=== PATIENT | female | born 1965 | race Caucasian/White ===

== ENCOUNTER 2018-03-26 10:18 | Outpatient (RCR) | payer OTHER, SELFPAY ==
[2018-03-19 10:34] LABS: International Normalized Ratio 3.1; Prothrombin Time (Protime)PT. 31.8 SECONDS (11.7-14.9)
[2018-03-26 11:00] LABS: Prothrombin Time (Protime)PT. 41.2 SECONDS (11.7-14.9)
[2018-03-26 11:46] LABS: International Normalized Ratio 4.2
== END 2018-03-27 23:59 ==
LOC: LAB.FUTURE 10:18
PROVIDERS: Family Provider Family Medicine; PCP Family Medicine; Referring Provider Internal Medicine Cardiovascular Disease; Visit Provider Internal Medicine Cardiovascular Disease
DX: Z95.2 Presence of prosthetic heart valve (principal)
CPT/HCPCS: 36415; 85610

== ENCOUNTER 2018-04-23 10:21 | Outpatient (RCR) | payer OTHER, SELFPAY ==
[2018-04-09 12:09] LABS: International Normalized Ratio 4.3; Prothrombin Time (Protime)PT. 41.3 SECONDS (11.7-14.9)
[2018-04-16 12:57] LABS: International Normalized Ratio 1.8; Prothrombin Time (Protime)PT. 21.2 SECONDS (11.7-14.9)
[2018-04-23 12:25] LABS: International Normalized Ratio 3.1; Prothrombin Time (Protime)PT. 32.2 SECONDS (11.7-14.9)
== END 2018-04-26 23:59 ==
LOC: LAB.FUTURE 10:21
PROVIDERS: Family Provider Family Medicine; PCP Family Medicine; Referring Provider Internal Medicine Cardiovascular Disease; Visit Provider Internal Medicine Cardiovascular Disease
DX: Z95.2 Presence of prosthetic heart valve (principal)
CPT/HCPCS: 36415; 85610

== ENCOUNTER 2018-04-30 10:14 | Outpatient (RCR) | payer OTHER, SELFPAY ==
[2018-04-30 12:35] LABS: International Normalized Ratio 3.3; Prothrombin Time (Protime)PT. 33.5 SECONDS (11.7-14.9)
== END 2018-04-30 11:00 | disposition home or self-care (01) ==
LOC: MTLAB 10:14
PROVIDERS: Family Provider Family Medicine; PCP Family Medicine; Referring Provider Internal Medicine Cardiovascular Disease; Visit Provider Internal Medicine Cardiovascular Disease
DX: Z95.2 Presence of prosthetic heart valve (principal)
CPT/HCPCS: 36415; 85610

== ENCOUNTER → 2018-08-30 12:31 | Outpatient (CLI) | payer OTHER, SELFPAY ==
[2018-08-13 10:53] VITALS: BMI 22.1
--- NOTE | 2018-08-30 12:34 | STE_ITS ---
Reason For Study: CAD Stress Results Protocol: Dobutamine Stress Echo Maximum Predicted HR: 166 bpm Target HR: 141 bpm % Maximum Predicted HR: 86 % DurationHeart Rate Stage (mm:ss) (bpm) BP Comment Baseline 75 114/70No Chest Pain DSE 10 MCG 3:00 76 107/73No Chest Pain DSE 20 MCG 3:00 94 113/76No Chest Pain DSE 30 MCG 3:00 120 164/51No Chest Pain DSE 40 MCG 3:52 142 143/89Atropine 0.5 MG IVP; No Chest Pain Recovery 95 123/77No Chest Pain Stress Duration: 12:52 mm:ss Maximum Stress HR: 142 bpm METS: 1 Baseline Echocardiogram Findings The estimated ejection fraction is 55 %. Stress Echo Wall motion Data Resting WM Intermediate WM Stress WM Resting Wall Motion Wall Motion Stress No regional wall motion No regional wall motion abnormalities noted. abnormalities noted. EKG Data The baseline ECG displays normal sinus rhythm. The patient was titrated from 10 mcg to a maximum of 40 mcg of dobutamine during the stress. The maximum heart rate attained was 144 beats per minute. This was 86% of maximum predicted heart rate. At peak infusion, upsloping ST changes only were noted, which did not meet the criteria for ischemia. No clinical angina was noted. No arrhythmias noted. Doppler Measurements & Calculations Ao V2 max: 309.2 cm/sec Ao max P.2 mmHg Ao V2 mean: 221.9 cm/sec Ao mean P.4 mmHg Ao V2 VTI: 60.7 cm Interpretation Summary The estimated ejection fraction is 55 %. Normal, adequate, dobutamine echocardiogram. Negative for ischemia by EKG and echocardiographic criteria. No anginal symptoms noted. No arrhythmias noted. Appropriate blood pressure response to dobutamine. Final LVEF is 75%. Test terminated due to attainment of target heart rate. No complications. Ordering Physician: Justino Redd Referring Physician: Zion Herrmann Performed By: Evangelina Tan, HOLLY, RVT
== END ==
PROVIDERS: Family Provider Family Medicine; PCP Family Medicine; Referring Provider Internal Medicine Cardiovascular Disease; Visit Provider Internal Medicine Cardiovascular Disease
DX: I25.10 Atherosclerotic heart disease of native coronary artery without angina pectoris (principal); Z95.1 Presence of aortocoronary bypass graft; Z86.79 Personal history of other diseases of the circulatory system
CPT/HCPCS: 93017; 93350; J7040; A4216

== ENCOUNTER → 2019-04-21 09:46 | Outpatient (CLI) | payer OTHER, SELFPAY ==
[2019-04-18 16:55] VITALS: BMI 21.9
[2019-04-21 12:01] LABS: Absolute Lymphocyte Count 1.54 X10^3/uL (0.83-4.51); Absolute Neutrophil Count 1.8 X10^3/uL (2.0-7.7); Basophil# 0.03 X10^3/uL; Basophil% 0.8 % (0-1); Eosinophil# 0.16 X10^3/uL; Eosinophils% 4.2 % (0-5); Hematocrit 45.6 % (37-47); Lymphocyte # 1.54 X10^3/ul (4.0); Lymphocyte % 40.1 % (19-41); Mean Corp Hgb Conc 30.7 g/dL (32-36); Mean Corpuscular Hgb 26.6 pg (27.0-32.0); Mean Corpuscular Volume 86.7 fL (81-99); Monocyte# 0.27 X10^3/uL; NRBC Flagged by Analyzer 0 % (0-5); Neutrophil # 1.83 X10^3/uL (2.7-7.7); Neutrophil % 47.6 % (47-70); Platelet Count 275 K/mm3 (150-450); RBC Distribution Width CV 14.4 % (11.6-14.6); RBC Distribution Width SD 45.1 fl (35.1-43.9); Red Blood Count 5.26 M/mm3 (4.2-5.4); White Blood Count 3.8 K/mm3 (4.4-11.0)
[2019-04-21 12:29] LABS: ALB/GLOB Ratio 1.1 RATIO (0.9-2.4); AST(SGOT) 19 U/L (15-37); Alanine Aminotransfer ALT/SGPT 37 U/L (13-56); Albumin, Serum 3.6 g/dL (3.2-5.0); Alkaline Phosphatase 51 U/L (45-117); Anion Gap 7 (5-15); BUN 28 mg/dL (7-18); BUN/Creat Ratio 28.9 RATIO (10-20); Calcium,Total 8.9 mg/dL (8.5-10.1); Chloride 108 mmol/L (98-107); Creatinine, Serum 0.97 mg/dL (0.55-1.02); EST Glomerular Filtration Rate 63 mL/min (>60); Est Glom Filt Rate - Afr Amer 77 mL/min (>60); Globulin 3.2 g/dL (2.2-4.2); Glucose 90 mg/dL (74-106); Potassium 4.7 mmol/L (3.5-5.1); Protein, Total 6.8 g/dL (6.4-8.2); Sodium Level 139 mmol/L (136-145); T4 Free Direct 0.88 ng/dL (0.76-1.46); Thyroid Stim Hormone (TSH) 2.71 uIU/mL (0.358-3.74)
== END ==
PROVIDERS: Family Provider Family Medicine; PCP Internal Medicine; Visit Provider Internal Medicine
DX: F32.9 Major depressive disorder, single episode, unspecified (principal); F41.9 Anxiety disorder, unspecified
CPT/HCPCS: 36415; 80053; 84439; 84443; 85025

== ENCOUNTER → 2019-05-07 08:44 | Outpatient (CLI) | payer OTHER, SELFPAY ==
[2019-03-27 10:21] VITALS: BMI 21.9
[2019-04-18 16:55] VITALS: BMI 21.9
--- NOTE | 2019-05-07 08:48 | ECHOD_ITS ---
Reason For Study: VALVE REPLACEMENT EVAL Procedure This was a 2D Doppler, Color Flow transthoracic echocardiogram. Exam performed in department. Left Ventricle Normal size and thickness. The estimated ejection fraction is 65 %. Stage 1 diastolic dysfunction. No regional wall motion abnormalities noted. Right Ventricle Mildly dilated right ventricle. Normal systolic function. Atria Normal left atrium. Normal right atrium. Normal atrial septum. Mitral Valve Mild diffuse mitral valve thickening. Mild mitral annular calcification extending into the posterior leaflet. Tricuspid Valve Normal tricuspid valve. Trivial tricuspid valve insufficiency. Right ventricular systolic pressure estimated to be 25 mmHg. Aortic Valve Peak aortic valve gradient 51 mmHg. Mean aortic valve gradient 26 mmHg. Calculated aortic valve area (continuity equation) is 1.3 cm2. Stable appearing bioprosthetic aortic valve apparatus. Pulmonic Valve Normal pulmonic valve. Great Vessels Normal aortic root. Mild atherosclerosis of the aortic arch. Normal inferior vena cava. Inferior vena cava collapse with sniff. Pericardium/Pleural No pericardial effusion. MMode/2D Measurements & Calculations LVIDd: 3.3 cm IVSd: 1.1 cm LVOT diam: 2.0 cm LVIDs: 2.2 cm LVPWd: 1.1 cm LVOT area: 3.3 cm2 RVDd: 3.8 cm FS: 32.6 % Ao root diam: 2.5 cm LAV(MOD-bp): 39.9 ml LVAd ap4: 28.8 cm2 LAV(MOD-bp) Indexed: 24.9 ml/m2 EDV(MOD-sp4): 94.8 ml LAV(MOD-sp2): 37.2 ml EDV(sp4-el): 97.9 ml LAV(MOD-sp4): 40.1 ml LVAs ap4: 15.9 cm2 ESV(MOD-sp4): 35.4 ml ESV(sp4-el): 36.5 ml EF(MOD-sp4): 62.7 % EF(sp4-el): 62.7 % SV(MOD-sp4): 59.4 ml SV(sp4-el): 61.3 ml LA A4 area: 15.7 cm2 LA dimension(2D): 3.9 cm RA A4 area: 15.9 cm2 Time Measurements MV dec time: 0.26 sec Doppler Measurements & Calculations MV E max danilo: 86.9 cm/sec Lat Peak E' Danilo: 10.2 cm/sec Med Peak E' Danilo: 6.6 cm/sec MV A max danilo: 98.8 cm/sec E/E' lat: 8.5 E/E' med: 13.2 MV E/A: 0.88 Ao V2 max: 326.7 cm/sec LV V1 max: 116.4 cm/sec SV(LVOT): 80.0 ml Ao max P.1 mmHg LV V1 max P.4 mmHg Ao V2 mean: 228.2 cm/sec LV V1 mean P.1 mmHg Ao mean P.9 mmHg LV V1 mean: 83.8 cm/sec Ao V2 VTI: 60.6 cm LV V1 VTI: 24.4 cm MATHEW(I,D): 1.3 cm2 MATHEW(V,D): 1.2 cm2 PA V2 max: 87.7 cm/sec TR max danilo: 221.5 cm/sec TR max P.6 mmHg Interpretation Summary The estimated ejection fraction is 65 %. Stage 1 diastolic dysfunction. Mildly dilated right ventricle. Trivial tricuspid valve insufficiency. Right ventricular systolic pressure estimated to be 25 mmHg. Stable appearing bioprosthetic aortic valve apparatus with moderate residual aortic stenosis, most likely due to small LVOT. No evidence of intrinsic valvular stenosis. Peak aortic valve gradient 51 mmHg. Mean aortic valve gradient 26 mmHg. Calculated aortic valve area (continuity equation) is 1.3 cm2. There is no comparison study available. Ordering Physician: Justino Redd Referring Physician: KELLY COSBY Performed By: Cindy De La Cruz RDCS
== END ==
PROVIDERS: Family Provider Internal Medicine; PCP Internal Medicine; Referring Provider Internal Medicine Cardiovascular Disease; Visit Provider Internal Medicine Cardiovascular Disease
DX: Z86.79 Personal history of other diseases of the circulatory system (principal); Z95.1 Presence of aortocoronary bypass graft; Z95.2 Presence of prosthetic heart valve
CPT/HCPCS: 93306

== ENCOUNTER 2019-05-26 06:59 | Day surgery (SDC) | payer OTHER, SELFPAY ==
[2019-05-15 09:11] VITALS: BMI 21.9
[2019-05-26] VITALS (7 sets, daily range): BP systolic 94–139; BP diastolic 73–91; PULSE 78–88; RESP 16; TEMP 36.4–37; O2SAT 97–100; BMI 21.7
--- NOTE | 2019-05-26 07:04 | HP.PCM_ITS ---
History and Physical Date of Admission: 05/26/19 Date of Service: 05/15/19 MR#: [id number] Acct: [id number] Name: AUBREY COCHRAN Rep #: [id number] : 1965 Provider: Olivia barragan MD Age/Sex: 53/F Location: [facility] Status: Signed Intake Vital Signs 05/15/19 BMI 21.9 05/15/19 Height 5 ft 4 in 05/15/19 Weight: 129 lb 05/15/19 BMI 22.1 05/15/19 BP 119/75 05/15/19 Blood Pressure Location Rt brachial 05/15/19 Position Sitting 05/15/19 Respiration 18 05/15/19 Pulse 92 05/15/19 Pulse Source Monitor 05/15/19 Temp 98.2 F 05/15/19 Temp Source Oral 05/15/19 Pulse Oximetry (%) 100 05/15/19 Oxygen Delivery Method room air Intake Visit Reasons: cscope, coumadin, mechanical heart valve Chief Complaint: c-scope Copy Center Associate Required: No Is patient in pain?: No Allergies lisinopril Allergy (Severe, Verified 05/22/19 12:06) Angioedema Quinolones Allergy (Severe, Verified 05/22/19 12:06) Tequin:Severe rash all over cat dander Allergy (Intermediate, Verified 05/22/19 12:06) Congestion/respiratory gatifloxacin Allergy (Intermediate, Verified 05/22/19 12:06) rash lamotrigine Allergy (Intermediate, Verified 05/22/19 12:06) Facial rash ketorolac [From Toradol] Adverse Reaction (Severe, Verified 05/22/19 12:06) Shortness of breath methadone Adverse Reaction (Severe, Verified 05/22/19 12:06) Syncope/dizziness ranitidine [From Zantac] Adverse Reaction (Severe, Verified 05/22/19 12:06) Drug Induced Hepatitis regadenoson [From Lexiscan] Adverse Reaction (Severe, Verified 05/22/19 12:06) Shortness of breath celecoxib [From Celebrex] Adverse Reaction (Intermediate, Verified 05/22/19 12:06) tachycardia pregabalin [From Lyrica] Adverse Reaction (Intermediate, Verified 05/22/19 12:06) Ataxia,dizziness sumatriptan [From Imitrex] Adverse Reaction (Intermediate, Verified 05/22/19 12:06) Palpitations: injectable form epinephrine Adverse Reaction (Unknown, Verified 05/22/19 12:06) Unknown fexofenadine Adverse Reaction (Unknown, Verified 05/22/19 12:06) unknown seasonal allergies Allergy (Intermediate, Uncoded 05/22/19 12:06) Congestion/respiratory Medications amiloride 5 mg tablet 5 mg PO DAILY 08/09/18 [History Confirmed 05/22/19] baclofen 10 mg tablet 10 mg PO TID 08/09/18 [History Confirmed 05/22/19] bupropion HCl 200 mg tablet,12 hr sustained-release 200 mg PO BID 08/09/18 [History Confirmed 05/22/19] promethazine 25 mg tablet 25 mg PO Q6H PRN 08/09/18 [History Confirmed 05/22/19] topiramate 100 mg tablet 100 mg PO BID 08/09/18 [History Confirmed 05/22/19] trazodone 100 mg tablet 100 mg PO QHS 08/09/18 [History Confirmed 05/22/19] valacyclovir 1 gram tablet 2,000 mg PO Q12H PRN tab 08/09/18 [History Confirmed 05/22/19] aspirin 81 mg tablet,delayed release 81 mg PO DAILY 08/13/18 [History Confirmed 05/22/19] biotin 500 mcg capsule 0.5 mg PO DAILY cap 08/13/18 [History Confirmed 05/22/19] multivitamin 1 tab PO DAILY 08/13/18 [History Confirmed 05/22/19] nitroglycerin 0.4 mg sublingual tablet 0.4 mg SUBLINGUAL Q5-15M PRN 08/13/18 [History Confirmed 05/22/19] omega-3 fatty acids 1,000 mg capsule 1,000 mg PO TID cap 08/13/18 [History Confirmed 05/22/19] pravastatin 80 mg tablet 80 mg PO QHS #90 tab 01/06/19 [Rx Confirmed 05/22/19] furosemide 20 mg tablet 20 mg PO BID #180 tab 02/07/19 [Rx Confirmed 05/22/19] potassium chloride 20 mEq tablet,extended release 40 meq PO TID #540 tab 02/28/19 [Rx Confirmed 05/22/19] omeprazole magnesium 20 mg tablet,delayed release 20 mg PO DAILY PRN 03/27/19 [History Confirmed 05/22/19] sucralfate 1 gram tablet 1 g PO BID tab 03/27/19 [History Confirmed 05/22/19] warfarin 5 mg tablet 5 mg PO .COMPLEX #270 tab 04/01/19 [Rx Confirmed 05/22/19] ondansetron HCl 8 mg tablet 8 mg PO BID 04/04/19 [History Confirmed 05/22/19] chlorzoxazone 500 mg tablet 500 mg PO DAILY PRN tab 04/18/19 [History Confirmed 05/22/19] lactulose 20 gram/30 mL oral solution 20 g PO DAILY PRN ml 04/18/19 [History Confirmed 05/22/19] warfarin 2 mg tablet 2 mg PO .COMPLEX #180 tab 04/21/19 [Rx Confirmed 05/22/19] duloxetine 60 mg capsule,delayed release 60 mg PO DAILY #90 cap 05/14/19 [Rx Confirmed 05/22/19] gabapentin 800 mg tablet 1,200 mg PO DAILY tab 05/14/19 [History Confirmed 05/22/19] magnesium oxide 400 mg (241.3 mg magnesium) tablet 500 mg PO TID tab 05/14/19 [History Confirmed 05/22/19] heparin (porcine) 10,000 unit/mL injection solution 6,500 unit SC .COMPLEX #65 ml 05/16/19 [Rx Confirmed 05/22/19] Zolpidem Tartrate 5 mg PO QHS 05/22/19 [History Confirmed 05/22/19] ON LICENSE OF [facility] Medical History Anxiety and depression (Chronic) Pneumonia (Resolved) Neuropathy (Chronic) IBS (irritable bowel syndrome) (Chronic) Bleeding disorder (Chronic) Bone fracture (Resolved) Back problem (Chronic) Atrial fibrillation (Chronic) Seasonal allergies (Chronic) Iron deficiency anemia (Chronic) Complex regional pain syndrome type 2 of lower extremity (Chronic) Major depression (Chronic) Anxiety (Chronic) Osteoarthritis (Chronic) Reflux esophagitis (Chronic) Migraine (Chronic) Insomnia (Chronic) Chronic pain (Chronic) Constipation (Chronic) Shingles (Chronic) RSD (reflex sympathetic dystrophy) (Chronic) nursing home current use of anticoagulant (Chronic) Obstructive sleep apnea (Chronic) Hyperlipidemia (Chronic) Hypertension (Chronic) Hepatitis (Acute) Hypokalemia (Chronic) Surgical History History of aortic dissection (Chronic 1989) History of coronary artery bypass graft x 2 (Chronic 1990) Status post mechanical aortic valve replacement (Chronic 1989) Family History Father , Age 64 CAD (coronary artery disease) Lung cancer Cancer of larynx Mother CAD (coronary artery disease) Diabetes Social History (Updated 05/23/19 @ 14:10 by Olivia Bailey MD) Smoking Status: Never smoker alcohol intake: never substance use type: does not use what type of physical activity do you participate in: none HPI HPI HPI: AUBREY COCHRAN, is a 53 F who presents to the office today for HPI HPI Surgical H&P: Yes HPI: AUBREY COCHRAN, is a 53 F who presents to the office today for screening colonoscopy. Patient is on large doses of Coumadin 16 and 20 mg daily for her mechanical valve. Patient has never had a colonoscopy denies any family history of colon cancer. Patient states she has bowel movements daily denies any blood. Patient typically is bridged to heparin from the Coumadin for any procedures. Patient does state that if she does have symptoms of heartburn she will take the Prilosec [id number] for the 2-week dose and this may happen maybe once a month. Patient states she in the past she has had an EGD by Dr. Marion. Patient is also on 20 mg of Lasix twice daily as well as potassium 80 mEq daily. ROS General General: Yes fatigue; no weight change, appetite, colon cancer, breast cancer or weakness HEENT HEENT: Yes difficulty swallowing; no eye injury, eye surgery, swollen glands or hoarseness Endo Endocrine: No thyroid disease, diabetes mellitus, thyroid cancer, Hair loss, heat intolerance or cold intolerance Skin Skin: No rash or changing moles Breast Breast: No left breast lump, right breast lump, nipple discharge, breast pain, abnormal mammogram, abnormal US or breast enlargement Musc Musculoskeletal: Yes back problems and arthritis; no rheumatoid arthritis, gout or joint pain Cardio Cardiovascular: Yes murmur and heart disease; no pacemaker, atrial fibrillation, high blood pressure, heart attack, heart stent, palpitations, shortness of breat with exertion or chest pain Psych Psychiatric: Yes depression and anxiety; no hearing voices Resp Respiratory: Yes shortness of breath, Yes sleep apnea, No cough, No COPD, No asthma, No emphysema, No wheezing Gastro Gastrointestinal: No abdominal pain, Yes nausea or vomiting, Yes diarrhea, No constipation, No blood in stool, Yes acid reflux, Yes hemorrhoids, No ulcers, Yes gallbladder problem, No black,tarry stools Additional Details: Pancreatitis Drug induced hepatitis Toan Hematologic: Yes blood thinners, No blood disorders, No bleeding, No anemia, No blood clots Neuro Neurologic: No system reviewed and no additional complaints, except as docu, No as per HPI, No abnormal walking, No abnormal hearing, No abnormal movements, No abnormal speech, No behavioral changes, No burning sensations, No confusion, No seizure-like activity, No unsteadiness, No dizziness, No localized weakness, No frequent falls, No headache(s), No lack of coordination, No loss of vision, No memory loss, Yes numbness, No other visual disturbances, No radiating pain, No restless legs, No sensory deficit, No fainting, Yes tingling, No tremor(s), No weakness, No other Exam Const General: cooperative, comfortable, no acute distress Chest Breast Palpation: No nipple discharge Resp Effort & Inspection: normal respiratory effort Cardio Rate: regular rate Heart Sounds: murmur GI Inspection: non-distended Palpation: soft, no guarding, nontender Assessment & Plan Problems 1. Screening for colon cancer Z12.11 2. Mechanical heart valve present Z95.2 Plan Did offer the patient an EGD at the same time due to patient's reflux however states she only takes the Prilosec [id number] for 2 weeks when she notices her heartburn which only happens about once a month so patient would like to defer currently. We will coordinate with cardiology to bridge patient to heparin and will likely hold patient's Lasix during the prep but continue some of the potassium. Due to patient's mechanical valve will also give her ampicillin 2 g IV x1 within 30 minutes of the procedure. I have discussed the above with the patient. I have offered the patient colonoscopy for evaluation. I have explained the risks/benefits of the procedure and described the procedure. I have discussed the risks with the patient, including but not limited to: infection, bleeding, perforation of the GI tract requiring emergency surgery, inability to complete the procedure, injury to any internal organs, complications of anesthesia, etc. - the patient understands and agrees to proceed. I have answered all the patient's questions to the patient's satisfaction and the patient has no further questions. The patient has been given instructions for the colon cleansing preparation. One day of clears, MiraLAX Dulcolax split prep. Olivia Bailey M.D. Pager: [phone] [facility] [address] [place] [address], [address] [place] [address] Office: [phone] Plan Detail Follow Up We will schedule colonoscopy Coding Level of Care Code Off vis,new,level 3 Diagnoses Screening for colon cancer Z12.11 Mechanical heart valve present Z95.2 05/23/19 1410 <Electronically signed by Olivia Akbar am, MD> Date _ Olivia Bailey MD
[2019-05-26 07:23] LABS: Potassium 3.6 mmol/L (3.5-5.1)
[2019-05-26] MEDS: Lactated Ringers 1,000 ML 100 ML IV (07:36)
--- NOTE | 2019-05-26 08:46 | OP.COLON_ITS ---
Patient Name: Natalie Harper Procedure Date: 05/26/2019 7:53 AM Date of : 1965 Age: 53 Procedure: Colonoscopy Indications: Screening for colorectal malignant neoplasm Providers: Olivia Bailey MD Referring MD: Castro Quintana MD Medicines: Monitored Anesthesia Care Patient Profile: This is a 53 year old female. Last Colonoscopy: none. The patient's first colonoscopy is today. Complications: No immediate complications. Procedure: Pre-Anesthesia Assessment: - Prior to the procedure, a History and Physical was performed, and patient medications and allergies were reviewed. The patient's tolerance of previous anesthesia was also reviewed. The risks and benefits of the procedure and the sedation options and risks were discussed with the patient. All questions were answered, and informed consent was obtained. Prior Anticoagulants: The patient has taken Coumadin (warfarin), last dose was 5 days prior to procedure. ASA Grade Assessment: III - A patient with severe systemic disease. After reviewing the risks and benefits, the patient was deemed in satisfactory condition to undergo the procedure. After I obtained informed consent, the scope was passed under direct vision. Throughout the procedure, the patient's blood pressure, pulse, and oxygen saturations were monitored continuously. The pediatric colonoscope was introduced through the anus and advanced to the ascending colon. The colonoscopy was performed without difficulty. The patient tolerated the procedure well. The quality of the bowel preparation was inadequate. Scope In: 8:02:02 AM Scope Withdrawal Time 0 hours 20 minutes 23 seconds Scope Out: 8:36:45 AM Total Procedure Duration Time 0 hours 34 minutes 43 seconds Findings: Hemorrhoids were found on perianal exam. Semi-liquid stool was found in the cecum, precluding visualization. Lavage of the area was performed using copious amounts of normal saline, resulting in incomplete clearance with continued poor visualization. Pt had fibrous debris throughout the colon that would clog the scope and thick/fibrous debris in the cecum unable to clear, suctioned 3 L of fluid from colon including about 1 L of irrigation. Impression: - Preparation of the colon was inadequate. - Hemorrhoids found on perianal exam. - Stool in the cecum. - No specimens collected. Recommendation: - Discharge patient to home. - Resume previous diet. - Repeat colonoscopy at appointment to be scheduled because the bowel preparation was poor. - Continue present medications. Procedure Code(s): --- Professional --- G0121, 52,PT, Colorectal cancer screening; colonoscopy on individual not meeting criteria for high risk CPT copyright 2017 [employer]. All rights reserved. The codes documented in this report are preliminary and upon musical instrument maker review may be revised to meet current compliance requirements. MD Olivia Brito MD 05/26/2019 8:46:00 AM This report has been signed electronically. Number of Addenda: 0 Note Initiated On: 05/26/2019 7:53 AM
== END 2019-05-26 09:30 | disposition home or self-care (01) ==
LOC: EN 06:59 → AC 07:00
PROVIDERS: Family Provider Internal Medicine; PCP Internal Medicine; Referring Provider Internal Medicine; Visit Provider Surgery
PROC: 0DJD8ZZ Inspection of Lower Intestinal Tract, Via Natural or Artificial Opening Endoscopic (ICD-10-PCS; CPT 45378; principal; 2019-05-26 07:55)
DX: Z12.11 Encounter for screening for malignant neoplasm of colon (principal); K64.9 Unspecified hemorrhoids; K21.9 Gastro-esophageal reflux disease without esophagitis; K58.9 Irritable bowel syndrome, unspecified; I48.20 Chronic atrial fibrillation, unspecified; I10 Essential (primary) hypertension; E78.5 Hyperlipidemia, unspecified; D50.9 Iron deficiency anemia, unspecified; M19.90 Unspecified osteoarthritis, unspecified site; G89.29 Other chronic pain; G47.33 Obstructive sleep apnea (adult) (pediatric); F32.9 Major depressive disorder, single episode, unspecified; F41.9 Anxiety disorder, unspecified; Z78.0 Asymptomatic menopausal state; Z88.8 Allergy status to other drugs, medicaments and biological substances; Z88.6 Allergy status to analgesic agent; Z79.82 Long term (current) use of aspirin; Z79.01 Long term (current) use of anticoagulants; Z79.899 Other long term (current) drug therapy; Z95.1 Presence of aortocoronary bypass graft; Z95.2 Presence of prosthetic heart valve
CPT/HCPCS: 45378; 36415; 84132; J7120

== ENCOUNTER → 2019-06-03 08:04 | Outpatient (CLI) | payer OTHER, SELFPAY ==
[2019-05-26 07:22] VITALS: BMI 21.7
--- NOTE | 2019-06-03 08:24 | BI_ITS ---
MAMMOGRAPHY - BILATERAL SCREENING REASON FOR EXAM: Female, 53 years old. Routine annual screening examination. PERTINENT HISTORY: Non-contributory. TECHNIQUE: Digital bilateral breast ilene (3D mammographic acquisition) in the CC and MLO projections. 2-D mediolateral oblique (MLO) and craniocaudad (CC) views of both breasts were obtained. CAD: Full Field Digital Mammography with Computer Added Detection was performed. COMPARISON: Comparison is made with prior outside examination dated January 21, 2016. FINDINGS: Breast Composition: There are scattered areas of fibroglandular density. There are no dominant masses or suspicious calcifications. No other significant abnormalities are identified. There has been no significant change since the prior study. BI/SCREEN MAMM (CAD) W/ILENE BILAT IMPRESSION: Stable bilateral screening mammogram. Yearly follow-up mammogram recommended. (A) ASSESSMENT CATEGORY: BIRADS Category 1: Negative. A letter regarding these results will be sent to the patient by the facility within 30 days. Approximately 10% of breast cancers are not detected by mammography. A normal mammogram should not delay biopsy of a clinically suspicious abnormality. [id number] Electronically Signed: Mesfin Fairbanks, at 14:01 EST , Service support ,
== END ==
PROVIDERS: Family Provider Internal Medicine; PCP Internal Medicine; Referring Provider Internal Medicine; Visit Provider Internal Medicine
DX: Z12.31 Encounter for screening mammogram for malignant neoplasm of breast (principal)
CPT/HCPCS: 77063; 77067

== ENCOUNTER → 2019-11-04 08:43 | Outpatient (CLI) | payer OTHER, SELFPAY ==
[2019-09-17 10:33] VITALS: BMI 21.7
[2019-10-09 09:42] VITALS: BMI 21.4
--- NOTE | 2019-11-04 08:55 | BD_ITS ---
STUDY: DUAL ENERGY X-RAY ABSORPTIOMETRY / DXA REASON FOR EXAM: Female, 54 years old. 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 COMPARISON: None. FINDINGS: Lumbar Spine (L1-L4): g/cm2 (1.275) / T-score (0.9) / Z-score (1.7) Findings are suggestive of normal bone density with a low fracture risk. Left Femur Total: g/cm2 (0.794) / T-score (-1.7) / Z-score (-1.0) Left Femoral Neck: g/cm2 (0.715) / T-score (-2.3) / Z-score (-1.3) Right Femur Total: g/cm2 (0.766) / T-score (-1.9) / Z-score (-1.3) Right Femoral Neck: g/cm2 (0.752) / T-score (-2.1) / Z-score (is 1.0) BD/Dexa Bone Density Study IMPRESSION: The patient is considered osteopenic as outlined below according to World Lul Organization (WHO) criteria with a high fracture risk. Reference Information: The T-score is the number of standard deviations above or below the standard which is normal for young adults at their peak bone mineral density. The World Health Organization (WHO) interprets the T-scores as follows: Above -1 Normal bone density Between -1 and -2.5 Osteopenia Equal to / or below -2.5 Osteoporosis As a practical clinical guideline, osteopenia may be graded as follows: Mild -1 through -1.5 Moderate -1.6 through -2.0 Severe -2.1 through -2.4 The Z-score is the number of standard deviations above or below age-matched controls. A Z-score of less than -1.5 would be considered abnormal. References: 1. NIH Osteoporosis and Related Bone Diseases http://www.osteo.org 2. International Society for Clinical Densitometry http://www.iscd.org 3. National Osteoporosis Foundation http://www.nof.org Electronically Signed: Mesfin Fairbanks, at 11:19 EDT , Service support ,
== END ==
PROVIDERS: PCP Internal Medicine; Referring Provider Internal Medicine; Visit Provider Internal Medicine
DX: Z00.00 Encounter for general adult medical examination without abnormal findings (principal)
CPT/HCPCS: 77080

== ENCOUNTER → 2019-11-06 09:34 | Outpatient (CLI) | payer OTHER, SELFPAY ==
[2019-10-09 09:42] VITALS: BMI 21.4
--- NOTE | 2019-11-06 09:41 | STE_ITS ---
Reason For Study: S/P CABG Stress Results Protocol: Dobutamine Stress Echo With Definity Maximum Predicted HR: 165 bpm Target HR: 140 bpm % Maximum Predicted HR: 84 % DurationHeart Rate Stage (mm:ss) (bpm) BP Dose BASELINE 89 119/91 STAGE 1 3:00 93 125/7810.00 STAGE 2 3:00 111 155/8120.00 STAGE 3 3:00 125 / 30.00 STAGE 4 3:00 139 148/8240.00 RECOVERY 100 132/92 Stress Duration: 12:00 mm:ss Maximum Stress HR: 139 bpm Baseline Echocardiogram Findings The estimated ejection fraction is 65 %. Stress Echo Wall motion Data Resting WM Intermediate WM Stress WM Resting Wall Motion Wall Motion Stress No regional wall motion No regional wall motion abnormalities noted. abnormalities noted. EKG Data The baseline ECG displays normal sinus rhythm. The patient was titrated from 10 mcg to a maximum of 40 mcg of dobutamine during the stress. The maximum heart rate attained was 139 beats per minute. This was 84% of maximum predicted heart rate. During dobutamine infusion, there were no ST or T wave changes noted to suggest ischemia. No clinical angina was noted. No arrhythmias noted. Interpretation Summary The estimated ejection fraction is 65 %. Normal, adequate, dobutamine echocardiogram. Negative for ischemia by EKG and echocardiographic criteria. No anginal symptoms noted. No arrhythmias noted. Appropriate blood pressure response to dobutamine. Test terminated due to attainment of target heart rate. Final LVEF of 75%. No complications. Ordering Physician: Mahsa Redd Referring Physician: MAHSA REDD Performed By: Lisa Erwin, RICHCS, RVT
[2019-11-06 10:13] LABS: AST(SGOT) 24 U/L (15-37); Alanine Aminotransfer ALT/SGPT 49 U/L (13-56); Albumin, Serum 3.7 g/dL (3.2-5.0); Alkaline Phosphatase 68 U/L (45-117); Bilirubin, Direct 0.09 mg/dL (0.00-0.30); Cholesterol 247 mg/dL (200); Globulin 3.6 g/dL (2.2-4.2); High Density Lipoprotein 81 mg/dL; Protein, Total 7.3 g/dL (6.4-8.2); Triglycerides 96 mg/dL; Very Low Density Lipoprotein 19 mg/dL (5-40)
== END ==
PROVIDERS: PCP Internal Medicine; Referring Provider Internal Medicine; Visit Provider Internal Medicine Cardiovascular Disease
DX: E78.5 Hyperlipidemia, unspecified (principal); G47.33 Obstructive sleep apnea (adult) (pediatric); I10 Essential (primary) hypertension; I48.91 Unspecified atrial fibrillation; Z95.1 Presence of aortocoronary bypass graft; Z95.2 Presence of prosthetic heart valve
CPT/HCPCS: 36415; 80061; 80076; 93017; 93350; J7040; A4216

== ENCOUNTER → 2019-11-11 10:53 | Outpatient (CLI) | payer OTHER, SELFPAY ==
[2019-10-09 09:42] VITALS: BMI 21.4
--- NOTE | 2019-11-11 11:27 | RAD_ITS ---
STUDY: X-RAY - RIGHT FOOT CLINICAL: Female, 54 years old. Right foot pain mostly the 1st and 2nd toes and mt, dorsal and plantar -- several falls since July TECHNIQUE: 3 view(s) of the foot. COMPARISON: None. FINDINGS: Normal talus, calcaneus, and tarsal bones. Normal visualized subtalar, talonavicular, calcaneocuboid, tarsal and tarsometatarsal articulations. Normal metatarsi. There is degenerative arthrosis of the metatarsophalangeal joint of the hallux . Normal tibial and fibular sesamoid bones. Normal interphalangeal joint of the great toe. Normal phalanges of the great toe. Normal second through fifth metatarsophalangeal joints. Normal interphalangeal joints and phalanges of the lesser toes. The soft tissue structures are unremarkable. 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 Electronically Signed: Mesfin Fairbanks, at 15:39 EDT , Service support ,
== END ==
PROVIDERS: PCP Internal Medicine; Referring Provider Internal Medicine; Visit Provider Internal Medicine
DX: M79.671 Pain in right foot (principal); M79.674 Pain in right toe(s)
CPT/HCPCS: 73630

== ENCOUNTER → 2020-01-09 12:42 | Outpatient (CLI) | payer OTHER, SELFPAY ==
[2019-12-17 12:39] VITALS: BMI 21.4
[2020-01-09 15:33] LABS: AST(SGOT) 24 U/L (15-37); Alanine Aminotransfer ALT/SGPT 50 U/L (13-56); Albumin, Serum 3.7 g/dL (3.2-5.0); Alkaline Phosphatase 57 U/L (45-117); Bilirubin, Direct 0.11 mg/dL (0.00-0.30); Cholesterol 174 mg/dL (200); Globulin 3.2 g/dL (2.2-4.2); High Density Lipoprotein 76 mg/dL; Protein, Total 6.9 g/dL (6.4-8.2); Triglycerides 89 mg/dL; Very Low Density Lipoprotein 18 mg/dL (5-40)
== END ==
PROVIDERS: PCP Internal Medicine; Referring Provider Internal Medicine Cardiovascular Disease; Visit Provider Internal Medicine Cardiovascular Disease
DX: E78.5 Hyperlipidemia, unspecified (principal)
CPT/HCPCS: 36415; 80061; 80076

== ENCOUNTER → 2020-04-01 15:21 | Outpatient (CLI) | payer OTHER, SELFPAY ==
[2020-04-01 14:28] VITALS: BMI 21.4
[2020-04-01 17:21] LABS: Absolute Lymphocyte Count 1.58 X10^3/uL (0.83-4.51); Absolute Neutrophil Count 2.1 X10^3/uL (2.0-7.7); Basophil# 0.03 X10^3/uL; Basophil% 0.7 % (0-1); Eosinophils% 4.8 % (0-5); Hematocrit 40.5 % (37-47); Hemoglobin 12.8 g/dL (12.0-15.0); Lymphocyte # 1.58 X10^3/ul (4.0); Lymphocyte % 37.6 % (19-41); Mean Corp Hgb Conc 31.6 g/dL (32-36); Mean Corpuscular Hgb 29.1 pg (27.0-32.0); Mean Platelet Vol. 10.2 fl (6.2-12.0); Monocyte# 0.33 X10^3/uL; Monocyte% 7.9 % (0-10); NRBC Flagged by Analyzer 0 % (0-5); Neutrophil # 2.05 X10^3/uL (2.7-7.7); Neutrophil % 48.8 % (47-70); Platelet Count 218 K/mm3 (150-450); RBC Distribution Width CV 13.2 % (11.6-14.6); RBC Distribution Width SD 44.6 fl (35.1-43.9); White Blood Count 4.2 K/mm3 (4.4-11.0)
[2020-04-01 17:34] LABS: Anion Gap 4 (5-15); BUN 24 mg/dL (7-18); BUN/Creat Ratio 22.6 RATIO (10-20); Chloride 112 mmol/L (98-107); Creatinine, Serum 1.06 mg/dL (0.55-1.02); EST Glomerular Filtration Rate 57 mL/min (>60); Est Glom Filt Rate - Afr Amer 69 mL/min (>60); Glucose 76 mg/dL (74-106); Magnesium 2.5 mg/dL (1.6-2.6); Potassium 4.4 mmol/L (3.5-5.1); Sodium Level 142 mmol/L (136-145)
== END ==
PROVIDERS: PCP Internal Medicine; Referring Provider Internal Medicine; Visit Provider Internal Medicine
DX: I48.91 Unspecified atrial fibrillation (principal); E83.42 Hypomagnesemia; I10 Essential (primary) hypertension
CPT/HCPCS: 36415; 80048; 83735; 85025

== ENCOUNTER → 2020-06-14 08:09 | Outpatient (CLI) | payer OTHER, SELFPAY ==
[2020-04-01 14:28] VITALS: BMI 21.4
[2020-05-26 12:00] VITALS: BMI 21.8
--- NOTE | 2020-06-14 08:11 | BI_ITS ---
MAMMOGRAPHY - BILATERAL SCREENING REASON FOR EXAM: Female, 54 years old. Routine annual screening examination. PERTINENT HISTORY: Non-contributory. TECHNIQUE: Digital bilateral breast ilene (3D mammographic acquisition) in the CC and MLO projections. 2-D mediolateral oblique (MLO) and craniocaudad (CC) views of both breasts were obtained. CAD: Full Field Digital Mammography with Computer Added Detection was performed. COMPARISON: Comparison is made with prior study dated 06/03/2019. FINDINGS: Breast Composition: There are scattered areas of fibroglandular density. There are no dominant masses or suspicious calcifications. No other significant abnormalities are identified. There has been no significant change since the prior study. BI/SCRN MAMM (CAD)W/ILENE BILAT IMPRESSION: Stable bilateral screening mammogram. Yearly follow-up mammogram recommended. (A) ASSESSMENT CATEGORY: BIRADS Category 1: Negative. A letter regarding these results will be sent to the patient by the facility within 30 days. Approximately 10% of breast cancers are not detected by mammography. A normal mammogram should not delay biopsy of a clinically suspicious abnormality. [id number] Electronically Signed: Mesfin Fairbanks MD at 9:00 EST , Service support ,
== END ==
PROVIDERS: PCP Internal Medicine; Referring Provider Internal Medicine; Visit Provider Nurse Practitioner Family
DX: Z12.31 Encounter for screening mammogram for malignant neoplasm of breast (principal)
CPT/HCPCS: 77063; 77067

== ENCOUNTER → 2020-06-21 13:55 | Outpatient (CLI) | payer OTHER, SELFPAY ==
[2020-06-21 15:14] LABS: Absolute Lymphocyte Count 1.61 X10^3/uL (0.83-4.51); Absolute Neutrophil Count 3.4 X10^3/uL (2.0-7.7); Basophil# 0.03 X10^3/uL; Basophil% 0.5 % (0-1); Eosinophil# 0.18 X10^3/uL; Eosinophils% 3.2 % (0-5); Hemoglobin 15.7 g/dL (12.0-15.0); Lymphocyte # 1.61 X10^3/ul (4.0); Lymphocyte % 28.6 % (19-41); Mean Corp Hgb Conc 32.7 g/dL (32-36); Mean Corpuscular Hgb 28.4 pg (27.0-32.0); Mean Platelet Vol. 10.1 fl (6.2-12.0); Monocyte# 0.38 X10^3/uL; Monocyte% 6.8 % (0-10); NRBC Flagged by Analyzer 0 % (0-5); Neutrophil % 60.5 % (47-70); Platelet Count 297 K/mm3 (150-450); RBC Distribution Width SD 41.2 fl (35.1-43.9); Red Blood Count 5.52 M/mm3 (4.2-5.4); White Blood Count 5.6 K/mm3 (4.4-11.0)
[2020-06-21 16:10] LABS: ALB/GLOB Ratio 1.3 RATIO (0.9-2.4); AST(SGOT) 19 U/L (15-37); Alanine Aminotransfer ALT/SGPT 37 U/L (13-56); Albumin, Serum 4.3 g/dL (3.2-5.0); Alkaline Phosphatase 66 U/L (45-117); Anion Gap 8 (5-15); BUN 38 mg/dL (7-18); BUN/Creat Ratio 30.9 RATIO (10-20); Calcium,Total 9.3 mg/dL (8.5-10.1); Chloride 105 mmol/L (98-107); Creatinine, Serum 1.23 mg/dL (0.55-1.02); EST Glomerular Filtration Rate 48 mL/min (>60); Est Glom Filt Rate - Afr Amer 58 mL/min (>60); Globulin 3.4 g/dL (2.2-4.2); Glucose 100 mg/dL (74-106); Magnesium 2.2 mg/dL (1.6-2.6); Protein, Total 7.7 g/dL (6.4-8.2); Sodium Level 136 mmol/L (136-145)
== END ==
PROVIDERS: PCP Internal Medicine; Referring Provider Internal Medicine; Visit Provider Internal Medicine
DX: E78.5 Hyperlipidemia, unspecified (principal); I10 Essential (primary) hypertension; R50.9 Fever, unspecified
CPT/HCPCS: 36415; 80053; 83735; 85025; 87635; U0003

== ENCOUNTER → 2020-10-11 | Outpatient (CLI) | payer OTHER, SELFPAY ==
[2020-10-11 09:07] VITALS: BMI 20.7
[2020-10-11 11:08] LABS: Mucous, Urine 0 SEEN /hpf (<or=2+); Squamous Epithelial Cells - UA 0 SEEN /hpf (5-10)
[2020-10-11 12:18] LABS: Color, Urine Yellow (Yellow); Glucose, Dipstick Normal (Normal); Ketone-Dipstick Negative (Negative); Leukocyte Esterase-Dipstick 500 /ul (Negative); Nitrite-Dipstick Positive (Negative); Occult Blood-Urine 250 /ul (Negative); Protein-Dipstick 100 mg/dl (Negative); Urine Bilirubin Dipstick Negative (Negative); Urine Clarity Cloudy (Clear); Urine Urobilinogen Normal (Normal)
[2020-10-11 12:36] LABS: Bacteria 3+ /hpf (None Seen); Red Blood Cells-Urine 25-50 SEEN /hpf (0-5); White Blood Cells >100 SEEN /hpf (0-5)
== END | disposition home or self-care (01) ==
LOC: LABSPEC 11:06
PROVIDERS: PCP Internal Medicine; Referring Provider Physician Assistant; Visit Provider Physician Assistant
DX: R30.0 Dysuria (principal)
CPT/HCPCS: 81001; 87077; 87086; 87088; 87186

== ENCOUNTER → 2020-10-19 | Outpatient (CLI) | payer OTHER, SELFPAY ==
[2020-10-11 09:07] VITALS: BMI 20.7
[2020-10-19 10:36] LABS: Mucous, Urine 0 SEEN /hpf (<or=2+); Red Blood Cells-Urine 0 SEEN /hpf (0-5); Squamous Epithelial Cells - UA 0 SEEN /hpf (5-10)
[2020-10-19 12:09] LABS: Color, Urine Yellow (Yellow); Glucose, Dipstick Normal (Normal); Ketone-Dipstick Negative (Negative); Leukocyte Esterase-Dipstick 25 /ul (Negative); Nitrite-Dipstick Negative (Negative); Occult Blood-Urine Negative /ul (Negative); Protein-Dipstick Negative (Negative); Specific Gravity, Urine 1.015 (1.002-1.030); Urine Bilirubin Dipstick Negative (Negative); Urine Clarity Clear (Clear); Urine Urobilinogen Normal (Normal)
[2020-10-19 12:13] LABS: Bacteria RARE /hpf (None Seen); White Blood Cells 0-5 SEEN /hpf (0-5)
== END | disposition home or self-care (01) ==
LOC: LABSPEC 10:35
PROVIDERS: PCP Internal Medicine; Referring Provider Physician Assistant; Visit Provider Physician Assistant
DX: R31.9 Hematuria, unspecified (principal)
CPT/HCPCS: 81001

== ENCOUNTER 2020-11-21 18:55 | Emergency (ER) | payer OTHER, SELFPAY ==
[2020-10-11 09:07] VITALS: BMI 20.7
[2020-11-21 18:56] VITALS: BP 141/100; PULSE 103; RESP 16; TEMP 37.4; O2SAT 100; BMI 19.7
--- NOTE | 2020-11-21 19:09 | EDS_ITS ---
HPI History of Present Illness Chief Complaint: Wound Informant: patient Narrative Narrative: 6 days ago the patient received an abrasion to the webspace of her right hand in between the thumb and index finger by dog leash. She states that things looked well and she was doing local wound care. On Sunday she noticed some redness and some mild swelling. This progressed more today. She denies any drainage. She has had MRSA infections in the past. She also has an artificial valve and is on Coumadin. 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 Major depression Migraine Neuropathy Obstructive sleep apnea Osteoarthritis Pneumonia Reflux esophagitis RSD (reflex sympathetic dystrophy) Seasonal allergies Shingles Home Medications aspirin 81 mg tablet,delayed release 81 mg PO DAILY 08/13/18 [History Last Taken 05/21/19] biotin 500 mcg capsule 0.5 mg PO DAILY cap 08/13/18 [History Last Taken Unknown] multivitamin 1 tab PO DAILY 08/13/18 [History Last Taken Unknown] nitroglycerin 0.4 mg sublingual tablet 0.4 mg SUBLINGUAL Q5-15M PRN 08/13/18 [History Last Taken Unknown] omeprazole magnesium 20 mg tablet,delayed release 20 mg PO DAILY PRN 03/27/19 [History Last Taken Unknown] chlorzoxazone 500 mg tablet 500 mg PO DAILY PRN tab 04/18/19 [History Last Taken Unknown] lactulose 20 gram/30 mL oral solution 20 g PO DAILY PRN ml 04/18/19 [History Last Taken Unknown] magnesium oxide 400 mg (241.3 mg magnesium) tablet 500 mg PO TID tab 05/14/19 [History Last Taken Unknown] heparin (porcine) 10,000 unit/mL injection solution 6,500 unit SC .COMPLEX #65 ml 05/16/19 [Rx Last Taken Unknown] calcium carb 300 mg-D3 800 unit-mag ox 25 mg-copper plater 0.5 mg-nelson-Zn tablet 1 tab PO DAILY 12/17/19 [History Last Taken Unknown] diphenhydramine HCl 50 mg/mL injection syringe 25 mg IM QHS PRN #10 ml 12/17/19 [Rx Last Taken Unknown] valacyclovir 1 gram tablet 1,000 mg PO Q8H #21 tab 01/09/20 [Rx Last Taken Unknown] rosuvastatin 10 mg tablet 10 mg PO DAILY #90 tab 01/13/20 [Rx Last Taken Unknown] furosemide 20 mg tablet 20 mg PO BID #180 tab 01/23/20 [Rx Last Taken Unknown] potassium chloride 20 mEq tablet,extended release 40 meq PO TID #540 tab 03/19 [Rx Last Taken Unknown] warfarin 2 mg tablet 2 mg PO .COMPLEX #180 tab 04/28/20 [Rx Last Taken Unknown] warfarin 5 mg tablet 5 mg PO .COMPLEX #270 tab 04/28/20 [Rx Last Taken Unknown] bupropion HCl 200 mg tablet,12 hr sustained-release See Rx Instructions .ROUTE .COMPLEX #180 tablet 05/26/20 [Rx Last Taken Unknown] topiramate 100 mg tablet See Rx Instructions .ROUTE .COMPLEX #180 tab 05/26/20 [Rx Last Taken Unknown] trazodone 100 mg tablet See Rx Instructions .ROUTE .COMPLEX #90 tab 05/26/20 [Rx Last Taken Unknown] duloxetine 60 mg capsule,delayed release 60 mg PO DAILY #90 cap 06/10/20 [Rx Last Taken Unknown] melatonin 10 mg capsule 10 mg PO HS PRN 07/02/20 [History Last Taken Unknown] omega-3 fatty acids 1,000 mg capsule 1,000 mg PO DAILY cap 07/02/20 [History Last Taken Unknown] alendronate 70 mg tablet 70 mg PO QWEEK #20 tab 08/05/20 [Rx Last Taken Unknown] gabapentin 800 mg tablet 400 mg PO TID 90 Days #135 tablet 08/10/20 [Rx Last Taken Unknown] amiloride 5 mg tablet 5 mg PO DAILY #90 tab 08/17/20 [Rx Last Taken Unknown] cannabis PO 10/01/20 [History Last Taken Unknown] zolpidem 5 mg tablet 5 mg PO QHS PRN #10 tab 10/01/20 [Rx Last Taken Unknown] phenazopyridine 100 mg tablet 100 mg PO TID PRN #6 tab 10/11/20 [Rx Last Taken Unknown] promethazine 25 mg tablet 25 mg PO BID PRN tablet 10/11/20 [History Last Taken Unknown] cephalexin 500 mg capsule 500 mg PO Q12H #8 cap 10/14/20 [Rx Last Taken Unknown] sucralfate 1 gram tablet 1 g PO BID #180 tab 10/28/20 [Rx Last Taken Unknown] cephalexin 500 mg PO Q6 #40 capsule 11/21/20 [Rx Last Taken Unknown] sulfamethoxazole-trimethoprim 1 tab PO BID #20 tablet 11/21/20 [Rx Last Taken Unknown] Allergy/AdvReac Type Severity Reaction Status Date / Time lisinopril Allergy Severe Angioedema Verified 11/21/20 18:58 Quinolones Allergy Severe Verified 11/21/20 18:58 Tequin:Severe rash all over cat dander Allergy Intermediate Congestion/ Verified 11/21/20 18:58 respiratory gatifloxacin Allergy Intermediate rash Verified 11/21/20 18:58 lamotrigine Allergy Intermediate Facial Verified 11/21/20 18:58 rash ketorolac [From Toradol] AdvReac Severe Shortness Verified 11/21/20 18:58 of breath methadone AdvReac Severe Syncope/diz Verified 11/21/20 18:58 ziness ranitidine [From Zantac] AdvReac Severe Drug Verified 11/21/20 18:58 Induced Hepatitis regadenoson [From Lexiscan] AdvReac Severe Shortness Verified 11/21/20 18:58 of breath celecoxib [From Celebrex] AdvReac Intermediate tachycardia Verified 11/21/20 18:58 pregabalin [From Lyrica] AdvReac Intermediate Ataxia,dizz Verified 11/21/20 18:58 iness sumatriptan [From Imitrex] AdvReac Intermediate Palpitations: Verified 11/21/20 18:58 injectable form epinephrine AdvReac Unknown Unknown Verified 11/21/20 18:58 fexofenadine AdvReac Unknown unknown Verified 11/21/20 18:58 seasonal allergies Allergy Intermediate Congestion/ Uncoded 11/21/20 18:58 respiratory Family History Father , Age 64 CAD (coronary artery disease) Lung cancer Cancer of larynx Mother CAD (coronary artery disease) Diabetes Surgical History History of aortic dissection (1989) History of coronary artery bypass graft x 2 (1989) Status post mechanical aortic valve replacement (1989) Social History Smoking Status: Never smoker alcohol intake: never substance use type: does not use what type of physical activity do you participate in: none ROS ROS ED Constitutional Constitutional ED: Denies chills or weight loss Eyes Eyes: Denies change in vision or diplopia ENT ENT ED: Denies ear pain, rhinorrhea or sore throat Cardiovascular Cardiovascular: Denies chest pain, orthopnea, palpitations or racing heartbeat Respiratory/Chest Respiratory/Chest: Denies cough, dyspnea or orthopnea Gastrointestinal Gastrointestinal: Denies abdominal pain, diarrhea, nausea or vomiting Genitourinary Genitourinary ED: Denies dysuria, hematuria or urinary frequency Musculoskeletal Musculoskeletal: Denies arthralgias or myalgias Integumentary Reports rash; Denies abscess Neurologic Neurologic: Denies headache(s) or weakness Psychiatric Psychiatric: Denies anxiety, depression, suicidal ideation or suicidal thoughts Endocrine Endocrinology: Denies polydipsia, polyphagia or polyuria Allergic/Immunologic Allergic/Immunologic ED: Denies mouth swelling, tongue swelling or urticaria EXAM Physical Exam Const Vital Signs: 11/21/20 18:56 Temperature 99.3 F H Temperature Source Temporal Pulse Rate 103 H Respiratory Rate 16 Blood Pressure 141/100 H Blood Pressure Mean 113 Pulse Ox 100 Oxygen Delivery Method Room Air Positive well nourished and well developed General Appearance ED: well developed HEENT Reports normocephalic, head/scalp atraumatic and moist mucous membranes Eyes PERRL and EOMs intact bilaterally Neck no lymphadenopathy, supple and no JVD Resp normal respiratory effort and clear to auscultation bilaterally Cardio regular rate, regular rhythm and no murmurs GI normal to inspection, nondistended, normoactive bowel sounds and non-tender Palpation: soft Back/Spine no CVA tenderness and normal ROM Extremity General Extremety ED: Negative for edema General Extremity: Negative for edema Neuro oriented x3 and CN's II-XII intact bilaterally Sensorium / Orientation: alert Motor Exam: strength 5/5 throughout Psych mental status grossly normal Mood & Affect: Negative for depressed or tearful Skin no rashes or lesions noted and no wounds Skin Narrative: There is a superficial abrasion with granulation tissue present in between the webspace of the thumb and index finger of the right hand. There is some surrounding erythema that does not leave the webspace. MDM MDM MDM Narrative Medical decision making narrative: Patient will be placed on Keflex and Bactrim. Return if worsening or concerns. 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 Discharge Plan Triage Chief Complaint: Wound ED Provider: Justino Marion Dx/Rx/DC Orders Clinical Impression: Cellulitis of dorsum of hand Instructions: ED Cellulitis Prescriptions: New sulfamethoxazole-trimethoprim [sulfamethoxazole-trimethoprim] 1 TABLET tablet 1 tab PO BID Qty: 20 RF: 0 cephalexin [cephalexin] 500 MG capsule 500 mg PO Q6 Qty: 40 RF: 0 No Action multivitamin tablet 1 tab PO DAILY RF: 0 biotin 500 mcg capsule 500 mcg capsule 0.5 mg PO DAILY RF: 0 aspirin [Adult Aspirin Regimen] 81 mg tablet,delayed release (DR/EC) 81 mg PO DAILY RF: 0 nitroglycerin 0.4 mg tablet, sublingual 0.4 mg SUBLINGUAL Q5-15M PRN (Reason: cp) RF: 0 Prilosec OTC 20 mg tablet,delayed release (DR/EC) 20 mg PO DAILY PRN (Reason: Indigestion) RF: 0 chlorzoxazone 500 mg tablet 500 mg PO DAILY PRN (Reason: migraines) RF: 0 lactulose 20 gram/30 mL solution 20 g PO DAILY PRN (Reason: Constipation) RF: 0 magnesium oxide 400 mg (241.3 mg magnesium) tablet 500 mg PO TID RF: 0 omega-3 fatty acids [Fish Oil Concentrate] 1,000 mg capsule 1,000 mg PO DAILY RF: 0 Caltrate + D3 Plus Minerals 300 mg-800 unit -25 mg-0.5 mg tablet 1 tab PO DAILY RF: 0 diphenhydramine HCl 50 mg/mL syringe 25 mg IM QHS PRN (Reason: allergic reaction) Qty: 10 RF: 3 melatonin 10 mg capsule 10 mg PO HS PRNRF: 0 cannabis PO RF: 0 zolpidem 5 mg tablet 5 mg PO QHS PRN (Reason: insomnia) Qty: 10 RF: 0 promethazine 25 mg tablet 25 mg PO BID PRN (Reason: Nausea) RF: 0 phenazopyridine [Pyridium] 100 mg tablet 100 mg PO TID PRN (Reason: pain) Qty: 6 RF: 0 heparin (porcine) 10,000 unit/mL solution 6,500 unit SC .COMPLEX Qty: 65 RF: 2 valacyclovir 1 gram tablet 1,000 mg PO Q8H Qty: 21 RF: 0 rosuvastatin 10 mg tablet 10 mg PO DAILY Qty: 90 RF: 4 furosemide 20 mg tablet 20 mg PO BID Qty: 180 RF: 3 potassium chloride 20 mEq tablet extended release 40 meq PO TID Qty: 540 RF: 4 warfarin 5 mg tablet 5 mg PO .COMPLEX Qty: 270 RF: 3 warfarin 2 mg tablet 2 mg PO .COMPLEX Qty: 180 RF: 3 trazodone 100 mg tablet See Rx Instructions .ROUTE .COMPLEX Qty: 90 RF: 3 bupropion HCl 200 mg tablet sustained-release 12 hr See Rx Instructions .ROUTE .COMPLEX Qty: 180 RF: 3 topiramate 100 mg tablet See Rx Instructions .ROUTE .COMPLEX Qty: 180 RF: 3 duloxetine 60 mg capsule,delayed release(DR/EC) 60 mg PO DAILY Qty: 90 RF: 3 alendronate 70 mg tablet 70 mg PO QWEEK Qty: 20 RF: 2 gabapentin 800 mg tablet 400 mg PO TID 90 Days Qty: 135 RF: 1 amiloride 5 mg tablet 5 mg PO DAILY Qty: 90 RF: 4 cephalexin 500 mg capsule 500 mg PO Q12H Qty: 8 RF: 0 sucralfate 1 gram tablet 1 g PO BID Qty: 180 RF: 3 Primary Care Provider: Castro Quintana Referrals: Castro Quintana MD [Primary Care Provider] -
[2020-11-21] MEDS: Cephalexin 250 MG Capsule 500 MG PO (19:22)
[2020-11-21] MEDS: Smz/Tmp Ds Tablet 1 TABLET PO (19:22)
== END 2020-11-21 19:28 | disposition home or self-care (01) ==
LOC: ED 19:25
PROVIDERS: Emergency Provider Emergency Medicine; PCP Internal Medicine
DX: S60.511A Abrasion of right hand, initial encounter (principal); L03.113 Cellulitis of right upper limb; X58.XXXA Exposure to other specified factors, initial encounter; Y93.9 Activity, unspecified; Y92.9 Unspecified place or not applicable; I10 Essential (primary) hypertension; F41.9 Anxiety disorder, unspecified; F32.9 Major depressive disorder, single episode, unspecified; I48.91 Unspecified atrial fibrillation; E78.5 Hyperlipidemia, unspecified; K58.9 Irritable bowel syndrome, unspecified; G62.9 Polyneuropathy, unspecified; G47.33 Obstructive sleep apnea (adult) (pediatric); G89.29 Other chronic pain; E87.6 Hypokalemia; M19.90 Unspecified osteoarthritis, unspecified site; G43.909 Migraine, unspecified, not intractable, without status migrainosus; Z86.2 Personal history of diseases of the blood and blood-forming organs and certain disorders involving the immune mechanism; Z87.01 Personal history of pneumonia (recurrent); Z87.19 Personal history of other diseases of the digestive system; Z79.82 Long term (current) use of aspirin; Z79.01 Long term (current) use of anticoagulants; Z79.899 Other long term (current) drug therapy
CPT/HCPCS: 99282

== ENCOUNTER → 2020-12-31 10:24 | Outpatient (CLI) | payer OTHER, SELFPAY ==
[2020-12-31 09:55] VITALS: BMI 19.5
[2020-12-31 11:57] LABS: Absolute Lymphocyte Count 1.15 X10^3/uL (0.83-4.51); Basophil# 0.03 X10^3/uL; Basophil% 0.6 % (0-1); Eosinophil# 0.16 X10^3/uL; Eosinophils% 3.4 % (0-5); Hematocrit 44.9 % (37-47); Lymphocyte # 1.15 X10^3/ul (0.83-4.51); Lymphocyte % 24.7 % (19-41); Mean Corp Hgb Conc 31.2 g/dL (32-36); Mean Corpuscular Hgb 28.1 pg (27.0-32.0); Mean Corpuscular Volume 90.2 fL (81-99); Mean Platelet Vol. 10.3 fl (6.2-12.0); Monocyte# 0.29 X10^3/uL; Monocyte% 6.2 % (0-10); NRBC Flagged by Analyzer 0 % (0-5); Neutrophil # 3.02 X10^3/uL (2.7-7.7); Neutrophil % 64.9 % (47-70); Platelet Count 281 K/mm3 (150-450); RBC Distribution Width CV 14.4 % (11.6-14.6); RBC Distribution Width SD 47.7 fl (35.1-43.9); Red Blood Count 4.98 M/mm3 (4.2-5.4); White Blood Count 4.7 K/mm3 (4.4-11.0)
[2020-12-31 12:28] LABS: ALB/GLOB Ratio 1.1 RATIO (0.9-2.4); AST(SGOT) 23 U/L (15-37); Alanine Aminotransfer ALT/SGPT 40 U/L (13-56); Alkaline Phosphatase 62 U/L (45-117); Anion Gap 7 (5-15); BUN 23 mg/dL (7-18); BUN/Creat Ratio 22.8 RATIO (10-20); Calcium,Total 9.5 mg/dL (8.5-10.1); Chloride 108 mmol/L (98-107); Creatinine, Serum 1.01 mg/dL (0.55-1.02); EST Glomerular Filtration Rate 60 mL/min (>60); Est Glom Filt Rate - Afr Amer 73 mL/min (>60); Globulin 3.5 g/dL (2.2-4.2); Glucose 85 mg/dL (74-106); Potassium 4.2 mmol/L (3.5-5.1); Prealbumin 38.9 mg/dL (20.0-40.0); Protein, Total 7.5 g/dL (6.4-8.2); Sodium Level 141 mmol/L (136-145); T4 Free Direct 0.73 ng/dL (0.76-1.46); Thyroid Stim Hormone (TSH) 0.89 uIU/mL (0.358-3.74)
== END ==
PROVIDERS: PCP Internal Medicine; Referring Provider Internal Medicine; Visit Provider Internal Medicine
DX: R63.4 Abnormal weight loss (principal)
CPT/HCPCS: 36415; 80053; 84134; 84439; 84443; 85025

== ENCOUNTER → 2021-01-18 08:57 | Outpatient (CLI) | payer OTHER, SELFPAY ==
--- NOTE | 2021-01-18 08:58 | RAD_ITS ---
STUDY: X-RAY - RIGHT HAND, ATTENTION INDEX FINGER REASON FOR EXAM: Female, 55 years old. Right first digit injury TECHNIQUE: 3 view(s) of the finger were obtained. COMPARISON: None. FINDINGS: Normal metacarpal head. Normal metacarpophalangeal joint. Normal proximal phalanx. Normal middle phalanx. Normal distal phalanx. Normal proximal interphalangeal joint. Normal distal interphalangeal joint. RAD/Finger(s) Min 2 Views IMPRESSION: Normal x-ray examination of the finger. Electronically Signed: Mesfin Fairbanks MD at 9:59 EDT , Service support ,
== END ==
PROVIDERS: PCP Internal Medicine; Referring Provider Nurse Practitioner Family; Visit Provider Nurse Practitioner Family
DX: S69.91XA Unspecified injury of right wrist, hand and finger(s), initial encounter (principal)
CPT/HCPCS: 73140

== ENCOUNTER → 2021-03-31 10:01 | Outpatient (CLI) | payer OTHER, SELFPAY ==
--- NOTE | 2021-03-31 10:06 | ECHOD_ITS ---
Reason For Study: S/P AVR Procedure This was a 2D Doppler, Color Flow transthoracic echocardiogram. Exam performed in department. Left Ventricle Normal LV size. The estimated ejection fraction is 55 %. Unable to assess diastolic dysfunction. No regional wall motion abnormalities noted. Right Ventricle Normal RV size. Normal systolic function. Atria Normal left atrium. Normal right atrium. No doppler evidence for ASD. Mitral Valve There is no mitral valve stenosis. Trivial mitral valve insufficiency. Tricuspid Valve There is no tricuspid stenosis. Trivial tricuspid valve insufficiency. Pulmonary artery systolic pressure is 30 mmHg. Aortic Valve No aortic valve insufficiency. Prosthetic valve not very well visualied but appears to be seated well with no severe stenosis. Pulmonic Valve There is no pulmonic valvular stenosis. No pulmonic valve insufficiency. Great Vessels Normal aortic root. Pericardium/Pleural No pericardial effusion. MMode/2D Measurements & Calculations LVIDd: 4.0 cm IVSd: 0.88 cm LVOT diam: 1.6 cm LVIDs: 2.6 cm LVPWd: 0.91 cm LVOT area: 1.9 cm2 RVDd: 3.4 cm FS: 34.6 % Ao root diam: 2.3 cm LAV(MOD-bp): 36.7 ml LVAd ap4: 27.6 cm2 LAV(MOD-bp) Indexed: 25.0 ml/m2 LVLd ap4: 7.4 cm LAV(MOD-sp2): 34.0 ml EDV(MOD-sp4): 85.4 ml LAV(MOD-sp4): 34.7 ml EDV(sp4-el): 87.8 ml LVAs ap4: 15.6 cm2 LVLs ap4: 6.5 cm ESV(MOD-sp4): 32.6 ml ESV(sp4-el): 32.0 ml EF(MOD-sp4): 61.8 % EF(sp4-el): 63.5 % SV(MOD-sp4): 52.7 ml SV(sp4-el): 55.7 ml LA A4 area: 13.8 cm2 LA dimension(2D): 3.2 cm RA A4 area: 12.0 cm2 Time Measurements MV dec time: 0.28 sec Doppler Measurements & Calculations MV E max danilo: 93.3 cm/sec Lat Peak E' Danilo: 8.9 cm/sec Med Peak E' Danilo: 6.2 cm/sec MV A max danilo: 87.6 cm/sec E/E' lat: 10.5 E/E' med: 15.0 MV E/A: 1.1 Ao V2 max: 304.3 cm/sec LV V1 max: 102.4 cm/sec SV(LVOT): 44.6 ml Ao max P.0 mmHg LV V1 max P.2 mmHg Ao V2 mean: 219.3 cm/sec LV V1 mean P.2 mmHg Ao mean P.1 mmHg LV V1 mean: 69.8 cm/sec Ao V2 VTI: 65.4 cm LV V1 VTI: 23.5 cm MATHEW(I,D): 0.68 cm2 MATHEW(V,D): 0.64 cm2 PA V2 max: 66.9 cm/sec TR max danilo: 242.2 cm/sec TR max P.5 mmHg ECHO/Echo Complete Interpretation Summary The estimated ejection fraction is 55 %. Unable to assess diastolic dysfunction. Trivial mitral valve insufficiency. Ordering Physician: Daya Hampton Referring Physician: KELLY COSBY Performed By: Cindy De La Cruz RDCS
== END ==
PROVIDERS: PCP Internal Medicine; Referring Provider Specialist; Visit Provider Specialist
DX: Z95.2 Presence of prosthetic heart valve (principal); Z95.1 Presence of aortocoronary bypass graft
CPT/HCPCS: 93306

== ENCOUNTER 2021-06-23 12:16 | Outpatient (CLI) | payer OTHER, MEDICARE, SELFPAY ==
--- NOTE | 2021-06-23 12:19 | BI_ITS ---
MAMMOGRAPHY - BILATERAL SCREENING REASON FOR EXAM: Female, 55 years old. Routine annual screening examination. PERTINENT HISTORY: Non-contributory. TECHNIQUE: Digital bilateral breast ilene (3D mammographic acquisition) in the CC and MLO projections. 2-D mediolateral oblique (MLO) and craniocaudad (CC) views of both breasts were obtained. CAD: Full Field Digital Mammography with Computer Added Detection was performed. COMPARISON: Comparison is made with prior study dated 06/14/2020 and 06/03/2019. FINDINGS: Breast Composition: The breasts are heterogeneously dense, which may obscure small masses. There are no dominant masses or suspicious calcifications. No other significant abnormalities are identified. There has been no significant change since the prior study. BI/SCRN MAMM (CAD)W/ILENE BILAT IMPRESSION: Stable bilateral screening mammogram. Yearly follow-up mammogram recommended. (A) ASSESSMENT CATEGORY: BIRADS Category 1: Negative. A letter regarding these results will be sent to the patient by the facility within 30 days. Approximately 10% of breast cancers are not detected by mammography. A normal mammogram should not delay biopsy of a clinically suspicious abnormality. [id number] Electronically Signed: Mesfin Fairbanks MD at 13:14 EST ,
== END 2021-06-23 23:59 | disposition short-term general hospital (02) ==
LOC: OPBI 12:17
PROVIDERS: PCP Internal Medicine; Referring Provider Internal Medicine; Visit Provider Internal Medicine
DX: Z12.31 Encounter for screening mammogram for malignant neoplasm of breast (principal)
CPT/HCPCS: 77063; 77067

== ENCOUNTER 2021-07-05 10:41 | Outpatient (CLI) | payer OTHER, MEDICARE, SELFPAY ==
[2021-07-05 12:13] LABS: Absolute Lymphocyte Count 0.94 X10^3/uL (0.83-4.51); Absolute Neutrophil Count 2.9 X10^3/uL (2.0-7.7); Basophil# 0.03 X10^3/uL; Basophil% 0.7 % (0-1); Eosinophil# 0.04 X10^3/uL; Eosinophils% 0.9 % (0-5); Hematocrit 38.3 % (37-47); Hemoglobin 12.1 g/dL (12.0-15.0); Lymphocyte # 0.94 X10^3/ul (0.83-4.51); Mean Corp Hgb Conc 31.6 g/dL (32-36); Mean Corpuscular Hgb 27.9 pg (27.0-32.0); Mean Corpuscular Volume 88.5 fL (81-99); Mean Platelet Vol. 10.1 fl (6.2-12.0); Monocyte# 0.32 X10^3/uL; Monocyte% 7.5 % (0-10); NRBC Flagged by Analyzer 0 % (0-5); Neutrophil # 2.93 X10^3/uL (2.7-7.7); Neutrophil % 68.7 % (47-70); Platelet Count 259 K/mm3 (150-450); RBC Distribution Width CV 14.9 % (11.6-14.6); RBC Distribution Width SD 48.1 fl (35.1-43.9); Red Blood Count 4.33 M/mm3 (4.2-5.4); White Blood Count 4.3 K/mm3 (4.4-11.0)
[2021-07-05 13:35] LABS: ALB/GLOB Ratio 1.1 RATIO (0.9-2.4); AST(SGOT) 28 U/L (15-37); Alanine Aminotransfer ALT/SGPT 44 U/L (13-56); Albumin, Serum 3.7 g/dL (3.2-5.0); Alkaline Phosphatase 61 U/L (45-117); Anion Gap 8 (5-15); BUN 26 mg/dL (7-18); BUN/Creat Ratio 29.5 RATIO (10-20); Bilirubin, Direct 0.11 mg/dL (0.00-0.30); Calcium,Total 9.3 mg/dL (8.5-10.1); Chloride 108 mmol/L (98-107); Cholesterol 170 mg/dL (200); Creatinine, Serum 0.88 mg/dL (0.55-1.02); EST Glomerular Filtration Rate 70 mL/min (>60); Est Glom Filt Rate - Afr Amer 85 mL/min (>60); Globulin 3.3 g/dL (2.2-4.2); Glucose 104 mg/dL (74-106); High Density Lipoprotein 78 mg/dL; Potassium 4.5 mmol/L (3.5-5.1); Sodium Level 138 mmol/L (136-145); Triglycerides 61 mg/dL; Very Low Density Lipoprotein 12 mg/dL (5-40)
== END 2021-07-05 23:59 | disposition home or self-care (01) ==
LOC: BIMLAB 10:44
PROVIDERS: PCP Internal Medicine; Referring Provider Internal Medicine; Visit Provider Internal Medicine
DX: I10 Essential (primary) hypertension (principal); E78.5 Hyperlipidemia, unspecified
CPT/HCPCS: 80053; 80061; 82248; 85025

== ENCOUNTER → 2022-01-05 | Outpatient (CLI) | payer MEDICARE, SELFPAY ==
[2022-01-05 15:02] LABS: Absolute Lymphocyte Count 1.13 X10^3/uL (0.83-4.51); Basophil# 0.02 X10^3/uL; Basophil% 0.4 % (0-1); Eosinophil# 0.08 X10^3/uL; Eosinophils% 1.7 % (0-5); Hematocrit 44.4 % (37-47); Hemoglobin 13.8 g/dL (12.0-15.0); Lymphocyte # 1.13 X10^3/ul (0.83-4.51); Lymphocyte % 24.7 % (19-41); Mean Corp Hgb Conc 31.1 g/dL (32-36); Mean Corpuscular Hgb 27.2 pg (27.0-32.0); Mean Corpuscular Volume 87.6 fL (81-99); Mean Platelet Vol. 10.3 fl (6.2-12.0); Monocyte% 6.6 % (0-10); NRBC Flagged by Analyzer 0 % (0-5); Neutrophil # 3.04 X10^3/uL (2.7-7.7); Neutrophil % 66.4 % (47-70); Platelet Count 257 K/mm3 (150-450); RBC Distribution Width CV 14.4 % (11.6-14.6); RBC Distribution Width SD 46.1 fl (35.1-43.9); Red Blood Count 5.07 M/mm3 (4.2-5.4); White Blood Count 4.6 K/mm3 (4.4-11.0)
[2022-01-05 15:12] LABS: Anion Gap 5 (5-15); BUN 37 mg/dL (7-18); BUN/Creat Ratio 37.8 RATIO (10-20); Calcium,Total 9.6 mg/dL (8.5-10.1); Chloride 103 mmol/L (98-107); Creatinine, Serum 0.98 mg/dL (0.55-1.02); EST Glomerular Filtration Rate 62 mL/min (>60); Est Glom Filt Rate - Afr Amer 75 mL/min (>60); Glucose 92 mg/dL (74-106); Potassium 4.1 mmol/L (3.5-5.1); Sodium Level 139 mmol/L (136-145)
[2022-01-05 15:18] LABS: Vitamin D,25 Hydroxy 56.6 ng/mL
== END | disposition home or self-care (01) ==
LOC: BIMLAB 13:38
PROVIDERS: PCP Internal Medicine; Referring Provider Internal Medicine; Visit Provider Internal Medicine
DX: I10 Essential (primary) hypertension (principal); E78.5 Hyperlipidemia, unspecified; M85.80 Other specified disorders of bone density and structure, unspecified site
CPT/HCPCS: 36415; 80048; 82306; 85025

== ENCOUNTER → 2022-01-12 | Outpatient (CLI) | payer MEDICARE, SELFPAY ==
--- NOTE | 2022-01-12 10:58 | BD_ITS ---
STUDY: DUAL ENERGY X-RAY ABSORPTIOMETRY / DXA REASON FOR EXAM: Female, 56 years old. Osteopenia with high fracture risk TECHNIQUE: Bone Mineral Density (BMD) measurements of lumbar spine and right hip were obtained. COMPARISON: Comparison is made with prior study dated 11/04/2019. FINDINGS: Lumbar Spine (L1-L4): g/cm2 (1.133) / T-score (0.9) / Z-score (2.1) Findings are suggestive of normal bone density with a low fracture risk. Right Femur Total: g/cm2 (0.682) / T-score (-2.1) / Z-score (-1.3) Right Femoral Neck: g/cm2 (0.594) / T-score (-2.3) / Z-score (-1.1) The T-Scores on the most recent prior examination were: Lumbar Spine (L1-L4): There has been improvement of bone density since the previous examination. Right Femur Total: which represents a worsening of 3.5%. BD/Dexa Bone Density Study IMPRESSION: The patient is considered osteopenic as outlined below according to World Lul Organization (WHO) criteria with a high fracture risk. There has been worsening of bone density since the previous examination. Reference Information: The T-score is the number of standard deviations above or below the standard which is normal for young adults at their peak bone mineral density. The World Health Organization (WHO) interprets the T-scores as follows: Above -1 Normal bone density Between -1 and -2.5 Osteopenia Equal to / or below -2.5 Osteoporosis As a practical clinical guideline, osteopenia may be graded as follows: Mild -1 through -1.5 Moderate -1.6 through -2.0 Severe -2.1 through -2.4 The Z-score is the number of standard deviations above or below age-matched controls. A Z-score of less than -1.5 would be considered abnormal. References: 1. NIH Osteoporosis and Related Bone Diseases www osteo.org 2. International Society for Clinical Densitometry www iscd.org 3. National Osteoporosis Foundation www nof.org Electronically Signed: Mesfin Fairbanks MD at 12:51 EDT ,
== END | disposition home or self-care (01) ==
PROVIDERS: PCP Internal Medicine; Visit Provider Internal Medicine
DX: M85.89 Other specified disorders of bone density and structure, multiple sites (principal)
CPT/HCPCS: 77080

== ENCOUNTER 2022-01-23 09:00 | Outpatient (RCR) | payer MEDICARE, MEDICAID, SELFPAY ==
[2022-01-16 08:57] VITALS: BP 149/96; PULSE 98; TEMP 36.2; BMI 18.1
--- NOTE | 2022-01-16 11:52 | PCM.WC.HP ---
History of Present Illness Date of Service: 01/16/22 Chief Complaint: Non healing ulcers on right anterior leg, right medial knee and right ventral arm History of Wound: Patient is a 56 year old female who fell off her deck in early November and bumped her right anterior leg. Then a week later her dog scratched her right medial knee. Three weeks ago her dog's tooth bumped her right ventral arm and broke skin. She was treated with Augmentin for her right arm wound and it helped improve all her wounds. She has been placing Aquaphore on these areas. 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 Today she denies fever, chills, nausea and vomiting. She states that her appetite is good. Progress of Wound: Right anterior distal leg ulcer, right medial knee ulcer and right ventral arm wound are pink, superficial, with dry scabbing present. [facility] Medical History (Reviewed 01/16/22 @ 12:47 by Lidia Robledo BUSINESS OFFICE TECHNOLOGY INSTRUCTOR, BUSINESS OFFICE TECHNOLOGY INSTRUCTOR-C) Anxiety Anxiety and depression Atrial fibrillation Back problem Bleeding disorder Bone fracture Chronic nausea Chronic pain Complex regional pain syndrome type 2 of lower extremity Constipation COVID-19 vaccine series completed Fall Flu vaccine need Hepatitis Hyperlipidemia Hypertension Hypokalemia IBS (irritable bowel syndrome) Injury of finger of right hand Insomnia Iron deficiency anemia [facility] current use of anticoagulant Low body mass index (BMI) Major depression Migraine Neuropathy Obstructive sleep apnea Open wound of right lower extremity Osteoarthritis Osteopenia with high risk of fracture Pneumonia Preventative health care Reflux esophagitis Right anterior shoulder pain RSD (reflex sympathetic dystrophy) Seasonal allergies Shingles Weight loss, non-intentional Home Medications aspirin 81 mg tablet,delayed release (Adult Aspirin Regimen) 81 mg PO DAILY 08/13/18 [History Last Taken 05/21/19] biotin 500 mcg capsule 0.5 mg PO DAILY 08/13/18 [History Last Taken Unknown] multivitamin 1 tab PO DAILY 08/13/18 [History Last Taken Unknown] omeprazole magnesium 20 mg tablet,delayed release (Prilosec OTC) 20 mg PO DAILY PRN Indigestion 03/27/19 [History Last Taken Unknown] chlorzoxazone 500 mg tablet 500 mg PO DAILY PRN migraines 04/18/19 [History Last Taken Unknown] magnesium oxide 400 mg (241.3 mg magnesium) tablet 500 mg PO TID 05/14/19 [History Last Taken Unknown] calcium carb 300 mg-D3 800 unit-mag ox 25 mg-copy messenger 0.5 mg-nelson-Zn tablet (Caltrate + D3 Plus Minerals) 1 tab PO DAILY 12/17/19 [History Last Taken Unknown] melatonin 10 mg capsule 10 mg PO HS PRN Allergic Symptoms 07/02/20 [History Last Taken Unknown] omega-3 fatty acids 1,000 mg capsule (Fish Oil Concentrate) 1,000 mg PO DAILY 07/02/20 [History Last Taken Unknown] cannabis PO 10/01/20 [History Last Taken Unknown] promethazine 25 mg tablet 25 mg PO DAILY PRN Nausea #30 tabs 01/18/21 [Rx Last Taken Unknown] nitroglycerin 0.4 mg sublingual tablet 0.4 mg sublingual Q5-15M PRN cp #25 tabs 06/28/21 [Rx Last Taken Unknown] valacyclovir 1 gram tablet 1,000 mg PO Q8H PRN Cold Sores 07/04/21 [History Last Taken Unknown] heparin (porcine) 10,000 unit/mL injection solution 6,500 unit (0.65 mL) subcut .COMPLEX mechanical aortic valve #65 mL 08/09/21 [Rx Last Taken Unknown] zolpidem 5 mg tablet 5 mg PO QHS PRN insomnia #20 tabs 10/03/21 [Rx Last Taken Unknown] alendronate 70 mg tablet 70 mg PO QWEEK #20 tabs 11/02/21 [Rx Last Taken Unknown] amiloride 5 mg tablet 5 mg PO DAILY diuertic #90 tabs 11/02/21 [Rx Last Taken Unknown] furosemide 20 mg tablet 20 mg PO BID #180 tabs 11/02/21 [Rx Last Taken Unknown] potassium chloride 20 mEq tablet,extended release 40 meq PO TID #540 tabs 11/02/21 [Rx Last Taken Unknown] rosuvastatin 10 mg tablet 10 mg PO DAILY #90 tabs 11/02/21 [Rx Last Taken Unknown] bupropion HCl 200 mg tablet,12 hr sustained-release 200 mg PO BID #180 tabs 11/03/21 [Rx Last Taken Unknown] diphenhydramine HCl 50 mg/mL injection syringe 25 mg (0.5 mL) IM QHS PRN allergic reaction #10 mL 11/03/21 [Rx Last Taken Unknown] duloxetine 60 mg capsule,delayed release 60 mg PO DAILY #90 caps 11/03/21 [Rx Last Taken Unknown] gabapentin 800 mg tablet 400 mg PO TID 90 days #135 tabs 11/03/21 [Rx Last Taken Unknown] ondansetron 8 mg disintegrating tablet 8 mg PO Q12H PRN nausea and vomiting #30 tabs 11/03/21 [Rx Last Taken Unknown] warfarin 5 mg tablet 10 mg PO .COMPLEX #180 tabs 11/03/21 [Rx Last Taken Unknown] warfarin 1 mg tablet See Rx Instructions PO DAILY #180 tabs 11/07/21 [Rx Last Taken Unknown] sucralfate 1 gram tablet 1 g PO BID #180 tabs 12/01/21 [Rx Last Taken Unknown] topiramate 100 mg tablet See Rx Instructions .Route .COMPLEX #180 tabs 12/01/21 [Rx Last Taken Unknown] trazodone 100 mg tablet See Rx Instructions .Route .COMPLEX #90 tabs 12/01/21 [Rx Last Taken Unknown] amoxicillin 875 mg-potassium clavulanate 125 mg tablet 1 tab PO .COMPLEX #20 tabs 12/30/21 [Rx Last Taken Unknown] Allergy/AdvReac Type Severity Reaction Status Date / Time lisinopril Allergy Severe Angioedema Verified 01/05/22 13:07 Quinolones Allergy Severe Verified 01/05/22 13:07 Tequin:Severe rash all over cat dander Allergy Intermediate Congestion/ Verified 01/05/22 13:07 respiratory Environmental Allergies: Allergy Intermediate Other Verified 01/05/22 13:07 Uncoded [seasonal] gatifloxacin Allergy Intermediate rash Verified 01/05/22 13:07 lamotrigine Allergy Intermediate Facial Verified 01/05/22 13:07 rash ketorolac [From Toradol] AdvReac Severe Shortness Verified 01/05/22 13:07 of breath methadone AdvReac Severe Syncope/diz Verified 01/05/22 13:07 ziness ranitidine [From Zantac] AdvReac Severe Drug Verified 01/05/22 13:07 Induced Hepatitis regadenoson [From Lexiscan] AdvReac Severe Shortness Verified 01/05/22 13:07 of breath celecoxib [From Celebrex] AdvReac Intermediate tachycardia Verified 01/05/22 13:07 pregabalin [From Lyrica] AdvReac Intermediate Ataxia,dizz Verified 01/05/22 13:07 dion sumatriptan [From Imitrex] AdvReac Intermediate Palpitations: Verified 01/05/22 13:07 injectable form epinephrine AdvReac Unknown Unknown Verified 01/05/22 13:07 fexofenadine AdvReac Unknown unknown Verified 01/05/22 13:07 Family History (Reviewed 01/16/22 @ 12:47 by Lidia Robledo BUSINESS OFFICE TECHNOLOGY INSTRUCTOR, BUSINESS OFFICE TECHNOLOGY INSTRUCTOR-C) Father , Age 64 CAD (coronary artery disease) Lung cancer Cancer of larynx Mother CAD (coronary artery disease) Diabetes Surgical History (Reviewed 01/16/22 @ 12:47 by Lidia Robledo BUSINESS OFFICE TECHNOLOGY INSTRUCTOR, BUSINESS OFFICE TECHNOLOGY INSTRUCTOR-C) History of aortic dissection (1989) History of coronary artery bypass graft x 2 (1989) Status post mechanical aortic valve replacement (1989) Social History Smoking Status: Never smoker alcohol intake: never substance use type: does not use what type of physical activity do you participate in: none ROS Constitutional Constitutional: Denies chills, fever(s) or frequent falls Eyes Eyes: Reports none ENT HEENT: Reports systems reviewed and no addt'l complaints, except as documented Cardiovascular Cardiovascular: Reports as per HPI Respiratory/Chest Respiratory/Chest: Reports as per HPI Gastrointestinal Gastrointestinal: Reports as per HPI and heartburn Genitourinary Genitourinary: Reports none Musculoskeletal Musculoskeletal: Reports as per HPI Integumentary Integumentary: Reports skin ulcer and wounds Neurologic Neurologic: Reports as per HPI Psychiatric Psychiatric: Reports anxiety and depression Endocrine Endocrinology: Reports systems reviewed and no addt'l complaints, except as documented Vital Signs Vital Signs Vital Signs: 01/16/22 08:57 Temperature 97.2 F L Temperature Source Temporal Pulse Rate 98 Blood Pressure 149/96 H Blood Pressure Mean 113 Blood Pressure Source Monitor Weight Weight: 106 lb Body Mass Index (BMI) 18.1 Physical Exam Const alert, oriented x3 and no apparent distress General Appearance: cooperative HEENT normocephalic Resp normal respiratory effort, normal air movement and clear to auscultation bilaterally Cardio regular rate and regular rhythm GI normal to inspection, nondistended, normoactive bowel sounds, soft to palpation and non-tender Extremity full ROM and normal capillary refill Skin Wound Narrative: Ulcer of right anterior distal leg, right medial knee and wound of right ventral arm. They are small, superficial and pink in color. Neuro oriented x3 Sensorium / Orientation: awake and alert Psych thought process normal and cooperative Debridement Note Debridement Note Wound debrided: anterior leg ulcer Laterality: Right Wound Grade/Stage: Stage II Type of Debridement: Excisional debridement Anesthesia Used: 5% Lidocaine Gel Depth: Down to and including healthy tissue and in the subcutaneous layer Percentage of wound debrided: 100 Instrument Used: 3mm curette Tissue Removed: Devitalized tissue and slough Severity: Fat Layer Exposed Amount of bleeding with debridement: Mild Bleeding Controlled with: Compression and gauze Patient tolerated procedure: Patient tolerated procedure well Post-Debridement Measurements and Additional Note: Post-Debridement Measurements/Treatment - Nurse 1 - General Ulcer Assessment Start: 01/16/22 08:57 Freq: Status: Active Protocol: ANA PAULA Activity Type Activity Date Activity User E-sign Co-sign Detail Recorded Client Recorded Date Recorded By Document 01/16/22 08:57 PETER [id number] 01/16/22 09:12 PETER 01/16/22 08:57 - Today's Visit Information Type of service Initial Visit Arrival Mode Ambulatory Patient Identification Verified (Name & Yes ) Patient Requires Transmission-Based No Precautions Safety Precautions NA Height and Weight Height 5 ft 4 in Weight 106 lb Weight in Pounds 106.0 lbs Body Mass Index (BMI) 18.1 BMI Classification Underweight BSA - Gerda 1.49 Vital Signs Temperature (97.8 F-99.1 F) 97.2 F L Temperature Source Temporal Pulse Rate (60-100) 98 Pulse Location Monitor Blood Pressure (90/60-120/80) 149/96 H Blood Pressure Mean 113 Source Monitor History Since Last Visit- (Skip if this is Patient's initial visit) Left Footwear Regular Shoe Right Footwear Regular Shoe Pain Scale: 0-10 Numeric Is Patient Pain Free? Yes - Nurse 1 - General Ulcer Measurement Start: 01/16/22 08:57 Freq: Status: Active Protocol: Activity Type Activity Date Activity User E-sign Co-sign Detail Recorded Client Recorded Date Recorded By Document 01/16/22 08:57 PETER [id number] 01/16/22 09:12 AK 01/16/22 08:57 Wound Center Nurse 1 #3 R martinez -Combined with other wound No -Current Size (cm) - Length 0.3 -Current Size (cm) - Width 0.2 -Current Size (cm) - Depth 0.1 -Total Square Cm 0.06 -Date of Last Picture (Recall this 01/16/22 field) -Photo Taken Yes -Tunneling No -Undermining/Tunneling No -Circular Undermining No -Change in Wound Grade/Stage No -Exudate Amt None Present -Wound Margin Distinct, Outline Attached -Granulation Amt Small (1-33%) -Granulation Quality N/A -Slough/Fibrin Yes -Necrosis Amt Medium (34-66%) -Necrotic Tissue Type Adherent Slough -Structure Exposed N/A -Texture (Kelly-wound Skin Appearance) Assessed, Scarring -Moisture (Kelly-wound Skin Appearance) No Abnormality, Assessed -Color (Kelly-wound Skin Appearance) No Abnormality, Assessed -Temperature (Kelly-wound Skin No Abnormality Appearance) (Pt Warm) -Tenderness on Palpation (Kelly-wound No Skin Appearance) -Ulcer Cleansing Rinsed/ Irrigated with Saline -Foul Odor after Cleansing No -Anesthetic Used 5% Lidocaine Gel #2 R dorsal forearm -Combined with other wound No -Current Size (cm) - Length 0.4 -Current Size (cm) - Width 0.2 -Current Size (cm) - Depth 0.1 -Total Square Cm 0.08 -Photo Taken Yes -Tunneling No -Undermining/Tunneling No -Circular Undermining No -Change in Wound Grade/Stage No -Exudate Amt Medium -Exudate Type Serosanguineous -Wound Margin Distinct, Outline Attached -Granulation Amt Small (1-33%) -Granulation Quality N/A -Slough/Fibrin Yes -Necrosis Amt Medium (34-66%) -Necrotic Tissue Type Adherent Slough -Texture (Kelly-wound Skin Appearance) No Abnormality, Assessed -Moisture (Kelly-wound Skin Appearance) No Abnormality, Assessed -Color (Kelly-wound Skin Appearance) No Abnormality, Assessed -Temperature (Kelly-wound Skin No Abnormality Appearance) (Pt Warm) -Tenderness on Palpation (Kelly-wound No Skin Appearance) -Ulcer Cleansing Rinsed/ Irrigated with Saline -Foul Odor after Cleansing No -Anesthetic Used 5% Lidocaine Gel #1R Knee -Combined with other wound No -Current Size (cm) - Length 0.5 -Current Size (cm) - Width 0.6 -Current Size (cm) - Depth 0.2 -Total Square Cm 0.30 -Date of Last Picture (Recall this 01/16/22 field) -Photo Taken Yes -Tunneling No -Undermining/Tunneling No -Circular Undermining No -Classification - Thickness Partial Thickness -Change in Wound Grade/Stage No -Exudate Amt Medium -Exudate Type Serosanguineous -Wound Margin Distinct, Outline Attached -Granulation Amt Medium (34-66%) -Granulation Quality [place],Red -Slough/Fibrin Yes -Necrosis Amt Medium (34-66%) -Necrotic Tissue Type Adherent Slough -Structure Exposed N/A -Texture (Kelly-wound Skin Appearance) Assessed, Scarring -Moisture (Kelly-wound Skin Appearance) Assessed -Color (Kelly-wound Skin Appearance) No Abnormality, Assessed -Temperature (Kelly-wound Skin No Abnormality Appearance) (Pt Warm) -Tenderness on Palpation (Kelly-wound No Skin Appearance) -Ulcer Cleansing Rinsed/ Irrigated with Saline -Foul Odor after Cleansing No -Anesthetic Used 5% Lidocaine Gel Lower Limb Edema Present No Right Calf (cm) 25.9 Right Ankle (cm) 18.9 WC - Nurse 2 - General Ulcer CM Notes Start: 01/16/22 08:57 Freq: Status: Active Protocol: Activity Type Activity Date Activity User E-sign Co-sign Detail Recorded Client Recorded Date Recorded By Document 01/16/22 09:33 MEDARDO [id number] 01/16/22 09:40 MEDARDO 01/16/22 09:33 Wound Center Nurse 2 #3 R martinez -Time 09:33 -Correct Patient Yes -Correct Side, Site, Position Yes -Correct Procedure Yes -Procedure Performed Yes -Type of Procedure Debridement -Clinical Debridement Subcutaneous -Tissue Removed Subcutaneous -Post Debridement (cm) - Length 0.5 -Post Debridement (cm) - Width 0.5 -Post Debridement (cm) - Depth 0.2 -Total Square (Post) (cm) 0.25 -Area of Debridement (cm) - Length 0.5 -Area of Debridement (cm) - Width 0.5 -Total Square (Area) (cm) 0.25 -Tunneling No -Undermining/Tunneling No -Circular Undermining No -Wound/Ulcer Outcome Not Healed -Ulcer Cleansing Rinsed/ Irrigated with Saline -Foul Odor after Cleansing No -Bioengineered Tissue No -Bleeding Controlled with Pressure -Treatment Response Procedure Tolerated Well -Offloading No -Debridement - Subq, 1st 20sq cm No #2 R dorsal forearm -Time 09:34 -Correct Patient Yes -Correct Side, Site, Position Yes -Correct Procedure Yes -Procedure Performed Yes -Type of Procedure Debridement -Clinical Debridement Subcutaneous -Tissue Removed Subcutaneous -Post Debridement (cm) - Length 0.9 -Post Debridement (cm) - Width 0.5 -Post Debridement (cm) - Depth 0.2 -Total Square (Post) (cm) 0.45 -Area of Debridement (cm) - Length 0.9 -Area of Debridement (cm) - Width 0.5 -Total Square (Area) (cm) 0.45 -Tunneling No -Undermining/Tunneling No -Circular Undermining No -Wound/Ulcer Outcome Not Healed -Ulcer Cleansing Rinsed/ Irrigated with Saline -Foul Odor after Cleansing No -Bioengineered Tissue No -Bleeding Controlled with Pressure -Treatment Response Procedure Tolerated Well -Offloading No -Debridement - Open, 1st 20sq cm No -Debridement - Subq, 1st 20sq cm No #1R Knee -Time 09:34 -Correct Patient Yes -Correct Side, Site, Position Yes -Correct Procedure Yes -Procedure Performed Yes -Type of Procedure Debridement -Clinical Debridement Subcutaneous -Tissue Removed Subcutaneous -Post Debridement (cm) - Length 0.7 -Post Debridement (cm) - Width 0.8 -Post Debridement (cm) - Depth 0.2 -Total Square (Post) (cm) 0.56 -Area of Debridement (cm) - Length 0.7 -Area of Debridement (cm) - Width 0.8 -Total Square (Area) (cm) 0.56 -Tunneling No -Undermining/Tunneling No -Circular Undermining No -Wound/Ulcer Outcome Not Healed -Ulcer Cleansing Rinsed/ Irrigated with Saline -Foul Odor after Cleansing No -Bioengineered Tissue No -Bleeding Controlled with Pressure -Treatment Response Procedure Tolerated Well -Offloading No -Debridement - Subq, 1st 20sq cm Yes Pain Scale: 0-10 Numeric Is Patient Pain Free? Yes WC - Nurse 3 - General Ulcer D/C NN Start: 01/16/22 08:57 Freq: Status: Active Protocol: Activity Type Activity Date Activity User E-sign Co-sign Detail Recorded Client Recorded Date Recorded By Document 01/16/22 09:45 DL [id number] 01/16/22 09:46 DL 01/16/22 09:45 Wound Care Nurse 3 #3 R martinez -Ulcer Cleansing Wound Cleanser -Foul Odor after Cleansing No -Primary Dressing Applied C Hydrogel ($) -Other Dressing [place] SAP -Primary Dressing Covered/Secured with Dry Gauze & Roll Gauze, Secured with Tape #2 R dorsal forearm -Ulcer Cleansing Rinsed/ Irrigated with Saline -Foul Odor after Cleansing No -Other Dressing hydrogel/[place] -Primary Dressing Covered/Secured with Dry Gauze & Roll Gauze, Secured with Tape #1R Knee -Ulcer Cleansing Rinsed/ Irrigated with Saline -Foul Odor after Cleansing No -Other Dressing hydrogel/ [place] -Primary Dressing Covered/Secured with Dry Gauze & Roll Gauze, Secured with Tape Treatment Response Procedure Tolerated Well Pain Scale: 0-10 Numeric Is Patient Pain Free? Yes WC - Visit Discharge Discharge Condition Stable Ambulatory Status [employer] Private Auto Additional Wound Wound debrided: Medial knee ulcer Laterality: Right Wound Grade/Stage: Stage II Type of Debridement: Excisional debridement Anesthesia Used: 5% Lidocaine Gel Depth: Down to and including healthy tissue and in the subcutaneous layer Percentage of wound debrided: 100 Instrument Used: 3mm curette Tissue Removed: Devitalized tissue and slough Severity: Fat Layer Exposed Amount of bleeding with debridement: Mild Bleeding Controlled with: Compression and gauze Patient tolerated procedure: Patient tolerated procedure well Additional Wound Wound debrided: Ventral arm wound Laterality: Right Wound Grade/Stage: Stage II Type of Debridement: Excisional debridement Anesthesia Used: 5% Lidocaine Gel Depth: Down to and including healthy tissue and in the subcutaneous layer Percentage of wound debrided: 100 Instrument Used: 3mm curette Tissue Removed: Devitalized tissue and slough Severity: Fat Layer Exposed Amount of bleeding with debridement: Mild Bleeding Controlled with: Compression and gauze Patient tolerated procedure: Patient tolerated procedure well Charges/Coding Visit Charges Office Visits / Consults: [id number] OV L4 Est (25 modifier) Procedures Integumentary [id number]: [id number] Dagmar subq tissue 20 sq cm/< Assessment/Plan Assessment/Plan (1) Ulcer of right lower extremity: CODE(S): L97.919 - Non-pressure chronic ulcer of unspecified part of right lower leg with unspecified severity (2) Ulcer of right knee: CODE(S): L97.819 - Non-pressure chronic ulcer of other part of right lower leg with unspecified severity (3) Wound of right upper extremity: CODE(S): S41.101A - Unspecified open wound of right upper arm, initial encounter PLAN: Plan Patient was evaluated at the wound center today. Subcutaneous debridement was performed as documented. Wound care will be collagen hydrogel topped with [place] SAP daily or every other day. She should wash with soap and water at the time of the dressing changes. She just completed the Augmentin that was prescribed for the right arm dog wound. Encouraged increase protein intake to help with wound healing. Follow up one week. If develop any questions or concerns, call or come in sooner.
[2022-01-23 09:01] VITALS: BP 140/69; PULSE 80; RESP 18; TEMP 37.1; BMI 18.1
--- NOTE | 2022-01-23 10:04 | PCM.WC.PN ---
History of Present Illness Date of Service: 01/23/22 Chief Complaint: Non healing ulcers on right anterior leg, right medial knee and right ventral arm History of Wound: Patient is a 56 year old female who fell off her deck in early November and bumped her right anterior leg. Then a week later her dog scratched her right medial knee. Three weeks ago her dog's tooth bumped her right ventral arm and broke skin. She was treated with Augmentin for her right arm wound and it helped improve all her wounds. She has been placing Aquaphore on these areas. 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 Wound care - Collagen hydrogel covered with [place] SAP dressings daily. Today she denies fever, chills, nausea and vomiting. She states that her appetite is good. Progress of Wound: Right arm ulcer is healed today. Right anterior distal leg ulcer and right medial knee ulcer are smaller in size, pink, superficial. Objective Data Objective Data Vital Signs: Vital Signs Temp Pulse Resp BP 98.8 F 80 18 140/69 H 01/23/22 09:01 01/23/22 09:01 01/23/22 09:01 01/23/22 09:01 Weight: 106 lb Body Mass Index (BMI) 18.1 Charges/Coding Procedures Integumentary 111xxx-113xx: 49398 Dagmar subq tissue 20 sq cm/< Physical Exam Const alert and oriented x3 General Appearance: cooperative HEENT normocephalic Resp normal respiratory effort and normal air movement Cardio regular rate Extremity full ROM and normal capillary refill Skin Wound Narrative: Wound of right ventral arm is healed today. Ulcer of right anterior distal leg, right medial knee are smaller. and superficial and pink in color. Neuro oriented x3 Sensorium / Orientation: alert Psych thought process normal and cooperative Debridement Note Debridement Note Wound debrided: anterior leg ulcer Laterality: Right Wound Grade/Stage: Stage II Type of Debridement: Excisional debridement Anesthesia Used: 5% Lidocaine Gel Depth: Down to and including healthy tissue and in the subcutaneous layer Percentage of wound debrided: 100 Instrument Used: 3mm curette Tissue Removed: Devitalized tissue and slough Severity: Fat Layer Exposed Amount of bleeding with debridement: Mild Bleeding Controlled with: Compression and gauze Patient tolerated procedure: Patient tolerated procedure well Post-Debridement Measurements and Additional Note: Post-Debridement Measurements/Treatment VICK - Nurse 1 - General Ulcer Assessment Start: 01/16/22 08:57 Freq: Status: Active Protocol: ANA PAULA Activity Type Activity Date Activity User E-sign Co-sign Detail Recorded Client Recorded Date Recorded By Document 01/16/22 08:57 AK [id number] 01/16/22 09:12 AK Document 01/23/22 09:01 DL [id number] 01/23/22 09:07 DL 01/16/22 01/23/22 08:57 09:01 VICK - Today's Visit Information Type of service Initial Visit Follow-up Visit (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/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 ) Arrival Mode Ambulatory Ambulatory Transfer Assistance None Patient Identification Verified (Name & Yes ) Patient Requires Transmission-Based No No Precautions Safety Precautions NA Height and Weight Height 5 ft 4 in Weight 106 lb Weight in Pounds 106.0 lbs Body Mass Index (BMI) 18.1 18.1 BMI Classification Underweight Underweight BSA - Gerda 1.49 Vital Signs Temperature (97.8 F-99.1 F) 97.2 F L 98.8 F Temperature Source Temporal Temporal Pulse Rate (60-100) 98 80 Pulse Location Monitor Monitor Respiratory Rate (12-18) 18 Respiratory rate source Observation Blood Pressure (90/60-120/80) 149/96 H 140/69 H Blood Pressure Mean (mm Hg) 113 92 Source Monitor Monitor History Since Last Visit- (Skip if this is Patient's initial visit) Have you changed medications since your No last visit? Any new allergies or adverse reactions No Had a fall/change in ADL's that may No increase risk of falls Signs or symptoms of abuse and/or No neglect since last visit Have you been in the hospital since your No last visit? Has dressing in place as prescribed Yes Has compression in place as prescribed N/A Has offloadiing in place as prescribed N/A Experienced any changes in pain level or No management Left Footwear Regular Shoe Right Footwear Regular Shoe Pain Scale: 0-10 Numeric Is Patient Pain Free? Yes Yes VICK - Nurse 1 - General Ulcer Measurement Start: 01/16/22 08:57 Freq: Status: Active Protocol: Activity Type Activity Date Activity User E-sign Co-sign Detail Recorded Client Recorded Date Recorded By Document 01/16/22 08:57 AK [id number] 01/16/22 09:12 AK Document 01/23/22 09:01 DL [id number] 01/23/22 09:07 DL 01/16/22 01/23/22 08:57 09:01 Wound Center Nurse 1 #2 R dorsal forearm -Combined with other wound No -Current Size (cm) - Length 0.4 0.1 -Current Size (cm) - Width 0.2 0.1 -Current Size (cm) - Depth 0.1 0.1 -Total Square Cm 0.08 0.01 -Photo Taken Yes No -Tunneling No -Undermining/Tunneling No -Circular Undermining No -Change in Wound Grade/Stage No -Exudate Amt Medium None Present -Exudate Type Serosanguineous -Wound Margin Distinct, Flat & Intact Outline Attached -Granulation Amt Small (1-33%) Large (67-100%) -Granulation Quality N/A [place] -Slough/Fibrin Yes -Necrosis Amt Medium (34-66%) Small (1-33%) -Necrotic Tissue Type Adherent Slough -Structure Exposed Muscle,Bone,N/A -Texture (Kelly-wound Skin Appearance) No Abnormality, Scarring Assessed -Moisture (Kelly-wound Skin Appearance) No Abnormality, No Abnormality Assessed -Color (Kelly-wound Skin Appearance) No Abnormality, No Abnormality Assessed -Temperature (Kelly-wound Skin No Abnormality No Abnormality Appearance) (Pt Warm) (Pt Warm) -Tenderness on Palpation (Kelly-wound No No Skin Appearance) -Ulcer Cleansing Rinsed/ Rinsed/ Irrigated with Irrigated with Saline Saline -Foul Odor after Cleansing No No -Anesthetic Used 5% Lidocaine Gel #3 R martinez -Combined with other wound No -Current Size (cm) - Length 0.3 0.2 -Current Size (cm) - Width 0.2 0.2 -Current Size (cm) - Depth 0.1 0.1 -Total Square Cm 0.06 0.04 -Date of Last Picture (Recall this 01/16/22 field) -Photo Taken Yes No -Tunneling No -Undermining/Tunneling No -Circular Undermining No -Change in Wound Grade/Stage No -Exudate Amt None Present None Present -Wound Margin Distinct, Distinct, Outline Outline Attached Attached -Granulation Amt Small (1-33%) Small (1-33%) -Granulation Quality N/A [place] -Slough/Fibrin Yes -Necrosis Amt Medium (34-66%) None Present (0 %) -Necrotic Tissue Type Adherent Slough -Structure Exposed N/A N/A -Texture (Kelly-wound Skin Appearance) Assessed, Scarring Scarring -Moisture (Kelly-wound Skin Appearance) No Abnormality, No Abnormality Assessed -Color (Kelly-wound Skin Appearance) No Abnormality, No Abnormality Assessed -Temperature (Kelly-wound Skin No Abnormality Appearance) (Pt Warm) -Tenderness on Palpation (Kelly-wound No No Skin Appearance) -Ulcer Cleansing Rinsed/ Wound Cleanser Irrigated with Saline -Foul Odor after Cleansing No No -Anesthetic Used 5% Lidocaine 5% Lidocaine Gel Gel #1R Knee -Combined with other wound No -Current Size (cm) - Length 0.5 0.2 -Current Size (cm) - Width 0.6 0.2 -Current Size (cm) - Depth 0.2 0.2 -Total Square Cm 0.30 0.04 -Date of Last Picture (Recall this 01/16/22 field) -Photo Taken Yes No -Tunneling No -Undermining/Tunneling No -Circular Undermining No -Classification - Thickness Partial Thickness -Change in Wound Grade/Stage No -Exudate Amt Medium None Present -Exudate Type Serosanguineous -Wound Margin Distinct, Flat & Intact Outline Attached -Granulation Amt Medium (34-66%) Small (1-33%) -Granulation Quality [place],Red [place] -Slough/Fibrin Yes -Necrosis Amt Medium (34-66%) Small (1-33%) -Necrotic Tissue Type Adherent Slough -Structure Exposed N/A None/Limited to Skin Breakdown -Texture (Kelly-wound Skin Appearance) Assessed, Scarring Scarring -Moisture (Kelly-wound Skin Appearance) Assessed No Abnormality -Color (Kelly-wound Skin Appearance) No Abnormality, No Abnormality Assessed -Temperature (Kelly-wound Skin No Abnormality No Abnormality Appearance) (Pt Warm) (Pt Warm) -Tenderness on Palpation (Kelly-wound No No Skin Appearance) -Ulcer Cleansing Rinsed/ Rinsed/ Irrigated with Irrigated with Saline Saline -Foul Odor after Cleansing No No -Anesthetic Used 5% Lidocaine 5% Lidocaine Gel Gel Lower Limb Edema Present No Right Calf (cm) 25.9 Right Ankle (cm) 18.9 WC - Nurse 2 - General Ulcer CM Notes Start: 01/16/22 08:57 Freq: Status: Active Protocol: Activity Type Activity Date Activity User E-sign Co-sign Detail Recorded Client Recorded Date Recorded By Document 01/16/22 09:33 [id number] 01/16/22 09:40 Document 01/23/22 09:20 [id number] 01/23/22 09:23 01/16/22 01/23/22 09:33 09:20 Wound Center Nurse 2 #2 R dorsal forearm -Time 09:34 -Correct Patient Yes No -Correct Side, Site, Position Yes No -Correct Procedure Yes No -Procedure Performed Yes No -Type of Procedure Debridement -Clinical Debridement Subcutaneous -Tissue Removed Subcutaneous -Post Debridement (cm) - Length 0.9 0 -Post Debridement (cm) - Width 0.5 0 -Post Debridement (cm) - Depth 0.2 0 -Total Square (Post) (cm) 0.45 0 -Area of Debridement (cm) - Length 0.9 0 -Area of Debridement (cm) - Width 0.5 0 -Total Square (Area) (cm) 0.45 0 -Tunneling No -Undermining/Tunneling No -Circular Undermining No -Wound/Ulcer Outcome Not Healed Healed- Epithelialized -Ulcer Cleansing Rinsed/ Irrigated with Saline -Foul Odor after Cleansing No -Bioengineered Tissue No -Bleeding Controlled with Pressure -Treatment Response Procedure Tolerated Well -Offloading No -Debridement - Open, 1st 20sq cm No -Debridement - Subq, 1st 20sq cm No #3 R martinez -Time 09:33 09:20 -Correct Patient Yes Yes -Correct Side, Site, Position Yes Yes -Correct Procedure Yes Yes -Procedure Performed Yes Yes -Type of Procedure Debridement Debridement -Clinical Debridement Subcutaneous Subcutaneous -Tissue Removed Subcutaneous Subcutaneous -Post Debridement (cm) - Length 0.5 0.3 -Post Debridement (cm) - Width 0.5 0.2 -Post Debridement (cm) - Depth 0.2 0.1 -Total Square (Post) (cm) 0.25 0.06 -Area of Debridement (cm) - Length 0.5 0.3 -Area of Debridement (cm) - Width 0.5 0.2 -Total Square (Area) (cm) 0.25 0.06 -Tunneling No No -Undermining/Tunneling No No -Circular Undermining No No -Wound/Ulcer Outcome Not Healed Not Healed -Ulcer Cleansing Rinsed/ Rinsed/ Irrigated with Irrigated with Saline Saline -Foul Odor after Cleansing No No -Bioengineered Tissue No No -Bleeding Controlled with Pressure Pressure -Treatment Response Procedure Procedure Tolerated Well Tolerated Well -Offloading No No -Debridement - Subq, 1st 20sq cm No Yes #1R Knee -Time 09:34 09:21 -Correct Patient Yes Yes -Correct Side, Site, Position Yes Yes -Correct Procedure Yes Yes -Procedure Performed Yes Yes -Type of Procedure Debridement Debridement -Clinical Debridement Subcutaneous Subcutaneous -Tissue Removed Subcutaneous Subcutaneous -Post Debridement (cm) - Length 0.7 0.5 -Post Debridement (cm) - Width 0.8 0.4 -Post Debridement (cm) - Depth 0.2 0.2 -Total Square (Post) (cm) 0.56 0.20 -Area of Debridement (cm) - Length 0.7 0.5 -Area of Debridement (cm) - Width 0.8 0.4 -Total Square (Area) (cm) 0.56 0.20 -Tunneling No No -Undermining/Tunneling No No -Circular Undermining No No -Wound/Ulcer Outcome Not Healed Not Healed -Ulcer Cleansing Rinsed/ Rinsed/ Irrigated with Irrigated with Saline Saline -Foul Odor after Cleansing No No -Bioengineered Tissue No No -Bleeding Controlled with Pressure Pressure -Treatment Response Procedure Procedure Tolerated Well Tolerated Well -Offloading No No -Debridement - Subq, 1st 20sq cm Yes No Pain Scale: 0-10 Numeric Is Patient Pain Free? Yes Yes - Nurse 3 - General Ulcer D/C NN Start: 01/16/22 08:57 Freq: Status: Active Protocol: Activity Type Activity Date Activity User E-sign Co-sign Detail Recorded Client Recorded Date Recorded By Document 01/16/22 09:45 DL [id number] 01/16/22 09:46 DL Document 01/23/22 09:45 AK [id number] 01/23/22 09:46 AK 01/16/22 01/23/22 09:45 09:45 Wound Care Nurse 3 #2 R dorsal forearm -Ulcer Cleansing Rinsed/ Irrigated with Saline -Foul Odor after Cleansing No -Other Dressing hydrogel/[place] -Primary Dressing Covered/Secured with Dry Gauze & Roll Gauze, Secured with Tape #3 R martinez -Ulcer Cleansing Wound Cleanser Rinsed/ Irrigated with Saline -Foul Odor after Cleansing No No -Negative Pressure Wound Therapy N/A -Primary Dressing Applied C Hydrogel ($) -Other Dressing [place] SAP own supplies- hydrogel -Primary Dressing Covered/Secured with Dry Gauze & Roll Gauze, Secured with Tape #1R Knee -Ulcer Cleansing Rinsed/ Rinsed/ Irrigated with Irrigated with Saline Saline -Foul Odor after Cleansing No No -Negative Pressure Wound Therapy N/A -Other Dressing hydrogel/ [place] own supplies- hydrogel -Primary Dressing Covered/Secured with Dry Gauze & Roll Gauze, Secured with Tape Treatment Response Procedure Tolerated Well Pain Scale: 0-10 Numeric Is Patient Pain Free? Yes Yes WC - Visit Discharge Discharge Condition Stable Stable Ambulatory Status Cane Ambulatory Transportation Private Auto Private Auto Medication Reconcilliation completed & Yes provided to patient/care provider Clinical Summary of Care Provided Yes Additional Wound Wound debrided: Medial knee ulcer Laterality: Right Wound Grade/Stage: Stage II Type of Debridement: Excisional debridement Anesthesia Used: 5% Lidocaine Gel Depth: Down to and including healthy tissue and in the subcutaneous layer Percentage of wound debrided: 100 Instrument Used: 3mm curette Tissue Removed: Devitalized tissue and slough Severity: Fat Layer Exposed Amount of bleeding with debridement: Mild Bleeding Controlled with: Compression and gauze Patient tolerated procedure: Patient tolerated procedure well Assessment/Plan Assessment/Plan (1) Ulcer of right lower extremity: CODE(S): L97.919 - Non-pressure chronic ulcer of unspecified part of right lower leg with unspecified severity (2) Ulcer of right knee: CODE(S): L97.819 - Non-pressure chronic ulcer of other part of right lower leg with unspecified severity (3) Wound of right upper extremity: CODE(S): S41.101A - Unspecified open wound of right upper arm, initial encounter PLAN: Plan Patient was evaluated at the wound center today. Subcutaneous debridement was performed as documented. Wound care will be collagen hydrogel topped with [place] SAP daily or every other day. The right arm wound is healed. She should wash with soap and water at the time of the dressing changes. She completed the Augmentin that was prescribed for the right arm dog wound. Encouraged increase protein intake to help with wound healing. Follow up one week. If develop any questions or concerns, call or come in sooner.
== END 2022-01-25 23:59 | disposition home or self-care (01) ==
LOC: WC 09:00
PROVIDERS: PCP Internal Medicine; Visit Provider Nurse Practitioner Family
DX: L97.812 Non-pressure chronic ulcer of other part of right lower leg with fat layer exposed (principal); I48.91 Unspecified atrial fibrillation; S41.101D Unspecified open wound of right upper arm, subsequent encounter; G89.29 Other chronic pain; W17.89XD Other fall from one level to another, subsequent encounter; K21.00 Gastro-esophageal reflux disease with esophagitis, without bleeding; E78.5 Hyperlipidemia, unspecified; I10 Essential (primary) hypertension; G47.33 Obstructive sleep apnea (adult) (pediatric); F32.A Depression, unspecified; F41.9 Anxiety disorder, unspecified; Z79.82 Long term (current) use of aspirin; Z79.01 Long term (current) use of anticoagulants; Z95.2 Presence of prosthetic heart valve; Z95.1 Presence of aortocoronary bypass graft
CPT/HCPCS: 11042; 99213; G0463

== ENCOUNTER → 2022-01-27 | Outpatient (CLI) | payer MEDICARE, SELFPAY ==
[2022-01-27 14:32] LABS: Mucous, Urine 0 SEEN /hpf (<or=2+)
[2022-01-27 15:46] LABS: Color, Urine Yellow (Yellow); Glucose, Dipstick Normal (Normal); Ketone-Dipstick Negative (Negative); Leukocyte Esterase-Dipstick 100 /ul (Negative); Nitrite-Dipstick Negative (Negative); Occult Blood-Urine 10 /ul (Negative); Protein-Dipstick Negative (Negative); Specific Gravity, Urine 1.015 (1.002-1.030); Urine Bilirubin Dipstick Negative (Negative); Urine Clarity Clear (Clear); Urine Urobilinogen Normal (Normal)
[2022-01-27 15:54] LABS: Bacteria 1+ /hpf (None Seen); Red Blood Cells-Urine 0-5 SEEN /hpf (0-5); Squamous Epithelial Cells - UA 0-5 SEEN /hpf (5-10); White Blood Cells 0-5 SEEN /hpf (0-5)
== END | disposition home or self-care (01) ==
PROVIDERS: PCP Internal Medicine; Referring Provider Physician Assistant; Visit Provider Physician Assistant
DX: N39.0 Urinary tract infection, site not specified (principal)
CPT/HCPCS: 81001; 87077; 87086; 87088; 87186

== ENCOUNTER 2022-02-07 14:30 | Outpatient (RCR) | payer MEDICARE, MEDICAID, SELFPAY ==
[2022-01-26 00:47] VITALS: BP 140/69; PULSE 80; RESP 18; TEMP 37.1; BMI 18.1
[2022-01-31 10:37] VITALS: BP 123/63; PULSE 81; RESP 20; TEMP 36.4; BMI 18.1
--- NOTE | 2022-01-31 12:44 | PCM.WC.PN ---
History of Present Illness Date of Service: 01/31/22 Chief Complaint: Non healing ulcers on right anterior leg, right medial knee and right ventral arm History of Wound: Patient is a 56 year old female who fell off her deck in early November and bumped her right anterior leg. Then a week later her dog scratched her right medial knee. Three weeks ago her dog's tooth bumped her right ventral arm and broke skin. She was treated with Augmentin for her right arm wound and it helped improve all her wounds. She has been placing Aquaphore on these areas. She has a significant history which includes mechanical heart valve, CABG, Afib, RSD, anxiety/depression, [facility] anticoagulation, and history of liver failure . Wound care - Collagen hydrogel covered with [place] SAP dressings daily. Today she denies fever, chills, nausea and vomiting. She states that her appetite is good. Progress of Wound: Right anterior leg ulcer is healed today. The right medial knee ulcer is much improved. Objective Data Objective Data Vital Signs: Vital Signs Temp Pulse Resp BP 97.6 F L 81 20 H 123/63 H 01/31/22 10:37 01/31/22 10:37 01/31/22 10:37 01/31/22 10:37 Weight: 106 lb Body Mass Index (BMI) 18.1 Charges/Coding Procedures Integumentary 111xxx-113xx: 37007 Dagmar subq tissue 20 sq cm/< Physical Exam Const alert and oriented x3 General Appearance: cooperative HEENT normocephalic Resp normal respiratory effort and normal air movement Cardio regular rate Extremity full ROM and normal capillary refill Skin Wound Narrative: Wound of right ventral arm remains healed and the ulcer of right anterior distal leg is also healed today. The right medial knee ulcer is smaller and superficial and pink in color. Neuro oriented x3 Sensorium / Orientation: alert Psych thought process normal and cooperative Debridement Note Debridement Note Wound debrided: Medial knee ulcer Laterality: Right Type of Debridement: Excisional debridement Anesthesia Used: 5% Lidocaine Gel Depth: Down to and including healthy tissue and in the subcutaneous layer Percentage of wound debrided: 100 Instrument Used: 3mm curette Tissue Removed: Devitalized tissue and slough Severity: Fat Layer Exposed Amount of bleeding with debridement: Mild Bleeding Controlled with: Compression and gauze Patient tolerated procedure: Patient tolerated procedure well Post-Debridement Measurements and Additional Note: Post-Debridement Measurements/Treatment WC - Nurse 1 - General Ulcer Assessment Start: 01/31/22 10:37 Freq: Status: Active Protocol: ANA PAULA Activity Type Activity Date Activity User E-sign Co-sign Detail Recorded Client Recorded Date Recorded By Document 01/31/22 10:37 DL [id number] 01/31/22 10:39 DL 01/31/22 10:37 WC - Today's Visit Information Type of service Follow-up 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 ) Arrival Mode Ambulatory Transfer Assistance None Patient Identification Verified (Name & Yes ) Patient Requires Transmission-Based No Precautions Height and Weight Body Mass Index (BMI) 18.1 BMI Classification Underweight Vital Signs Temperature (97.8 F-99.1 F) 97.6 F L Temperature Source Temporal Pulse Rate (60-100) 81 Pulse Location Monitor Respiratory Rate (12-18) 20 H Respiratory rate source Observation Blood Pressure (90/60-120/80) 123/63 H Blood Pressure Mean (mm Hg) 83 Source Monitor History Since Last Visit- (Skip if this is Patient's initial visit) Have you changed medications since your No last visit? Any new allergies or adverse reactions No Had a fall/change in ADL's that may No increase risk of falls Signs or symptoms of abuse and/or No neglect since last visit Have you been in the hospital since your No last visit? Has dressing in place as prescribed Yes Has compression in place as prescribed N/A Has offloadiing in place as prescribed N/A Experienced any changes in pain level or Yes management Pain Scale: 0-10 Numeric Is Patient Pain Free? Yes VICK - Nurse 1 - General Ulcer Measurement Start: 01/31/22 10:37 Freq: Status: Active Protocol: Activity Type Activity Date Activity User E-sign Co-sign Detail Recorded Client Recorded Date Recorded By Document 01/31/22 10:37 DL [id number] 01/31/22 10:39 DL 01/31/22 10:37 Wound Center Nurse 1 #3 R martinez -Current Size (cm) - Length 0.1 -Current Size (cm) - Width 0.1 -Current Size (cm) - Depth 0.1 -Total Square Cm 0.01 -Photo Taken No -Exudate Amt None Present -Wound Margin Flat & Intact -Granulation Amt Large (67-100%) -Granulation Quality [place] -Necrosis Amt None Present (0 %) -Structure Exposed N/A -Texture (Kelly-wound Skin Appearance) No Abnormality -Moisture (Kelly-wound Skin Appearance) No Abnormality -Color (Kelly-wound Skin Appearance) No Abnormality -Temperature (Kelly-wound Skin No Abnormality Appearance) (Pt Warm) -Tenderness on Palpation (Kelly-wound No Skin Appearance) -Ulcer Cleansing Wound Cleanser -Anesthetic Used 5% Lidocaine Gel #1R Knee -Current Size (cm) - Length 0.3 -Current Size (cm) - Width 0.3 -Current Size (cm) - Depth 0.1 -Total Square Cm 0.09 -Photo Taken No -Exudate Amt None Present -Wound Margin Distinct, Outline Attached -Granulation Amt Small (1-33%) -Granulation Quality [place] -Necrosis Amt None Present (0 %) -Texture (Kelly-wound Skin Appearance) No Abnormality -Moisture (Kelly-wound Skin Appearance) No Abnormality -Color ([place]-wound Skin Appearance) No Abnormality -Temperature (Kelly-wound Skin No Abnormality Appearance) (Pt Warm) -Tenderness on Palpation (Kelly-wound No Skin Appearance) -Ulcer Cleansing Rinsed/ Irrigated with Saline -Foul Odor after Cleansing No -Anesthetic Used 5% Lidocaine Gel WC - Nurse 2 - General Ulcer CM Notes Start: 01/31/22 10:37 Freq: Status: Active Protocol: Activity Type Activity Date Activity User E-sign Co-sign Detail Recorded Client Recorded Date Recorded By Document 01/31/22 11:02 MW [id number] 01/31/22 11:05 MW 01/31/22 11:02 Wound Center Nurse 2 #3 R martinez -Time 11:05 -Correct Patient Yes -Correct Side, Site, Position Yes -Correct Procedure Yes -Procedure Performed No -Post Debridement (cm) - Length 0 -Post Debridement (cm) - Width 0 -Total Square (Post) (cm) 0 -Wound/Ulcer Outcome Healed- Epithelialized #1R Knee -Time 11:03 -Correct Patient Yes -Correct Side, Site, Position Yes -Correct Procedure Yes -Procedure Performed Yes -Type of Procedure Debridement -Clinical Debridement Subcutaneous -Tissue Removed Subcutaneous -Post Debridement (cm) - Length 0.3 -Post Debridement (cm) - Width 0.5 -Post Debridement (cm) - Depth 0.1 -Total Square (Post) (cm) 0.15 -Area of Debridement (cm) - Length 0.3 -Area of Debridement (cm) - Width 0.5 -Total Square (Area) (cm) 0.15 -Tunneling No -Undermining/Tunneling No -Circular Undermining No -Wound/Ulcer Outcome Not Healed -Ulcer Cleansing Rinsed/ Irrigated with Saline -Foul Odor after Cleansing No -Bioengineered Tissue No -Bleeding Controlled with Pressure -Treatment Response Procedure Tolerated Well -Debridement - Subq, 1st 20sq cm Yes Pain Scale: 0-10 Numeric Is Patient Pain Free? Yes - Nurse 3 - General Ulcer D/C NN Start: 01/31/22 10:37 Freq: Status: Active Protocol: Activity Type Activity Date Activity User E-sign Co-sign Detail Recorded Client Recorded Date Recorded By Document 01/31/22 11:06 MW [id number] 01/31/22 11:06 MW 01/31/22 11:06 Wound Care Nurse 3 #1R Knee -Ulcer Cleansing Rinsed/ Irrigated with Saline -Foul Odor after Cleansing No -Negative Pressure Wound Therapy N/A -Primary Dressing Applied C Hydrogel ($) Treatment Response Procedure Tolerated Well Pain Scale: 0-10 Numeric Is Patient Pain Free? Yes Teaching: Wound Center Dressing Your Wound -Person Taught Patient -Teaching Method Discussion -Response to teaching Verbalize understanding WC - Visit Discharge Discharge Condition Stable Ambulatory Status Ambulatory Transportation Private Auto Accompanied by SELF Assessment/Plan Assessment/Plan (1) Ulcer of right lower extremity: CODE(S): L97.919 - Non-pressure chronic ulcer of unspecified part of right lower leg with unspecified severity (2) Ulcer of right knee: CODE(S): L97.819 - Non-pressure chronic ulcer of other part of right lower leg with unspecified severity (3) Wound of right upper extremity: CODE(S): S41.101A - Unspecified open wound of right upper arm, initial encounter PLAN: Plan Patient was evaluated at the wound center today. Subcutaneous debridement was performed as documented. Wound care will be collagen hydrogel topped with [place] SAP daily or every other day to the right medial knee ulcer. The right arm wound and right anterior distal leg ulcers are healed. Encouraged her to massage the healed areas with lotion to help soften scarring. She should wash with soap and water at the time of the dressing changes. She completed the Augmentin that was prescribed for the right arm dog wound. Encouraged increase protein intake to help with wound healing. Follow up one week. If develop any questions or concerns, call or come in sooner.
[2022-02-07 14:32] VITALS: BP 136/86; PULSE 82; RESP 16; TEMP 36.4; BMI 18.1
--- NOTE | 2022-02-07 14:47 | PN.PCM_ITS ---
History of Present Illness Date of Service: 02/07/22 Chief Complaint: Non healing ulcers on right anterior leg, right medial knee and right ventral arm History of Wound: Patient is a 56 year old female who fell off her deck in early November and bumped her right anterior leg. Then a week later her dog scratched her right medial knee. Three weeks ago her dog's tooth bumped her right ventral arm and broke skin. She was treated with Augmentin for her right arm wound and it helped improve all her wounds. She has been placing Aquaphore on these areas. She has a significant history which includes mechanical heart valve, CABG, Afib, RSD, anxiety/depression, continuous churn buttermaker anticoagulation, and history of liver failure . Wound care - Collagen hydrogel covered with [place] SAP dressings daily. Today she denies fever, chills, nausea and vomiting. She states that her appetite is good. Progress of Wound: The right medial knee ulcer is healed today. Objective Data Objective Data Vital Signs: Vital Signs Temp Pulse Resp BP 97.5 F L 82 16 136/86 H 02/07/22 14:32 02/07/22 14:32 02/07/22 14:32 02/07/22 14:32 Weight: 106 lb Body Mass Index (BMI) 18.1 Charges/Coding Visit Charges Office Visits / Consults: 12644 OV L3 Est Physical Exam Const alert and oriented x3 General Appearance: cooperative HEENT normocephalic Resp normal respiratory effort, normal air movement and clear to auscultation bilaterally Effort and Inspection: able to speak in complete sentences Cardio regular rate and regular rhythm Extremity full ROM and normal capillary refill Skin Wound Narrative: Wound of right ventral arm and the ulcer of right anterior distal leg ulcer remains healed. The right medial knee ulcer is healed today. Neuro oriented x3 Sensorium / Orientation: alert Psych thought process normal and cooperative Debridement Note Debridement Note No debridement was completed: No debridement was completed today Post-Debridement Measurements and Additional Note: Post-Debridement Measurements/Treatment WC - Nurse 1 - General Ulcer Assessment Start: 01/31/22 10:37 Freq: Status: Active Protocol: [email or web address] Activity Type Activity Date Activity User E-sign Co-sign Detail Recorded Client Recorded Date Recorded By Document 01/31/22 10:37 DL [id number] 01/31/22 10:39 DL Document 02/07/22 14:32 [id number] 02/07/22 14:34 01/31/22 02/07/22 10:37 14:32 - Today's Visit Information Type of service Follow-up Visit Follow-up Visit (Physician/DOPE SPRAYER (Physician/DOPE SPRAYER ) ) Arrival Mode Ambulatory Ambulatory Transfer Assistance None Patient Identification Verified (Name & Yes No ) Patient Requires Transmission-Based No Precautions Height and Weight Body Mass Index (BMI) 18.1 18.1 BMI Classification Underweight Underweight Vital Signs Temperature (97.8 F-99.1 F) 97.6 F L 97.5 F L Temperature Source Temporal Temporal Pulse Rate (60-100) 81 82 Pulse Location Monitor Monitor Respiratory Rate (12-18) 20 H 16 Respiratory rate source Observation Observation Blood Pressure (90/60-120/80) 123/63 H 136/86 H Blood Pressure Mean (mm Hg) 83 102 Source Monitor Monitor Position Semi-Fowlers Blood Pressure Location Left Arm History Since Last Visit- (Skip if this is Patient's initial visit) Have you changed medications since your No No last visit? Any new allergies or adverse reactions No No Had a fall/change in ADL's that may No increase risk of falls Signs or symptoms of abuse and/or No No neglect since last visit Have you been in the hospital since your No No last visit? Has dressing in place as prescribed Yes Yes Has compression in place as prescribed N/A Has offloadiing in place as prescribed N/A N/A Experienced any changes in pain level or Yes No management Left Footwear Regular Shoe Right Footwear Regular Shoe Pain Scale: 0-10 Numeric Is Patient Pain Free? Yes Yes - Nurse 1 - General Ulcer Measurement Start: 01/31/22 10:37 Freq: Status: Active Protocol: Activity Type Activity Date Activity User E-sign Co-sign Detail Recorded Client Recorded Date Recorded By Document 01/31/22 10:37 BERT [id number] 01/31/22 10:39 DL Document 02/07/22 14:32 [id number] 02/07/22 14:34 01/31/22 02/07/22 10:37 14:32 Wound Center Nurse 1 #3 R martinez -Current Size (cm) - Length 0.1 -Current Size (cm) - Width 0.1 -Current Size (cm) - Depth 0.1 -Total Square Cm 0.01 -Photo Taken No -Exudate Amt None Present -Wound Margin Flat & Intact -Granulation Amt Large (67-100%) -Granulation Quality [place] -Necrosis Amt None Present (0 %) -Structure Exposed N/A -Texture (Kelly-wound Skin Appearance) No Abnormality -Moisture (Kelly-wound Skin Appearance) No Abnormality -Color (Kelly-wound Skin Appearance) No Abnormality -Temperature (Kelly-wound Skin No Abnormality Appearance) (Pt Warm) -Tenderness on Palpation (Kelly-wound No Skin Appearance) -Ulcer Cleansing Wound Cleanser -Anesthetic Used 5% Lidocaine Gel #1R Knee -Combined with other wound No -Current Size (cm) - Length 0.3 0 -Current Size (cm) - Width 0.3 0 -Current Size (cm) - Depth 0.1 0 -Total Square Cm 0.09 0 -Photo Taken No Yes -Epithelialization Large 67-100% -Circular Undermining No -Exudate Amt None Present -Wound Margin Distinct, Outline Attached -Granulation Amt Small (1-33%) -Granulation Quality [place] -Necrosis Amt None Present (0 %) -Texture (Kelly-wound Skin Appearance) No Abnormality -Moisture (Kelly-wound Skin Appearance) No Abnormality -Color (Kelly-wound Skin Appearance) No Abnormality -Temperature (Kelly-wound Skin No Abnormality Appearance) (Pt Warm) -Tenderness on Palpation (Kelly-wound No Skin Appearance) -Ulcer Cleansing Rinsed/ Irrigated with Saline -Foul Odor after Cleansing No -Anesthetic Used 5% Lidocaine Gel Lower Limb Edema Present NA WC - Nurse 2 - General Ulcer CM Notes Start: 01/31/22 10:37 Freq: Status: Active Protocol: Activity Type Activity Date Activity User E-sign Co-sign Detail Recorded Client Recorded Date Recorded By Document 01/31/22 11:02 MW [id number] 01/31/22 11:05 MW Document 02/07/22 14:37 [id number] 02/07/22 14:38 MEDARDO 01/31/22 02/07/22 11:02 14:37 Wound Center Nurse 2 #3 R martinez -Time 11:05 -Correct Patient Yes -Correct Side, Site, Position Yes -Correct Procedure Yes -Procedure Performed No -Post Debridement (cm) - Length 0 -Post Debridement (cm) - Width 0 -Total Square (Post) (cm) 0 -Wound/Ulcer Outcome Healed- Epithelialized #1R Knee -Time 11:03 -Correct Patient Yes No -Correct Side, Site, Position Yes No -Correct Procedure Yes No -Procedure Performed Yes No -Type of Procedure Debridement -Clinical Debridement Subcutaneous -Tissue Removed Subcutaneous -Post Debridement (cm) - Length 0.3 0 -Post Debridement (cm) - Width 0.5 0 -Post Debridement (cm) - Depth 0.1 0 -Total Square (Post) (cm) 0.15 0 -Area of Debridement (cm) - Length 0.3 0 -Area of Debridement (cm) - Width 0.5 0 -Total Square (Area) (cm) 0.15 0 -Tunneling No -Undermining/Tunneling No -Circular Undermining No -Wound/Ulcer Outcome Not Healed Healed- Epithelialized -Ulcer Cleansing Rinsed/ Irrigated with Saline -Foul Odor after Cleansing No -Bioengineered Tissue No -Bleeding Controlled with Pressure -Treatment Response Procedure Tolerated Well -Debridement - Subq, 1st 20sq cm Yes Pain Scale: 0-10 Numeric Is Patient Pain Free? Yes Yes - Nurse 3 - General Ulcer D/C NN Start: 01/31/22 10:37 Freq: Status: Active Protocol: Activity Type Activity Date Activity User E-sign Co-sign Detail Recorded Client Recorded Date Recorded By Document 01/31/22 11:06 [id number] 01/31/22 11:06 Document 02/07/22 14:39 [id number] 02/07/22 14:39 01/31/22 02/07/22 11:06 14:39 Wound Care Nurse 3 #1R Knee -Ulcer Cleansing Rinsed/ Irrigated with Saline -Foul Odor after Cleansing No -Negative Pressure Wound Therapy N/A -Primary Dressing Applied C Hydrogel ($) Treatment Response Procedure Tolerated Well Pain Scale: 0-10 Numeric Is Patient Pain Free? Yes Yes Teaching: Wound Center Dressing Your Wound -Person Taught Patient -Teaching Method Discussion -Response to teaching Verbalize understanding WC - Visit Discharge Discharge Condition Stable Stable Ambulatory Status Ambulatory Ambulatory Transportation Private Auto Private Auto Accompanied by SELF Medication Reconcilliation completed & Yes provided to patient/care provider Clinical Summary of Care Provided Yes Assessment/Plan Assessment/Plan (1) Ulcer of right lower extremity: CODE(S): L97.919 - Non-pressure chronic ulcer of unspecified part of right lower leg with unspecified severity (2) Ulcer of right knee: CODE(S): L97.819 - Non-pressure chronic ulcer of other part of right lower leg with unspecified severity (3) Wound of right upper extremity: CODE(S): S41.101A - Unspecified open wound of right upper arm, initial encounter PLAN: Plan Wounds are healed today. Encouraged her to massage the scarred areas with lotion to help help soften scarring. It was recommended to the patient to use sunscreen when outside to help minimize darkening of the healing scars. Follow up as needed.
== END 2022-02-08 15:55 | disposition home or self-care (01) ==
LOC: WC 14:30
PROVIDERS: PCP Internal Medicine; Visit Provider Nurse Practitioner Family
DX: L97.812 Non-pressure chronic ulcer of other part of right lower leg with fat layer exposed (principal); I48.91 Unspecified atrial fibrillation; W17.89XS Other fall from one level to another, sequela; F32.A Depression, unspecified; F41.9 Anxiety disorder, unspecified; Z79.01 Long term (current) use of anticoagulants; Z95.1 Presence of aortocoronary bypass graft; Z95.2 Presence of prosthetic heart valve
CPT/HCPCS: 11042; 99212; G0463

== ENCOUNTER 2022-03-12 13:22 | Emergency (ER) | payer MEDICARE, MEDICAID, SELFPAY ==
[2022-03-12 13:23] VITALS: BP 181/83; PULSE 86; RESP 15; O2SAT 100
[2022-03-12 13:24] VITALS: BP 181/83; PULSE 82; RESP 15; TEMP 37.1; O2SAT 99; BMI 20.5
[2022-03-12 13:28] VITALS: O2SAT 100
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
--- NOTE | 2022-03-12 13:40 | CT_ITS ---
STUDY: CT CHEST, ABDOMEN T PELVIS WITH CONTRAST REASON FOR EXAM: Female, 56 years old. abdominal pain -- TRAUMA ONLY: IV Contrast. Dont wait for creatinine RADIATION DOSAGE (If Supplied By Facility): CTDIvol = ( 12.81 ) mGy, DLP = ( 821.03 ) mGycm TECHNIQUE: Transaxial imaging was performed following intravenous administration of [id number] 100ML. Individualized dose optimization techniques were used for this CT. COMPARISON: No relevant priors. FINDINGS: CHEST Small hypodense nodules are present in the right lobe of the thyroid gland which are likely benign hyperplastic nodules. Thyroid ultrasound can be obtained in the nonacute setting. No visualized pneumothorax or pulmonary edema or pleural effusion. There are acute fractures of the left third through seventh ribs. The left third rib fracture is mildly displaced and results in a mild contusion of the underlying parenchyma in the lateral subpleural region of the left upper lobe, see image 32/119 series 12. A small amount of subcutaneous air is also present in the flank directly adjacent to the fracture site. The lungs are otherwise normal. There is no demonstrated pleural abnormality. Normal heart and pericardium. There are no calcifications of the coronary arteries. Normal mediastinum. Normal hilar regions. Normal unenhanced pulmonary arteries. Normal aorta arch and descending thoracic aorta. There are multi-level degenerative changes of the thoracic spine. There is no demonstrated abnormality of the visualized upper abdomen. ABDOMEN No free fluid or free air or high density hemorrhage is present. There are no demonstrated solid or lacerations or contusions. No visualized fractures of the pelvis or hips. No visualized acute fractures of the vertebral bodies. Normal liver. Mild intrahepatic postcholecystectomy biliary duct dilatation is present. There are surgical clips in the gallbladder fossa consistent with a prior cholecystectomy. Normal spleen. Normal pancreas. Normal bilateral adrenal glands. Normal right kidney. Normal left kidney. Normal visualized stomach. Normal small intestine. Mild to moderate stool is present in the proximal transverse colon with mild distention. No bowel obstruction is present. The high density fluid seen in the proximal colon and transverse colon is most likely related to an high density oral preparation. The appendix is visualized and appears normal. Normal abdominal aorta. Normal inferior vena cava. Normal retroperitoneum. There is a tiny umbilical hernia containing fat. There are diffuse degenerative changes of the visualized lumbar spine. PELVIS Normal urinary bladder. Normal visualized small intestine. Normal visualized colon. There is no pelvic fluid. There is no pelvic lymphadenopathy or mass lesion. There is absence of the uterus consistent with a prior hysterectomy. Normal visualized pelvic arteries. Normal abdominal wall. There are diffuse degenerative changes of the visualized lumbar spine. CT/CT Chest, Abd, Pel w/Contrast IMPRESSION: Chest: 1. Acute fractures of the left third through seventh ribs with a mild pulmonary contusion in the subpleural lateral aspect of the left upper lobe adjacent to the third rib fracture. 2. No pneumothorax is present. Abdomen and pelvis: 1. No free fluid or free air or high density hemorrhage is present. There are no demonstrated solid or lacerations or contusions. No visualized fractures of the pelvis or hips. No visualized acute fractures of the vertebral bodies. Electronically Signed: Danis Vallejo MD at 15:21 EDT ,
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
[2022-03-12] MEDS: Morphine 4 MG/ML Syringe IV ×2 (13:53→14:40)
[2022-03-12] MEDS: Ondansetron 4 MG/2 ML Vial IV ×2 (13:53→16:51)
[2022-03-12 14:03] LABS: Anion Gap 6 (5-15); BUN 28 mg/dL (7-18); BUN/Creat Ratio 31.9 RATIO (10-20); Calcium,Total 8.9 mg/dL (8.5-10.1); Chloride 111 mmol/L (98-107); Creatinine, Serum 0.88 mg/dL (0.55-1.02); EST Glomerular Filtration Rate 71 mL/min (>60); Est Glom Filt Rate - Afr Amer 85 mL/min (>60); Estimated Creatinine Clearance 60.57 ml/min; Glucose 105 mg/dL (74-106); Sodium Level 143 mmol/L (136-145)
[2022-03-12 14:09] LABS: Absolute Lymphocyte Count 1.13 X10^3/uL (0.83-4.51); Absolute Neutrophil Count 3.8 X10^3/uL (2.0-7.7); Basophil# 0.03 X10^3/uL; Basophil% 0.6 % (0-1); Eosinophil# 0.04 X10^3/uL; Eosinophils% 0.7 % (0-5); Hematocrit 39.2 % (37-47); Lymphocyte # 1.13 X10^3/ul (0.83-4.51); Lymphocyte % 20.9 % (19-41); Mean Corp Hgb Conc 30.6 g/dL (32-36); Mean Corpuscular Hgb 26.4 pg (27.0-32.0); Mean Corpuscular Volume 86.2 fL (81-99); Mean Platelet Vol. 10.1 fl (6.2-12.0); Monocyte# 0.28 X10^3/uL; Monocyte% 5.2 % (0-10); NRBC Flagged by Analyzer 0 % (0-5); Neutrophil # 3.82 X10^3/uL (2.7-7.7); Neutrophil % 70.7 % (47-70); Platelet Count 303 K/mm3 (150-450); RBC Distribution Width CV 13.8 % (11.6-14.6); RBC Distribution Width SD 43.1 fl (35.1-43.9); Red Blood Count 4.55 M/mm3 (4.2-5.4); White Blood Count 5.4 K/mm3 (4.4-11.0)
[2022-03-12 14:21] LABS: International Normalized Ratio 3.1; Partial Thromboplast Time 37.3 Seconds (24.1-36.2); Prothrombin Time (Protime)PT. 31.8 SECONDS (11.7-14.9)
--- NOTE | 2022-03-12 14:45 | NURSING ---
Pt called out on the call light. This caregiver entered the room with francy. Pt asked for ice chips. This caregiver told patient that the doctor would be asked. Patient asked to sit up. This caregiver sat the head of bed about 30 degrees. Patient stated she was going to vomit. Patient was given an emesis bag. Patient did not take the emesis bag. Patient dry heaved. This caregiver put the emesis bag up to patient mouth. Patient grabbed emesis bag and forcefully threw emesis bag. Patient was told to use emesis bag if she was going to vomit. Patient stated, give me ice chips and pain meds now. Patient was told that the doctor would be notified.
[2022-03-12 15:28] VITALS: BP 189/97; PULSE 89; RESP 13; O2SAT 97
--- NOTE | 2022-03-12 15:50 | RAD_ITS ---
STUDY: XR Shoulder Min 2 Views REASON FOR EXAM: Female, 56 years old. pain TECHNIQUE: XR Shoulder Min 2 Views LEFT COMPARISON: None. FINDINGS: Normal glenohumeral articulation. Normal acromioclavicular joint. Normal acromion. Normal humeral head and visualized proximal humerus. The soft tissue structures are unremarkable. Normal visualized pulmonary apex. RAD/Shoulder min 2 Views IMPRESSION: There are no acute findings of the shoulder. Electronically Signed: Romario Louis MD at 16:11 EDT ,
--- NOTE | 2022-03-12 15:50 | RAD_ITS ---
EXAM: XR LEFT HUMERUS, 2 OR MORE VIEWS CLINICAL INDICATION: pain TECHNIQUE: Frontal and lateral views of the left humerus. This report was created using [employer] report generation technology. COMPARISON: None. FINDINGS: BONES/JOINTS: Unremarkable. No acute fracture. No subluxation. Normal alignment. Preservation of the joint space. No sclerotic or destructive changes observed. SOFT TISSUES: Unremarkable. No soft tissue swelling or gas. No radiopaque foreign body. RAD/Humerus min 2 Views IMPRESSION: Negative left humerus x-rays. Electronically Signed: Romario Louis MD at 16:12 EDT ,
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
[2022-03-12] MEDS: fentaNYL 100 MCG/2 ML Ampul 50 MCG IV (16:44)
[2022-03-12 17:29] VITALS: BP 146/86; PULSE 89; RESP 16; O2SAT 99
--- NOTE | 2022-03-12 18:00 | ED.RN ---
Pt SpO2 monitor showing low pulse ox. This nurse went into check the placement to find the patient sitting up in bed typing on her phone and eating spoonfuls of ice. Patient requesting water to drink and update on transfer to [place] yelling I better have a bed. I will not be waiting in another ER after waiting in this one forever. This nurse attempted to explain that with her being a trauma transfer that we have to go by the other hospital policy and they decide were she is going. 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 and here. After verifying with the MD this nurse gave the patient water and updated her that transportation to [place] was being set up at this time. The patient stated If I am going to the ER you might as well not send me because I am not sitting in an ER all night. This nurse notified Jeff RAJAN of the patients concerns.
--- NOTE | 2022-03-12 18:32 | NURSING ---
Patient called out and asked for a phone lapel stitcher. This caregiver went in to the room and told patient that her phone can be charged at the nurse's station. Patient asked, What am I going to do at [facility]? Patient was told that the lapel stitcher cannot travel with her. Patient was belligerent and said Well I KNOW that. This caregiver asked patient to not take a tone. Patient stated, You took a tone with me first and earlier. Patient grabbed emesis bag again and shook it and stated. If i chucked this earlier, I don't want it on my bed. This caregiver asked patient if she wanted her phone charged. Patient stated, I will talk to someone else. I'm not talking to you. This caregiver updated charge nurse. [facility] Nurse Tech [id number]
[2022-03-12 18:50] VITALS: BP 137/107; PULSE 94; RESP 16; O2SAT 98
--- NOTE | 2022-03-12 18:53 | ED.RN ---
this rn was called into patients room. she stated I don't want that girl in my room anymore. when asked she states she was rude. pt also expressed concerns for transfer from [facility] to [facility]. I explained to the patient that we are not a trauma center and to ensure she has no complications related to her pulmonary contusion that we needed to transfer her to a trauma center. she agreed and signed transport paperwork. pt has been confrontational when asked assessment questions and related to pain medications. 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 pt was given contact information for patient teresa. she states i know your senior tax specialist and will be calling him. information passed on to hot car charger and veterinarian asked to refrain from entering patients room unless emergency. luis gonzalez rn [id number]
== END 2022-03-12 19:28 | disposition short-term general hospital (02) ==
PROVIDERS: Physician Assistant; Emergency Provider Emergency Medicine; PCP Internal Medicine; Visit Provider Emergency Medicine
DX: S27.321A Contusion of lung, unilateral, initial encounter (principal); S22.42XA Multiple fractures of ribs, left side, initial encounter for closed fracture; E78.5 Hyperlipidemia, unspecified; R10.817 Generalized abdominal tenderness; S09.90XA Unspecified injury of head, initial encounter; I10 Essential (primary) hypertension; I25.10 Atherosclerotic heart disease of native coronary artery without angina pectoris; S49.92XA Unspecified injury of left shoulder and upper arm, initial encounter; S30.1XXA Contusion of abdominal wall, initial encounter; Z79.01 Long term (current) use of anticoagulants; Z95.2 Presence of prosthetic heart valve; V49.88XA Car occupant (driver) (passenger) injured in other specified transport accidents, initial encounter
CPT/HCPCS: 70450; 71260; 72125; 73030; 73060; 74177; 80048; 85025; 85610; 85730; 96374; 96375; 96376; 99285; Q9967; A4216; J2405

== ENCOUNTER → 2022-03-29 | Outpatient (CLI) | payer MEDICARE, SELFPAY ==
--- NOTE | 2022-03-29 12:35 | RAD_ITS ---
STUDY: X-RAY - PELVIS AND RIGHT HIP REASON FOR EXAM: Female, 56 years old. Right Hip Pain, Sacral Fracture TECHNIQUE: 3 views of the pelvis and hip. COMPARISON: None. FINDINGS: There is a non-specific bowel gas pattern. Normal visualized soft tissue structures. Normal bilateral iliac wings, sacroiliac joints and visualized sacrum. Nondisplaced fractures of the medial aspect of the right superior and inferior pubic rami. Normal pubic symphysis. Normal bilateral ischial tuberosities. Normal visualized femoral head. Normal acetabulum. Normal hip joint. RAD/HIP, UNI W/ Pelvis 2-3 Views IMPRESSION: Nondisplaced fractures of the medial aspect of the right superior and inferior pubic rami. Electronically Signed: Mesfin Fairbanks MD at 13:05 EDT ,
[2022-03-29 16:39] LABS: Absolute Lymphocyte Count 0.83 X10^3/uL (0.83-4.51); Absolute Neutrophil Count 3.5 X10^3/uL (2.0-7.7); Basophil# 0.03 X10^3/uL; Basophil% 0.6 % (0-1); Eosinophil# 0.06 X10^3/uL; Eosinophils% 1.2 % (0-5); Hematocrit 37.4 % (37-47); Hemoglobin 11.2 g/dL (12.0-15.0); Lymphocyte # 0.83 X10^3/ul (0.83-4.51); Mean Corp Hgb Conc 29.9 g/dL (32-36); Mean Corpuscular Hgb 28.1 pg (27.0-32.0); Mean Corpuscular Volume 93.7 fL (81-99); Mean Platelet Vol. 9.1 fl (6.2-12.0); Monocyte# 0.45 X10^3/uL; Monocyte% 9.2 % (0-10); NRBC Flagged by Analyzer 0 % (0-5); Neutrophil # 3.48 X10^3/uL (2.7-7.7); Neutrophil % 71.6 % (47-70); Platelet Count 439 K/mm3 (150-450); RBC Distribution Width CV 18.1 % (11.6-14.6); RBC Distribution Width SD 61.5 fl (35.1-43.9); Red Blood Count 3.99 M/mm3 (4.2-5.4); White Blood Count 4.9 K/mm3 (4.4-11.0)
[2022-03-29 17:00] LABS: Anion Gap 6 (5-15); BUN 40 mg/dL (7-18); BUN/Creat Ratio 53.6 RATIO (10-20); Calcium,Total 9.5 mg/dL (8.5-10.1); Chloride 107 mmol/L (98-107); Creatinine, Serum 0.75 mg/dL (0.55-1.02); EST Glomerular Filtration Rate 85 mL/min (>60); Est Glom Filt Rate - Afr Amer 103 mL/min (>60); Glucose 77 mg/dL (74-106); Potassium 4.1 mmol/L (3.5-5.1); Sodium Level 137 mmol/L (136-145)
== END | disposition home or self-care (01) ==
PROVIDERS: PCP Internal Medicine; Referring Provider Internal Medicine; Visit Provider Internal Medicine
DX: I10 Essential (primary) hypertension (principal); M25.551 Pain in right hip
CPT/HCPCS: 36415; 73502; 80048; 85025

== ENCOUNTER → 2022-04-06 | Outpatient (CLI) | payer MEDICARE, SELFPAY ==
[2022-04-06 13:00] LABS: Prothrombin Time (Protime)PT. 55.1 SECONDS (11.7-14.9)
[2022-04-06 13:13] LABS: International Normalized Ratio 6.2
== END | disposition home or self-care (01) ==
LOC: MTLAB 10:20
PROVIDERS: PCP Internal Medicine; Referring Provider Internal Medicine Cardiovascular Disease; Visit Provider Internal Medicine Cardiovascular Disease
DX: Z95.2 Presence of prosthetic heart valve (principal); Z79.01 Long term (current) use of anticoagulants
CPT/HCPCS: 36415; 85610

== ENCOUNTER → 2022-05-03 | Outpatient (CLI) | payer MEDICARE, SELFPAY ==
[2022-05-03 11:07] LABS: Mucous, Urine 0 SEEN /hpf (<or=2+)
--- NOTE | 2022-05-03 11:32 | RAD_ITS ---
STUDY: X-RAY - UNILATERAL RIBS ( LEFT ) WITH CHEST REASON FOR EXAM: Female, 56 years old. Fractures of the left third through seventh ribs. Follow-up. TECHNIQUE - RIBS: 4 view(s) of the ribs. TECHNIQUE - CHEST: Single frontal view of the chest. COMPARISON: CT of the abdomen and pelvis dated March 12, 2022. FINDINGS - RIBS: Osteopenia. Callus formation at the left fourth through seventh ribs laterally at the minimally displaced fracture sites. FINDINGS - CHEST: Marked hyperinflation with flattening of the hemidiaphragms compatible with COPD. There is no demonstrated pleural abnormality. Normal size heart. Electronic device projected over the midportion of the heart. Normal mediastinum and jagjit. Normal visualized pulmonary arteries. Normal visualized aortic arch and descending thoracic aorta. Normal visualized thoracic spine. Normal visualized ribs, clavicles, and shoulders. There is no demonstrated abnormality of the visualized soft tissue structures of the upper abdomen. RAD/Ribs Uni Min 3V w/PA Chest IMPRESSION: RIBS: Osteopenia with healing left fourth through seventh rib fractures laterally. CHEST: Hyperinflation compatible with COPD. No acute finding. Electronically Signed: Stanislav Robbins, at 13:13 EST ,
--- NOTE | 2022-05-03 11:40 | RAD_ITS ---
STUDY: X-RAY - PELVIS AND BILATERAL HIPS REASON FOR EXAM: Female, 56 years old. Follow-up left pubic rami fractures. TECHNIQUE: AP view of the pelvis.? 2 views of the right hip, and 2 views of the left hip were obtained. COMPARISON: March 29, 2022. FINDINGS: There is a non-specific bowel gas pattern. Normal visualized soft tissue structures. Stable minimally displaced fractures of the right superior and inferior pubic rami with callus formation at the fracture sites. No complicating features. Mild arthrosis of both hips, unchanged. RAD/Hips B/L min 2 views w/ Pelvis IMPRESSION: Stable healing fractures of the right superior and inferior pubic rami without complications. Electronically Signed: Stanislav Robbins, at 13:04 EST ,
[2022-05-03 12:19] LABS: Color, Urine Yellow (Yellow); Glucose, Dipstick Normal (Normal); Ketone-Dipstick Negative (Negative); Leukocyte Esterase-Dipstick 100 /ul (Negative); Nitrite-Dipstick Negative (Negative); Occult Blood-Urine 25 /ul (Negative); Protein-Dipstick 15 mg/dl (Negative); Urine Bilirubin Dipstick Negative (Negative); Urine Clarity Sl. Cloudy (Clear); Urine Urobilinogen Normal (Normal); Urine pH 6.5 (5.0 - 8.0)
[2022-05-03 12:30] LABS: Bacteria 1+ /hpf (None Seen); Red Blood Cells-Urine 0-5 SEEN /hpf (0-5); Squamous Epithelial Cells - UA 0-5 SEEN /hpf (5-10); White Blood Cells 10-25 SEEN /hpf (0-5)
== END | disposition home or self-care (01) ==
LOC: LABSPEC 11:05 → RAD 11:32
PROVIDERS: PCP Internal Medicine; Referring Provider Physician Assistant; Visit Provider Physician Assistant
DX: S32.511D Fracture of superior rim of right pubis, subsequent encounter for fracture with routine healing (principal); S32.591A Other specified fracture of right pubis, initial encounter for closed fracture; M16.0 Bilateral primary osteoarthritis of hip; Z87.09 Personal history of other diseases of the respiratory system; R35.0 Frequency of micturition
CPT/HCPCS: 71101; 73521; 81001; 87086

== ENCOUNTER 2022-05-17 10:18 | Outpatient (RCR) | payer MEDICARE, SELFPAY ==
[2022-05-17 12:41] LABS: International Normalized Ratio 1.4; Prothrombin Time (Protime)PT. 17.3 SECONDS (11.7-14.9)
== END 2022-05-17 18:00 | disposition home or self-care (01) ==
LOC: MTLAB 10:18
PROVIDERS: PCP Internal Medicine; Referring Provider Internal Medicine Cardiovascular Disease; Visit Provider Internal Medicine Cardiovascular Disease
DX: Z79.01 Long term (current) use of anticoagulants (principal); Z95.2 Presence of prosthetic heart valve
CPT/HCPCS: 36415; 85610

== ENCOUNTER → 2022-06-23 | Outpatient (CLI) | payer MEDICARE, MEDICAID, SELFPAY ==
--- NOTE | 2022-06-23 09:47 | ECHOD_ITS ---
Reason For Study: Valve Replacement Eval Procedure This was a 2D Doppler, Color Flow transthoracic echocardiogram. The study was technically difficult. Exam performed in department. Left Ventricle Normal LV size. Left ventricular systolic function is normal. The estimated ejection fraction is 55 %. Stage 1 diastolic dysfunction. No regional wall motion abnormalities noted. Right Ventricle Normal RV size. Normal systolic function. Atria Normal left atrium. Normal right atrium. Mitral Valve There is mild mitral annular calcification. Mild (1+) eccentric mitral valve insufficiency. Tricuspid Valve Normal tricuspid valve. Mild (1+) tricuspid valve insufficiency. Pulmonary artery systolic pressure is 28 mmHg. Aortic Valve Peak aortic valve gradient 46 mmHg. Mean aortic valve gradient 26 mmHg. Bioprosthetic aortic valve. Pulmonic Valve Normal pulmonic valve. Great Vessels Normal aortic root. The pulmonary artery is normal size. Normal inferior vena cava. Pericardium/Pleural No pericardial effusion. MMode/2D Measurements & Calculations LVIDd: 4.8 cm IVSd: 0.75 cm LVOT diam: 1.8 cm LVIDs: 2.9 cm LVPWd: 0.79 cm LVOT area: 2.4 cm2 FS: 40.6 % LA dimension: 3.5 cm LAV(MOD-bp): 36.9 ml LA A4 area: 14.5 cm2 LAV(MOD-bp) Indexed: 24.5 ml/m2 LAV(MOD-sp2): 31.8 ml LAV(MOD-sp4): 39.1 ml RA A4 area: 13.0 cm2 Time Measurements MV dec time: 0.25 sec Doppler Measurements & Calculations MV E max danilo: 86.7 cm/sec Lat Peak E' Danilo: 9.5 cm/sec Med Peak E' Danilo: 7.4 cm/sec MV A max danilo: 93.6 cm/sec E/E' lat: 9.2 E/E' med: 11.7 MV E/A: 0.93 MV V2 max: 105.6 cm/sec MV P1/2t max danilo: 92.6 cm/sec Ao V2 max: 339.2 cm/sec MV max P.5 mmHg MV P1/2t: 78.7 msec Ao max P.1 mmHg MV V2 mean: 61.3 cm/sec MV dec slope: 344.7 cm/sec2 Ao V2 mean: 240.2 cm/sec MV mean P.8 mmHg Ao mean P.9 mmHg MV V2 VTI: 28.1 cm MVA(P1/2t): 2.8 cm2 Ao V2 VTI: 64.4 cm MVA(VTI): 1.9 cm2 AV (velocity ratio): 0.34 MATHEW(I,D): 0.84 cm2 MATHEW(V,D): 0.77 cm2 LV V1 max: 107.1 cm/sec SV(LVOT): 53.9 ml PA V2 max: 72.6 cm/sec LV V1 max P.6 mmHg LV V1 mean P.7 mmHg LV V1 mean: 78.1 cm/sec LV V1 VTI: 22.1 cm TR max danilo: 246.4 cm/sec TR max P.3 mmHg ECHO/Echo Complete Interpretation Summary Normal LV size. Left ventricular systolic function is normal. The estimated ejection fraction is 55 %. Stage 1 diastolic dysfunction. Bioprosthetic aortic valve. Mean aortic valve gradient 26 mmHg. Compared to the previous the mean gradient is essentially the same. Across the aortic valve. Ordering Physician: Heriberto Dee Referring Physician: Castro Quintana Performed By: Lamont Dent RCS
== END | disposition home or self-care (01) ==
LOC: CVS 09:45
PROVIDERS: PCP Internal Medicine; Visit Provider Internal Medicine Cardiovascular Disease
DX: G47.33 Obstructive sleep apnea (adult) (pediatric) (principal)
CPT/HCPCS: 93306

== ENCOUNTER → 2022-07-04 | Outpatient (CLI) | payer MEDICARE, MEDICAID, SELFPAY ==
[2022-07-06 21:07] LABS: Chlamydia By Nucleic Acid AMP Negative (Negative)
[2022-07-06 22:36] LABS: Gonococcus By Nucleic Acid AMP Negative (Negative)
== END | disposition home or self-care (01) ==
PROVIDERS: PCP Internal Medicine; Visit Provider Nurse Practitioner Women's Health
DX: Z11.3 Encounter for screening for infections with a predominantly sexual mode of transmission (principal)
CPT/HCPCS: 87491; 87591

== ENCOUNTER 2022-07-19 13:49 | Outpatient (RCR) | payer MEDICARE, MEDICAID, SELFPAY ==
[2022-07-19 15:07] LABS: Absolute Lymphocyte Count 0.64 X10^3/uL (0.83-4.51); Absolute Neutrophil Count 4.6 X10^3/uL (2.0-7.7); Basophil# 0.01 X10^3/uL; Basophil% 0.2 % (0-1); Eosinophil# 0.02 X10^3/uL; Eosinophils% 0.4 % (0-5); Hemoglobin 13.5 g/dL (12.0-15.0); Lymphocyte # 0.64 X10^3/ul (0.83-4.51); Lymphocyte % 11.3 % (19-41); Mean Corp Hgb Conc 31.4 g/dL (32-36); Mean Corpuscular Hgb 27.2 pg (27.0-32.0); Mean Corpuscular Volume 86.5 fL (81-99); Mean Platelet Vol. 9.5 fl (6.2-12.0); Monocyte# 0.39 X10^3/uL; Monocyte% 6.9 % (0-10); NRBC Flagged by Analyzer 0 % (0-5); Neutrophil # 4.57 X10^3/uL (2.7-7.7); Platelet Count 257 K/mm3 (150-450); RBC Distribution Width CV 14.8 % (11.6-14.6); RBC Distribution Width SD 46.6 fl (35.1-43.9); Red Blood Count 4.97 M/mm3 (4.2-5.4); White Blood Count 5.6 K/mm3 (4.4-11.0)
[2022-07-19 15:18] LABS: International Normalized Ratio 2.6; Prothrombin Time (Protime)PT. 27.5 SECONDS (11.7-14.9)
[2022-07-19 15:52] LABS: ALB/GLOB Ratio 1.1 RATIO (0.9-2.4); AST(SGOT) 17 U/L (15-37); Alanine Aminotransfer ALT/SGPT 26 U/L (13-56); Albumin, Serum 3.7 g/dL (3.2-5.0); Alkaline Phosphatase 125 U/L (45-117); Anion Gap 6 (5-15); BUN 25 mg/dL (7-18); Calcium,Total 9.3 mg/dL (8.5-10.1); Chloride 106 mmol/L (98-107); EST Glomerular Filtration Rate 61 mL/min (>60); Est Glom Filt Rate - Afr Amer 73 mL/min (>60); Globulin 3.4 g/dL (2.2-4.2); Glucose 121 mg/dL (74-106); Potassium 3.9 mmol/L (3.5-5.1); Protein, Total 7.1 g/dL (6.4-8.2); Sodium Level 139 mmol/L (136-145)
== END 2022-07-25 23:59 ==
LOC: BIMLAB 13:49
PROVIDERS: PCP Internal Medicine; Referring Provider Internal Medicine Cardiovascular Disease; Visit Provider Internal Medicine Cardiovascular Disease
DX: Z79.01 Long term (current) use of anticoagulants (principal); Z95.2 Presence of prosthetic heart valve; K52.9 Noninfective gastroenteritis and colitis, unspecified
CPT/HCPCS: 36415; 80053; 85025; 85610; 87493

== ENCOUNTER → 2022-09-13 | Outpatient (CLI) | payer MEDICARE, MEDICAID, SELFPAY ==
--- NOTE | 2022-09-13 12:57 | BI_ITS ---
MAMMOGRAPHY - BILATERAL SCREENING REASON FOR EXAM: Female, 57 years old. Routine annual screening examination. PERTINENT HISTORY: Non-contributory. TECHNIQUE: Digital bilateral breast ilene (3D mammographic acquisition) in the CC and MLO projections. 2-D mediolateral oblique (MLO) and craniocaudad (CC) views of both breasts were obtained. CAD: Full Field Digital Mammography with Computer Added Detection was performed. COMPARISON: Comparison is made with prior study dated June 23, 2021 and June 14, 2020. FINDINGS: Breast Composition: The breasts are heterogeneously dense, which may obscure small masses. There are no dominant masses or suspicious calcifications. No other significant abnormalities are identified. There has been no significant change since the prior study. BI/SCRN MAMM (CAD)W/ILENE BILAT IMPRESSION: Stable bilateral screening mammogram. Yearly follow-up mammogram recommended. (A) ASSESSMENT CATEGORY: BIRADS Category 1: Negative. A letter regarding these results will be sent to the patient by the facility within 30 days. Approximately 10% of breast cancers are not detected by mammography. A normal mammogram should not delay biopsy of a clinically suspicious abnormality. [id number] Electronically Signed: Mesfin Fairbanks MD at 13:47 EDT ,
== END | disposition home or self-care (01) ==
LOC: OPBI 12:56
PROVIDERS: PCP Internal Medicine; Referring Provider Nurse Practitioner Women's Health; Visit Provider Nurse Practitioner Women's Health
DX: Z12.31 Encounter for screening mammogram for malignant neoplasm of breast (principal)
CPT/HCPCS: 77063; 77067

== ENCOUNTER 2022-10-09 10:36 | Outpatient (RCR) | payer MEDICARE, MEDICAID, SELFPAY ==
[2022-10-09 12:40] LABS: International Normalized Ratio 2.4; Prothrombin Time (Protime)PT. 26.5 SECONDS (11.7-14.9)
[2022-10-09 13:12] LABS: AST(SGOT) 24 U/L (15-37); Alanine Aminotransfer ALT/SGPT 31 U/L (13-56); Albumin, Serum 3.9 g/dL (3.2-5.0); Alkaline Phosphatase 71 U/L (45-117); Bilirubin, Direct 0.05 mg/dL (0.00-0.30); Cholesterol 198 mg/dL (200); Globulin 3.5 g/dL (2.2-4.2); High Density Lipoprotein 95 mg/dL; Protein, Total 7.4 g/dL (6.4-8.2); Triglycerides 118 mg/dL; Very Low Density Lipoprotein 24 mg/dL (5-40)
== END 2022-10-25 23:59 ==
LOC: BIMLAB 10:36
PROVIDERS: Nurse Practitioner Gerontology; PCP Internal Medicine; Referring Provider Internal Medicine Cardiovascular Disease; Visit Provider Internal Medicine Cardiovascular Disease
DX: Z79.01 Long term (current) use of anticoagulants (principal); Z95.2 Presence of prosthetic heart valve; E78.00 Pure hypercholesterolemia, unspecified
CPT/HCPCS: 36415; 80061; 80076; 85610

== ENCOUNTER → 2022-10-24 | Outpatient (CLI) | payer MEDICARE, MEDICAID, SELFPAY ==
--- NOTE | 2022-10-24 11:52 | RAD_ITS ---
STUDY: X-RAY - RIGHT FOOT CLINICAL: Female, 57 years old. Pain. TECHNIQUE: 3 weightbearing view(s) of the foot. COMPARISON: None. FINDINGS: Normal talus, calcaneus, and tarsal bones. Normal visualized subtalar, talonavicular, calcaneocuboid, tarsal and tarsometatarsal articulations. Stable mild arthrosis of the MTP and IP joints with hammertoe deformities. Moderate arthrosis of the first MTP joint, unchanged. Normal soft tissues. RAD/Foot min 3 Views IMPRESSION: Stable arthrosis, most marked at the first MTP joint. No acute abnormality. Electronically Signed: Stanislav Robbins MD at 13:02 EDT ,
== END | disposition home or self-care (01) ==
LOC: MTRAD 11:49
PROVIDERS: PCP Internal Medicine; Referring Provider Podiatrist; Visit Provider Podiatrist
DX: M20.5X1 Other deformities of toe(s) (acquired), right foot (principal)
CPT/HCPCS: 73630

== ENCOUNTER 2022-12-18 08:12 | Emergency (ER) | payer MEDICARE, MEDICAID, SELFPAY ==
[2022-12-18 08:13] VITALS: BP 133/79; PULSE 82; RESP 20; TEMP 35.7; O2SAT 100; BMI 18.6
--- NOTE | 2022-12-18 08:38 | CT_ITS ---
INDICATION: trauma EXAMINATION: CT FACIAL BONES - CT Maxillofacial W/O Contrast Injection TECHNIQUE: Helically acquired images were obtained of the facial bones. A radiation dose optimization technique was used for this scan. IV Contrast dosage and agent: None. RADIATION DOSAGE (If Supplied By Facility): CTDIvol = ( 29.38 ) mGy, DLP = ( 635.61 ) mGycm COMPARISON: FINDINGS: SOFT TISSUES: No focal subcutaneous swelling. No discrete fluid collections. VISUALIZED PARANASAL SINUSES: There is right sphenoid sinus disease.. VISUALIZED MASTOID AIR CELLS: Clear. FACIAL BONES, MANDIBLE AND TMJs: No displaced facial bone fracture. No lytic or blastic abnormality. VISUALIZED DENTITION: No periodontal osseous erosion. ORBITAL CONTENTS: Both globes, extraocular muscles and retrobulbar fat appear unremarkable. CT/Sinus/Facial Bone IMPRESSION: Right-sided sinus disease. Otherwise unremarkable CT of the facial bones. Electronically Signed: Justino Arzate, at 9:51 EDT ,
--- NOTE | 2022-12-18 08:38 | CT_ITS ---
INDICATION: head injury EXAMINATION: CT BRAIN - CT Head or Brain W/O Contrast Injection TECHNIQUE: Multiple axial images were obtained of the head without intravenous contrast. A radiation dose optimization technique was used for this scan. IV Contrast dosage and agent: None. RADIATION DOSAGE (If Supplied By Facility): CTDIvol = ( 44.99 ) mGy, DLP = ( 762.36 ) mGycm COMPARISON: FINDINGS: BRAIN PARENCHYMA: No intra- or extra-axial hemorrhage. No evidence of acute infarct. No intracranial mass or mass effect. There is preservation of the haddad/white matter interface. Posterior fossa structures are unremarkable. CSF SPACES: Appropriate for age. No hydrocephalus. Basal cisterns are patent. CALVARIUM, SKULL BASE, PARANASAL SINUSES AND MASTOID AIR CELLS: Clear. No discrete lytic or blastic abnormalities. There is right parietal soft tissue edema. ORBITS: Both globes, extraocular muscles, optic nerves and retrobulbar fat appear unremarkable. CT/Brain/Head without Contrast IMPRESSION: Right parietal soft tissue edema. Otherwise unremarkable Brain CT without contrast. Electronically Signed: Justino Arzate, at 9:47 EDT ,
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
[2022-12-18] MEDS: Diphth,Pertuss(Acell),Tet Vac 0.5 ML Vial IM (09:03)
--- NOTE | 2022-12-18 10:47 | ED.RN ---
pt left without d/c papers.
== END 2022-12-18 10:20 | disposition home or self-care (01) ==
PROVIDERS: Emergency Provider Emergency Medicine; PCP Internal Medicine; Visit Provider Emergency Medicine
DX: S01.01XA Laceration without foreign body of scalp, initial encounter (principal); E78.5 Hyperlipidemia, unspecified; I10 Essential (primary) hypertension; Z79.01 Long term (current) use of anticoagulants; Z79.82 Long term (current) use of aspirin; G43.909 Migraine, unspecified, not intractable, without status migrainosus; Z79.899 Other long term (current) drug therapy; Z95.2 Presence of prosthetic heart valve; Z90.49 Acquired absence of other specified parts of digestive tract; Z90.710 Acquired absence of both cervix and uterus; S00.83XA Contusion of other part of head, initial encounter; S00.03XA Contusion of scalp, initial encounter; W11.XXXA Fall on and from ladder, initial encounter
CPT/HCPCS: 70450; 70486; 90715; 99283

== ENCOUNTER → 2023-01-04 | Outpatient (CLI) | payer MEDICARE, MEDICAID, SELFPAY ==
--- NOTE | 2023-01-04 16:02 | RAD_ITS ---
STUDY: X-RAY - RIGHT KNEE REASON FOR EXAM: Female, 57 years old. right knee contusion TECHNIQUE: 4 view(s) of the knee. COMPARISON: None. FINDINGS: Normal visualized distal femur. Normal visualized proximal tibia and fibula. Normal proximal tibiofibular articulation. Normal medial femorotibial compartment. Normal lateral femorotibial compartment. Normal patellofemoral articulation. Calcified bilateral meniscus are noted. RAD/Knee 4 or More Views IMPRESSION: No evidence of acute fracture or dislocation. Senescent calcified meniscus are noted. Electronically Signed: Ghulam Dickson DO at 16:18 EDT ,
== END | disposition home or self-care (01) ==
LOC: MTRAD 16:01
PROVIDERS: PCP Internal Medicine; Visit Provider Physician Assistant Surgical
DX: S86.911A Strain of unspecified muscle(s) and tendon(s) at lower leg level, right leg, initial encounter (principal); S80.01XA Contusion of right knee, initial encounter; X58.XXXA Exposure to other specified factors, initial encounter
CPT/HCPCS: 73564

== ENCOUNTER 2023-01-25 13:00 | Outpatient (RCR) | payer MEDICARE, MEDICAID, SELFPAY ==
--- NOTE | 2022-11-14 11:28 | HP.PTREVAL_ITS ---
Dr. Castro Quintana MD, It has been my pleasure to treat AUBREY COCHRAN over the last 11 visits for BACK AND PELVIC PAIN. Please see the progress note below for an update on the physical therapy plan of care! Subjective: PATIENT REPORTS SHE FEELS BETTER. SHE REPORTS SHE STILL HAS THE PAIN BUT IT IS GETTING BETTER. SHE REPORTS SHE CAN DO HER HOME EX'S TO SOME DEGREE BUT SHE FEELS BETTER BENEFIT WITH THE EX'S IN THE POOL. STATES SHE WAS PUT ON PREDNISONE FOR HER FOOT A FEW WKS AGO AND THAT SEEMED TO HELP HER R HIP/ABDOMINAL PAIN TOO. STOPPED THE PREDNISONE APPROX LAST WEEK AND NOW THE PAIN IS GETTING WORSE AGAIN. Objective/Function: PATIENT WAS SEEN TODAY FOR RE-ASSESSMENT OF PROGRESS TOWARD THE SET PT GOALS AND THE NEED FOR FURTHER PHYSICAL THERAPY VS READINESS FOR DISCHARGE. PATIENT IS MAKING PROGRESS TOWARD ALL PT GOALS AND IS A GOOD CANDIDATE TO CONTINUE PT BASED ON PROGRESS MADE AND ROOM FOR FURHTER IMP ROVEMENT. PATIENT IS AGREEABLE. UPON EXAM TODAY: Motor deficit: R HIP 4-/5, KNEE 4-/5, ANKLE 5/5. LLE: HIP 4/5, KNEE 4/5, ANKLE 4/5. Dural Signs: MILDLY POSITIVE R LE. Lumbar mvmt loss: flex - NIL. ext - MOD TO MITCHEL. R SG - MOD. L SG - MIN. PATIENT DENIES INCREASED PAIN WITH LUMBAR ROM TESTING ALL PLANES EXCEPT R SG TESTING. Core strength: POOR. Palpation: NO ACUTE LUMBAR, HIP OR PELVIC TENDERNESS WITH LIGHT PALPATION. [ End ] Plan Plan: CONTINUE AQUATIC THERAPY 2X'S A WK X 5 WKS FOR BACK, PELVIC, R HIP AND VIANCA LE PAIN RELIEF. GAIT TRAINING. POSTURE CORRECTION/STRENGTHENING, INSTRUCTION IN APPROPRIATE BODY MECHANICS AND ACTIVITY MODIFICATIONS. DLS STARTING WITH A NEUTRAL SPINE PROGRESSING ROM TOLERATED. VIANCA LE ROM, STRETCHING AND STRENGTHENING. HEP INSTRUCTION. Balance/Gait/Functional tests - Balance/Special Test Scores Oswestry Low Back Score: 21 Goals Goal 1:: DECREASE C/O BACK AND VIANCA LE SX'S. Goal Time Frame: 4-6 Weeks Goal 2:: IMPROVE PERSONAL CARE, LIFTING, WALKING, SITTING, STANDING, SLEEP, SOCIAL LIFE, TRAVEL AND HOMEMAKING FUNCTION. Goal Time Frame: 4-6 Weeks Goal 3:: INSTRUCT IN PROPHYLAXIS Goal Time Frame: 4-6 Weeks Anticipated Interventions Patient/Client Instruction: Educate patient on: Condition, Plan of Care, Risk Factors For the Purpose of:: To improve self management Therapeutic Exercise to Include: Strength training, Body mechanics, Postural training, Flexibilty training, Neuromotor development, Relaxation training, In an aquatic setting, Dynamic Lumbar Stabilization For the Purpose of:: To decrease pain, To improve muscle performance and motor function, To increase tolerance to activity/condition/position, To improve ability of physical actions for home/community/work/leisure Please do not hesitate to contact me at [phone] by phone or if you have questions or concerns regarding this new plan of care! Sincerely, Amy Padilla, PT, Cert MDT
--- NOTE | 2022-12-19 12:25 | HP.PTREVAL_ITS ---
Re-Evaluation Intro: Dr. Castro Quintana MD, It has been my pleasure to treat AUBREY COCHRAN over the last 20 visits for BACK AND PELVIC PAIN. Please see the progress note below for an update on the physical therapy plan of care! Subjective Subjective: PATIENT REPORTS THE POOL THERAPY HAS HELPED A LOT. SHE STATES SHE IS DOING BETTER AND HAS HOME EX'S NOW TOO. PATIENT REPORTS SHE IS WALKING BETTER AND SHE IS MORE UPRIGHT AND HER PSYCHOLOGIST NOTICED IT. SHE REPORTS SHE FELL TRYING TO HELP PUT A LADDER AWAY. WENT TO URGENT CARE AND DIDN'T BREAK ANYTHING. Objective Objective/Function: PATIENT WAS SEEN TODAY FOR RE-ASSESSMENT OF PROGRESS TOWARD THE SET PT GOALS AND THE NEED FOR FURTHER PHYSICAL THERAPY VS READINESS FOR DISCHARGE. PATIENT IS MAKING PROGRESS TOWARD ALL PT GOALS AND IS A GOOD CANDIDATE TO CONTINUE PT BASED ON PROGRESS MADE AND ROOM FOR FURHTER IMPROVEMENT. A TRIAL OF LAND PT IS RECOMMENDED WHILE PATIENT PURSUES INDEP POOL EX AT THE [facility]. PATIENT IS AGREEABLE. UPON EXAM TODAY: Motor deficit: R HIP 4/5, KNEE FLEX 4/5, KNEE EXT 5/5, ANKLE 5/5. LLE: HIP 4/5, KNEE FLEX 4/5, KNEE EXT 5/5, ANKLE 5/5. Dural Signs: MILDLY POSITIVE R LE. Lumbar mvmt loss: flex - NIL ext - MOD R SG - MOD L SG - MIN PATIENT DENIES INCREASED PAIN WITH LUMBAR ROM TESTING ALL PLANES EXCEPT R SG TESTING. Core strength: FAIR Palpation: NO ACUTE LUMBAR, HIP OR PELVIC TENDERNESS WITH LIGHT PALPATION. Plan Plan Plan: CONTINUE PT 2X'S A WK X 5 WKS TRANISTIONING TO LAND FROM POOL FOR: GAIT TRAINING. POSTURE CORRECTION/STRENGTHENING, INSTRUCTION IN APPROPRIATE BODY MECHANICS AND ACTIVITY MODIFICATIONS. DLS. VIANCA LE ROM, STRETCHING AND STRENGTHENING. HEP INSTRUCTION. Balance/Gait/Functional tests Balance/Special Test Scores Oswestry Low Back Score: 18 Goals Goals Goal 1:: DECREASE C/O BACK AND VIANCA LE SX'S. Goal Time Frame: 4-6 Weeks Goal Progress: Progressing Goal 2:: IMPROVE PERSONAL CARE, LIFTING, WALKING, SITTING, STANDING, SLEEP, SOCIAL LIFE, TRAVEL AND HOMEMAKING FUNCTION. Goal Time Frame: 4-6 Weeks Goal Progress: Progressing Goal 3:: INSTRUCT IN PROPHYLAXIS Goal Time Frame: 4-6 Weeks Goal Progress: Progressing Anticipated Interventions Anticipated Interventions Patient/Client Instruction: Educate patient on: Condition, Plan of Care and Risk Factors For the Purpose of:: To improve self management Therapeutic Exercise to Include: Strength training, Body mechanics, Postural training, Flexibilty training, Neuromotor development, Relaxation training, In an aquatic setting and Dynamic Lumbar Stabilization For the Purpose of:: To decrease pain, To improve muscle performance and motor function, To increase tolerance to activity/condition/position and To improve ability of physical actions for home/community/work/leisure Re-Evaluation Ending Re-evaluation ending: Please do not hesitate to contact me at [phone] by phone or if you have questions or concerns regarding this new plan of care! Sincerely, Amy Padilla, PT, Cert MDT
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
== END 2023-01-25 14:52 | disposition home or self-care (01) ==
LOC: PT 13:00
PROVIDERS: PCP Internal Medicine; Referring Provider Internal Medicine; Visit Provider Internal Medicine
DX: R10.2 Pelvic and perineal pain (principal); M54.9 Dorsalgia, unspecified; G89.29 Other chronic pain
CPT/HCPCS: 97110; 97113; 97162; 97164

== ENCOUNTER → 2023-04-25 | Outpatient (CLI) | payer MEDICARE, MEDICAID, SELFPAY ==
[2023-04-25 16:41] LABS: Absolute Lymphocyte Count 0.86 X10^3/uL (0.83-4.51); Absolute Neutrophil Count 4.5 X10^3/uL (2.0-7.7); Basophil# 0.02 X10^3/uL; Basophil% 0.3 % (0-1); Eosinophil# 0.12 X10^3/uL; Hematocrit 38.9 % (37-47); Hemoglobin 11.7 g/dL (12.0-15.0); Lymphocyte # 0.86 X10^3/ul (0.83-4.51); Lymphocyte % 14.5 % (19-41); Mean Corp Hgb Conc 30.1 g/dL (32-36); Mean Corpuscular Hgb 26.4 pg (27.0-32.0); Mean Corpuscular Volume 87.6 fL (81-99); Mean Platelet Vol. 9.4 fl (6.2-12.0); Monocyte# 0.46 X10^3/uL; Monocyte% 7.8 % (0-10); NRBC Flagged by Analyzer 0 % (0-5); Neutrophil # 4.45 X10^3/uL (2.7-7.7); Neutrophil % 75.1 % (47-70); Platelet Count 343 K/mm3 (150-450); RBC Distribution Width CV 15.6 % (11.6-14.6); RBC Distribution Width SD 50.1 fl (35.1-43.9); Red Blood Count 4.44 M/mm3 (4.2-5.4); White Blood Count 5.9 K/mm3 (4.4-11.0)
[2023-04-25 16:52] LABS: Anion Gap 3 (5-15); BUN 23 mg/dL (7-18); BUN/Creat Ratio 23.1 RATIO (10-20); Calcium,Total 8.7 mg/dL (8.5-10.1); Chloride 110 mmol/L (98-107); EST Glomerular Filtration Rate 61 mL/min (>60); Est Glom Filt Rate - Afr Amer 74 mL/min (>60); Glucose 85 mg/dL (74-106); Potassium 4.2 mmol/L (3.5-5.1); Sodium Level 139 mmol/L (136-145)
[2023-04-25 16:53] LABS: International Normalized Ratio 2.3; Prothrombin Time (Protime)PT. 25.9 SECONDS (11.7-14.9)
[2023-04-25 16:58] LABS: AST(SGOT) 20 U/L (15-37); Alanine Aminotransfer ALT/SGPT 27 U/L (13-56); Albumin, Serum 3.4 g/dL (3.2-5.0); Alkaline Phosphatase 55 U/L (45-117); Bilirubin, Direct 0.07 mg/dL (0.00-0.30); Cholesterol 197 mg/dL (200); Globulin 3.3 g/dL (2.2-4.2); High Density Lipoprotein 92 mg/dL; Protein, Total 6.7 g/dL (6.4-8.2); Triglycerides 63 mg/dL; Very Low Density Lipoprotein 13 mg/dL (5-40)
== END | disposition home or self-care (01) ==
LOC: BIMLAB 15:25
PROVIDERS: Internal Medicine Cardiovascular Disease; Nurse Practitioner Gerontology; PCP Internal Medicine; Referring Provider Internal Medicine; Visit Provider Internal Medicine
DX: E78.00 Pure hypercholesterolemia, unspecified (principal); I10 Essential (primary) hypertension; Z79.01 Long term (current) use of anticoagulants; Z95.2 Presence of prosthetic heart valve
CPT/HCPCS: 36415; 80048; 80061; 80076; 85025; 85610

== ENCOUNTER → 2023-07-17 | Outpatient (CLI) | payer MEDICARE, MEDICAID, SELFPAY ==
--- NOTE | 2023-07-17 13:46 | ECHOD_ITS ---
Reason For Study: VALVE REPLACEMENT EVAL Procedure This was a 2D Doppler, Color Flow transthoracic echocardiogram. Exam performed in department. Left Ventricle Normal LV size. Mild concentric left ventricular hypertrophy. Left ventricular systolic function is normal. The estimated ejection fraction is 60 %. Stage 1 diastolic dysfunction. No regional wall motion abnormalities noted. Right Ventricle Normal RV size. Normal systolic function. Atria Normal left atrium. Normal right atrium. Mitral Valve There is moderate mitral annular calcification. Tricuspid Valve Normal tricuspid valve. Mild tricuspid valve insufficiency. Pulmonary artery systolic pressure is 26 mmHg. Aortic Valve Peak aortic valve gradient 56 mmHg. Mean aortic valve gradient 34 mmHg. Bioprosthetic aortic valve functioning normally. Pulmonic Valve Normal pulmonic valve. Great Vessels Normal aortic root. The pulmonary artery is normal size. Normal inferior vena cava. Pericardium/Pleural No pericardial effusion. MMode/2D Measurements & Calculations LVIDd: 4.2 cm IVSd: 1.2 cm LVOT diam: 1.8 cm LVIDs: 2.9 cm LVPWd: 1.2 cm LVOT area: 2.6 cm2 RVDd: 3.6 cm FS: 31.9 % Ao root diam: 2.5 cm LAV(MOD-bp): 32.7 ml LVAd ap4: 23.7 cm2 LAV(MOD-bp) Indexed: 17.6 ml/m2 LVLd ap4: 7.2 cm LAV(MOD-sp2): 31.8 ml EDV(MOD-sp4): 65.9 ml LAV(MOD-sp4): 28.1 ml EDV(sp4-el): 66.5 ml LVAs ap4: 14.4 cm2 LVLs ap4: 6.1 cm ESV(MOD-sp4): 30.1 ml ESV(sp4-el): 28.8 ml EF(MOD-sp4): 54.3 % EF(sp4-el): 56.6 % SV(MOD-sp4): 35.7 ml SV(sp4-el): 37.6 ml LA A4 area: 12.2 cm2 LA dimension(2D): 3.5 cm RA A4 area: 11.6 cm2 TAPSE: 1.6 cm Time Measurements MV dec time: 0.30 sec Doppler Measurements & Calculations MV E max danilo: 74.2 cm/sec Lat Peak E' Danilo: 10.5 cm/sec Med Peak E' Danilo: 6.8 cm/sec MV A max danilo: 90.1 cm/sec E/E' lat: 7.0 E/E' med: 10.9 MV E/A: 0.82 Ao V2 max: 375.8 cm/sec LV V1 max: 154.1 cm/sec SV(LVOT): 82.7 ml Ao max P.5 mmHg LV V1 max P.6 mmHg Ao V2 mean: 279.0 cm/sec LV V1 mean P.4 mmHg Ao mean P.2 mmHg LV V1 mean: 108.7 cm/sec Ao V2 VTI: 73.1 cm LV V1 VTI: 32.1 cm AV (velocity ratio): 0.44 MATHEW(I,D): 1.1 cm2 MATHEW(V,D): 1.1 cm2 PA V2 max: 83.3 cm/sec TR max danilo: 237.0 cm/sec TR max P.5 mmHg ECHO/Echo Complete Interpretation Summary Normal LV size. Left ventricular systolic function is normal. The estimated ejection fraction is 60 %. Bioprosthetic aortic valve functioning normally. Stage 1 diastolic dysfunction. Mild concentric left ventricular hypertrophy. Ordering Physician: Heirberto Dee Referring Physician: KELLY COSBY Performed By: Cindy De La Cruz RDCS
== END | disposition home or self-care (01) ==
PROVIDERS: PCP Internal Medicine; Referring Provider Internal Medicine Cardiovascular Disease; Visit Provider Internal Medicine Cardiovascular Disease
DX: I25.10 Atherosclerotic heart disease of native coronary artery without angina pectoris (principal); Z86.79 Personal history of other diseases of the circulatory system; Z95.2 Presence of prosthetic heart valve; Z95.1 Presence of aortocoronary bypass graft
CPT/HCPCS: 93306

== ENCOUNTER → 2023-07-20 | Outpatient (CLI) | payer MEDICARE, MEDICAID, SELFPAY ==
--- OUTSIDE RECORDS SUMMARY | 2023-07-20 12:48 | XMS RPT_ITS | CCD ---
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 up to 180 days. FOR SLEEP DULoxetine (CYMBALTA) 60 mg capsule Take 1 capsule by mouth once daily. warfarin (COUMADIN) 5 mg tablet Take 3 tablets by mouth once daily. Or as directed aMILoride (MIDAMOR) 5 mg tablet Take 1 tablet by mouth once daily. furosemide (LASIX) 20 mg tablet Take 1 tablet by mouth twice daily. potassium chloride ER (K-DUR, KLOR-CON) 20 mEq tablet Take 2 tablets by mouth three times daily with meals. Spread out through day. nitroglycerin sublingual (NITROQUICK) 0.4 mg SL tablet Dissolve 1 tablet under the tongue every 5 minutes as needed for Chest Pain. DISSOLVE ON TONGUE FOR CHEST PAIN. IF NO PAIN RELIEF, CALL 911 Magnesium Oxide 500 mg tab Take 1 tablet by mouth three times daily. buPROPion HCl (WELLBUTRIN SR) 200 mg 12 hr tablet Take 1 tablet by mouth twice daily. ondansetron (ZOFRAN) 8 mg tablet Take 1 tablet by mouth every 8 hours as needed. Biotin 2,500 mcg cap Take by mouth. Takes 5000 mcg once daily traZODone 100 mg tablet Take 1 tablet by mouth daily at bedtime. topiramate (TOPAMAX) 100 mg tablet Take 1 tablet by mouth twice daily. multivitamin (DAILY MULTI-VITAMIN) ORAL tablet Take 1 tablet by mouth once daily. Mgcgq-6-NYD-EPA-Fish Oil 1,000 (120-180) mg ORAL Cap Take by mouth. Take one(1) tablet three times daily. Lactulose 10 gram ORAL packet 4 tsp daily prn PROMETHAZINE 25 MG TAB one tab as needed for nausea diphenhydramine hcl(BENADRYL 50 MG/ML INJECTION) USE DIRECTED. ASPIRIN 81 MG TAB Take one (1) tablet daily . No current facility-administered medications for this visit. Psychiatric Medication Issues: No change from previous appointment DIAGNOSIS: [place] I: Depression with Anxiety Pain w psych Factors CRPS (RSD) PTSD Aortic valve replacement in her 20s [place] II: deferred [place] III: see doctor notes [place] IV: Pain and loss of ability to be as active as she had in the past [place] V: 50-65 TREATMENT PROGRESS/ASSESSMENT: Progressing satisfactorily. TREATMENT PLAN/GOALS: Continue in therapy focusing on self-care, interpersonal relationships, stress management, affect management, and self-esteem. Next appointment: as scheduled Candie Tyler, PhD [facility] 06-05-2023 Note HNO ID: [id number] Author: CANDIE TYLER, PhD Service: ? Author Type: Psychologist Type: Progress Notes Filed: 06/05/2023 17:39 Note Text: [facility] Behavioral Health Department Progress Note Natalie Cochran 06/05/2023 [id number] PROVIDER: Candie Tyler, PhD CPT Code: Time: 50 minutes Setting: Due to the federal emergency declaration and the need for ongoing mental health services, the following visit was completed virtually and informed consent obtained orally to reduce the risk of COVID-19 exposure. Oral consent to services related to virtual visits was obtained after information was sent via [employer] or read to patient if [facility] not available. Parties Present: Patient Treatment Modality/Interventions: Cognitive Behavioral Reassurance/Supportive Insight oriented Problem solving Psychoeducation MENTAL STATUS: Mood: variable, irritable Affect: mood-congruent Thoughts/Associations:goal directed Suicidal/Homicidal Ideation: None expressed or evidenced Other Prominent Symptoms: Therapy Focus/Content of Session: Self-care, Stress management, Mood/affect regulation, Interpersonal, Marital/couple, and Self-esteem MOOD: doing better: valve: 33 years old.. PLAN: check soon dad doing ok Focus: taking things more in stride vs excited we discussed this at length relationship: doing ok ... She has been considerably more clear and out front and assertive w him MEDICATIONS: Per medical record: Current Outpatient Medications Medication Sig busPIRone (BUSPAR) 5 mg tablet Take 5 mg by mouth twice daily. chlorzoxazone (PARAFON FORTE DSC) 500 mg tablet Take 1 tablet by mouth four times daily as needed (headache). lidocaine (SALONPAS) 4 % patch Apply 1 Patch as directed once daily as needed (pain) for up to 7 doses. Walker misc 1 wheeled walker gabapentin (NEURONTIN) 800 mg tablet Take 0.5 tablets by mouth three times daily. sucralfate (CARAFATE) 1 gram tablet Take 1 tablet by mouth twice daily. zolpidem (AMBIEN) 5 mg tablet Take 1 tablet by mouth at bedtime as needed for up to 180 days. FOR SLEEP DULoxetine (CYMBALTA) 60 mg capsule Take 1 capsule by mouth once daily. warfarin (COUMADIN) 5 mg tablet Take 3 tablets by mouth once daily. Or as directed aMILoride (MIDAMOR) 5 mg tablet Take 1 tablet by mouth once daily. furosemide (LASIX) 20 mg tablet Take 1 tablet by mouth twice daily. potassium chloride ER (K-DUR, KLOR-CON) 20 mEq tablet Take 2 tablets by mouth three times daily with meals. Spread out through day. nitroglycerin sublingual (NITROQUICK) 0.4 mg SL tablet Dissolve 1 tablet under the tongue every 5 minutes as needed for Chest Pain. DISSOLVE ON TONGUE FOR CHEST PAIN. IF NO PAIN RELIEF, CALL 911 Magnesium Oxide 500 mg tab Take 1 tablet by mouth three times daily. buPROPion HCl (WELLBUTRIN SR) 200 mg 12 hr tablet Take 1 tablet by mouth twice daily. ondansetron (ZOFRAN) 8 mg tablet Take 1 tablet by mouth every 8 hours as needed. Biotin 2,500 mcg cap Take by mouth. Takes 5000 mcg once daily traZODone 100 mg tablet Take 1 tablet by mouth daily at bedtime. topiramate (TOPAMAX) 100 mg tablet Take 1 tablet by mouth twice daily. multivitamin (DAILY MULTI-VITAMIN) ORAL tablet Take 1 tablet by mouth once daily. [place]-5-MPE-EPA-Fish Oil 1,000 (120-180) mg ORAL Cap Take by mouth. Take one(1) tablet three times daily. Lactulose 10 gram ORAL packet 4 tsp daily prn PROMETHAZINE 25 MG TAB one tab as needed for nausea diphenhydramine hcl(BENADRYL 50 MG/ML INJECTION) USE DIRECTED. ASPIRIN 81 MG TAB Take one (1) tablet daily . No current facility-administered medications for this visit. Psychiatric Medication Issues: see med record DIAGNOSIS: [place] I: Depression with Anxiety Pain w psych Factors CRPS (RSD) PTSD Aortic valve replacement in her 20s [place] II: deferred [place] III: see doctor notes [place] IV: Pain and loss of ability to be as active as she had in the past [place] V: 50-65 TREATMENT PROGRESS/ASSESSMENT: Progressing satisfactorily. TREATMENT PLAN/GOALS: Continue in therapy focusing on self-care, interpersonal relationships, improving communication, stress management, affect management, anxiety management, and self-esteem. Next appointment: as scheduled Candie Tyler, PhD [facility] 04-10-2023 Note HNO ID: [id number] Author: Candie Tyler, PhD Service: ? Author Type: Psychologist Type: Progress Notes Filed: 04/10/2023 11:22 AM Note Text: [facility] Behavioral Health Department Progress Note Natalie Cochran 04/10/2023 [id number] PROVIDER: Candie Tyler, PhD CPT Code: Time: 50 minutes Setting: Patient seen in person Parties Present: Patient Treatment Modality/Interventions: Cognitive Behavioral Reassurance/Supportive Insight oriented Problem solving Processing of emotions MENTAL STATUS: Mood: variable Affect: mood-congruent Thoughts/Associations:goal directed Suicidal/Homicidal Ideation: None expressed or evidenced Other Prominent Symptoms: Therapy Focus/Content of Session: Self-care, Mood/affect regulation, and Self-esteem Pt agitated about neighbors not taking care of their leaves and they have become pt's problem also agitated about f/u regarding her INR... outcome is that she is more actively managing it herself RELATIONSHIP: communication has been improving w [place]... Discussed at length MOOD: irritable but stable and health seems more solid in spite of all her health problems more active outside MEDICATIONS: Per medical record: Current Outpatient Medications Medication Sig busPIRone (BUSPAR) 5 mg tablet Take 5 mg by mouth twice daily. chlorzoxazone (PARAFON FORTE DSC) 500 mg tablet Take 1 tablet by mouth four times daily as needed (headache). lidocaine (SALONPAS) 4 % patch Apply 1 Patch as directed once daily as needed (pain) for up to 7 doses. Walker misc 1 wheeled walker gabapentin (NEURONTIN) 800 mg tablet Take 0.5 tablets by mouth three times daily. sucralfate (CARAFATE) 1 gram tablet Take 1 tablet by mouth twice daily. zolpidem (AMBIEN) 5 mg tablet Take 1 tablet by mouth at bedtime as needed for up to 180 days. FOR SLEEP DULoxetine (CYMBALTA) 60 mg capsule Take 1 capsule by mouth once daily. warfarin (COUMADIN) 5 mg tablet Take 3 tablets by mouth once daily. Or as directed aMILoride (MIDAMOR) 5 mg tablet Take 1 tablet by mouth once daily. furosemide (LASIX) 20 mg tablet Take 1 tablet by mouth twice daily. potassium chloride ER (K-DUR, KLOR-CON) 20 mEq tablet Take 2 tablets by mouth three times daily with meals. Spread out through day. nitroglycerin sublingual (NITROQUICK) 0.4 mg SL tablet Dissolve 1 tablet under the tongue every 5 minutes as needed for Chest Pain. DISSOLVE ON TONGUE FOR CHEST PAIN. IF NO PAIN RELIEF, CALL 911 Magnesium Oxide 500 mg tab Take 1 tablet by mouth three times daily. buPROPion HCl (WELLBUTRIN SR) 200 mg 12 hr tablet Take 1 tablet by mouth twice daily. ondansetron (ZOFRAN) 8 mg tablet Take 1 tablet by mouth every 8 hours as needed. Biotin 2,500 mcg cap Take by mouth. Takes 5000 mcg once daily traZODone 100 mg tablet Take 1 tablet by mouth daily at bedtime. topiramate (TOPAMAX) 100 mg tablet Take 1 tablet by mouth twice daily. multivitamin (DAILY MULTI-VITAMIN) ORAL tablet Take 1 tablet by mouth once daily. Uoice-8-MVQ-EPA-Fish Oil 1,000 (120-180) mg ORAL Cap Take by mouth. Take one(1) tablet three times daily. Lactulose 10 gram ORAL packet 4 tsp daily prn PROMETHAZINE 25 MG TAB one tab as needed for nausea diphenhydramine hcl(BENADRYL 50 MG/ML INJECTION) USE DIRECTED. ASPIRIN 81 MG TAB Take one (1) tablet daily . No current facility-administered medications for this visit. Psychiatric Medication Issues: see med record DIAGNOSIS: [place] I: Depression with Anxiety Pain w psych Factors CRPS (RSD) PTSD Aortic valve replacement in her 20s [place] II: deferred [place] III: see doctor notes [place] IV: Pain and loss of ability to be as active as she had in the past [place] V: 50-65 TREATMENT PROGRESS/ASSESSMENT: Progressing satisfactorily. TREATMENT PLAN/GOALS: Continue in therapy focusing on self-care, improving communication, assertiveness skills, stress management, affect management, and self-esteem. Next appointment: as scheduled Candie Tyler, [facility] 04-03-2023 Note HNO ID: [id number] Author: Candie Tyler, PhD Service: ? Author Type: Psychologist Type: Progress Notes Filed: 04/03/2023 11:03 AM Note Text: [facility] Behavioral Health Department Progress Note Natalie Cochran 04/03/2023 [id number] PROVIDER: Candie Tyler PhD CPT Code: Time: 50 minutes Setting: Patient seen in person Parties Present: Patient Treatment Modality/Interventions: Cognitive Behavioral Reassurance/Supportive Insight oriented Problem solving MENTAL STATUS: Mood: variable Affect: mood-congruent Thoughts/Associations:goal directed Suicidal/Homicidal Ideation: None expressed or evidenced Other Prominent Symptoms: Therapy Focus/Content of Session: Self-care, Mood/affect regulation, and Self-esteem MOOD: pt doing a little better and more stable Male friend: working on communicating better he tends to NOT take the opportunity to extend the conversation when she mentions something that touches her in her life PLAN: continue to help focus return to the BEING of life vs what Functions he can take care of for her Her dad and Lory seem to be doing ok financial: those concerns are present, but seems to be feeling a little more confident about being ok MEDICATIONS: Per medical record: Current Outpatient Medications Medication Sig busPIRone (BUSPAR) 5 mg tablet Take 5 mg by mouth twice daily. chlorzoxazone (PARAFON FORTE DSC) 500 mg tablet Take 1 tablet by mouth four times daily as needed (headache). lidocaine (SALONPAS) 4 % patch Apply 1 Patch as directed once daily as needed (pain) for up to 7 doses. Walker misc 1 wheeled walker gabapentin (NEURONTIN) 800 mg tablet Take 0.5 tablets by mouth three times daily. sucralfate (CARAFATE) 1 gram tablet Take 1 tablet by mouth twice daily. zolpidem (AMBIEN) 5 mg tablet Take 1 tablet by mouth at bedtime as needed for up to 180 days. FOR SLEEP DULoxetine (CYMBALTA) 60 mg capsule Take 1 capsule by mouth once daily. warfarin (COUMADIN) 5 mg tablet Take 3 tablets by mouth once daily. Or as directed aMILoride (MIDAMOR) 5 mg tablet Take 1 tablet by mouth once daily. furosemide (LASIX) 20 mg tablet Take 1 tablet by mouth twice daily. potassium chloride ER (K-DUR, KLOR-CON) 20 mEq tablet Take 2 tablets by mouth three times daily with meals. Spread out through day. nitroglycerin sublingual (NITROQUICK) 0.4 mg SL tablet Dissolve 1 tablet under the tongue every 5 minutes as needed for Chest Pain. DISSOLVE ON TONGUE FOR CHEST PAIN. IF NO PAIN RELIEF, CALL 911 Magnesium Oxide 500 mg tab Take 1 tablet by mouth three times daily. buPROPion HCl (WELLBUTRIN SR) 200 mg 12 hr tablet Take 1 tablet by mouth twice daily. ondansetron (ZOFRAN) 8 mg tablet Take 1 tablet by mouth every 8 hours as needed. Biotin 2,500 mcg cap Take by mouth. Takes 5000 mcg once daily traZODone 100 mg tablet Take 1 tablet by mouth daily at bedtime. topiramate (TOPAMAX) 100 mg tablet Take 1 tablet by mouth twice daily. multivitamin (DAILY MULTI-VITAMIN) ORAL tablet Take 1 tablet by mouth once daily. Gmxlu-5-EOA-EPA-Fish Oil 1,000 (120-180) mg ORAL Cap Take by mouth. Take one(1) tablet three times daily. Lactulose 10 gram ORAL packet 4 tsp daily prn PROMETHAZINE 25 MG TAB one tab as needed for nausea diphenhydramine hcl(BENADRYL 50 MG/ML INJECTION) USE DIRECTED. ASPIRIN 81 MG TAB Take one (1) tablet daily . No current facility-administered medications for this visit. Psychiatric Medication Issues: No change from previous appointment DIAGNOSIS: [place] I: Depression with Anxiety Pain w psych Factors CRPS (RSD) PTSD Aortic valve replacement in her 20s [place] II: deferred [place] III: see doctor notes [place] IV: Pain and loss of ability to be as active as she had in the past [place] V: 50-65 TREATMENT PROGRESS/ASSESSMENT: Progressing satisfactorily. TREATMENT PLAN/GOALS: Continue in therapy focusing on self-care, interpersonal relationships, improving communication, assertiveness skills, affect management, and self-esteem. Next appointment: as scheduled Candie Tyler, PhD [facility] 03-27-2023 Note HNO ID: [id number] Author: Candie Tyler, PhD Service: ? Author Type: Psychologist Type: Progress Notes Filed: 03/27/2023 11:13 AM Note Text: [facility] Behavioral Health Department Progress Note Natalie Cox Cochran 03/27/2023 [id number] PROVIDER: Candie Tyler PhD CPT Code: Time: 50 minutes Setting: Patient seen in person Parties Present: Patient Treatment Modality/Interventions: Cognitive Behavioral Reassurance/Supportive Insight oriented Problem solving Processing of emotions MENTAL STATUS: Mood: variable Affect: mood-congruent Thoughts/Associations:goal directed Suicidal/Homicidal Ideation: None expressed or evidenced Other Prominent Symptoms: Therapy Focus/Content of Session: Self-care, Mood/affect regulation, and Self-esteem Relationship: discussed being IN life vs focus on outcomes ... w partner from the past... he would like to try to do better and chance a skilled nursing relationship 1... WONDER vs conversation that encourages a surface one word or phrase answer 2... discussed an ear and a mouth and chancing conversation where the content seems like it will end poorly then courageously talk anyway and wonder how the other thinks feels behaves... BECOMES INTIMACY and at the end of the conversation .. the process being INTIMACY... feeling like you Get the other and they you In this period of life... pt learning how to be a person separate from a relationship... finding herself and her interests learning how to be alone and building a life MOOD: a bit better in spite of her hip hurting MEDICATIONS: Per medical record: Current Outpatient Medications Medication Sig busPIRone (BUSPAR) 5 mg tablet Take 5 mg by mouth twice daily. chlorzoxazone (PARAFON FORTE DSC) 500 mg tablet Take 1 tablet by mouth four times daily as needed (headache). lidocaine (SALONPAS) 4 % patch Apply 1 Patch as directed once daily as needed (pain) for up to 7 doses. Walker misc 1 wheeled walker gabapentin (NEURONTIN) 800 mg tablet Take 0.5 tablets by mouth three times daily. sucralfate (CARAFATE) 1 gram tablet Take 1 tablet by mouth twice daily. zolpidem (AMBIEN) 5 mg tablet Take 1 tablet by mouth at bedtime as needed for up to 180 days. FOR SLEEP DULoxetine (CYMBALTA) 60 mg capsule Take 1 capsule by mouth once daily. warfarin (COUMADIN) 5 mg tablet Take 3 tablets by mouth once daily. Or as directed aMILoride (MIDAMOR) 5 mg tablet Take 1 tablet by mouth once daily. furosemide (LASIX) 20 mg tablet Take 1 tablet by mouth twice daily. potassium chloride ER (K-DUR, KLOR-CON) 20 mEq tablet Take 2 tablets by mouth three times daily with meals. Spread out through day. nitroglycerin sublingual (NITROQUICK) 0.4 mg SL tablet Dissolve 1 tablet under the tongue every 5 minutes as needed for Chest Pain. DISSOLVE ON TONGUE FOR CHEST PAIN. IF NO PAIN RELIEF, CALL 911 Magnesium Oxide 500 mg tab Take 1 tablet by mouth three times daily. buPROPion HCl (WELLBUTRIN SR) 200 mg 12 hr tablet Take 1 tablet by mouth twice daily. ondansetron (ZOFRAN) 8 mg tablet Take 1 tablet by mouth every 8 hours as needed. Biotin 2,500 mcg cap Take by mouth. Takes 5000 mcg once daily traZODone 100 mg tablet Take 1 tablet by mouth daily at bedtime. topiramate (TOPAMAX) 100 mg tablet Take 1 tablet by mouth twice daily. multivitamin (DAILY MULTI-VITAMIN) ORAL tablet Take 1 tablet by mouth once daily. Wgyop-2-RBU-EPA-Fish Oil 1,000 (120-180) mg ORAL Cap Take by mouth. Take one(1) tablet three times daily. Lactulose 10 gram ORAL packet 4 tsp daily prn PROMETHAZINE 25 MG TAB one tab as needed for nausea diphenhydramine hcl(BENADRYL 50 MG/ML INJECTION) USE DIRECTED. ASPIRIN 81 MG TAB Take one (1) tablet daily . No current facility-administered medications for this visit. Psychiatric Medication Issues: see med record DIAGNOSIS: [place] I: Depression with Anxiety Pain w psych Factors CRPS (RSD) PTSD Aortic valve replacement in her 20s [place] II: deferred [place] III: see doctor notes [place] IV: Pain and loss of ability to be as active as she had in the past [place] V: 50-65 TREATMENT PROGRESS/ASSESSMENT: Progressing satisfactorily. TREATMENT PLAN/GOALS: Continue in therapy focusing on self-care, improving communication, affect management, coping with pain, and self-esteem. Next appointment: as scheduled Candie Tyler, [facility] 03-20-2023 Miscellaneous Notes Formattin g of this note might be different from the original. Received VM from patient requesting to reschedule appt on 03/23; Outbound call to patient to reschedule 03/23/procedure and possibly follow up too; reached ; [facility] [phone] (home/cell) ISAIAS Mcguire documented in this encounter [facility] 03-08-2023 Note HNO ID: [id number] Author: Candie Tyler, PhD Service: ? Author Type: Psychologist Type: Progress Notes Filed: 03/08/2023 10:58 AM Note Text: [facility] Behavior[facility] Health Department Progress Note Natalie Cochran 03/08/2023 [id number] PROVIDER: Candie Tyler, PhD CPT Code: Time: 50 minutes Setting: Patient seen in person Parties Present: Patient Treatment Modality/Interventions: Cognitive Behavioral Reassurance/Supportive Insight oriented Problem solving Communication skills training MENTAL STATUS: Mood: variable Affect: mood-congruent Thoughts/Associations:goal directed Suicidal/Homicidal Ideation: None expressed or evidenced Other Prominent Symptoms: Therapy Focus/Content of Session: Self-care, Stress management, Mood/affect regulation, Interpersonal, Self-esteem, and Coping with chronic illness Mood: pt appears more overwhelmed than usual Medically: she doesnt feel like she is being tracked or listened to enough ie her eval of heart functioning and INR regulation feeling like just staying home more than getting out as she had been in recent time Anxiety: consequently higher and some more OCD and memory/concentration concerns PLAN: track at our next meeting how this goes and see if it is just a passing phenomenon and pt needs to step back a little or if it is more constant and entrenched ... and might need intervention MEDICATIONS: Per medical record: Current Outpatient Medications Medication Sig aMILoride (MIDAMOR) 5 mg tablet Take 1 tablet by mouth once daily. ASPIRIN 81 MG TAB Take one (1) tablet daily . Biotin 2,500 mcg cap Take by mouth. Takes 5000 mcg once daily buPROPion HCl (WELLBUTRIN SR) 200 mg 12 hr tablet Take 1 tablet by mouth twice daily. busPIRone (BUSPAR) 5 mg tablet Take 5 mg by mouth twice daily. chlorzoxazone (PARAFON FORTE DSC) 500 mg tablet Take 1 tablet by mouth four times daily as needed (headache). diphenhydramine hcl(BENADRYL 50 MG/ML INJECTION) USE DIRECTED. DULoxetine (CYMBALTA) 60 mg capsule Take 1 capsule by mouth once daily. furosemide (LASIX) 20 mg tablet Take 1 tablet by mouth twice daily. gabapentin (NEURONTIN) 800 mg tablet Take 0.5 tablets by mouth three times daily. Lactulose 10 gram ORAL packet 4 tsp daily prn lidocaine (SALONPAS) 4 % patch Apply 1 Patch as directed once daily as needed (pain) for up to 7 doses. Magnesium Oxide 500 mg tab Take 1 tablet by mouth three times daily. multivitamin (DAILY MULTI-VITAMIN) ORAL tablet Take 1 tablet by mouth once daily. nitroglycerin sublingual (NITROQUICK) 0.4 mg SL tablet Dissolve 1 tablet under the tongue every 5 minutes as needed for Chest Pain. DISSOLVE ON TONGUE FOR CHEST PAIN. IF NO PAIN RELIEF, CALL 911 Mutdh-6-VES-EPA-Fish Oil 1,000 (120-180) mg ORAL Cap Take by mouth. Take one(1) tablet three times daily. ondansetron (ZOFRAN) 8 mg tablet Take 1 tablet by mouth every 8 hours as needed. potassium chloride ER (K-DUR, KLOR-CON) 20 mEq tablet Take 2 tablets by mouth three times daily with meals. Spread out through day. PROMETHAZINE 25 MG TAB one tab as needed for nausea sucralfate (CARAFATE) 1 gram tablet Take 1 tablet by mouth twice daily. topiramate (TOPAMAX) 100 mg tablet Take 1 tablet by mouth twice daily. traZODone 100 mg tablet Take 1 tablet by mouth daily at bedtime. Walker misc 1 wheeled walker warfarin (COUMADIN) 5 mg tablet Take 3 tablets by mouth once daily. Or as directed zolpidem (AMBIEN) 5 mg tablet Take 1 tablet by mouth at bedtime as needed for up to 180 days. FOR SLEEP No current facility-administered medications for this visit. Psychiatric Medication Issues: see med record DIAGNOSIS: [place] I: Depression with Anxiety Pain w psych Factors CRPS (RSD) PTSD Aortic valve replacement in her 20s [place] II: deferred [place] III: see doctor notes [place] IV: Pain and loss of ability to be as active as she had in the past [place] V: 50-65 TREATMENT PROGRESS/ASSESSMENT: Progressing satisfactorily. TREATMENT PLAN/GOALS: Continue in therapy focusing on self-care, stress management, affect management, anxiety management, coping with medical concerns, and self-esteem. Next appointment: as scheduled Candie Tyler, PhD [facility] 02-22-2023 Note HNO ID: [id number] Author: Mis Hua LPN Service: ? Author Type: LICENSED NURSE Type: Progress Notes Filed: 02/22/2023 10:44 AM Note Text: Review of Systems Constitutional: Positive for activity change. Negative for chills, fever and unexpected weight change. Gastrointestinal: Negative for bowel retention or incontinence Genitourinary: Negative for difficulty urinating. Negative for bladder retention or incontinence Musculoskeletal: Positive for arthralgias, back pain, gait problem, joint swelling, neck pain and neck stiffness. Negative for myalgias. Neurological: Positive for weakness, numbness and headaches. Psychiatric/Behavioral: Positive for dysphoric mood and sleep disturbance. Negative for suicidal ideas. The patient is nervous/anxious. [facility] 02-21-2023 Note HNO ID: [id number] Author: Justa Jarrett MD Service: ? Author Type: Physician Type: Progress Notes Filed: 02/22/2023 10:44 AM Note Text: [facility] Today's Date: 02/22/2023 Last Visit: N/A Name: Natalie Cochran : 1965 Purpose: New Patient Consultation Chief complaint: Pelvic pain Pain Description: Timing: intermittant Character: aching, stabbing Primary Location: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 (1) tablet daily . chlorzoxazone (PARAFON FORTE DSC) 500 mg tablet Take 1 tablet by mouth four times daily as needed (headache). No current facility-administered medications for this visit. ALLERGIES Allergen Reactions Lexiscan [Regadenos* Shortness of Breath Bronchospasm, stopped breathing Cedric Inhibitors Other: See Comments prinvil ANGIO EDEMA She tolerates vasotec ok Aldactone [Spironol* Other: See Comments Tachycardia,palpitations, nausea Celecoxib celebrex TACHYCARDIA Histamine H2 Inhibi* zantac DRUG INDUCED HEPATITIS Imitrex [Sumatripta* palpitations- injectable form Lamictal [Lamotrigi* FACE RASH Lyrica [Pregabalin] ataxia; dizziness Methadone FAINTED Prinivil [Lisinopri* Quinolones tequin FULL BODY RASH Tequin [Gatifloxaci* Rash Toradol [Ketorolac * Shortness of Breath Zantac [Ranitidine * HEADACHE SCORES: Headache Questions 07/21/2019 01/16/2022 01/17/2022 ER visits since last office visit: 0 0 - Hospital stays since last office visit 0 0 - Limited ADLs in the last month: 10 14 - Days missed from work or school in the last month: - 0 - Days headache pain free in the last month: 15 10 - Days per month with ALL of the following symptoms - decreased productivity, light sensitivity and nausea: 10 14 - Initial improvement of headache after botox injection at last visit: - - Not applicable, I did not have a botox injection at my last visit PRN medication usage in the last month: 10 10 - Patient impression of improvement since last visit: No change Minimally worse Minimally worse HIT-6 07/21/2019 01/16/2022 HIT-6 67 (Severe impact) 65 (Severe impact) ITALIA - 2/7 SCORES 01/16/2022 ITALIA-2 Score 4 ITALIA-7 Score 9 Migraine Specific QOL - Higher scores indicate better HRQL 07/21/2019 01/16/2022 Role Function-Restrictive Transformed Score (range: 0-100) 45.71 45.71 Role Function-Preventive Transformed Score (range: 0-100) 50 40 Emotional Function Transformed Score (range: 0-100) 73.33 66.67 PHQ-9 08/28/2016 07/21/2019 01/16/2022 Score 13 6 14 I have reviewed the Lul Status Assessment responses and discussed these with the patient: yes Studies to Review: No New Health Issues: No New Social History: No New Family History: No REVIEW OF SYSTEMS: Review of system : unchanged from the previous visit (sleep patterns, mood, energy, appetite, stress, exercising). PHYSICAL EXAMINATION: General: Alert and oriented. Answered questions in an appropriate manner. Made eye contact without apparent pain behavior. HEENT: Head is normocephalic and features were symmetric. Cranial Nerves: II: Pupils: symmetric, f Ill,lV,Vl: nl eye movements VII: Face symmetric. CT Head/Brain - Last [address] BRAIN WO/W IVCON Collected: 02/07/2016 3:34 PM (Final result) Impression: IMPRESSION: NORMAL BRAIN. NO EVIDENCE OF AN ACUTE INTRACRANIAL PROCESS. 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 Her migraines remain low frequency, she continues to use medical cannabis, prescribed by local physician, she remains off opiates PLAN: Refilled Parafon Forte MEDICATION TREATMENT: Medications to Start Taking chlorzoxazone (PARAFON FORTE DSC) 500 mg tablet Take 1 tablet by mouth four times daily as needed (headache). HEADACHE MANAGEMENT: (You are the primary guardian of your health and headache. Keep track of all medications: This includes the reason for use, side effects and benefits.) Headache education was done. Discussed lifestyle modification including increased oral hydration, decreased caffeine, exercise and stress management. Discussed treatment options including preventive and acute medications, natural supplements, and infusion therapy. Discussed medication overuse headache and to limit use of acute treatments to no more than 2 days/week or 10 days/month. Discussed medication side effects, adverse reactions and drug interactions. Written educational materials and patient instructions outlining all of the above were given. Follow-up: 1 year, PRN Level of service: Est level 3 (20-29 min). Time spent 22 min on the day of service, which included preparing to see the patient, [id number] patient care, completing clinical documentation, counseling and educating the patient/family/caregiver, and ordering medications, tests, or procedures. Ariana Bonilla APRN.BLANKET CUTTING MACHINE OPERATOR documented in this encounterKing[facility] [place] Miscellaneous Notes* Telephone Encounter - Marcela Srinivas Pss - 01/17/2022 9:03 AM EDT Rec'd call from patient earlier this morning regarding a virtual visit she had scheduled with She Gilmore (even before patient called, She sent myself and the other admins a secure message saying Hi there, I wanted to let you know my 8am visit left without being seen. Not sure if her virtual platformis not working? I stayed logged in for awhile but it never showed her ). We were in the midst of trying to figure this out for She, when I rec'd call from patient. She was saying that she was told her visit would go without an issue and yet, she has not had her visit. I did explain to patient thatthis issue occuring wasn't her fault or the provider's fault; it seemed that there was some kind ofconnectivity issues. I told her it showed that she arrived/completed visit, but we were aware that she did not complete the visit per She's secure messaging with us. I apologized and told her I would be happy to reschedule since the system will not let her back in. She went on to complain that shewas not given a call and I told her we were discussing this and were going to reach out once we finished talking with the provider to understand what was happening. Patient continued to complain, butI was able to get her r/s for 1:00pm with Ariana. Patient says if she has to go through the whole rigmarole to access this visit again, she will not go through it and we will still be getting a refill request for what she needs (patient was last seen 05/27/2020). Patient and I ended call. However, patient ended up reaching our frontload driver to complain more and was still rude/complaining to them aswell. Buffy Yanes Did send directions for [employer] visit message via [employer] to help patient if she does run into anymore issues with accessing her visit. documented in this encounterKing[facility] [place] History of Present illness Narrative* She Medina PA-C - 01/17/2022 8:05 AM EDT Patient was unable to connect to video visit so she was scheduled at 1pm today. She Medina PA-C documented in this encounterKing'[facility] [place] History of Past illness Narrative* Problem Noted Date Resolved Date Open wound of umbilical region without complicat ion 11/25/2012 06/18/2015 Skin lesion 11/13/2012 06/18/2015 Anemia, unspecified 06/30/2008 06/18/2015 Cholecystitis, unspecified 06/26/200706/18 Overview: Open Mohini in : had subsequent surgery for abd adhesions x 2 Routine general medical exam ination at a health care facility 06/26/2007 06/18/2015 Overview: Tubal ligation (four weeks after the open heart surgery) Hysterectomy in for heavy menses on the anticoagulation Obesity, unspecified 06/26/2007 05/13/2013 Overview: 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 Dean (cats and tomato sauces) documented as of this encounter (statuses as of 01/17/2022) [facility] [place] History of Past illness Narrative* Problem Noted Date Resolved Date Open wound of umbilical region without complicat ion 11/25/2012 06/18/2015 Skin lesion 11/13/2012 06/18/2015 Anemia, unspecified 06/30/2008 06/18/2015 Cholecystitis, unspecified 06/26/200706/18 Overview: Open Mohini in : had subsequent surgery for abd adhesions x 2 Routine general medical exam ination at a health care facility 06/26/2007 06/18/2015 Overview: Tubal ligation 4-90 (four weeks after the open heart surgery) Hysterectomy in for heavy menses on the anticoagulation Obesity, unspecified 06/26/2007 05/13/2013 Overview: 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 Dean (cats and tomato sauces) documented as of this encounter (statuses as of 01/17/2022) [facility] [place] History of Past illness Narrative* Problem Noted Date Resolved Date Open wound of umbilical region without complicat ion 11/25/2012 06/18/2015 Skin lesion 11/13/2012 06/18/2015 Anemia, unspecified 06/30/2008 06/18/2015 Cholecystitis, unspecified 06/26/200706/18 Overview: Open Mohini in : had subsequent surgery for abd adhesions x 2 Routine general medical exam ination at a health care facility 06/26/2007 06/18/2015 Overview: Tubal ligation (four weeks after the open heart surgery) Hysterectomy in for heavy menses on the anticoagulation Obesity, unspecified 06/26/2007 05/13/2013 Overview: 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 Dean (cats and tomato sauces) documented as of this encounter (statuses as of 01/18/2022) [facility] [place]* Diagnosis Migraine with aura and without status migrainosus, not intractable- Primary Migraine with aura, without mention of intractable migraine without mention of status migrainosus [facility] APPOINTMENT CANCELLED- Primary documented in this encounter [facility] [place]* Diagnosis Migraine with aura and without status migrainosus, not intractable- Primary Migraine with aura, without mention of intractable migraine without mention of status migrainosus [facility] Narrative No data available for this section [facility] Discharge instructions No data available for this section [facility] Summary Purpose Family History No Family History Records FoundNo Family History Records FoundNo Family History Records FoundNo Family History Records FoundNo Family History Records Found Advance Directives No Advanced Directives Records FoundDocuments on File Type Date Recorded Patient Lock Setter Expl anation Advance Directives and Living Will Power of Manager Of Human Resources Documents on File Type Date Recorded Patient Lock Setter Expl anation Advance Directive(s) 05/04/2009 Advance Directive(s) 07/13/2006 Documents on File Type Date Recorded Patient Lock Setter Expl anation Advance Directive(s) 05/04/2009 Advance Directive(s) 07/13/2006 Documents on File Type Date Recorded Patient Lock Setter Expl anation Advance Directive(s) 03/13/2022 3:14 PM Advance Directive(s) 05/04/2009 Advance Directive(s) 07/13/2006 Assessments Diagnosis Pain Generalized pain Reason for Referral Specialty Diagnoses / Procedures Referred By Contac t Referred To Contact Diagnoses Migraine with aura and without status migrainosus, not intractable Procedures PROVIDER ORDERED FOLLOW UP OFFICE/OUTPATIENT [facility] MDM 60-74 MINUTES Ariana Bonilla, MOLD CAPPER.BLANKET CUTTING MACHINE OPERATOR [address] [place] [address] Referral ID Status Reason Start Date Expiration Date Visits Requested Visits Authorized [id number] Pending Review PCP Requested Referral 10/19/2022 01/17/2023 1 1 Additional Source Comments INFORMATION SOURCE (unrecogn ized section and content) DATE CREATED AUTHOR AUTHOR'S ORGANIZ ATION 03/27/2019 [facility] DATE CREATED AUTHOR AUTHOR'S ORGANIZ ATION 03/06/2022 [facility] DATE CREATED AUTHOR AUTHOR'S ORGANIZ ATION 03/21/2023 [facility] DATE CREATED AUTHOR AUTHOR'S ORGANIZ ATION 07/15/2023 [facility] Source Comments (unrecognize d section and content) In the event this informatio n is protected by the Federal Confidentiality of Alcohol and Drug Abuse Patient Records regulations: The Federal rules restrict any use of the information to criminally investigate or prosecute any alcohol or drug abuse patient.[facility] [place] the event this information is protected by the Federal Confidentiality of Alcohol and Drug Abuse Patient Records regulations: The Federal rules restrict any use of the information to criminally investigate or prosecute any alcohol or drug abuse patient.[facility] [place] the event this information is protected by the Federal Confidentiality of Alcohol and Drug Abuse Patient Records regulations: The Federal rules restrict any use of the information to criminally investigate or prosecute any alcohol or drug abuse patient.[facility] [place] the event this information is protected by the Federal Confidentiality of Alcohol and Drug Abuse Patient Records regulations: The Federal rules restrict any use of the information to criminally investigate or prosecute any alcohol or drug abuse patient.[facility] [place] the event this information is protected by the Federal Confidentiality of Alcohol and Drug Abuse Patient Records regulations: The Federal rules restrict any use of the information to criminally investigate or prosecute any alcohol or drug abuse patient.[facility] [place] Reason for Visit (unrecogniz ed section and content) Reason Comments Migraine Reason Comments Appointment Cancelled Reason Comments Migraine Reason Comments Returning Patient's Call [facility] Care Teams (unrecognized sec tion and content) Commissioning Manager Relationship Specialty Start Date End Date Zion Herrmann DO PCP - General 10/18/07 Michael Deeril S [address] [place] [address] Physician Cardiology 08/06/18 Commissioning Manager Relationship Specialty Start Date End Date Zion Herrmann DO PCP - General 10/18/07 Michael Deeril S [address] [place] [address] Physician Cardiology 08/06/18 Commissioning Manager Relationship Specialty Start Date End Date Castro Quintana MD [address] [address] PCP - General Internal Medicine 03/13/22 Heriberto Dee [address] [place] [address] Physician Cardiology 08/06/18 Commissioning Manager Relationship Specialty Start Date End Date Castro Quintana MD [address] [address] PCP - General Internal Medicine 03/13/22 Heriberto Dee MD [address] [place] [address] Physician Cardiology 08/06/18 Care Team (unrecognized sect ion and content) Care Team Personnel Name: IRMA MEEHAN DO Position: P4 Physician - Primary Care Med Service: Active Provider Member Role: Primary Care Physician Address: Address: [address] [place] [address] Care Team Related Persons Name: PAM COCHRAN Name: NARINDER COCHRAN Address: Home [address] [place], [place] [id number] FOR RECORDS PERTAINING TO PATIENTS WHO ARE OR HAVE BEEN ENROLLED IN A CHEMICAL DEPENDENCY/SUBSTANCEABUSE PROGRAM, SOME INFORMATION MAY BE OMITTED. This clinical summary was aggregated from multiple sources. Caution should be exercised in using it in the provision of clinical care. This summary normalizes information from multiple sources, and as a consequence, information in this document may materially change the coding, format and clinical context of patient data. In addition, data may be omitted in some cases. CLINICAL DECISIONS SHOULD BE BASED ON THE PRIMARY CLINICAL RECORDS. [facility] [employer] [facility]. provides no warranty or guarantee of the accuracy or completeness of information in this document.
[2023-07-20 13:21] LABS: International Normalized Ratio 2.4; Prothrombin Time (Protime)PT. 26.6 SECONDS (11.7-14.9)
== END | disposition home or self-care (01) ==
PROVIDERS: PCP Internal Medicine; Referring Provider Internal Medicine Cardiovascular Disease; Visit Provider Internal Medicine Cardiovascular Disease
DX: Z79.01 Long term (current) use of anticoagulants (principal); Z95.2 Presence of prosthetic heart valve; Z95.1 Presence of aortocoronary bypass graft
CPT/HCPCS: 36415; 85610

== ENCOUNTER → 2023-07-25 | Outpatient (CLI) | payer MEDICARE, MEDICAID, SELFPAY ==
[2023-07-25 15:43] LABS: Absolute Lymphocyte Count 1.22 X10^3/uL (0.83-4.51); Absolute Neutrophil Count 4.8 X10^3/uL (2.0-7.7); Basophil# 0.02 X10^3/uL; Basophil% 0.3 % (0-1); Eosinophil# 0.03 X10^3/uL; Eosinophils% 0.5 % (0-5); Hematocrit 38.5 % (37-47); Hemoglobin 11.5 g/dL (12.0-15.0); Lymphocyte # 1.22 X10^3/ul (0.83-4.51); Lymphocyte % 19.2 % (19-41); Mean Corp Hgb Conc 29.9 g/dL (32-36); Mean Corpuscular Hgb 25.5 pg (27.0-32.0); Mean Corpuscular Volume 85.4 fL (81-99); Mean Platelet Vol. 9.9 fl (6.2-12.0); Monocyte# 0.32 X10^3/uL; NRBC Flagged by Analyzer 0 % (0-5); Neutrophil # 4.76 X10^3/uL (2.7-7.7); Neutrophil % 74.7 % (47-70); Platelet Count 289 K/mm3 (150-450); RBC Distribution Width CV 14.8 % (11.6-14.6); Red Blood Count 4.51 M/mm3 (4.2-5.4); White Blood Count 6.4 K/mm3 (4.4-11.0)
[2023-07-25 16:13] LABS: Vitamin D,25 Hydroxy 53.2 ng/mL
[2023-07-25 16:23] LABS: Anion Gap 3 (5-15); BUN 52 mg/dL (7-18); Chloride 112 mmol/L (98-107); EST Glomerular Filtration Rate 69 mL/min (>60); Est Glom Filt Rate - Afr Amer 83 mL/min (>60); Glucose 106 mg/dL (74-106); Potassium 4.4 mmol/L (3.5-5.1); Sodium Level 140 mmol/L (136-145)
--- OUTSIDE RECORDS SUMMARY | 2023-07-25 22:47 | XMS RPT_ITS | CCD ---
Author Name Unknown Address [address] [place] [address] Organization [facility] Care Team Providers Care Manager Infusion Name Role Phone MARYBETH, MUSA Unavailable Unavailable MARYBETH, MUSA Unavailable Unavailable MARYBETH, MUSA Unavailable Unavailable MARYBETH, MUSA Unavailable Unavailable MARYBETH, MUSA Unavailable Unavailable MARYBETH, MUSA Unavailable Unavailable Zion Herrmann Unavailable Unavailable MARYBETH, MUSA Unavailable Unavailable MARYBETH, MUSA Unavailable Unavailable Zion Herrmann Unavailable Unavailable Unavailable Primary Care Provider UnavailZion Silver DO Primary Care Provider Karo vailable Leila, [place] S Unavailable DR IRMA MEEHAN DO Primary Care Physician [phone] EROS VINCENT Attending Unavail able IRMA MEEHAN Primary Care Unavailable Leila, [place] S Unavailable Castro Quintana MD Primary Care Provider Leila DOMINGUEZ [place] S Unavailable JUSTA JARRETT Attending Unavailable OLEGHE, [...] adverse reactions (disorder) 2 Other: See Comments [facility] Repository (9 sources) celecoxib; Translations: [CELECOXIB] Drug Allergy 2 Irregular heart beat [facility] Repository (10 sources) gatifloxacin; Translations: [GATIFLOXACIN] Drug Allergy 6 Rash [facility] Repository (8 sources) ketorolac; Translations: [KETOROLAC TROMETHAMINE] Drug Allergy 0 Shortness of Breath [facility] Repository (8 sources) lamoTRIgine; Translations: [LAMOTRIGINE] Drug Allergy 5 [facility] Repository (9 sources) lisinopril; Translations: [LISINOPRIL] Drug Allergy 0 Angioedema (disorder) [facility] Repository (9 sources) methadone; Translations: [METHADONE] Drug Allergy 4 Dizziness (finding) [facility] Repository (9 sources) pregabalin; Translations: [PREGABALIN] Drug Allergy 6 Dizziness [facility] Repository (8 sources) Quinolones (Antibiotic); Translations: [QUINOLONES] Propensity to adverse reactions (disorder) 3 [facility] Repository (8 sources) raNITIdine; Translations: [RANITIDINE HCL] Drug Allergy 0 [facility] Repository (9 sources) regadenoson; Translations: [REGADENOSON] Drug Allergy 9 Shortness of Breath [facility] Repository (8 sources) spironolactone; Translations: [SPIRONOLACTONE ] Drug Allergy 2 Other: See Comments [facility] Repository (9 sources) SUMAtriptan; Translations: [SUMATRIPTAN] Drug Allergy 5 Irregular heart beat [facility] Repository (8 sources) HISTAMINE H2 INHIBITORS; Translations: [HISTAMINE H2 INHIBITORS] Propensity to adverse reactions (disorder) 2 [facility] Repository (1 source) EPINEPHrine; Translations: [epinephrine] Drug Allergy Unknown [facility] (1 source) fexofenadine; Translations: [fexofenadine] Drug Allergy Unknown [facility] (1 source) Ketorolac; Translations: [ketorolac] Drug Allergy Unknown [facility] (1 source) raNITIdine; Translations: [ranitidine] Drug Allergy Unknown [facility] Medications Current Medications Medication Drug Class(es) Dates Sig (Normalized) Sig (Original) butorphanol tartrate 1 mg/actuat metered dose nasal spray (1 source) Opioid Agonist/Antagoni st Start: 01-23-2019 butorphanol 10 mg/mL nasal spray See Instructions, PRN Migraine headache, 1 spray(s) Q6h prn acute migraine symptoms. 1 bottle per month, # 2.5 mL, 5 Refill(s), Pharmacy: [facility]/pharmacy #[id number], Migraine headache Start Date: 01/23/19 Status: Ordered [...] Start: 07-10-2023 End: 07-11-2023 ambulatory CASTRO QUINTANA Facility:[facility] Start: 07-03-2023 End: 07-04-2023 ambulatory [facility] Facility:[facility] Start: 06-26-2023 End: 06-27-2023 ambulatory [facility] Facility:[facility] Start: 06-05-2023 End: 06-05-2023 ambulatory [facility] Facility:[facility] Start: 04-10-2023 End: 04-11-2023 ambulatory [facility] Facility:[facility] Start: 04-03-2023 End: 04-04-2023 ambulatory [facility] Facility:[facility] Start: 03-27-2023 End: 03-28-2023 ambulatory [facility] Facility:[facility] Start: 03-20-2023 Telephone encounter Justa Jarrett MD Work Phone: [facility] Procedures Date Procedure Procedure Detail Performing Clinician Start: 05-26-2019 Colonoscopy Ariana wooten MOLDING MACHINE TENDER.FIBERGLASS GRINDER Work Phone: Start: 03-24-2019 Radex hip unilateral with pelvis 1 view Start: 08-09-2018 Lipid 1996 panel - S abigail or Plasma Justa Jarrett MD Work Phone: Start: 06-24-2015 Neurostimulator, dev ice (physical object) EROS ANTHONY MOLDING MACHINE TENDER-FIBERGLASS GRINDER Plan of Treatment Date Care Activity Detail Author Start: 12-18-2032 Urine microalbumin profile DTaP,Tdap,Td Vaccine (2 - Td or Tdap) [facility] Start: 03-18-2025 DIABETES SCREEN DIABETES SCREEN [facility] Start: 03-18-2025 Diabetes Screening Diabetes Screening [facility] Start: 08-10-2023 Lipid 1996 panel - Serum or Plasma Lipid Screening [facility] Start: 08-10-2023 LIPID SCREEN LIPID SCREEN [facility] Start: 01-26-2023 Covid-19 Vaccine ( season) Covid-19 Vaccine ( season) [facility] Start: 01-26-2023 Influenza vaccination [facility] Start: 01-26-2022 Influenza vaccination INFLUENZA (#1) [facility] Start: 09-07-2021 COVID-19 VACCINE (4 - Booster for Pfizer series) COVID-19 VACCINE (4 - Booster for Pfizer series) [facility] Start: 08-09-2021 DIABETES SCREEN DIABETES SCREEN [facility] Start: 05-26-2020 Colonoscopy COLONOSCOPY [facility] Start: 05-26-2020 COLORECTAL CANCER SCREENING COLORECTAL CANCER SCREENING [facility] Start: 01-26-2019 Influenza vaccination Flu vaccine (#1) [place], [place] Start: 07-23-2015 Shingles Vaccine (2 of 2) Shingles Vaccine (2 of 2) [place] Start: 2014 Breast cancer screen Breast cancer screen [place], [place] Start: 2014 Colon cancer screen colonoscopy Colon cancer screen colonoscopy [place], [place] Start: 2014 SHINGRIX VACCINE (1 of 2) SHINGRIX VACCINE (1 of 2) [facility] Start: 01-15-2012 PAP TESTING PAP TESTING [facility] Start: 2009 COLOGUARD (FIT-DNA) COLOGUARD (FIT-DNA) [facility] Start: 2009 Colonoscopy COLONOSCOPY [facility] Start: 2009 COLORECTAL CANCER SCREENING COLORECTAL CANCER SCREENING [facility] Start: [address] COLONOGRAPHY [facility] Start: 2009 FECAL OCCULT BLOOD FECAL OCCULT BLOOD [facility] Start: 2009 SIGMOIDOSCOPY SIGMOIDOSCOPY [facility] Start: 02-21-2007 Mammography [facility] Start: 2004 Lipid screen Lipid screen [place], [place] Start: 04-15-2002 Urine microalbumin profile DTAP,TDAP,TD (1 - Tdap) [facility] Start: 1994 HPV TESTING HPV TESTING [facility] Start: 1985 Cervical cancer screen Cervical cancer screen [place], [place] Start: 07-30-1983 DTaP/Tdap/Td vaccine (1 - Tdap) DTaP/Tdap/Td vaccine (1 - Tdap) [place] Start: 1982 HEPATITIS C SCREENING HEPATITIS C SCREENING [facility] Start: 1982 HIV SCREENING HIV SCREENING [facility] Start: 07-30-1979 HIV screen HIV screen [place], [place] Start: 1964 HEPATITIS B (1 of 3 - 3-dose series) HEPATITIS B (1 of 3 - 3-dose series) [facility] Start: 1965 Hepatitis B Vaccine (1 of 3 - 3-dose series) Hepatitis B Vaccine (1 of 3 - 3-dose series) [facility] Start: 1964 Hepatitis C screen Hepatitis C screen [facility] Immunizations Immunization Date Immunization Notes Care Provider [facility] 05-03-2022 influenza virus vacc ine, unspecified formulation Justa Jarrett MD Work Phone: [facility] 02-21-2018 influenza virus vacc ine, unspecified formulation EROS ANTHONY MOLDING MACHINE TENDER-FIBERGLASS GRINDER [facility] 09-26-2017 pneumococcal polysaccharide vaccine, 23 valent EROS ANTHONY MOLDING MACHINE TENDER-FIBERGLASS GRINDER [facility] [place] 05-28-2015 zoster vaccine recombinant EROS RAJ MOLDING MACHINE TENDER-FIBERGLASS GRINDER [facility] [place] 02-22-2012 influenza virus vacc ine, unspecified formulation She Medina PA-C Work Phone: [facility] 02-22-2011 influenza virus vacc ine, unspecified formulation She Medina PA-C Work Phone: [facility] 02-26-2007 influenza virus vacc ine, unspecified formulation She MASTERS-C Work Phone: [facility] Work Phone: 09-05-2002 pneumococcal polysaccharide vaccine, 23 valent She Medina PA-C Work Phone: [facility] Work Phone: 04-14-2002 tetanus and diphther ia toxoids, adsorbed, preservative free, for adult use (2 Lf of tetanus toxoid and 2 Lf of diphtheria toxoid) She Medina PA-C Work Phone: [facility] Payers Date Payer Category Payer Unknown [id number] 2022 Private Health Insurance [id number] 2022 Medicaid [facility] MEDICAID MYC ARE [facility] MEDICAID [id number] 2022-Present [phone] [address] [place] [address] Medicaid [id number] 2022 Private Health Insurance [id number] 2021 Medicare [id number] 1965 Unknown [id number] Unknown [id number] Social History Date Type Detail Facility Tobacco smoking stat [facility] Unknown if ever smoked [facility] Start: 1965 [email or web address] History of tobacco use Current smoker [facility] Start: 01-01-2022 End: 02-22-2023 Alcohol intake Current non-drinker of alcohol (finding) [facility] Start: 02-27-2022 End: 03-12-2022 Tobacco smoking status Never smoked tobacco (finding) [facility] Sex Assigned At Female [facility] Start: 03-12-2022 Tobacco use and exposure Smokeless tobacco non-user [facility] Start: 03-12-2022 End: 10-10-2022 History of Social function [facility] Start: 03-12-2022 End: 10-10-2022 Tobacco use panel [facility] How hard is it for y ou to pay for the very basics like food, housing, medical care, and heating Not very hard [facility] Adult Depression Screening Assessment 2 [facility] (I/We) worried janay er (my/our) food would run out before (I/we) got money to buy more. Never true [facility] In the past 12 month s, was there a time when you were not able to pay the mortgage or rent on time? No [facility] Start: 03-12-2022 Tobacco Comment 1989 [facility] Clinical Notes 11-25-2012 to 07-10-2023 Telephone Encounter - Mona Celestin - 03/20/2023 10:26 AM Ariana Holbrook APRN.FIBERGLASS GRINDER - 01/27/2023 10:00 AM EDT Note Date & Type Note Facility 07-10-2023 Note HNO ID: [id number] Author: CANDIE TYLER, PhD Service: ? Author Type: Psychologist Type: Progress Notes Filed: 07/10/2023 11:04 Note Text: [facility] Department Progress Note Natalie Brooke Dimas 07/10/2023 [id number] PROVIDER: Candie Tyler, PhD CPT Code: Time: [...] Take 1 tablet by mouth once daily. Lcmek-9-JCK-EPA-Fish Oil 1,000 (120-180) mg ORAL Cap Take [...] Issues: No change from previous appointment DIAGNOSIS: [place] I: Depression with Anxiety Pain w psych Factors CRPS (RSD) PTSD Aortic valve replacement in her 20s [place] II: deferred [place] III: see doctor notes [place] IV: Pain and loss of ability to be as active as she had in the past [place] V: 50-65 TREATMENT PROGRESS/ASSESSMENT: Fluctuating progress. TREATMENT PLAN/GOALS: Continue in therapy focusing on self-care, interpersonal relationships, assertiveness skills, stress management, affect management, anxiety management, and self-esteem. Next appointment: as scheduled Candie Tyler, PhD [facility] 07-03-2023 Note HNO ID: [id number] Author: CANDIE TYLER, PhD Service: ? Author Type: Psychologist Type: Progress Notes Filed: 07/03/2023 12:08 Note Text: [facility] Progress Note Natalie Cochran 07/03/2023 [id number] PROVIDER: Candie Tyler PhD CPT Code: Time: [...] Take 1 tablet by mouth once daily. Rtsvq-0-QKX-EPA-Fish Oil 1,000 (120-180) mg ORAL Cap Take [...] Issues: No change from previous appointment DIAGNOSIS: [place] I: Depression with Anxiety Pain w psych Factors CRPS (RSD) PTSD Aortic valve replacement in her 20s [place] II: deferred [place] III: see doctor notes [place] IV: Pain and loss of ability to be as active as she had in the past [place] V: 50-65 TREATMENT PROGRESS/ASSESSMENT: Progressing satisfactorily. TREATMENT PLAN/GOALS: Continue in therapy focusing on self-care, interpersonal relationships, improving communication, assertiveness skills, stress management, affect management, anxiety management, and self-esteem. Next appointment: as scheduled Candie Tyler PhD [facility] 06-26-2023 Note HNO ID: [id number] Author: CANDIE TYLER PhD Service: ? Author Type: Psychologist Type: Progress Notes Filed: 06/26/2023 12:14 Note Text: [facility] Progress Note Natalie Cochran 06/26/2023 [id number] PROVIDER: Candie Tyler PhD CPT Code: Time: [...] the management of those funds by the [employer] PLAN: continue to pressure those in charge [...] Take 1 tablet by mouth once daily. Pkwdd-4-SPC-EPA-Fish Oil 1,000 (120-180) mg ORAL Cap Take [...] Issues: No change from previous appointment DIAGNOSIS: [place] I: Depression with Anxiety Pain w psych Factors CRPS (RSD) PTSD Aortic valve replacement in her 20s [place] II: deferred [place] III: see doctor notes [place] IV: Pain and loss of ability to be as active as she had in the past [place] V: 50-65 TREATMENT PROGRESS/ASSESSMENT: Progressing satisfactorily. TREATMENT PLAN/GOALS: Continue in therapy focusing on self-care, interpersonal relationships, stress management, affect management, and self-esteem. Next appointment: as scheduled Candie Tyler, PhD [facility] 06-05-2023 Note HNO ID: [id number] Author: CANDIE TYLER, PhD Service: ? Author Type: Psychologist Type: Progress Notes Filed: 06/05/2023 17:39 Note Text: [facility] Progress Note Natalie Cochran 06/05/2023 [id number] PROVIDER: Candie Tyler, PhD CPT Code: Time: 50 minutes Setting: Due to the federal emergency declaration and the need for ongoing mental health services, the following visit was completed virtually and informed consent obtained orally to reduce the risk of COVID-19 exposure. Oral consent to services related to virtual visits was obtained after information was sent via [employer] or read to patient if [employer] not available. Parties Present: Patient Treatment Modality/Interventions: [...] Take 1 tablet by mouth once daily. Xczzd-2-ASL-EPA-Fish Oil 1,000 (120-180) mg ORAL Cap Take [...] Psychiatric Medication Issues: see med record DIAGNOSIS: [place] I: Depression with Anxiety Pain w psych Factors CRPS (RSD) PTSD Aortic valve replacement in her 20s [place] II: deferred [place] III: see doctor notes [place] IV: Pain and loss of ability to be as active as she had in the past [place] V: 50-65 TREATMENT PROGRESS/ASSESSMENT: Progressing satisfactorily. TREATMENT PLAN/GOALS: Continue in therapy focusing on self-care, interpersonal relationships, improving communication, stress management, affect management, anxiety management, and self-esteem. Next appointment: as scheduled Candie Tyler, PhD [facility] 04-10-2023 Note HNO ID: [id number] Author: Candie Tyler, PhD Service: ? Author Type: Psychologist Type: Progress Notes Filed: 04/10/2023 11:22 AM Note Text: [facility] Progress Note Natalie Cochran 04/10/2023 [id number] PROVIDER: Candie Tyler, PhD CPT Code: Time: [...] herself RELATIONSHIP: communication has been improving w Kimball... Discussed at length MOOD: irritable but stable [...] Take 1 tablet by mouth once daily. Nbsns-2-WWL-EPA-Fish Oil 1,000 (120-180) mg ORAL Cap Take [...] Psychiatric Medication Issues: see med record DIAGNOSIS: [place] I: Depression with Anxiety Pain w psych Factors CRPS (RSD) PTSD Aortic valve replacement in her 20s [place] II: deferred [place] III: see doctor notes [place] IV: Pain and loss of ability to be as active as she had in the past [place] V: 50-65 TREATMENT PROGRESS/ASSESSMENT: Progressing satisfactorily. TREATMENT PLAN/GOALS: Continue in therapy focusing on self-care, improving communication, assertiveness skills, stress management, affect management, and self-esteem. Next appointment: as scheduled Candie Tyler, [facility] 04-03-2023 Note HNO ID: [id number] Author: Candie Tyler, PhD Service: ? Author Type: Psychologist Type: Progress Notes Filed: 04/03/2023 11:03 AM Note Text: [facility] Progress Note Natalie Cochran 04/03/2023 [id number] PROVIDER: Candie Tyler PhD CPT Code: Time: [...] Take 1 tablet by mouth once daily. Zmjov-1-RJA-EPA-Fish Oil 1,000 (120-180) mg ORAL Cap Take [...] Issues: No change from previous appointment DIAGNOSIS: [place] I: Depression with Anxiety Pain w psych Factors CRPS (RSD) PTSD Aortic valve replacement in her 20s [place] II: deferred [place] III: see doctor notes [place] IV: Pain and loss of ability to be as active as she had in the past [place] V: 50-65 TREATMENT PROGRESS/ASSESSMENT: Progressing satisfactorily. TREATMENT PLAN/GOALS: Continue in therapy focusing on self-care, interpersonal relationships, improving communication, assertiveness skills, affect management, and self-esteem. Next appointment: as scheduled Candie Tyler, PhD [facility] 03-27-2023 Note HNO ID: [id number] Author: Candie Tyler, PhD Service: ? Author Type: Psychologist Type: Progress Notes Filed: 03/27/2023 11:13 AM Note Text: [facility] Progress Note Natalie Cox Cochran 03/27/2023 [id number] PROVIDER: Candie Tyler PhD CPT Code: Time: [...] try to do better and chance a assisted relationship 1... WONDER vs conversation that encourages [...] Take 1 tablet by mouth once daily. Wunjx-6-AQN-EPA-Fish Oil 1,000 (120-180) mg ORAL Cap Take [...] Psychiatric Medication Issues: see med record DIAGNOSIS: [place] I: Depression with Anxiety Pain w psych Factors CRPS (RSD) PTSD Aortic valve replacement in her 20s [place] II: deferred [place] III: see doctor notes [place] IV: Pain and loss of ability to be as active as she had in the past [place] V: 50-65 TREATMENT PROGRESS/ASSESSMENT: Progressing satisfactorily. TREATMENT PLAN/GOALS: Continue in therapy focusing on self-care, improving communication, affect management, coping with pain, and self-esteem. Next appointment: as scheduled Candie Tyler, [facility] 03-20-2023 Miscellaneous Notes Formattin g of this note might be different from the original. Received VM from patient requesting to reschedule appt on 03/23; Outbound call to patient to reschedule 03/23/procedure and possibly follow up too; reached ; [facility] [phone] (home/cell) ISAIAS Mcguire documented in this encounter [facility] 03-08-2023 Note HNO ID: [id number] Author: Candie Tyler, PhD Service: ? Author Type: Psychologist Type: Progress Notes Filed: 03/08/2023 10:58 AM Note Text: [facility] Progress Note Natalie Cochran 03/08/2023 [id number] PROVIDER: Candie Tyler, PhD CPT Code: Time: [...] PAIN. IF NO PAIN RELIEF, CALL 911 Xcuke-6-FRO-EPA-Fish Oil 1,000 (120-180) mg ORAL Cap Take [...] Psychiatric Medication Issues: see med record DIAGNOSIS: [place] I: Depression with Anxiety Pain w psych Factors CRPS (RSD) PTSD Aortic valve replacement in her 20s [place] II: deferred [place] III: see doctor notes [place] IV: Pain and loss of ability to be as active as she had in the past [place] V: 50-65 TREATMENT PROGRESS/ASSESSMENT: Progressing satisfactorily. TREATMENT PLAN/GOALS: Continue in therapy focusing on self-care, stress management, affect management, anxiety management, coping with medical concerns, and self-esteem. Next appointment: as scheduled Candie Tyler, PhD [facility] 02-22-2023 Note HNO ID: [id number] Author: Mis Hua LPN Service: ? Author [...] for suicidal ideas. The patient is nervous/anxious. [facility] 02-21-2023 Note HNO ID: [id number] Author: Justa Jarrett MD Service: ? Author Type: Physician Type: Progress Notes Filed: 02/22/2023 10:44 AM Note Text: [facility] Today's Date: 02/22/2023 Last Visit: N/A [...] Treatment: 02/21/2023 - Initial HPI: Referred by [facility] , for evaluation AND management of Pelvic [...] and left lower limb, treated at [facility] remotely, had injections, was on opioids - [...] Age between 16-45: (more content not included)... [facility] 02-13-2023 Note HNO ID: [id number] Author: Candie Tyler, PhD Service: ? Author Type: Psychologist Type: Progress Notes Filed: 02/13/2023 11:05 AM Note Text: [facility] Progress Note Natalieeliud Cochran 02/13/2023 [id number] PROVIDER: Candie Tyler, PhD CPT Code: Time: [...] Take 1 tablet by mouth once daily. Mttoh-1-LAD-EPA-Fish Oil 1,000 (120-180) mg ORAL Cap Take [...] Psychiatric Medication Issues: see med record DIAGNOSIS: [place] I: Depression with Anxiety Pain w psych Factors CRPS (RSD) PTSD Aortic valve replacement in her 20s [place] II: deferred [place] III: see doctor notes [place] IV: Pain and loss of ability to be as active as she had in the past [place] V: 50-65 TREATMENT PROGRESS/ASSESSMENT: Progressing satisfactorily. TREATMENT PLAN/GOALS: Continue in therapy focusing on self-care, assertiveness skills, affect management, and self-esteem. Next appointment: as scheduled Candie Tyler, PhD [facility] 02-07-2023 Note HNO ID: [id number] Author: Candie Tyler, PhD Service: ? Author Type: Psychologist Type: Progress Notes Filed: 02/07/2023 3:59 PM Note Text: [facility] Behavioral Health Department Progress Note Natalieromero Cochran 02/07/2023 [id number] PROVIDER: Candie Tyler, PhD CPT Code: Time: 50 minutes Setting: Due to the federal emergency declaration and the need for ongoing mental health services, the following visit was completed virtually and informed consent obtained orally to reduce the risk of COVID-19 exposure. Oral consent to services related to virtual visits was obtained after information was sent via [employer] or read to patient if [employer] not available. Parties Present: Patient Treatment Modality/Interventions: [...] Take 1 tablet by mouth once daily. Gphjk-5-WJM-EPA-Fish Oil 1,000 (120-180) mg ORAL Cap Take [...] visit. Psychiatric Medication Issues: as noted DIAGNOSIS: [place] I: Depression with Anxiety Pain w psych Factors CRPS (RSD) PTSD Aortic valve replacement in her 20s [place] II: deferred [place] III: see doctor notes [place] IV: Pain and loss of ability to be as active as she had in the past [place] V: 50-65 TREATMENT PROGRESS/ASSESSMENT: Progressing satisfactorily. TREATMENT PLAN/GOALS: Continue in therapy focusing on self-care, affect management, and self-esteem. Next appointment: as scheduled Candie Tyler, PhD [facility] 01-27-2023 Note HNO ID: [id number] Author: Ariana Bonilla APRN.FIBERGLASS GRINDER Service: ? Author Type: Nurse Practitioner Type: Progress Notes Filed: 01/27/2023 2:10 PM Note Text: [facility] - Follow [facility] Virtual Visit Last OV:01/17/22 Accompanied by: Self This visit was conducted as a virtual visit, with patient's permission, via ZOOM. It required patient-provider interaction for the medical decision making as documented below. Patient stated name and Patient location [place], [place] I have communicated my name and active licensure. The patient's identity and physical location were verified at the time of this visit. Either the patient or their legal retail field representative has been informed of the risks [...] Take 1 tablet by mouth once daily. Yjwrs-3-ZVD-EPA-Fish Oil 1,000 (120-180) mg ORAL Cap Take [...] four times daily (more content not included)... [facility] 01-27-2023 History of Presen t illness Narrative [facility] - Follow [facility] Virtual Visit Last OV:01/17/22 Accompanied by: Self This visit was conducted as a virtual visit, with patient's permission, via ZOOM. It required patient-provider interaction for the medical decision making as documented below. Patient stated name and Patient location [place], [place] I have communicated my name and active licensure. The patient's identity and physical location were verified at the time of this visit. Either the patient or their legal retail field representative has been informed of the risks [...] Take 1 tablet by mouth once daily. Agcij-5-OAC-EPA-Fish Oil 1,000 (120-180) mg ORAL Cap Take [...] these with the patient: yes Ariana Bonilla APRN.FIBERGLASS GRINDER Studies to Review: No New Health Issues: [...] NO EVIDENCE OF AN ACUTE INTRACRANIAL PROCESS. [employer] Paralegal: [place] Transcribe Date/Time: Feb 07 2016 3:35P [...] which included preparing to see the patient, eoyt-yt-rpmy patient care, completing clinical documentation, counseling and educating the patient/family/caregiver, and ordering medications, tests, or procedures. Ariana Bonilla APRN.FIBERGLASS GRINDER documented in this encounter [facility] 01-02-2023 Note HNO ID: [id number] Author: Candie Tyler, PhD Service: ? 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 Nozox-8-HRH-EPA-Fish Oil 1,000 (120-180) mg ORAL Cap Take [...] Issues: No change from previous appointment DIAGNOSIS: [place] I: Depression with Anxiety Pain w psych Factors CRPS (RSD) PTSD Aortic valve replacement in her 20s [place] II: deferred [place] III: see doctor notes [place] IV: Pain and loss of ability to be as active as she had in the past [place] V: 50-65 TREATMENT PROGRESS/ASSESSMENT: Progressing satisfactorily. TREATMENT PLAN/GOALS: Continue in therapy focusing on self-care, interpersonal relationships, assertiveness skills, affect management, and self-esteem. Next appointment: as scheduled Candie Tyler, PhD [facility] 12-19-2022 Note HNO ID: [id number] Author: Candie Tyler, PhD Service: ? Author Type: Psychologist Type: Progress Notes Filed: 12/19/2022 12:03 PM Note Text: [facility] Behavioral Health Department Progress Note Natalie Cochran 12/19/2022 [id number] PROVIDER: Candie Tyler, PhD CPT Code: Time: [...] Dating partner and having fun vs a assisted relationship explored coping and building out into [...] Take 1 tablet by mouth once daily. Bhbfy-0-QUX-EPA-Fish Oil 1,000 (120-180) mg ORAL Cap Take [...] Psychiatric Medication Issues: see med record DIAGNOSIS: [place] I: Depression with Anxiety Pain w psych Factors CRPS (RSD) PTSD Aortic valve replacement in her 20s [place] II: deferred [place] III: see doctor notes [place] IV: Pain and loss of ability to be as active as she had in the past [place] V: 50-65 TREATMENT PROGRESS/ASSESSMENT: Progressing satisfactorily. TREATMENT PLAN/GOALS: Continue in therapy focusing on self-care, interpersonal relationships, affect management, and self-esteem. Next appointment: as scheduled Candie Tyler PhD [facility] 12-11-2022 Note HNO ID: [id number] Author: Candie Tyler PhD Service: ? Author Type: Psychologist Type: Progress Notes Filed: 12/11/2022 12:23 PM Note Text: [facility] Behavioral Health Department Progress Note Natalie Cochran 12/11/2022 [id number] PROVIDER: Candie Tyler PhD CPT Code: Time: [...] Take 1 tablet by mouth once daily. Sntln-2-EWP-EPA-Fish Oil 1,000 (120-180) mg ORAL Cap Take [...] Medication Issues: New medication per physician DIAGNOSIS: [place] I: Depression with Anxiety Pain w psych Factors CRPS (RSD) PTSD Aortic valve replacement in her 20s [place] II: deferred [place] III: see doctor notes [place] IV: Pain and loss of ability to be as active as she had in the past [place] V: 50-65 TREATMENT PROGRESS/ASSESSMENT: Progressing satisfactorily. TREATMENT PLAN/GOALS: Continue in therapy focusing on self-care, affect management, and self-esteem. Next appointment: as scheduled Candie Tyler PhD [facility] 11-21-2022 Note HNO ID: [id number] Author: Candie Tyler PhD Service: ? Author Type: Psychologist Type: Progress Notes Filed: 11/21/2022 10:53 AM Note Text: [facility] Behavioral Health Department Progress Note Natalie Cox Cochran 11/21/2022 [id number] PROVIDER: Candie Tyler PhD CPT Code: Time: [...] Take 1 tablet by mouth once daily. Dbeoc-1-NPT-EPA-Fish Oil 1,000 (120-180) mg ORAL Cap Take [...] Issues: No change from previous appointment DIAGNOSIS: [place] I: Depression with Anxiety Pain w psych Factors CRPS (RSD) PTSD Aortic valve replacement in her 20s [place] II: deferred [place] III: see doctor notes [place] IV: Pain and loss of ability to be as active as she had in the past [place] V: 50-65 TREATMENT PROGRESS/ASSESSMENT: Progressing satisfactorily. TREATMENT PLAN/GOALS: Continue in therapy focusing on self-care, interpersonal relationships, affect management, and self-esteem. Next appointment: as scheduled Candie Tyler PhD [facility] 10-30-2022 Note HNO ID: [id number] Author: Candie Tyler PhD Service: ? Author Type: Psychologist Type: Progress Notes Filed: 10/30/2022 12:33 PM Note Text: [facility] Behavioral Health Department Progress Note Natalie Cox Cochran 10/30/2022 [id number] PROVIDER: Candie Tyler PhD CPT Code: Time: [...] Take 1 tablet by mouth once daily. Tndif-2-WQR-EPA-Fish Oil 1,000 (120-180) mg ORAL Cap Take [...] Psychiatric Medication Issues: see med record DIAGNOSIS: [place] I: Depression with Anxiety Pain w psych Factors CRPS (RSD) PTSD Aortic valve replacement in her 20s [place] II: deferred [place] III: see doctor notes [place] IV: Pain and loss of ability to be as active as she had in the past [place] V: 50-65 TREATMENT PROGRESS/ASSESSMENT: Progressing satisfactorily. TREATMENT PLAN/GOALS: Continue in therapy focusing on self-care, interpersonal relationships, assertiveness skills, affect management, and self-esteem. Next appointment: as scheduled Candie Tyler PhD [facility] 10-10-2022 Note HNO ID: [id number] Author: Candie Tyler PhD Service: ? Author Type: Psychologist Type: Progress Notes Filed: 10/10/2022 10:57 AM Note Text: [facility] Behavioral Health Department Progress Note Natalie Cochran 10/10/2022 [id number] PROVIDER: Candie Tyler PhD CPT Code: Time: [...] need to push for or expect a assisted partner so quickly Discussed at length MEDICATIONS: [...] Take 1 tablet by mouth once daily. Cmscm-0-ZGT-EPA-Fish Oil 1,000 (120-180) mg ORAL Cap Take [...] Psychiatric Medication Issues: see med record DIAGNOSIS: [place] I: Depression with Anxiety Pain w psych Factors CRPS (RSD) PTSD Aortic valve replacement in her 20s [place] II: deferred [place] III: see doctor notes [place] IV: Pain and loss of ability to be as active as she had in the past [place] V: 50-65 TREATMENT PROGRESS/ASSESSMENT: Progressing satisfactorily. TREATMENT PLAN/GOALS: Continue in therapy focusing on self-care, improving communication, assertiveness skills, affect management, and self-esteem. Next appointment: as scheduled Candie Tyler, PhD [facility] 09-26-2022 Note HNO ID: [id number] Author: Candie Tyler, PhD Service: ? Author Type: Psychologist Type: Progress Notes Filed: 09/26/2022 10:09 AM Note Text: [facility] Behavioral Health Department Progress Note Natalie Cochran 09/26/2022 [id number] PROVIDER: Candie Tyler, PhD CPT Code: Time: [...] Take 1 tablet by mouth once daily. Kfjri-8-HXQ-EPA-Fish Oil 1,000 (120-180) mg ORAL Cap Take [...] Issues: No change from previous appointment DIAGNOSIS: [place] I: Depression with Anxiety Pain w psych Factors CRPS (RSD) PTSD Aortic valve replacement in her 20s [place] II: deferred [place] III: see doctor notes [place] IV: Pain and loss of ability to be as active as she had in the past [place] V: 50-65 TREATMENT PROGRESS/ASSESSMENT: Progressing satisfactorily. TREATMENT PLAN/GOALS: Continue in therapy focusing on self-care, interpersonal relationships, improving communication, affect management, and self-esteem. Next appointment: as scheduled Candie Tyler PhD [facility] 08-29-2022 Note HNO ID: [id number] Author: Candie Tyler PhD Service: ? Author Type: Psychologist Type: Progress Notes Filed: 08/29/2022 10:06 AM Note Text: [facility] Behavioral Health Department Progress Note Natalie Cochran 08/29/2022 [id number] PROVIDER: Candie Tyler PhD Time: 50 minutes [...] community and now dating a fellow in [place].... to having her x trying to get her goat and feeling under the weight of taxes and other expenses going up OUTCOME: lots of irritability PLAN: working on shifting to LIFE GOING FORWARD from lost in what has happened in the past and not TAKING THE HOOK and becoming reactive to her x PLAN: joining [employer] MEDICATIONS: Per medical record: Current Outpatient Medications [...] Take 1 tablet by mouth once daily. Jxkum-1-LMH-EPA-Fish Oil 1,000 (120-180) mg ORAL Cap Take [...] Issues: No change from previous appointment DIAGNOSIS: [place] I: Depression with Anxiety Pain w psych Factors CRPS (RSD) PTSD Aortic valve replacement in her 20s [place] II: deferred [place] III: see doctor notes [place] IV: Pain and loss of ability to be as active as she had in the past [place] V: 50-65 TREATMENT PROGRESS/ASSESSMENT: Fluctuating progress. TREATMENT PLAN/GOALS: Continue in therapy focusing on self-care, interpersonal relationships, stress management, affect management, anxiety management, and self-esteem. Next appointment: as scheduled Candie Tyler PhD [facility] 08-15-2022 Note HNO ID: [id number] Author: Candie Tyler PhD Service: ? Author Type: Psychologist Type: Progress Notes Filed: 08/15/2022 11:59 AM Note Text: [facility] Behavioral Health Department Progress Note Natalie Cochran 08/15/2022 [id number] PROVIDER: Candie Tyler PhD Time: 50 minutes [...] new dog took off when visiting in [place]... back 5 days later relationship: discussed how [...] Take 1 tablet by mouth once daily. Ciulm-7-PNS-EPA-Fish Oil 1,000 (120-180) mg ORAL Cap Take [...] Issues: No change from previous appointment DIAGNOSIS: [place] I: Depression with Anxiety Pain w psych Factors CRPS (RSD) PTSD Aortic valve replacement in her 20s [place] II: deferred [place] III: see doctor notes [place] IV: Pain and loss of ability to be as active as she had in the past [place] V: 50-65 TREATMENT PROGRESS/ASSESSMENT: Progressing satisfactorily. TREATMENT PLAN/GOALS: Continue in therapy focusing on self-care, interpersonal relationships, improving communication, assertiveness skills, stress management, affect management, and self-esteem. Next appointment: as scheduled Candie Tyler, PhD [facility] 08-01-2022 Note HNO ID: [id number] Author: Candie Tyler PhD Service: ? Author Type: Psychologist Type: Progress Notes Filed: 08/01/2022 10:59 AM Note Text: PSYCHOLOGY: FOLLOW-UP APPOINTMENT Provider: Candie Tyler, PhD Natalie Cochran [id number] 08/01/2022 Service Provided: [id number] (individual psychotherapy 40-50 min) Time session initiated: [...] 1 tablet by mouth once daily. 0 Gmdzo-4-ZCG-EPA-Fish Oil 1,000 (120-180) mg ORAL Cap Take [...] at this time. Intervention: Not applicable Diagnosis: [place] I: Depression with Anxiety Pain w psych Factors CRPS (RSD) PTSD Aortic valve replacement in her 20s [place] II: deferred [place] III: see doctor notes [place] IV: Pain and loss of ability to be as active as she had in the past [place] V: 50-65 Progress Toward Treatment Goals: Progressing [...] bills PLAN worked on dealing w the ZMP first.. 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 Dean (cats and tomato sauces) documented as of this encounter (statuses as of 03/20/2023) [facility]10-03-2022 Evaluation + Plan note Diagnostic Tests Pending * N. gonorrhoeae PCR 02/27/22 * Chlamydia trachomatis PCR 02/27/22 * Rapid Plasma Reagin Test 02/27/22 Future Scheduled Tests Laboratory* Pathology Rn International Request 02/27/22 * HIV 1/2 Ab 02/27/22 [facility] 08-23-2022 History of Present illness Narrative* Ariana Bonilla APRN.FIBERGLASS GRINDER - 01/17/2022 1:00 PM EDT [facility] - Follow up Virtual Visit Last OV:05/27/2020 Dr Rodriguez Accompanied by: Self During this COVID-19 pandemic, patient's headache clinic evaluation was scheduled as a virtual visit using the following platform [employer]/Zoom Natalie Cochran was identified by name and [...] Take 1 tablet by mouth once daily. Rvtgw-7-WVS-EPA-Fish Oil 1,000 (120-180) mg ORAL Cap Take [...] NO EVIDENCE OF AN ACUTE INTRACRANIAL PROCESS. [employer] Paralegal: [place] Transcribe Date/Time: Feb 07 2016 3:35P [...] which included preparing to see the patient, mcsy-bk-qslo patient care, completing clinical documentation, counseling and educating the patient/family/caregiver, and ordering medications, tests, or procedures. Ariana Bonilla APRN.FIBERGLASS GRINDER [facility] [place] Miscellaneous Notes* Telephone Encounter - Marcela Srinivas [...] call. However, patient ended up reaching our deskidding machine operator to complain more and was still rude/complaining to them aswell. Buffy Yanes Did send directions for [employer] visit message via [employer] to help patient if she does run into anymore issues with accessing her visit. [facility] [place] History of Present illness Narrative* She Medina PA-C - 01/17/2022 8:05 AM EDT Patient was unable to connect to video visit so she was scheduled at 1pm today. 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 Dean (cats and tomato sauces) documented as of this encounter (statuses as of 01/18/2022) [facility] Diagnosis Migraine with aura and without status migrainosus, not intractable- Primary Migraine with aura, without mention of intractable migraine without mention of status migrainosus [facility]MENT CANCELLED- Primary documented in this encounter [facility] Diagnosis Migraine with aura and without status migrainosus, not intractable- Primary Migraine with aura, without mention of intractable migraine without mention of status migrainosus [facility] Narrative No data available for this section [facility] Hospital Discharge instructions No data available for this section [facility] Summary Purpose Family History No Family History Records FoundNo Family History Records FoundNo Family History Records FoundNo Family History Records FoundNo Family History Records Found Advance Directives No Advanced Directives Records FoundDocuments on File Type Date Recorded Patient Lean Leader Expl anation Advance Directives and Living Will Power of Lawn Sprinkler Servicer Documents on File Type Date Recorded Patient Lean Leader Expl anation Advance Directive(s) 05/04/2009 Advance Directive(s) 07/13/2006 Documents on File Type Date Recorded Patient Lean Leader Expl anation Advance Directive(s) 05/04/2009 Advance Directive(s) 07/13/2006 Documents on File Type Date Recorded Patient Lean Leader Expl anation Advance Directive(s) 03/13/2022 3:14 PM Advance Directive(s) 05/04/2009 Advance Directive(s) 07/13/2006 Assessments Diagnosis Pain Generalized pain Reason for Referral Specialty Diagnoses / Procedures Referred By Contac t Referred To Contact Diagnoses Migraine with aura and without status migrainosus, not intractable Procedures PROVIDER ORDERED FOLLOW UP OFFICE/OUTPATIENT [facility] MDM 60-74 MINUTES Ariana Bonilla, MOLDING MACHINE TENDER.FIBERGLASS GRINDER [address] [place] [address] Referral ID Status Reason Start Date Expiration Date Visits Requested Visits Authorized [id number] Pending Review PCP Requested Referral 10/19/2022 01/17/2023 1 1 Additional Source Comments INFORMATION SOURCE (unrecogn ized section and content) DATE CREATED AUTHOR AUTHOR'S ORGANIZ ATION 03/27/2019 [facility] DATE CREATED AUTHOR AUTHOR'S ORGANIZ ATION 03/06/2022 [facility] DATE CREATED AUTHOR AUTHOR'S ORGANIZ ATION 03/21/2023 [facility] DATE CREATED AUTHOR AUTHOR'S ORGANIZ ATION 07/15/2023 [facility] Source Comments (unrecognize d section and content) In the event this informatio n is protected by the Federal Confidentiality of Alcohol and Drug Abuse Patient Records regulations: The Federal rules restrict any use of the information to criminally investigate or prosecute any alcohol or drug abuse patient.[facility] the event this information is protected by the Federal Confidentiality of Alcohol and Drug Abuse Patient Records regulations: The Federal rules restrict any use of the information to criminally investigate or prosecute any alcohol or drug abuse patient.[facility] the event this information is protected by the Federal Confidentiality of Alcohol and Drug Abuse Patient Records regulations: The Federal rules restrict any use of the information to criminally investigate or prosecute any alcohol or drug abuse patient.[facility] the event this information is protected by the Federal Confidentiality of Alcohol and Drug Abuse Patient Records regulations: The Federal rules restrict any use of the information to criminally investigate or prosecute any alcohol or drug abuse patient.[facility] [place] the event this information is protected by the Federal Confidentiality of Alcohol and Drug Abuse Patient Records regulations: The Federal rules restrict any use of the information to criminally investigate or prosecute any alcohol or drug abuse patient.[facility] [place] Reason for Visit (unrecogniz ed section and content) Reason Comments Migraine Reason Comments Appointment Cancelled Reason Comments Migraine Reason Comments Returning Patient's Call [facility] [place] Care Teams (unrecognized sec tion and content) Manager Infusion Relationship Specialty Start Date End Date Zion Herrmann DO PCP - General 10/18/07 Michael Deeril S [address] [place] [address] Physician Cardiology 08/06/18 Manager Infusion Relationship Specialty Start Date End Date Zion Herrmann DO PCP - General 10/18/07 Michael Deeril S [address] [place] [address] Physician Cardiology 08/06/18 Manager Infusion Relationship Specialty Start Date End Date Castro Quintana MD [address] [place] [address] PCP - General Internal Medicine 03/13/22 Heriberto Dee [address] [place] [address] Physician Cardiology 08/06/18 Manager Infusion Relationship Specialty Start Date End Date Castro Quintana MD [address] [place] [address] PCP - General Internal Medicine 03/13/22 Heriberto Dee MD [address] [place] [address] Physician Cardiology 08/06/18 Care Team (unrecognized sect ion and content) Care Team Personnel Name: IRMA MEEHAN DO Position: P4 Physician - Primary Care Med Service: Active Provider Member Role: Primary Care Physician Address: Address: [address] [place] [address] Care Team Related Persons Name: PAM COCHRAN Name: NARINDER COCHRAN Address: Home [address] [place], [place] [id number] FOR RECORDS PERTAINING TO PATIENTS WHO ARE [...] BE BASED ON THE PRIMARY CLINICAL RECORDS. [facility]. provides no warranty or guarantee of the accuracy or completeness of information in this document.
== END | disposition home or self-care (01) ==
LOC: BIMLAB 13:28
PROVIDERS: PCP Internal Medicine; Visit Provider Internal Medicine
DX: Z86.79 Personal history of other diseases of the circulatory system (principal); M81.0 Age-related osteoporosis without current pathological fracture; I10 Essential (primary) hypertension
CPT/HCPCS: 36415; 80048; 82306; 85025

== ENCOUNTER 2023-07-26 10:00 | Inpatient (IN) | payer MEDICARE, MEDICAID, SELFPAY ==
[2023-07-26] VITALS (10 sets, daily range): BP systolic 93–153; BP diastolic 69–119; PULSE 79–113; RESP 18–29; TEMP 36.1–36.9; O2SAT 96–100; BMI 18.8; BMI 18.5
--- NOTE | 2023-07-26 10:17 | ED.RN ---
DR NOTIFIED AT 1000 THAT NEEDED IN ROOM. PT VOMITING COPIOUS AMOUNT OF DARK COFFEE GROUND EMESIS
--- NOTE | 2023-07-26 10:20 | CT_ITS ---
STUDY: CT BRAIN WITHOUT CONTRAST REASON FOR EXAM: Female, 57 years old. Head injury on warfarin RADIATION DOSAGE (If Supplied By Facility): CTDIvol = ( 44.99 ) mGy, DLP = ( 796.11 ) mGycm TECHNIQUE: Transaxial CT imaging of the brain was performed without administration of intravenous contrast material. Individualized dose optimization techniques were used for this CT. COMPARISON: Comparison is made with prior study dated December 18, 2022. FINDINGS: Normal soft tissue structures. There is hyperostosis frontalis internus. Normal size ventricles and extra-axial spaces for the patient''s age. Normal white matter tracts of the cerebral hemispheres. Normal basal ganglia and thalami. Normal brainstem. Normal cerebellum. There is no intracranial hemorrhage. There are no findings of an acute ischemic infarction. Normal visualized paranasal sinuses. CT/Brain/Head without Contrast IMPRESSION: Normal unenhanced CT scan of the brain. Electronically Signed: Mesfin Fairbanks MD at 11:16 EST ,
--- NOTE | 2023-07-26 10:21 | CT_ITS ---
STUDY: CT ABDOMEN AND PELVIS WITH CONTRAST REASON FOR EXAM: Female, 57 years old. History of fall. Lethargy. Vomiting. RADIATION DOSAGE (If Supplied By Facility): CTDIvol = ( 11.12 ) mGy, DLP = ( 431.46 ) mGycm TECHNIQUE: Transaxial images were obtained from the dome of the diaphragm to the symphysis pubis without oral contrast. IV 75mL Isovue-370 was administered. Sagittal and coronal images were reconstructed. Individualized dose optimization techniques were used for this CT. COMPARISON: None. FINDINGS: Focal linear scar in the lateral aspect of the left lower lobe. The visualized portions of the heart are within normal limits. There is decreased attenuation of the liver consistent with steatosis. There are surgical clips in the gallbladder fossa consistent with a prior cholecystectomy. Normal spleen. Normal pancreas. Normal bilateral adrenal glands. Normal right kidney. Normal left kidney. Normal visualized stomach. Normal small intestine. Findings suggestive of colitis of the rectosigmoid colon. There is non-visualization of the appendix. Normal abdominal aorta. Normal inferior vena cava. Normal retroperitoneum. Normal urinary bladder. There is absence of the uterus consistent with a prior hysterectomy. Normal abdominal wall. There are diffuse degenerative changes of the visualized lumbar spine. CT/Abdomen/Pelvis W IV Cont ONLY IMPRESSION: Findings suggestive of colitis of the rectosigmoid colon. Status post cholecystectomy. Status post hysterectomy. Electronically Signed: Mesfin Fairbanks MD at 11:15 EST ,
--- NOTE | 2023-07-26 10:23 | EKG12_ITS ---
Test Reason : FALL Blood Pressure : / mmHG Vent. Rate : 095 BPM Atrial Rate : 095 BPM P-R Int : 142 ms QRS Dur : 086 ms QT Int : 356 ms P-R-T Axes : 090 063 066 degrees QTc Int : 447 ms Normal sinus rhythm Nonspecific ST abnormality Abnormal ECG Confirmed by MARIA T DOMINGUEZ, BELA ([id number]), video effects editor FCO BOND ([id number]) on 07/30/2023 9:29:45 AM Referred By: YARELY Confirmed By:TERRI LIVE MD
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
[2023-07-26] MEDS: 0.9% Normal Saline (1000mL) 1,000 ML 1000 ML IV (10:27)
[2023-07-26] MEDS: Ondansetron 4 MG/2 ML Vial IV ×2 (10:27→21:39)
[2023-07-26] MEDS: Morphine 4 MG/ML Syringe IV ×4 (10:29→21:48)
[2023-07-26 10:38] LABS: Absolute Lymphocyte Count 2.99 X10^3/uL (0.83-4.51); Absolute Neutrophil Count 7.9 X10^3/uL (2.0-7.7); Basophil# 0.02 X10^3/uL; Basophil% 0.2 % (0-1); Eosinophil# 0.02 X10^3/uL; Eosinophils% 0.2 % (0-5); Hematocrit 32.5 % (37-47); Hemoglobin 10.2 g/dL (12.0-15.0); Lymphocyte # 2.99 X10^3/ul (0.83-4.51); Lymphocyte % 26.1 % (19-41); Mean Corp Hgb Conc 31.4 g/dL (32-36); Mean Corpuscular Hgb 26.3 pg (27.0-32.0); Mean Corpuscular Volume 83.8 fL (81-99); Mean Platelet Vol. 9.9 fl (6.2-12.0); Monocyte# 0.48 X10^3/uL; Monocyte% 4.2 % (0-10); NRBC Flagged by Analyzer 0 % (0-5); Neutrophil # 7.89 X10^3/uL (2.7-7.7); Neutrophil % 68.7 % (47-70); Platelet Count 403 K/mm3 (150-450); Red Blood Count 3.88 M/mm3 (4.2-5.4); White Blood Count 11.5 K/mm3 (4.4-11.0)
[2023-07-26 10:50] LABS: ALB/GLOB Ratio 0.9 RATIO (0.9-2.4); AST(SGOT) 16 U/L (15-37); Alanine Aminotransfer ALT/SGPT 22 U/L (13-56); Alkaline Phosphatase 43 U/L (45-117); Anion Gap 5 (5-15); BUN 75 mg/dL (7-18); BUN/Creat Ratio 78.9 RATIO (10-20); Calcium,Total 8.7 mg/dL (8.5-10.1); Chloride 114 mmol/L (98-107); Creatinine, Serum 0.95 mg/dL (0.55-1.02); EST Glomerular Filtration Rate 64 mL/min (>60); Est Glom Filt Rate - Afr Amer 77 mL/min (>60); Estimated Creatinine Clearance 50.85 ml/min; Globulin 3.2 g/dL (2.2-4.2); Glucose 233 mg/dL (74-106); Lipase 35 U/L (13-75); Potassium 4.6 mmol/L (3.5-5.1); Protein, Total 6.2 g/dL (6.4-8.2); Sodium Level 142 mmol/L (136-145); Troponin-I HS 44 pg/mL (3.0-54.0)
[2023-07-26] MEDS: Pantoprazole Sodium 40 MG in 0.9% Normal Saline (100mL MB+) 100 ML 330 MG IV (10:52)
[2023-07-26] MEDS: Metoclopramide 10 MG/2 ML Vial IV (10:53)
[2023-07-26 10:57] LABS: Lactic Acid 3.2 mmol/L (0.4-1.9)
[2023-07-26 11:29] LABS: International Normalized Ratio 7.7
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
--- OUTSIDE RECORDS SUMMARY | 2023-07-26 12:20 | XMS RPT_ITS | CCD ---
Author Name Unknown Address [id number] [place] [address] Organization [facility] Care Team Providers Care Mercerizing Range Feeder Name Role Phone MARYBETH, MUSA Unavailable Unavailable MARYBETH, MUSA Unavailable Unavailable MARYBETH, MUSA Unavailable Unavailable MARYBETH, MUSA Unavailable Unavailable MARYBETH, MUSA Unavailable Unavailable MARYBETH, MUSA Unavailable Unavailable Zion Herrmann Unavailable Unavailable MARYBETH, MUSA Unavailable Unavailable MARYBETH, MUSA Unavailable Unavailable Zion Herrmann Unavailable Unavailable Unavailable Primary Care Provider UnavailZion Silver DO Primary Care Provider Karo vailable Leila, Pound S Unavailable DR IRMA MEEHAN DO Primary Care Physician [phone] EROS VINCENT Attending Unavail able IRMA MEEHAN Primary Care Unavailable Leila, Pound S Unavailable Castro Quintana MD Primary Care Provider [phone] Michael Dee MDril S Unavailable JUSTA JARRETT [...] adverse reactions (disorder) 2 Other: See Comments [facility] Repository (9 sources) celecoxib; Translations: [CELECOXIB] Drug Allergy 2 Irregular heart beat [facility] Repository (10 sources) gatifloxacin; Translations: [GATIFLOXACIN] Drug Allergy 6 Rash [facility] Repository (8 sources) ketorolac; Translations: [KETOROLAC TROMETHAMINE] Drug Allergy 0 Shortness of Breath [facility] Repository (8 sources) lamoTRIgine; Translations: [LAMOTRIGINE] Drug Allergy 5 [facility] Repository (9 sources) lisinopril; Translations: [LISINOPRIL] Drug Allergy 0 Angioedema (disorder) [facility] Repository (9 sources) methadone; Translations: [METHADONE] Drug Allergy 4 Dizziness (finding) [facility] Repository (9 sources) pregabalin; Translations: [PREGABALIN] Drug Allergy 6 Dizziness [facility] Repository (8 sources) Quinolones (Antibiotic); Translations: [QUINOLONES] Propensity to adverse reactions (disorder) 3 [facility] Repository (8 sources) raNITIdine; Translations: [RANITIDINE HCL] Drug Allergy 0 [facility] Repository (9 sources) regadenoson; Translations: [REGADENOSON] Drug Allergy 9 Shortness of Breath [facility] Repository (8 sources) spironolactone; Translations: [SPIRONOLACTONE ] Drug Allergy 2 Other: See Comments [facility] Repository (9 sources) SUMAtriptan; Translations: [SUMATRIPTAN] Drug Allergy 5 Irregular heart beat [facility] Repository (8 sources) HISTAMINE H2 INHIBITORS; Translations: [HISTAMINE H2 INHIBITORS] Propensity to adverse reactions (disorder) 2 [facility] Repository (1 source) EPINEPHrine; Translations: [epinephrine] Drug Allergy Unknown [facility] (1 source) fexofenadine; Translations: [fexofenadine] Drug Allergy Unknown [facility] (1 source) Ketorolac; Translations: [ketorolac] Drug Allergy Unknown [facility] (1 source) raNITIdine; Translations: [ranitidine] Drug Allergy Unknown [facility] Medications Current Medications Medication Drug Class(es) Dates Sig (Normalized) Sig (Original) butorphanol tartrate 1 mg/actuat metered dose nasal spray (1 source) Opioid Agonist/Antagoni st Start: 01-23-2019 butorphanol 10 mg/mL nasal spray See Instructions, PRN Migraine headache, 1 spray(s) Q6h prn acute migraine symptoms. 1 bottle per month, # 2.5 mL, 5 Refill(s), Pharmacy: [facility]/pharmacy #[id number], Migraine headache Start Date: 01/23/19 Status: Ordered [...] Start: 07-10-2023 End: 07-11-2023 ambulatory CASTRO QUINTANA Facility:[facility] Start: 07-03-2023 End: 07-04-2023 ambulatory [facility] Facility:[facility] Start: 06-26-2023 End: 06-27-2023 ambulatory [facility] Facility:[facility] Start: 06-05-2023 End: 06-05-2023 ambulatory [facility] Facility:[facility] Start: 04-10-2023 End: 04-11-2023 ambulatory [facility] Facility:[facility] Start: 04-03-2023 End: 04-04-2023 ambulatory [facility] Facility:[facility] Start: 03-27-2023 End: 03-28-2023 ambulatory [facility] Facility:[facility] Start: 03-20-2023 Telephone encounter Justa Jarrett MD Work Phone: [facility] Procedures Date Procedure Procedure Detail Performing Clinician Start: 05-26-2019 Colonoscopy Ariana wooten DIGITAL DEVELOPER.SALES MANAGER Work Phone: Start: 03-24-2019 Radex hip unilateral with pelvis 1 view Start: 08-09-2018 Lipid 1996 panel - S abigail or Plasma Justa Jarrett MD Work Phone: Start: 06-24-2015 Neurostimulator, dev ice (physical object) EROS ANTHONY DIGITAL DEVELOPER-SALES MANAGER Plan of Treatment Date Care Activity Detail Author Start: 12-18-2032 Urine microalbumin profile DTaP,Tdap,Td Vaccine (2 - Td or Tdap) [facility] Start: 03-18-2025 DIABETES SCREEN DIABETES SCREEN [facility] Start: 03-18-2025 Diabetes Screening Diabetes Screening [facility] Start: 08-10-2023 Lipid 1996 panel - Serum or Plasma Lipid Screening [facility] Start: 08-10-2023 LIPID SCREEN LIPID SCREEN [facility] Start: 01-26-2023 Covid-19 Vaccine ( season) Covid-19 Vaccine ( season) [facility] Start: 01-26-2023 Influenza vaccination [facility] Start: 01-26-2022 Influenza vaccination INFLUENZA (#1) [facility] Start: 09-07-2021 COVID-19 VACCINE (4 - Booster for Pfizer series) COVID-19 VACCINE (4 - Booster for Pfizer series) [facility] Start: 08-09-2021 DIABETES SCREEN DIABETES SCREEN [facility] Start: 05-26-2020 Colonoscopy COLONOSCOPY [facility] Start: 05-26-2020 COLORECTAL CANCER SCREENING COLORECTAL CANCER SCREENING [facility] Start: 01-26-2019 Influenza vaccination Flu vaccine (#1) [place] Start: 07-23-2015 Shingles Vaccine (2 of 2) Shingles Vaccine (2 of 2) [place] Start: 2014 Breast cancer screen Breast cancer screen [place] Start: 2014 Colon cancer screen colonoscopy Colon cancer screen colonoscopy [place] Start: 2014 SHINGRIX VACCINE (1 of 2) SHINGRIX VACCINE (1 of 2) [facility] Start: 01-15-2012 PAP TESTING PAP TESTING [facility] Start: 2009 COLOGUARD (FIT-DNA) COLOGUARD (FIT-DNA) [facility] Start: 2009 Colonoscopy COLONOSCOPY [facility] Start: 2009 COLORECTAL CANCER SCREENING COLORECTAL CANCER SCREENING [facility] Start: [address] COLONOGRAPHY [facility] Start: 2009 FECAL OCCULT BLOOD FECAL OCCULT BLOOD [facility] Start: 2009 SIGMOIDOSCOPY SIGMOIDOSCOPY [facility] Start: 02-21-2007 Mammography [facility] Start: 2004 Lipid screen Lipid screen [place], [place] Start: 04-15-2002 Urine microalbumin profile DTAP,TDAP,TD (1 - Tdap) [facility] Start: 1994 HPV TESTING HPV TESTING [facility] Start: 1985 Cervical cancer screen Cervical cancer screen [place], [place] Start: 07-30-1983 DTaP/Tdap/Td vaccine (1 - Tdap) DTaP/Tdap/Td vaccine (1 - Tdap) [place] Start: 1982 HEPATITIS C SCREENING HEPATITIS C SCREENING [facility] Start: 1982 HIV SCREENING HIV SCREENING [facility] Start: 07-30-1979 HIV screen HIV screen [place], [place] Start: 1964 HEPATITIS B (1 of 3 - 3-dose series) HEPATITIS B (1 of 3 - 3-dose series) [facility] Start: 1964 Hepatitis B Vaccine (1 of 3 - 3-dose series) Hepatitis B Vaccine (1 of 3 - 3-dose series) [facility] Start: 1964 Hepatitis C screen Hepatitis C screen [facility] Immunizations Immunization Date Immunization Notes Care Provider [facility] 05-03-2022 influenza virus vacc ine, unspecified formulation Justa Jarrett MD Work Phone: [facility] 02-21-2018 influenza virus vacc ine, unspecified formulation EROS ANTHONY DIGITAL DEVELOPER-SALES MANAGER [facility] 09-26-2017 pneumococcal polysaccharide vaccine, 23 valent EROS ANTHONY DIGITAL DEVELOPER-SALES MANAGER [facility] 05-28-2015 zoster vaccine recombinant EROS RAJ DIGITAL DEVELOPER-SALES MANAGER [facility] 02-22-2012 influenza virus vacc ine, unspecified formulation She Medina PA-C Work Phone: [facility] 02-22-2011 influenza virus vacc ine, unspecified formulation She Medina PA-C Work Phone: [facility] 02-26-2007 influenza virus vacc ine, unspecified formulation She MASTERS-C Work Phone: [facility] Work Phone: 09-05-2002 pneumococcal polysaccharide vaccine, 23 valent She Medina PA-C Work Phone: [facility] Work Phone: 04-14-2002 tetanus and diphther ia toxoids, adsorbed, preservative free, for adult use (2 Lf of tetanus toxoid and 2 Lf of diphtheria toxoid) She Medina PA-C Work Phone: [facility] Payers Date Payer Category Payer Unknown [id number] 2022 Private Health Insurance [id number] 2022 Medicaid [facility] MEDICAID MYC ARE [facility] MEDICAID [id number] 2022-Present [phone] [address] [place] [address] Medicaid [id number] 2022 Private Health Insurance [id number] 2021 Medicare [id number] 1965 Unknown [id number] Unknown [id number] Social History Date Type Detail Facility Tobacco smoking stat [facility] Unknown if ever smoked [facility] Start: 1965 [facility] History of tobacco use Current smoker [facility] Start: 01-01-2022 End: 02-22-2023 Alcohol intake Current non-drinker of alcohol (finding) [facility] Start: 02-27-2022 End: 03-12-2022 Tobacco smoking status Never smoked tobacco (finding) [facility] Sex Assigned At Female [facility] Start: 03-12-2022 Tobacco use and exposure Smokeless tobacco non-user [facility] Start: 03-12-2022 End: 10-10-2022 History of Social function [facility] Start: 03-12-2022 End: 10-10-2022 Tobacco use panel [facility] How hard is it for y ou to pay for the very basics like food, housing, medical care, and heating Not very hard [facility] Adult Depression Screening Assessment 2 [facility] (I/We) worried janay er (my/our) food would run out before (I/we) got money to buy more. Never true [facility] In the past 12 month s, was there a time when you were not able to pay the mortgage or rent on time? No [facility] Start: 03-12-2022 Tobacco Comment 1989 [facility] Clinical Notes 11-25-2012 to 07-10-2023 Telephone Encounter - Mona Celestin - 03/20/2023 10:26 AM Ariana Holbrook APRN.SALES MANAGER - 01/27/2023 10:00 AM EDT Note Date & Type Note Facility 07-10-2023 Note HNO ID: [id number] Author: CANDIE TYLER, PhD Service: ? Author Type: Psychologist Type: Progress Notes Filed: 07/10/2023 11:04 Note Text: [facility] Progress Note Natalie Brooke Dimas 07/10/2023 [id number] PROVIDER: Candie Tyler, PhD CPT Code: Time: [...] Take 1 tablet by mouth once daily. Gewpv-7-SYY-EPA-Fish Oil 1,000 (120-180) mg ORAL Cap Take [...] Issues: No change from previous appointment DIAGNOSIS: Milfay I: Depression with Anxiety Pain w psych Factors CRPS (RSD) PTSD Aortic valve replacement in her 20s Milfay II: deferred Milfay III: see doctor notes Milfay IV: Pain and loss of ability to be as active as she had in the past Milfay V: 50-65 TREATMENT PROGRESS/ASSESSMENT: Fluctuating progress. TREATMENT PLAN/GOALS: Continue in therapy focusing on self-care, interpersonal relationships, assertiveness skills, stress management, affect management, anxiety management, and self-esteem. Next appointment: as scheduled Candie Tyler, PhD [facility] 07-03-2023 Note HNO ID: [id number] Author: CANDIE TYLER, PhD Service: ? Author Type: Psychologist Type: Progress Notes Filed: 07/03/2023 12:08 Note Text: [facility] Progress Note Natalie Cochran 07/03/2023 [id number] PROVIDER: Candie Tyler PhD CPT Code: Time: [...] Take 1 tablet by mouth once daily. Kdxju-8-UIW-EPA-Fish Oil 1,000 (120-180) mg ORAL Cap Take [...] Issues: No change from previous appointment DIAGNOSIS: Milfay I: Depression with Anxiety Pain w psych Factors CRPS (RSD) PTSD Aortic valve replacement in her 20s Milfay II: deferred Milfay III: see doctor notes Milfay IV: Pain and loss of ability to be as active as she had in the past Milfay V: 50-65 TREATMENT PROGRESS/ASSESSMENT: Progressing satisfactorily. TREATMENT PLAN/GOALS: Continue in therapy focusing on self-care, interpersonal relationships, improving communication, assertiveness skills, stress management, affect management, anxiety management, and self-esteem. Next appointment: as scheduled Candie Tyler PhD [facility] 06-26-2023 Note HNO ID: [id number] Author: CANDIE TYLER PhD Service: ? Author Type: Psychologist Type: Progress Notes Filed: 06/26/2023 12:14 Note Text: [facility] Progress Note Natalie Cochran 06/26/2023 [id number] PROVIDER: Candie Tyler PhD CPT Code: Time: [...] the management of those funds by the [employer] PLAN: continue to pressure those in charge [...] Take 1 tablet by mouth once daily. Orefc-6-PXF-EPA-Fish Oil 1,000 (120-180) mg ORAL Cap Take [...] Issues: No change from previous appointment DIAGNOSIS: Milfay I: Depression with Anxiety Pain w psych Factors CRPS (RSD) PTSD Aortic valve replacement in her 20s Milfay II: deferred Milfay III: see doctor notes Milfay IV: Pain and loss of ability to be as active as she had in the past Milfay V: 50-65 TREATMENT PROGRESS/ASSESSMENT: Progressing satisfactorily. TREATMENT PLAN/GOALS: Continue in therapy focusing on self-care, interpersonal relationships, stress management, affect management, and self-esteem. Next appointment: as scheduled Candie Tyler, PhD [facility] 06-05-2023 Note HNO ID: [id number] Author: CANDIE TYLER, PhD Service: ? Author Type: Psychologist Type: Progress Notes Filed: 06/05/2023 17:39 Note Text: [facility] Progress Note Natalie Cochran 06/05/2023 [id number] PROVIDER: Candie Tyler, PhD CPT Code: Time: 50 minutes Setting: Due to the federal emergency declaration and the need for ongoing mental health services, the following visit was completed virtually and informed consent obtained orally to reduce the risk of COVID-19 exposure. Oral consent to services related to virtual visits was obtained after information was sent via [facility] or read to patient if [facility] not available. Parties Present: Patient Treatment Modality/Interventions: [...] Take 1 tablet by mouth once daily. Mhyjo-8-SNS-EPA-Fish Oil 1,000 (120-180) mg ORAL Cap Take [...] Psychiatric Medication Issues: see med record DIAGNOSIS: Milfay I: Depression with Anxiety Pain w psych Factors CRPS (RSD) PTSD Aortic valve replacement in her 20s Milfay II: deferred Milfay III: see doctor notes Milfay IV: Pain and loss of ability to be as active as she had in the past Milfay V: 50-65 TREATMENT PROGRESS/ASSESSMENT: Progressing satisfactorily. TREATMENT PLAN/GOALS: Continue in therapy focusing on self-care, interpersonal relationships, improving communication, stress management, affect management, anxiety management, and self-esteem. Next appointment: as scheduled Candie Tlyer, PhD [facility] 04-10-2023 Note HNO ID: [id number] Author: Candie Tyler, PhD Service: ? Author Type: Psychologist Type: Progress Notes Filed: 04/10/2023 11:22 AM Note Text: [facility] Progress Note Natalie Cochran 04/10/2023 [id number] PROVIDER: Candie Tyler, PhD CPT Code: Time: [...] herself RELATIONSHIP: communication has been improving w [place]... Discussed at length MOOD: irritable but stable [...] Take 1 tablet by mouth once daily. Byjvn-2-OKR-EPA-Fish Oil 1,000 (120-180) mg ORAL Cap Take [...] Psychiatric Medication Issues: see med record DIAGNOSIS: Milfay I: Depression with Anxiety Pain w psych Factors CRPS (RSD) PTSD Aortic valve replacement in her 20s Milfay II: deferred Milfay III: see doctor notes Milfay IV: Pain and loss of ability to be as active as she had in the past Milfay V: 50-65 TREATMENT PROGRESS/ASSESSMENT: Progressing satisfactorily. TREATMENT PLAN/GOALS: Continue in therapy focusing on self-care, improving communication, assertiveness skills, stress management, affect management, and self-esteem. Next appointment: as scheduled Candie Tyler, [facility] 04-03-2023 Note HNO ID: [id number] Author: Candie Tyler, PhD Service: ? Author Type: Psychologist Type: Progress Notes Filed: 04/03/2023 11:03 AM Note Text: [facility] Progress Note Natalie Cochran 04/03/2023 [id number] PROVIDER: Candie Tyler PhD CPT Code: Time: [...] Take 1 tablet by mouth once daily. Otzym-3-TQW-EPA-Fish Oil 1,000 (120-180) mg ORAL Cap Take [...] Issues: No change from previous appointment DIAGNOSIS: Milfay I: Depression with Anxiety Pain w psych Factors CRPS (RSD) PTSD Aortic valve replacement in her 20s Milfay II: deferred Milfay III: see doctor notes Milfay IV: Pain and loss of ability to be as active as she had in the past Milfay V: 50-65 TREATMENT PROGRESS/ASSESSMENT: Progressing satisfactorily. TREATMENT PLAN/GOALS: Continue in therapy focusing on self-care, interpersonal relationships, improving communication, assertiveness skills, affect management, and self-esteem. Next appointment: as scheduled Candie Tyler, PhD [facility] 03-27-2023 Note HNO ID: [id number] Author: Candie Tyler, PhD Service: ? Author Type: Psychologist Type: Progress Notes Filed: 03/27/2023 11:13 AM Note Text: [facility] Progress Note Natalie Cox Cochran 03/27/2023 [id number] PROVIDER: Candie Tyler PhD CPT Code: Time: [...] try to do better and chance a retirement relationship 1... WONDER vs conversation that encourages [...] Take 1 tablet by mouth once daily. Shsud-4-WYL-EPA-Fish Oil 1,000 (120-180) mg ORAL Cap Take [...] Psychiatric Medication Issues: see med record DIAGNOSIS: Milfay I: Depression with Anxiety Pain w psych Factors CRPS (RSD) PTSD Aortic valve replacement in her 20s Milfay II: deferred Milfay III: see doctor notes Milfay IV: Pain and loss of ability to be as active as she had in the past Milfay V: 50-65 TREATMENT PROGRESS/ASSESSMENT: Progressing satisfactorily. TREATMENT PLAN/GOALS: Continue in therapy focusing on self-care, improving communication, affect management, coping with pain, and self-esteem. Next appointment: as scheduled Candie Tyler, [facility] 03-20-2023 Miscellaneous Notes Formattin g of this note might be different from the original. Received VM from patient requesting to reschedule appt on 03/23; Outbound call to patient to reschedule 03/23/procedure and possibly follow up too; reached ; [facility] [phone] (home/cell) ISAIAS Mcguire documented in this encounter [facility] 03-08-2023 Note HNO ID: [id number] Author: Candie Tyler, PhD Service: ? Author Type: Psychologist Type: Progress Notes Filed: 03/08/2023 10:58 AM Note Text: [facility] Progress Note Natalie Cochran 03/08/2023 [id number] PROVIDER: Candie Tyler, PhD CPT Code: Time: [...] PAIN. IF NO PAIN RELIEF, CALL 911 Izssa-1-LQK-EPA-Fish Oil 1,000 (120-180) mg ORAL Cap Take [...] Psychiatric Medication Issues: see med record DIAGNOSIS: Milfay I: Depression with Anxiety Pain w psych Factors CRPS (RSD) PTSD Aortic valve replacement in her 20s Milfay II: deferred Milfay III: see doctor notes Milfay IV: Pain and loss of ability to be as active as she had in the past Milfay V: 50-65 TREATMENT PROGRESS/ASSESSMENT: Progressing satisfactorily. TREATMENT PLAN/GOALS: Continue in therapy focusing on self-care, stress management, affect management, anxiety management, coping with medical concerns, and self-esteem. Next appointment: as scheduled Candie Tyler, PhD [facility] 02-22-2023 Note HNO ID: [id number] Author: Mis Hua LPN Service: ? Author [...] ideas. The patient is nervous/anxious. [facility] 02-21-2023 Note HNO ID: [id number] Author: Justa Jarrett MD Service: ? Author Type: Physician Type: Progress Notes Filed: 02/22/2023 10:44 AM Note Text: [facility] Today's Date: 02/22/2023 Last Visit: N/A Name: [...] Treatment: 02/21/2023 - Initial HPI: Referred by [facility] , for evaluation AND management of Pelvic [...] chest and left lower limb, treated at [facility] remotely, had injections, was on opioids - [...] 16-45: (more content not included)... [facility] 02-13-2023 Note HNO ID: [id number] Author: Candie Tyler, PhD Service: ? Author Type: Psychologist Type: Progress Notes Filed: 02/13/2023 11:05 AM Note Text: [facility] Progress Note Natalieeliud Cochran 02/13/2023 [id number] PROVIDER: Candie Tyler, PhD CPT Code: Time: [...] Take 1 tablet by mouth once daily. Asezv-3-QCB-EPA-Fish Oil 1,000 (120-180) mg ORAL Cap Take [...] Psychiatric Medication Issues: see med record DIAGNOSIS: Milfay I: Depression with Anxiety Pain w psych Factors CRPS (RSD) PTSD Aortic valve replacement in her 20s Milfay II: deferred Milfay III: see doctor notes Milfay IV: Pain and loss of ability to be as active as she had in the past Milfay V: 50-65 TREATMENT PROGRESS/ASSESSMENT: Progressing satisfactorily. TREATMENT PLAN/GOALS: Continue in therapy focusing on self-care, assertiveness skills, affect management, and self-esteem. Next appointment: as scheduled Candie Tyler, PhD [facility] 02-07-2023 Note HNO ID: [id number] Author: Candie Tyler, PhD Service: ? Author Type: Psychologist Type: Progress Notes Filed: 02/07/2023 3:59 PM Note Text: [facility] Progress Note Natalieromero Cochran 02/07/2023 [id number] PROVIDER: Candie Tyler, PhD CPT Code: Time: 50 minutes Setting: Due to the federal emergency declaration and the need for ongoing mental health services, the following visit was completed virtually and informed consent obtained orally to reduce the risk of COVID-19 exposure. Oral consent to services related to virtual visits was obtained after information was sent via [facility] or read to patient if [facility] not available. Parties Present: Patient Treatment Modality/Interventions: [...] Take 1 tablet by mouth once daily. Cmzmn-2-TJI-EPA-Fish Oil 1,000 (120-180) mg ORAL Cap Take [...] visit. Psychiatric Medication Issues: as noted DIAGNOSIS: Milfay I: Depression with Anxiety Pain w psych Factors CRPS (RSD) PTSD Aortic valve replacement in her 20s Milfay II: deferred Milfay III: see doctor notes Milfay IV: Pain and loss of ability to be as active as she had in the past Milfay V: 50-65 TREATMENT PROGRESS/ASSESSMENT: Progressing satisfactorily. TREATMENT PLAN/GOALS: Continue in therapy focusing on self-care, affect management, and self-esteem. Next appointment: as scheduled Candie Tyler, PhD [facility] 01-27-2023 Note HNO ID: [id number] Author: Ariana Bonilla APRN.SALES MANAGER Service: ? Author Type: Nurse Practitioner Type: Progress Notes Filed: 01/27/2023 2:10 PM Note Text: [facility] - Follow up Virtual Visit Last OV:01/17/22 Accompanied by: Self This visit was conducted as a virtual visit, with patient's permission, via ZOOM. It required patient-provider interaction for the medical decision making as documented below. Patient stated name and Patient location [place], [place] I have communicated my name and active licensure. The patient's identity and physical location were verified at the time of this visit. Either the patient or their legal community health representative has been informed of the risks [...] Take 1 tablet by mouth once daily. Lnhjv-6-UWS-EPA-Fish Oil 1,000 (120-180) mg ORAL Cap Take [...] four times daily (more content not included)... [facility] 01-27-2023 History of Presen t illness Narrative [facility] - Follow up Virtual Visit Last OV:01/17/22 Accompanied by: Self This visit was conducted as a virtual visit, with patient's permission, via ZOOM. It required patient-provider interaction for the medical decision making as documented below. Patient stated name and Patient location [place], [place] I have communicated my name and active licensure. The patient's identity and physical location were verified at the time of this visit. Either the patient or their legal community health representative has been informed of the risks [...] Take 1 tablet by mouth once daily. Xrscb-5-HUF-EPA-Fish Oil 1,000 (120-180) mg ORAL Cap Take [...] these with the patient: yes Ariana Bonilla APRN.SALES MANAGER Studies to Review: No New Health Issues: [...] NO EVIDENCE OF AN ACUTE INTRACRANIAL PROCESS. Spray Dyer: [place] Transcribe Date/Time: Feb 07 2016 3:35P [...] which included preparing to see the patient, egjl-et-bvcg patient care, completing clinical documentation, counseling and educating the patient/family/caregiver, and ordering medications, tests, or procedures. Ariana Bonilla APRN.SALES MANAGER documented in this encounter [facility] 01-02-2023 Note HNO ID: [id number] Author: Candie Tyler, PhD Service: ? 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 Orawv-9-WBD-EPA-Fish Oil 1,000 (120-180) mg ORAL Cap Take [...] Issues: No change from previous appointment DIAGNOSIS: Milfay I: Depression with Anxiety Pain w psych Factors CRPS (RSD) PTSD Aortic valve replacement in her 20s Milfay II: deferred Milfay III: see doctor notes Milfay IV: Pain and loss of ability to be as active as she had in the past Milfay V: 50-65 TREATMENT PROGRESS/ASSESSMENT: Progressing satisfactorily. TREATMENT PLAN/GOALS: Continue in therapy focusing on self-care, interpersonal relationships, assertiveness skills, affect management, and self-esteem. Next appointment: as scheduled Candie Tyler, PhD [facility] 12-19-2022 Note HNO ID: [id number] Author: Candie Tyler, PhD Service: ? Author Type: Psychologist Type: Progress Notes Filed: 12/19/2022 12:03 PM Note Text: [facility] Progress Note Natalie Cochran 12/19/2022 [id number] PROVIDER: Candie Tyler, PhD CPT Code: Time: [...] Dating partner and having fun vs a retirement relationship explored coping and building out into [...] Take 1 tablet by mouth once daily. Aluqs-5-MIU-EPA-Fish Oil 1,000 (120-180) mg ORAL Cap Take [...] Psychiatric Medication Issues: see med record DIAGNOSIS: Milfay I: Depression with Anxiety Pain w psych Factors CRPS (RSD) PTSD Aortic valve replacement in her 20s Milfay II: deferred Milfay III: see doctor notes Milfay IV: Pain and loss of ability to be as active as she had in the past Milfay V: 50-65 TREATMENT PROGRESS/ASSESSMENT: Progressing satisfactorily. TREATMENT PLAN/GOALS: Continue in therapy focusing on self-care, interpersonal relationships, affect management, and self-esteem. Next appointment: as scheduled Candie Tyler PhD [facility] 12-11-2022 Note HNO ID: [id number] Author: Candie Tyler PhD Service: ? Author Type: Psychologist Type: Progress Notes Filed: 12/11/2022 12:23 PM Note Text: [facility] Progress Note Natalie Cochran 12/11/2022 [id number] PROVIDER: Candie Tyler PhD CPT Code: Time: [...] Take 1 tablet by mouth once daily. Aaskp-8-MSI-EPA-Fish Oil 1,000 (120-180) mg ORAL Cap Take [...] Medication Issues: New medication per physician DIAGNOSIS: Milfay I: Depression with Anxiety Pain w psych Factors CRPS (RSD) PTSD Aortic valve replacement in her 20s Milfay II: deferred Milfay III: see doctor notes Milfay IV: Pain and loss of ability to be as active as she had in the past Milfay V: 50-65 TREATMENT PROGRESS/ASSESSMENT: Progressing satisfactorily. TREATMENT PLAN/GOALS: Continue in therapy focusing on self-care, affect management, and self-esteem. Next appointment: as scheduled Candie Tyler PhD [facility] 11-21-2022 Note HNO ID: [id number] Author: Candie Tyler PhD Service: ? Author Type: Psychologist Type: Progress Notes Filed: 11/21/2022 10:53 AM Note Text: [facility] Progress Note Natalie Cox Cochran 11/21/2022 [id number] PROVIDER: Candie Tyler PhD CPT Code: Time: [...] Take 1 tablet by mouth once daily. Znnkh-1-BUJ-EPA-Fish Oil 1,000 (120-180) mg ORAL Cap Take [...] Issues: No change from previous appointment DIAGNOSIS: Milfay I: Depression with Anxiety Pain w psych Factors CRPS (RSD) PTSD Aortic valve replacement in her 20s Milfay II: deferred Milfay III: see doctor notes Milfay IV: Pain and loss of ability to be as active as she had in the past Milfay V: 50-65 TREATMENT PROGRESS/ASSESSMENT: Progressing satisfactorily. TREATMENT PLAN/GOALS: Continue in therapy focusing on self-care, interpersonal relationships, affect management, and self-esteem. Next appointment: as scheduled Candie Tyler PhD [facility] 10-30-2022 Note HNO ID: [id number] Author: Candie Tyler PhD Service: ? Author Type: Psychologist Type: Progress Notes Filed: 10/30/2022 12:33 PM Note Text: [facility] Progress Note Natalie Cox Cochran 10/30/2022 [id number] PROVIDER: Candie Tyler PhD CPT Code: Time: [...] Take 1 tablet by mouth once daily. Aufzj-3-LBW-EPA-Fish Oil 1,000 (120-180) mg ORAL Cap Take [...] Psychiatric Medication Issues: see med record DIAGNOSIS: Milfay I: Depression with Anxiety Pain w psych Factors CRPS (RSD) PTSD Aortic valve replacement in her 20s Milfay II: deferred Milfay III: see doctor notes Milfay IV: Pain and loss of ability to be as active as she had in the past Milfay V: 50-65 TREATMENT PROGRESS/ASSESSMENT: Progressing satisfactorily. TREATMENT PLAN/GOALS: Continue in therapy focusing on self-care, interpersonal relationships, assertiveness skills, affect management, and self-esteem. Next appointment: as scheduled Cadnie Tyler PhD [facility] 10-10-2022 Note HNO ID: [id number] Author: Candie Tyler PhD Service: ? Author Type: Psychologist Type: Progress Notes Filed: 10/10/2022 10:57 AM Note Text: [facility] Progress Note aNtalie Cochran 10/10/2022 [id number] PROVIDER: Candie Tyler PhD CPT Code: Time: [...] need to push for or expect a retirement partner so quickly Discussed at length MEDICATIONS: [...] Take 1 tablet by mouth once daily. Bygif-4-GKR-EPA-Fish Oil 1,000 (120-180) mg ORAL Cap Take [...] Psychiatric Medication Issues: see med record DIAGNOSIS: Milfay I: Depression with Anxiety Pain w psych Factors CRPS (RSD) PTSD Aortic valve replacement in her 20s Milfay II: deferred Milfay III: see doctor notes Milfay IV: Pain and loss of ability to be as active as she had in the past Milfay V: 50-65 TREATMENT PROGRESS/ASSESSMENT: Progressing satisfactorily. TREATMENT PLAN/GOALS: Continue in therapy focusing on self-care, improving communication, assertiveness skills, affect management, and self-esteem. Next appointment: as scheduled Candie Tyler, PhD [facility] 09-26-2022 Note HNO ID: [id number] Author: Candie Tyler, PhD Service: ? Author Type: Psychologist Type: Progress Notes Filed: 09/26/2022 10:09 AM Note Text: [facility] Progress Note Natalie Cochran 09/26/2022 [id number] PROVIDER: Candie Tyler, PhD CPT Code: Time: [...] Take 1 tablet by mouth once daily. Tubfb-1-NUN-EPA-Fish Oil 1,000 (120-180) mg ORAL Cap Take [...] Issues: No change from previous appointment DIAGNOSIS: Milfay I: Depression with Anxiety Pain w psych Factors CRPS (RSD) PTSD Aortic valve replacement in her 20s Milfay II: deferred Milfay III: see doctor notes Milfay IV: Pain and loss of ability to be as active as she had in the past Milfay V: 50-65 TREATMENT PROGRESS/ASSESSMENT: Progressing satisfactorily. TREATMENT PLAN/GOALS: Continue in therapy focusing on self-care, interpersonal relationships, improving communication, affect management, and self-esteem. Next appointment: as scheduled Candie Tyler PhD [facility] 08-29-2022 Note HNO ID: [id number] Author: Candie Tyler PhD Service: ? Author Type: Psychologist Type: Progress Notes Filed: 08/29/2022 10:06 AM Note Text: [facility] Progress Note Natalie Cochran 08/29/2022 [id number] PROVIDER: Candie Tyler PhD Time: 50 minutes [...] community and now dating a fellow in [employer].... to having her x trying to get her goat and feeling under the weight of taxes and other expenses going up OUTCOME: lots of irritability PLAN: working on shifting to LIFE GOING FORWARD from lost in what has happened in the past and not TAKING THE HOOK and becoming reactive to her x PLAN: joining [employer] MEDICATIONS: Per medical record: Current Outpatient Medications [...] Take 1 tablet by mouth once daily. Hkxwl-0-NXA-EPA-Fish Oil 1,000 (120-180) mg ORAL Cap Take [...] Issues: No change from previous appointment DIAGNOSIS: Milfay I: Depression with Anxiety Pain w psych Factors CRPS (RSD) PTSD Aortic valve replacement in her 20s Milfay II: deferred Milfay III: see doctor notes Milfay IV: Pain and loss of ability to be as active as she had in the past Milfay V: 50-65 TREATMENT PROGRESS/ASSESSMENT: Fluctuating progress. TREATMENT PLAN/GOALS: Continue in therapy focusing on self-care, interpersonal relationships, stress management, affect management, anxiety management, and self-esteem. Next appointment: as scheduled Candie Tyler PhD [facility] 08-15-2022 Note HNO ID: [id number] Author: Candie Tyler PhD Service: ? Author Type: Psychologist Type: Progress Notes Filed: 08/15/2022 11:59 AM Note Text: [facility] Progress Note Natalie Cochran 08/15/2022 [id number] PROVIDER: Candie Tyler PhD Time: 50 minutes [...] new dog took off when visiting in [place]... back 5 days later relationship: discussed how [...] Take 1 tablet by mouth once daily. Ugdum-8-BFF-EPA-Fish Oil 1,000 (120-180) mg ORAL Cap Take [...] Issues: No change from previous appointment DIAGNOSIS: Milfay I: Depression with Anxiety Pain w psych Factors CRPS (RSD) PTSD Aortic valve replacement in her 20s Milfay II: deferred Milfay III: see doctor notes Milfay IV: Pain and loss of ability to be as active as she had in the past Milfay V: 50-65 TREATMENT PROGRESS/ASSESSMENT: Progressing satisfactorily. TREATMENT PLAN/GOALS: Continue in therapy focusing on self-care, interpersonal relationships, improving communication, assertiveness skills, stress management, affect management, and self-esteem. Next appointment: as scheduled Candie Tyler, PhD [facility] 08-01-2022 Note HNO ID: [id number] Author: Candie Tyler PhD Service: ? Author Type: Psychologist Type: Progress Notes Filed: 08/01/2022 10:59 AM Note Text: PSYCHOLOGY: FOLLOW-UP APPOINTMENT Provider: Candie Tyler, PhD Natalie Cochran [id number] 08/01/2022 Service Provided: [id number] (individual psychotherapy 40-50 min) Time session initiated: [...] 1 tablet by mouth once daily. 0 Vlfqc-9-GAW-EPA-Fish Oil 1,000 (120-180) mg ORAL Cap Take [...] at this time. Intervention: Not applicable Diagnosis: Milfay I: Depression with Anxiety Pain w psych Factors CRPS (RSD) PTSD Aortic valve replacement in her 20s Milfay II: deferred Milfay III: see doctor notes Milfay IV: Pain and loss of ability to be as active as she had in the past Milfay V: 50-65 Progress Toward Treatment Goals: Progressing [...] bills PLAN worked on dealing w the [employer] first.. 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 Dean (cats and tomato sauces) documented as of this encounter (statuses as of 03/20/2023) [facility] Evaluation + Plan note Diagnostic Tests Pending * N. gonorrhoeae PCR 02/27/22 * Chlamydia trachomatis PCR 02/27/22 * Rapid Plasma Reagin Test 02/27/22 Future Scheduled Tests Laboratory* Pathology [employer] Request 02/27/22 * HIV 1/2 Ab 02/27/22 [facility] 08-23-2022 History of Present illness Narrative* Ariana Bonilla APRN.SALES MANAGER - 01/17/2022 1:00 PM EDT [facility] - Follow up Virtual Visit Last OV:05/27/2020 Dr Rodriguez Accompanied by: Self During this COVID-19 pandemic, patient's headache clinic evaluation was scheduled as a virtual visit using the following platform [employer]/Pongo Resume/Book [employer]back/Strikeface[employer]/Zoom Natalie Cochran was identified by name and [...] Take 1 tablet by mouth once daily. Vioqx-4-BRN-EPA-Fish Oil 1,000 (120-180) mg ORAL Cap Take [...] NO EVIDENCE OF AN ACUTE INTRACRANIAL PROCESS. Spray Dyer: [place] Transcribe Date/Time: Feb 07 2016 3:35P [...] which included preparing to see the patient, uxfh-ye-oqvt patient care, completing clinical documentation, counseling and educating the patient/family/caregiver, and ordering medications, tests, or procedures. Ariana Bonilla APRN.SALES MANAGER [facility] Miscellaneous Notes* Telephone Encounter - Marcela Srinivas [...] call. However, patient ended up reaching our front office associate to complain more and was still rude/complaining to them aswell. Buffy Yanes Did send directions for [employer] visit message via [employer] to help patient if she does run into anymore issues with accessing her visit. [facility] History of Present illness Narrative* She Medina PA-C - 01/17/2022 8:05 AM EDT Patient was unable to connect to video visit so she was scheduled at 1pm today. 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 Dean (cats and tomato sauces) documented as of this encounter (statuses as of 01/18/2022) [facility] Migraine with aura and without status migrainosus, not intractable- Primary Migraine with aura, without mention of intractable migraine without mention of status migrainosus [facility] CANCELLED- Primary [facility] Diagnosis Migraine with aura and without status migrainosus, not intractable- Primary Migraine with aura, without mention of intractable migraine without mention of status migrainosus [facility] Narrative No data available for this section [facility] Discharge instructions No data available for this section [facility] Summary Purpose Family History No Family History Records FoundNo Family History Records FoundNo Family History Records FoundNo Family History Records FoundNo Family History Records Found Advance Directives No Advanced Directives Records FoundDocuments on File Type Date 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 Advance Directives and Living Will Power of Dogman/Woman Documents on File Type Date 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 Advance Directive(s) 05/04/2009 Advance Directive(s) 07/13/2006 Documents on File Type Date 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 Advance Directive(s) 05/04/2009 Advance Directive(s) 07/13/2006 Documents on File Type Date 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 [address] Referral ID Status Reason Start Date Expiration Date Visits Requested Visits Authorized [id number] Pending Review PCP Requested Referral 10/19/2022 01/17/2023 1 1 Additional Source Comments INFORMATION SOURCE (unrecogn ized section and content) DATE CREATED AUTHOR AUTHOR'S ORGANIZ ATION 03/27/2019 [facility] DATE CREATED AUTHOR AUTHOR'S ORGANIZ ATION 03/06/2022 [facility] DATE CREATED AUTHOR AUTHOR'S ORGANIZ ATION 03/21/2023 [facility] DATE CREATED AUTHOR AUTHOR'S ORGANIZ ATION 07/15/2023 [facility] Source Comments (unrecognize d section and content) In the event this informatio n is protected by the Federal Confidentiality of Alcohol and Drug Abuse Patient Records regulations: The Federal rules restrict any use of the information to criminally investigate or prosecute any alcohol or drug abuse patient.[facility] the event this information is protected by the Federal Confidentiality of Alcohol and Drug Abuse Patient Records regulations: The Federal rules restrict any use of the information to criminally investigate or prosecute any alcohol or drug abuse patient.[facility] Center[facility] the event this information is protected by the Federal Confidentiality of Alcohol and Drug Abuse Patient Records regulations: The Federal rules restrict any use of the information to criminally investigate or prosecute any alcohol or drug abuse patient.[facility] Center[facility] the event this information is protected by the Federal Confidentiality of Alcohol and Drug Abuse Patient Records regulations: The Federal rules restrict any use of the information to criminally investigate or prosecute any alcohol or drug abuse patient.[facility] Center[facility] the event this information is protected by the Federal Confidentiality of Alcohol and Drug Abuse Patient Records regulations: The Federal rules restrict any use of the information to criminally investigate or prosecute any alcohol or drug abuse patient.[facility] Reason for Visit (unrecogniz ed section and content) Reason Comments Migraine Reason Comments Appointment Cancelled Reason Comments Migraine Reason Comments Returning Patient's Call [facility] Care Teams (unrecognized sec tion and content) [employer] Relationship Specialty Start Date End Date Zion Herrmann DO PCP - General 10/18/07 Michael Deeril S [address] [place] [address] Physician Cardiology 08/06/18 [employer] Relationship Specialty Start Date End Date Zion Herrmann DO PCP - General 10/18/07 Michael Deeril S [address] [place] [address] Physician Cardiology 08/06/18 [employer] Range Feeder Relationship Specialty Start Date End Date Castro Quintana MD [address] [place] [address] PCP - General Internal Medicine 03/13/22 Heriberto Dee [address] [place] [address] Physician Cardiology 08/06/18 [employer] Range Feeder Relationship Specialty Start Date End Date Castro Quintana MD [address] [place] [address] PCP - General Internal Medicine 03/13/22 Heriberto Dee MD [address] [place] [address] Physician Cardiology 08/06/18 Care Team (unrecognized sect ion and content) Care Team Personnel Name: IRMA MEEHAN DO Position: P4 Physician - Primary Care Med Service: Active Provider Member Role: Primary Care Physician Address: Address: [address] [place] [address] Care Team Related Persons Name: PAM COCHRAN Name: NARINDER COCHRAN Address: Home [address] [place], [place] [id number] FOR RECORDS PERTAINING TO PATIENTS WHO ARE [...] BE BASED ON THE PRIMARY CLINICAL RECORDS. [facility] [employer] [facility]. provides no warranty or guarantee of the accuracy or completeness of information in this document.
[2023-07-26] MEDS: Phytonadione (Vit K) 5 MG in 0.9% Normal Saline (50mL Bag) 50 ML 150 MG IV (12:24)
[2023-07-26 14:30] LABS: Reflex Lactate? Y
[2023-07-26] MEDS: 0.9% Normal Saline (1000mL) 1,000 ML 125 ML IV ×2 (15:08→21:48)
[2023-07-26] MEDS: proCHLORPERazine 10 MG/2 ML Vial 5 MG IV (15:11)
[2023-07-26 15:19] LABS: Lactic Acid 1.1 mmol/L (0.4-1.9)
[2023-07-26] MEDS: Pantoprazole Sodium 80 MG in 0.9% Normal Saline (100mL Bag) 80 ML 10 MG CONT INF (17:16)
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
[2023-07-26 21:33] LABS: Bacteria 0 SEEN /hpf (None Seen); Mucous, Urine 0 SEEN /hpf (<or=2+); Red Blood Cells-Urine 0 SEEN /hpf (0-5); Squamous Epithelial Cells - UA 0 SEEN /hpf (5-10)
[2023-07-26 21:35] LABS: Color, Urine Yellow (Yellow); Glucose, Dipstick Normal (Normal); Ketone-Dipstick 5 mg/dl (Negative); Leukocyte Esterase-Dipstick 25 /ul (Negative); Nitrite-Dipstick Negative (Negative); Occult Blood-Urine Negative /ul (Negative); Protein-Dipstick Negative (Negative); Urine Bilirubin Dipstick Negative (Negative); Urine Clarity Clear (Clear); Urine Urobilinogen Normal (Normal)
[2023-07-26] MEDS: 0.9% Saline Lock 10 ML Syringe IV ×2 (21:39→21:48)
[2023-07-26 21:41] LABS: White Blood Cells 0-5 SEEN /hpf (0-5)
[2023-07-26 21:46] LABS: Amphetamine Urine VISTA NEGATIVE (<1000 ng/mL); Barbiturate Urine VISTA NEGATIVE (< 200 ng/mL); Benzodiazepine Urine VISTA NEGATIVE (< 200 ng/mL); Cocaine Urine VISTA NEGATIVE (< 300 ng/mL); Ecstacy Urine VISTA NEGATIVE (< 500 ng/mL); Methadone Urine VISTA NEGATIVE (< 300 ng/mL); PCP Urine VISTA NEGATIVE (< 25 ng/mL); THC Urine VISTA POSITIVE (< 50 ng/mL); Vista UDS pH Range 6
[2023-07-26 23:56] LABS: Internal QC Validated? YES +Cl - CLEAR BKGD; Pregnancy, Urine Negative Negative
[2023-07-27] VITALS (15 sets, daily range): BP systolic 98–209; BP diastolic 49–73; PULSE 61–84; RESP 16–18; TEMP 36.4–37.2; O2SAT 96–100
[2023-07-27] MEDS: Morphine 4 MG/ML Syringe IV ×4 (01:48→16:10)
[2023-07-27] MEDS: Pantoprazole Sodium 80 MG in 0.9% Normal Saline (100mL Bag) 80 ML 10 MG CONT INF (01:49)
[2023-07-27] MEDS: proCHLORPERazine 10 MG/2 ML Vial 5 MG IV ×3 (01:49→18:52)
[2023-07-27] MEDS: 0.9% Saline Lock 10 ML Syringe IV ×4 (01:49→20:34)
--- NOTE | 2023-07-27 05:55 | EKG12_ITS ---
Test Reason : AM EKG Blood Pressure : / mmHG Vent. Rate : 072 BPM Atrial Rate : 072 BPM P-R Int : 144 ms QRS Dur : 096 ms QT Int : 396 ms P-R-T Axes : 084 058 073 degrees QTc Int : 433 ms Normal sinus rhythm Normal ECG When compared with ECG of 26-JUL-2023 10:34, MANUAL COMPARISON REQUIRED, DATA IS UNCONFIRMED Confirmed by MARIA T DOMINGUEZ, BELA ([id number]), graphic editor ENRIKE HOLBROOK ([id number]) on 07/30/2023 2:01:23 PM Referred By: Confirmed By:TERRI LIVE MD
[2023-07-27 07:00] LABS: Absolute Lymphocyte Count 1.14 X10^3/uL (0.83-4.51); Absolute Neutrophil Count 4.8 X10^3/uL (2.0-7.7); Basophil# 0.02 X10^3/uL; Basophil% 0.3 % (0-1); Eosinophil# 0.02 X10^3/uL; Eosinophils% 0.3 % (0-5); Hematocrit 21.4 % (37-47); Hemoglobin 6.4 g/dL (12.0-15.0); Lymphocyte # 1.14 X10^3/ul (0.83-4.51); Lymphocyte % 17.8 % (19-41); Mean Corp Hgb Conc 29.9 g/dL (32-36); Mean Platelet Vol. 9.9 fl (6.2-12.0); Monocyte# 0.41 X10^3/uL; Monocyte% 6.4 % (0-10); NRBC Flagged by Analyzer 0 % (0-5); Neutrophil # 4.78 X10^3/uL (2.7-7.7); Neutrophil % 74.4 % (47-70); Platelet Count 163 K/mm3 (150-450); RBC Distribution Width CV 15.5 % (11.6-14.6); RBC Distribution Width SD 48.4 fl (35.1-43.9); Red Blood Count 2.46 M/mm3 (4.2-5.4); White Blood Count 6.4 K/mm3 (4.4-11.0)
[2023-07-27 07:09] LABS: International Normalized Ratio 1.4; Prothrombin Time (Protime)PT. 17.2 SECONDS (11.7-14.9)
[2023-07-27 07:39] LABS: Anion Gap 1 (5-15); BUN 35 mg/dL (7-18); BUN/Creat Ratio 58.7 RATIO (10-20); Calcium,Total 7.3 mg/dL (8.5-10.1); Chloride 125 mmol/L (98-107); EST Glomerular Filtration Rate 110 mL/min (>60); Est Glom Filt Rate - Afr Amer 133 mL/min (>60); Glucose 127 mg/dL (74-106); Potassium 3.9 mmol/L (3.5-5.1); Sodium Level 148 mmol/L (136-145)
--- NOTE | 2023-07-27 08:00 | NURSING ---
Upon assessment of pt, she is anxious and upset, accusing staff that we are not telling her anything about her care. Was sure to mention that her INR had come down to 1.4 this morning (which she asked specifically about) and that we used Vitamin K in order to do so. She was upset claiming that we had not told her that we were giving her Vit K and that you guys can really mess me up r/t mechanical valve and nobody is listening to me in regards to abdominal pain- to which I explained that we are medicating her appropriately for pain, and potential EGD is planned for today as well as the plan to give 2 units of PRBCs d/t HGB of 6.4. Pt medicated for pain/nausea per orders. Pt restful after pain meds. Will monitor.
[2023-07-27] MEDS: Ondansetron 4 MG/2 ML Vial IV ×2 (08:09→16:04)
--- NOTE | 2023-07-27 11:00 | EGD_PTH ---
PATHOLOGY RESULTS PATIENT: AUBREY COCHRAN LOC: [facility] U#:[id number] AGE/SX: 58/F ROOM: [facility] RE07/26/[address]: Dr. Stepan Gates MD : 1965 BED: 1 DIS: 08/01/2023 SPEC #: [id number] RECD: 07/30/23 08:08 STATUS: KIM HALEY #: [id number] EDMUND: 07/27/23 11:[address]: David Monsivais DEPT: SURGICAL PATHOLOGY RECD BY: Concepcion Ness ENTERED: 07/30/23 08:08 SP TYPE: EGD BIOPSY OTHR DR: MD Dr. Castro Uribe MD Dr. Nana Yaa Koram, MD Tissues: Duodenum, NOS Procedures: Surgery Specimen Level IV Comments: @ Ordering doctor for KORYIV edited from to @ by GILLIAN at 07/30/23 1428 @ Submitting doctor edited from to @ by RGOOD at 07/30/23 1428 HEADER OPERATION: EGD PRE-OP DIAGNOSIS: GI bleed TISSUE SUBMITTED: Duodenal biopsy MICROSCOPIC DIAGNOSIS Duodenum, biopsy: No pathologic change. AM:[place] 07/31/2023 MICROSCOPIC DESCRIPTION Slides are reviewed. GROSS DESCRIPTION Received in fixative is one container labeled with the patient's name and designated duodenal biopsy. The specimen consists of two irregular fragments of light uriostegui soft tissue that in aggregate measure 0.6 x 0.3 x 0.1 cm. The specimen is totally submitted in one cassette. / SJ:[place] 07/30/2023 TC:5 CPT: 67970
--- NOTE | 2023-07-27 11:23 | OP.EGD_ITS ---
Patient Name: Natalie Harper Procedure Date: 07/27/2023 10:49 AM Date of : 1965 Age: 57 Procedure: Upper GI endoscopy Indications: Iron deficiency anemia, Coffee-ground emesis, Melena Providers: David Monsivais DO Medicines: Monitored Anesthesia Care Patient Profile: This is a 57 year old female. Refer to note in patient chart for documentation of history and physical. Patient has symptoms of acute vomiting. Complications: No immediate complications. Procedure: Pre-Anesthesia Assessment: - Prior to the procedure, a History and Physical was performed, and patient medications and allergies were reviewed. The patient is competent. The risks and benefits of the procedure and the sedation options and risks were discussed with the patient. All questions were answered and informed consent was obtained. Patient identification and proposed procedure were verified by the physician in the pre-procedure area. Mental Status Examination: alert and oriented. Airway Examination: normal oropharyngeal airway and neck mobility. Respiratory Examination: clear to auscultation. CV Examination: normal. Prophylactic Antibiotics: The patient does not require prophylactic antibiotics. Prior Anticoagulants: The patient has taken no anticoagulant or antiplatelet agents. ASA Grade Assessment: III - A patient with severe systemic disease. After reviewing the risks and benefits, the patient was deemed in satisfactory condition to undergo the procedure. The anesthesia plan was to use monitored anesthesia care (MAC). Immediately prior to administration of medications, the patient was re-assessed for adequacy to receive sedatives. The heart rate, respiratory rate, oxygen saturations, blood pressure, adequacy of pulmonary ventilation, and response to care were monitored throughout the procedure. The physical status of the patient was re-assessed after the procedure. After obtaining informed consent, the endoscope was passed under direct vision. Throughout the procedure, the patient's blood pressure, pulse, and oxygen saturations were monitored continuously. The Endoscope was introduced through the mouth, and advanced to the second part of duodenum. The upper GI endoscopy was accomplished without difficulty. The patient tolerated the procedure well. Scope In: 11:10:47 AM Scope Out: 11:15:33 AM Total Procedure Duration Time 0 hours 4 minutes 46 seconds Findings: There were esophageal mucosal changes consistent with Gustafson's esophagus present in the lower third of the esophagus. A hiatal hernia was present. One oozing cratered gastric ulcer with a visible vessel was found in the gastric antrum. The lesion was 10 mm in largest dimension. Area was successfully injected with 10 mL of a 0.1 mg/mL solution of epinephrine for drug delivery. One oozing cratered gastric ulcer with pigmented material was found in the stomach. The lesion was 10 mm in largest dimension. Coagulation for hemostasis using heater probe was successful. Estimated blood loss was minimal. Scalloped mucosa was found in the duodenal bulb, scalloped mucosa was found in the first portion of the duodenum and scalloped mucosa was found in the second portion of the duodenum. Biopsies were taken with a cold forceps for histology. Verification of patient identification for the specimen was done. Estimated blood loss was minimal. Impression: - Esophageal mucosal changes consistent with Gustafson's esophagus. - Hiatal hernia. - Oozing gastric ulcer with a visible vessel. Injected. - Oozing gastric ulcer with pigmented material. Treated with a heater probe. - Duodenal mucosal changes seen, diagnostic of celiac disease. Biopsied. Recommendation: - Return patient to [facility] for [facility] care. - Full liquid diet. - Continue present medications. - Use Protonix (pantoprazole) 40 mg PO BID for 12 weeks. - Use misoprostol 100 micrograms PO QID. Procedure Code(s): --- Professional --- 02416, 59, Esophagogastroduodenoscopy, flexible, transoral; with control of bleeding, any method 98994, Esophagogastroduodenoscopy, flexible, transoral; with biopsy, single or multiple 24357, 59,51, Esophagogastroduodenoscopy, flexible, transoral; with directed submucosal injection(s), any substance CPT copyright 2021 [employer]. All rights reserved. The codes documented in this report are preliminary and upon multiple knife edge trimmer operator review may be revised to meet current compliance requirements. David Monsivais DO 07/27/2023 11:22:57 AM This report has been signed electronically. Number of Addenda: 0 Note Initiated On: 07/27/2023 10:49 AM
--- NOTE | 2023-07-27 11:23 | OP.CCLET_ITS ---
07/27/2023 Castro Quintana MD [address] [place] [address] [place] [address] Re : Upper GI endoscopy procedure for Natalie Harper Dear Dr. Quintana This procedure was performed on Thursday, July 27, 2023. My impressions and recommendations are as follows: Impressions : - Esophageal mucosal changes consistent with Gustafson's esophagus. - Hiatal hernia. - Oozing gastric ulcer with a visible vessel. Injected. - Oozing gastric ulcer with pigmented material. Treated with a heater probe. - Duodenal mucosal changes seen, diagnostic of celiac disease. Biopsied. Recommendations : - Return patient to [facility] for ongoing care. - Full liquid diet. - Continue present medications. - Use Protonix (pantoprazole) 40 mg PO BID for 12 weeks. - Use misoprostol 100 micrograms PO QID. My findings are described in the full procedure note, which is enclosed. If I can be of further assistance, please feel free to contact me at . Sincerely, David Monsivais, 07/27/2023 11:22:57 AM This report has been signed electronically.
--- NOTE | 2023-07-27 11:41 | PCM.PROGNOTE ---
Subjective Subjective Patient seen and examined. She did not have any more episodes of vomiting blood overnight. She denies any palpitations or dizziness, nausea or vomiting or any other symptoms. Her hemoglobin has dropped to 6.4 today. Objective Data Objective Data Vital Signs: Vital Signs Temp Pulse Resp BP Pulse Ox O2 Del Method 98.5 F 66 16 107/57 L 100 Room Air 07/27/23 11:25 07/27/23 11:35 07/27/23 11:35 07/27/23 11:35 07/27/23 11:35 07/27/23 11:35 Oxygen Delivery Method Room Air Weight: 107 lb 12.897 oz Body Mass Index (BMI) 18.5 Intake & Output: Intake and Output for Last 24 Hours 07/25/23 07/26/23 07/27/23 23:59 23:59 23:59 Intake Total 1167.33 / 1167.33 Balance 116.33 / 1167.33 Lab / Micro Data 07/27/23 06:00 07/27/23 06:00 Labs: Laboratory Results - last 24 hr 07/26/23 10:05: Sodium 142, Potassium 4.6, Chloride 114 H, Carbon Dioxide 23.0, Anion Gap 5, BUN 75 H, Creatinine 0.95, Estim Creat Clear Calc 50.85, Est GFR (MDRD) Af Amer 77, Est GFR (MDRD) Non-Af 64, BUN/Creatinine Ratio 78.9 H, Glucose 233 H, Calcium 8.7, Total Bilirubin 0.20, AST 16, ALT 22, Alkaline Phosphatase 43 L, Troponin I High Sens 44, Total Protein 6.2 L, Albumin 3.0 L, Globulin 3.2, Albumin/Globulin Ratio 0.9, Lipase 35 07/26/23 10:15: Blood Type A POSITIVE, Antibody Screen POSITIVE, Antibody Identification ANTI-K, Antigen Identification K ANTIGEN - NEGATIVE, Crossmatch See Detail 07/26/23 14:39: Lactic Acid 1.1 07/26/23 21:25: Urine Color Yellow, Urine Clarity Clear, Urine pH 7.0, Ur Specific [place] 1.010, Urine Protein Negative, Urine Glucose (UA) Normal, Urine Ketones 5 H, Urine Occult Blood Negative, Urine Nitrite Negative, Urine Bilirubin Negative, Urine Urobilinogen Normal, Ur Leukocyte Esterase 25 H, Urine RBC 0 SEEN, Urine WBC 0-5 SEEN, Ur Squamous Epith Cells 0 SEEN, Urine Bacteria 0 SEEN, Urine Mucus 0 SEEN, Urine Test Negative, Urine Opiates Screen POSITIVE H, Urine Methadone Screen NEGATIVE, Ur Barbiturates Screen NEGATIVE, Ur Phencyclidine Scrn NEGATIVE, Ur Amphetamines Screen NEGATIVE, MDMA (Ecstasy) Screen NEGATIVE, U Benzodiazepines Scrn NEGATIVE, Urine Cocaine Screen NEGATIVE, U Cannabinoids Screen POSITIVE H, Ur Drug Screen Comment 07/27/23 06:00: WBC 6.4, RBC 2.46 L, Hgb 6.4 L, Hct 21.4 L, MCV 87.0, MCH 26.0 L, MCHC 29.9 L, RDW Std Deviation 48.4 H, RDW Coeff of [place] 15.5 H, Plt Count 163, MPV 9.9, Immature Gran % (Auto) 0.800, Neut % (Auto) 74.4 H, Lymph % (Auto) 17.8 L, [place] % (Auto) 6.4, Eos % (Auto) 0.3, Baso % (Auto) 0.3, Absolute Neuts (auto) 4.8, Absolute Lymphs (auto) 1.14, Nucleated RBC % 0, PT 17.2 H, INR 1.4, Sodium 148 H, Potassium 3.9, Chloride 125 H, Carbon Dioxide 22.0, Anion Gap 1 L, BUN 35 H, Creatinine 0.60, Estim Creat Clear Calc 78.90, Est GFR (MDRD) Af Amer 133, Est GFR (MDRD) Non-Af 110, BUN/Creatinine Ratio 58.7 H, Glucose 127 H, Calcium 7.3 L Micro: Microbiology 07/26/23 11:05 Vomitus Gastric Occult Blood - Final Physical Exam Const alert and oriented x3 Constitutional Narrative: anxious General Appearance: cooperative and well developed HEENT normocephalic and head/scalp atraumatic Eyes PERRL and EOMs intact bilaterally Neck no lymphadenopathy, supple and no JVD Lymph Lymphatic: no lymphadenopathy noted and no lymphedema noted Resp normal respiratory effort, normal air movement and clear to auscultation bilaterally Cardio regular rate, regular rhythm, S1 normal heart sound, S2 normal heart sound and no murmurs GI normal to inspection, nondistended, normoactive bowel sounds, soft to palpation, non-tender and non-distended Extremity normal capillary refill, no clubbing, cyanosis or edema and no calf tenderness General Extremity: no tenderness to palpation of joints or extremities Skin General Skin Exam: no breakdown Neuro CN's II-XII intact bilaterally, no focal motor deficits, no sensory deficits noted and deep tendon reflexes 2+ bilaterally Motor Exam: strength 5/5 throughout and general weakness Psych thought process normal and cooperative Mood & Affect: anxious Assessment & Plan Assessment/Plan (1) Acute upper GI bleed: (2) Colitis: (3) Acidosis, lactic: PLAN: Plan #Acute GI bleed Came in with hematemesis as well as melena stools and angelito bloody emesis Says she has a remote history of peptic ulcer disease. Denies taking any NSAIDs. On Coumadin on account of mechanical aortic valve. INR was 1.7 on admission, now down to 1.7. Hemoglobin today is down to 6.4 from 10.2 on admission. With transfusion of 2 units of packed red blood cells. On IV Protonix drip. On IV Zofran and IV Phenergan. Had EGD today which showed oozing gastric ulcer with a visible vessel which was injected and oozing gastric ulcer with pigmented material which was treated with heater probe. Will place on p.o. pantoprazole 40 mg twice daily. Will discuss with gastroenterology about when she can resume her anticoagulation which she needs to resume as soon as possible because of her history of mechanical aortic valve. #Supratherapeutic INR: INR was 7.7 on admission, now down to 1.4. Received IV vitamin K. #History of mechanical aortic valve: Had mechanical aortic valve replacement in 1989. On Coumadin which is on hold on account of supratherapeutic INR. Goal INR is 3-3.5 #CAD: Aspirin on hold. On rosuvastatin. # Hypertension: Hold BP meds as she is currently NPO. #Depression and anxiety: On duloxetine, trazodone and buspirone. #History of osteopenia: On denosumab #History of insomnia: Zolpidem. DVT prophylaxis; SCDS. No anticoagulation due to supratherapeutic INR Code status: full code Charges/Coding Visit Charges Inpatient E&M: 68531 [facility] Hosp L3
--- NOTE | 2023-07-27 14:18 | NURSING ---
About 5-10 min into starting blood transfusion, the pt c/o of feeling flushed, hot, and very nauseated not feeling well. Blood stopped and flushed. Medicated w/ compazine. Pt denies pain. Dr. Davis notified, ordered CBC.
--- NOTE | 2023-07-27 15:09 | NURSING ---
Called lab to notify possible transfusion rxn. Stated that only can make the call if it's a rxn or not. Will touch base w/ Dr. Davis.
[2023-07-27 15:18] LABS: Absolute Lymphocyte Count 0.93 X10^3/uL (0.83-4.51); Absolute Neutrophil Count 5.5 X10^3/uL (2.0-7.7); Basophil# 0.01 X10^3/uL; Basophil% 0.1 % (0-1); Hematocrit 25.2 % (37-47); Hemoglobin 7.8 g/dL (12.0-15.0); Lymphocyte # 0.93 X10^3/ul (0.83-4.51); Lymphocyte % 13.5 % (19-41); Mean Corpuscular Hgb 26.7 pg (27.0-32.0); Mean Corpuscular Volume 86.3 fL (81-99); Mean Platelet Vol. 9.6 fl (6.2-12.0); Monocyte# 0.36 X10^3/uL; Monocyte% 5.2 % (0-10); NRBC Flagged by Analyzer 0 % (0-5); Neutrophil # 5.52 X10^3/uL (2.7-7.7); Neutrophil % 80.5 % (47-70); Platelet Count 158 K/mm3 (150-450); RBC Distribution Width CV 15.6 % (11.6-14.6); RBC Distribution Width SD 48.1 fl (35.1-43.9); Red Blood Count 2.92 M/mm3 (4.2-5.4); White Blood Count 6.9 K/mm3 (4.4-11.0)
--- NOTE | 2023-07-27 15:44 | CASEMGMT ---
MOHINI PARKER Assessment Face to Face with patient for initial transition planning/care coordination assessment. MOHINI PARKER introduced self and role at [facility], pt voices understanding. Pt is A&Ox4 and is resting comfortably in bed and is calm. Care providers, pharmacy, and demographics verified. Admitting dx: Supratherapeutic INR, Hematemesis LACE Strata: 2 PCP: Lilian Specialists: Leila Preferred Pharmacy: [facility] Insurance: [facility] MCR DUAL, [facility] COMM[employer] PLAN Prescription Benefit: Yes LNOK: Manju Cervantes (), Lucy James (JUNIOR) Living Arrangements: Pt lives alone in a single story home with a BM with HR and 2 steps to enter the home with HR and no issues. ADLs/IADLs: Ind Transportation: Pt normally drives. Pt came in by squad and is requesting a ride home at time of DC. DC Date TBD at this time. CM and SW will follow for pt ride home. Pt states she can drive to get any Rx once home. DME: Pt uses a cane and walker at time at home. BP cuff. Pt denies the use or needs of any other DME at this time. HHC/SNF: Denies history or needs. Pt?s goal: Home no needs. Plan: 6 click is 24. Pt did well with therapy and PT is not recommending any additional therapy. Pt denies the need for HHC or OP therapy. Pt states that she feels safe and comfortable DC home once medically ready. RN ELENA and/or SW to follow during the weekend for transportation home. Yue Torres RN, CM
--- NOTE | 2023-07-27 16:01 | CHAPLAIN ---
Type of Pastoral Visit _x__ Initial Visit ___ Follow-up Visit ___ On-call Visit ___ General Patient Visit ___ Spiritual Assessment ___ Family Conference ___ Bereavement ___ Rapid Response ___ Code Blue ___ Other (describe below) Pastoral Care Referral From _x__ Patient ___ Family ___ Nurse ___ Physician ___ Green Marketing Specialist ___ Registered Nurse First Assistant ___ Other (describe below) Sacrament/Intervention _x__ Active listening ___ Anointing ___ Faith ___ Bereavement ___ Communion ___ Gina exploration ___ ___ Life review _x__ Prayer ___ Reconciliation ___ Sacrament of Sick _x__ Supportive presence ___ Wedding ___ Other (describe below) Pastoral Comments patient is resting but awakens and welcomes this side stitcher for support; pt admits to some anxiety as this is all new and not sure what it is ; pt requests prayers for her health and healing; presence and prayer given
[2023-07-27] MEDS: miSOPROStol 100 MCG TABLET PO ×2 (16:10→20:32)
[2023-07-27] MEDS: HEPARIN/D5w 25,000 UNITS 25,000 UNITS/250 ML IV.SOLN. 7 UNITS CONT INF (17:30)
[2023-07-27] MEDS: Furosemide 20 MG Tablet PO (17:30)
[2023-07-27] MEDS: Potassium Chloride Oral Tablet 20 MEQ 40 MEQ PO (17:32)
[2023-07-27 17:58] LABS: Color, Urine- Transfusion RXN Yellow (Yellow)
[2023-07-27 17:59] LABS: Occult Blood-Urine Supernatant Negative (Negative); TXN RXN Red Blood Cells-Urine 0-5 SEEN /hpf
[2023-07-27 18:15] LABS: Partial Thromboplast Time 29.6 Seconds (24.1-36.2)
[2023-07-27] MEDS: Morphine 2 MG/ML Syringe IV (20:25)
[2023-07-27] MEDS: Magnesium Chloride 64 MG Delay Rel.Tablet 128 MG PO (20:30)
[2023-07-27] MEDS: Gabapentin 800 MG Tablet PO (20:31)
[2023-07-27] MEDS: traZODone 100 MG Tablet PO (20:31)
[2023-07-27] MEDS: buPROPion (SR) 100 MG TABLET.SA 200 MG PO (20:31)
[2023-07-27] MEDS: Topiramate 100 MG Tablet PO (20:32)
[2023-07-27] MEDS: busPIRone 5 MG Tablet PO (20:32)
[2023-07-27] MEDS: Pantoprazole Sodium 40 MG Tablet PO (20:32)
[2023-07-27] MEDS: Atorvastatin Calcium 20 MG Tablet PO (20:32)
[2023-07-27 23:35] LABS: Partial Thromboplast Time 53.8 Seconds (24.1-36.2)
[2023-07-28] MEDS: 0.9% Saline Lock 10 ML Syringe IV ×4 (00:11→11:13)
[2023-07-28] MEDS: Ondansetron 4 MG/2 ML Vial IV ×2 (00:11→08:57)
[2023-07-28] MEDS: Morphine 4 MG/ML Syringe IV (00:12)
[2023-07-28] MEDS: Heparin Injection (Vial) 5,000 UNIT/ML VIAL IV ×2 (00:22→20:50)
[2023-07-28 00:27] VITALS: BP 137/52; PULSE 70; RESP 18; TEMP 37.4; O2SAT 96
[2023-07-28 06:07] VITALS: BP 111/73; PULSE 69; RESP 18; TEMP 37.3; O2SAT 96
[2023-07-28] MEDS: proCHLORPERazine 10 MG/2 ML Vial 5 MG IV ×2 (06:12→11:23)
[2023-07-28] MEDS: Morphine 2 MG/ML Syringe IV ×2 (06:12→11:13)
[2023-07-28] MEDS: Magnesium Chloride 64 MG Delay Rel.Tablet 128 MG PO ×3 (06:14→21:04)
[2023-07-28] MEDS: busPIRone 5 MG Tablet PO ×3 (06:14→21:03)
[2023-07-28] MEDS: Sucralfate 1 GM Tablet PO ×2 (06:14→15:35)
[2023-07-28 06:19] LABS: Absolute Lymphocyte Count 2.02 X10^3/uL (0.83-4.51); Absolute Neutrophil Count 3.7 X10^3/uL (2.0-7.7); Basophil# 0.01 X10^3/uL; Basophil% 0.2 % (0-1); Eosinophil# 0.04 X10^3/uL; Eosinophils% 0.6 % (0-5); Hematocrit 25.5 % (37-47); Lymphocyte # 2.02 X10^3/ul (0.83-4.51); Mean Corp Hgb Conc 31.4 g/dL (32-36); Mean Corpuscular Hgb 26.6 pg (27.0-32.0); Mean Corpuscular Volume 84.7 fL (81-99); Mean Platelet Vol. 9.3 fl (6.2-12.0); Monocyte# 0.49 X10^3/uL; Monocyte% 7.8 % (0-10); NRBC Flagged by Analyzer 0 % (0-5); Neutrophil # 3.72 X10^3/uL (2.7-7.7); Neutrophil % 58.9 % (47-70); Platelet Count 172 K/mm3 (150-450); RBC Distribution Width CV 15.4 % (11.6-14.6); RBC Distribution Width SD 46.7 fl (35.1-43.9); Red Blood Count 3.01 M/mm3 (4.2-5.4); White Blood Count 6.3 K/mm3 (4.4-11.0)
[2023-07-28 06:27] LABS: International Normalized Ratio 1.2; Prothrombin Time (Protime)PT. 15.6 SECONDS (11.7-14.9)
[2023-07-28 06:41] LABS: Anion Gap 1 (5-15); BUN 13 mg/dL (7-18); BUN/Creat Ratio 22.9 RATIO (10-20); Calcium,Total 7.8 mg/dL (8.5-10.1); Chloride 118 mmol/L (98-107); Creatinine, Serum 0.57 mg/dL (0.55-1.02); EST Glomerular Filtration Rate 116 mL/min (>60); Est Glom Filt Rate - Afr Amer 141 mL/min (>60); Estimated Creatinine Clearance 83.05 ml/min; Glucose 111 mg/dL (74-106); Potassium 3.3 mmol/L (3.5-5.1); Sodium Level 143 mmol/L (136-145)
[2023-07-28 09:15] VITALS: BP 141/57; PULSE 72; RESP 16; TEMP 36.2; O2SAT 99
[2023-07-28] MEDS: Topiramate 100 MG Tablet PO ×2 (09:23→21:03)
[2023-07-28] MEDS: Gabapentin 400 MG Capsule PO ×2 (09:23→13:51)
[2023-07-28] MEDS: Pantoprazole Sodium 40 MG Tablet PO ×2 (09:23→21:03)
[2023-07-28] MEDS: DULoxetine Hcl 60 MG Capsule PO (09:23)
[2023-07-28] MEDS: AMILORIDE HCL 5 MG TABLET PO (09:23)
[2023-07-28] MEDS: Potassium Chloride Oral Tablet 20 MEQ 40 MEQ PO ×2 (09:23→15:38)
[2023-07-28] MEDS: miSOPROStol 100 MCG TABLET PO ×3 (09:23→21:04)
[2023-07-28] MEDS: buPROPion (SR) 100 MG TABLET.SA 200 MG PO ×2 (09:23→21:03)
[2023-07-28] MEDS: Multivitamins,Therapeutic Tablet 1 TABLET PO (09:23)
[2023-07-28] MEDS: Furosemide 20 MG Tablet PO ×2 (09:23→17:26)
[2023-07-28] MEDS: Calcium Carb/Vitamin D 1 TABLET Tablet PO (09:23)
[2023-07-28] MEDS: Omega-3 Acid Ethyl Esters 1 GM Capsule PO (09:24)
[2023-07-28] MEDS: amLODIPine 5 MG Tablet PO (09:30)
--- NOTE | 2023-07-28 11:14 | PN_ITS ---
Subjective Subjective Patient seen and examined. She complained of nausea and vomiting overnight. Her emesis wasnt bloody. Review of systems is otherwise negative. She has remained hemodynamically stable. Hb is 8. Objective Data Objective Data Vital Signs: Vital Signs Temp Pulse Resp BP Pulse Ox O2 Del Method 97.2 F L 72 16 141/57 H 99 Room Air 07/28/23 09:15 07/28/23 09:15 07/28/23 09:15 07/28/23 09:15 07/28/23 09:15 07/28/23 09:46 Oxygen Delivery Method Room Air Weight: 107 lb 12.897 oz Body Mass Index (BMI) 18.5 Intake & Output: Intake and Output for Last 24 Hours 07/26/23 07/27/23 07/28/23 23:59 23:59 23:59 Intake Total 1187.50 / 1187.50 98.3 / 98.3 Output Total 900 / 900 Balance 1187.50 / 1187.50 -801.7 / -801.7 Lab / Micro Data 07/28/23 06:13 07/28/23 06:13 Labs: Laboratory Results - last 24 hr 07/26/23 10:15: Antibody Screen POSITIVE, Antibody Identification ANTI-K, Antigen Identification K ANTIGEN - NEGATIVE, Crossmatch See Detail 07/27/23 15:00: WBC 6.9, RBC 2.92 L, Hgb 7.8 L, Hct 25.2 L, MCV 86.3, MCH 26.7 L , MCHC 31.0 L, RDW Std Deviation 48.1 H, RDW Coeff of [place] 15.6 H, Plt Count 158, MPV 9.6, Immature Gran % (Auto) 0.700, Neut % (Auto) 80.5 H, Lymph % (Auto) 13.5 L, [place] % (Auto) 5.2, Eos % (Auto) 0.0, Baso % (Auto) 0.1, Absolute Neuts (auto) 5.5, Absolute Lymphs (auto) 0.93, Nucleated RBC % 0 07/27/23 17:33: APTT 29.6 07/27/23 23:17: APTT 53.8 H 07/28/23 06:13: WBC 6.3, RBC 3.01 L, Hgb 8.0 L, Hct 25.5 L, MCV 84.7, MCH 26.6 L , MCHC 31.4 L, RDW Std Deviation 46.7 H, RDW Coeff of [place] 15.4 H, Plt Count 172, MPV 9.3, Immature Gran % (Auto) 0.500, Neut % (Auto) 58.9, Lymph % (Auto) 32.0, [place] % (Auto) 7.8, Eos % (Auto) 0.6, Baso % (Auto) 0.2, Absolute Neuts (auto) 3.7, Absolute Lymphs (auto) 2.02, Nucleated RBC % 0, PT 15.6 H, INR 1.2, APTT 91.0 H*, Sodium 143, Potassium 3.3 L, Chloride 118 H, Carbon Dioxide 24.0, Anion Gap 1 L, BUN 13, Creatinine 0.57, Estim Creat Clear Calc 83.05, Est GFR (MDRD) Af Amer 141, Est GFR (MDRD) Non-Af 116, BUN/Creatinine Ratio 22.9 H, Glucose 111 H, Calcium 7.8 L Micro: Microbiology 07/26/23 11:05 Vomitus Gastric Occult Blood - Final Physical Exam Const alert and oriented x3 Constitutional Narrative: thin General Appearance: cooperative and well developed HEENT normocephalic and head/scalp atraumatic Eyes PERRL and EOMs intact bilaterally Neck no lymphadenopathy, supple and no JVD Lymph Lymphatic: no lymphadenopathy noted and no lymphedema noted Resp normal respiratory effort, normal air movement and clear to auscultation b ilaterally Cardio regular rate, regular rhythm, S1 normal heart sound, S2 normal heart sound and no murmurs GI normal to inspection, nondistended, normoactive bowel sounds, soft to palpation, non-tender and non-distended GI Narrative: abdomen soft, mild epigastric tenderness, no guarding or rebound tenderness Extremity normal capillary refill, no clubbing, cyanosis or edema and no calf tenderness General Extremity: no tenderness to palpation of joints or extremities Skin General Skin Exam: no breakdown Neuro CN's II-XII intact bilaterally, no focal motor deficits, no sensory deficits noted and deep tendon reflexes 2+ bilaterally Motor Exam: strength 5/5 throughout and general weakness Psych thought process normal and cooperative Appearance: appropriate Assessment & Plan Assessment/Plan (1) Acute upper GI bleed: (2) Colitis: (3) Acidosis, lactic: PLAN: Plan #Acute GI bleed * Came in with hematemesis as well as melena stools and angelito bloody emesis * Says she has a remote history of peptic ulcer disease. * Denies taking any NSAIDs. On Coumadin on account of mechanical aortic valve. INR was 1.7 on admission, now down to 1.7. * Hemoglobin today is down to 6.4 from 10.2 on admission. With transfusion of 2 units of packed red blood cells. * On IV Protonix drip. On IV Zofran and IV Phenergan. * Had EGD which showed oozing gastric ulcer with a visible vessel which was injected and oozing gastric ulcer with pigmented material which was treated with heater probe. * on p.o. pantoprazole 40 mg twice daily. * #Probable acute opioid withdrawal * Patient having incessant nausea and vomiting. * urine tox was positive for opiates. I am therefore concerned patient could be withdrawing from opiates * will start on opioid withdrawal protocol with buprenorphine * adjunctive meds for symptomatic relief. * #Supratherapeutic INR: Resolved. INR today is 1.2. On coumadin and heparin drip. target INR is 3-3.5 #History of mechanical aortic valve: Had mechanical aortic valve replacement in 1989. coumadin resumed yesterday. Being bridged with heparin drip. INR today is 1.2. Goal INR is 3-3.5 #CAD: Aspirin on hold. On rosuvastatin. # Hypertension: BP meds resumed. On amlodipine and furosemide. #Depression and anxiety: On duloxetine, trazodone and buspirone. #History of osteopenia: On denosumab #History of insomnia: Zolpidem. DVT prophylaxis; on coumadin, being bridged with heparin drip Disposition: DC home when INR is within the expected therapeutic range of 3-3.5 Code status: full code Charges/Coding Visit Charges Inpatient E&M: 38822 Subs Hosp L2
[2023-07-28] MEDS: hydrOXYzine PAM 25 MG Capsule 50 MG PO ×2 (12:30→19:44)
[2023-07-28] MEDS: Dicyclomine 10 MG Capsule 20 MG PO ×2 (12:30→19:44)
[2023-07-28 13:21] LABS: Partial Thromboplast Time 59.4 Seconds (24.1-36.2)
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
[2023-07-28 15:15] VITALS: BP 145/70; PULSE 85; RESP 14; TEMP 36.6; O2SAT 100
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
[2023-07-28 21:00] VITALS: BP 113/65; PULSE 69; RESP 18; TEMP 36.8; O2SAT 99
[2023-07-28] MEDS: traZODone 100 MG Tablet PO (21:03)
[2023-07-28] MEDS: Atorvastatin Calcium 20 MG Tablet PO (21:03)
[2023-07-28] MEDS: Gabapentin 800 MG Tablet PO (21:04)
[2023-07-28] MEDS: HEPARIN/D5w 25,000 UNITS 25,000 UNITS/250 ML IV.SOLN. 8 UNITS CONT INF (22:37)
[2023-07-29] MEDS: hydrOXYzine PAM 25 MG Capsule 50 MG PO ×2 (02:14→23:55)
[2023-07-29] MEDS: Dicyclomine 10 MG Capsule 20 MG PO ×2 (02:14→23:55)
[2023-07-29 02:25] VITALS: BP 117/79; PULSE 79; RESP 14; TEMP 37; O2SAT 99
[2023-07-29 03:16] LABS: Absolute Lymphocyte Count 1.77 X10^3/uL (0.83-4.51); Basophil# 0.02 X10^3/uL; Basophil% 0.3 % (0-1); Eosinophil# 0.04 X10^3/uL; Eosinophils% 0.6 % (0-5); Hematocrit 28.5 % (37-47); Hemoglobin 9.2 g/dL (12.0-15.0); Lymphocyte # 1.77 X10^3/ul (0.83-4.51); Lymphocyte % 27.7 % (19-41); Mean Corp Hgb Conc 32.3 g/dL (32-36); Mean Corpuscular Hgb 27.1 pg (27.0-32.0); Mean Corpuscular Volume 84.1 fL (81-99); Monocyte# 0.55 X10^3/uL; Monocyte% 8.6 % (0-10); NRBC Flagged by Analyzer 0 % (0-5); Neutrophil # 3.99 X10^3/uL (2.7-7.7); Neutrophil % 62.5 % (47-70); Platelet Count 206 K/mm3 (150-450); RBC Distribution Width CV 15.4 % (11.6-14.6); RBC Distribution Width SD 45.7 fl (35.1-43.9); Red Blood Count 3.39 M/mm3 (4.2-5.4); White Blood Count 6.4 K/mm3 (4.4-11.0)
[2023-07-29 03:28] LABS: Anion Gap 2 (5-15); BUN 11 mg/dL (7-18); BUN/Creat Ratio 14.2 RATIO (10-20); Calcium,Total 8.7 mg/dL (8.5-10.1); Chloride 110 mmol/L (98-107); Creatinine, Serum 0.77 mg/dL (0.55-1.02); EST Glomerular Filtration Rate 81 mL/min (>60); Est Glom Filt Rate - Afr Amer 98 mL/min (>60); Estimated Creatinine Clearance 61.48 ml/min; Glucose 106 mg/dL (74-106); Potassium 3.6 mmol/L (3.5-5.1); Sodium Level 139 mmol/L (136-145)
[2023-07-29 04:03] LABS: International Normalized Ratio 1.5
[2023-07-29] MEDS: busPIRone 5 MG Tablet PO ×3 (05:26→21:42)
[2023-07-29] MEDS: Magnesium Chloride 64 MG Delay Rel.Tablet 128 MG PO ×3 (05:26→21:42)
[2023-07-29] MEDS: Sucralfate 1 GM Tablet PO ×2 (05:27→16:09)
[2023-07-29] MEDS: Gabapentin 400 MG Capsule PO ×2 (07:44→16:07)
[2023-07-29] MEDS: Potassium Chloride Oral Tablet 20 MEQ 40 MEQ PO ×3 (07:44→16:08)
[2023-07-29] MEDS: miSOPROStol 100 MCG TABLET PO ×4 (07:44→21:42)
[2023-07-29] MEDS: Calcium Carb/Vitamin D 1 TABLET Tablet PO (07:44)
[2023-07-29] MEDS: Multivitamins,Therapeutic Tablet 1 TABLET PO (07:44)
[2023-07-29] MEDS: 0.9% Saline Lock 10 ML Syringe IV (10:02)
[2023-07-29] MEDS: Ondansetron 4 MG/2 ML Vial IV (10:02)
[2023-07-29 10:12] VITALS: BP 97/73; PULSE 100; RESP 20; TEMP 37.1; O2SAT 100
[2023-07-29] MEDS: buPROPion (SR) 100 MG TABLET.SA 200 MG PO ×2 (10:27→21:41)
[2023-07-29] MEDS: Omega-3 Acid Ethyl Esters 1 GM Capsule PO (10:28)
[2023-07-29] MEDS: Furosemide 20 MG Tablet PO (10:28)
[2023-07-29] MEDS: AMILORIDE HCL 5 MG TABLET PO (10:28)
[2023-07-29] MEDS: DULoxetine Hcl 60 MG Capsule PO (10:29)
[2023-07-29] MEDS: Pantoprazole Sodium 40 MG Tablet PO ×2 (10:29→21:42)
[2023-07-29] MEDS: Topiramate 100 MG Tablet PO ×2 (10:30→21:41)
[2023-07-29 10:33] LABS: Partial Thromboplast Time 69.1 Seconds (24.1-36.2)
--- NOTE | 2023-07-29 11:21 | PN_ITS ---
Subjective Subjective Patient seen and examined. She had no active complaints and had an uneventful night. Review of systems otherwise negative. INR today is 1.5. Objective Data Objective Data Vital Signs: Vital Signs Temp Pulse Resp BP Pulse Ox O2 Del Method 98.8 F 100 20 H 97/73 100 Room Air 07/29/23 10:12 07/29/23 10:12 07/29/23 10:12 07/29/23 10:12 07/29/23 10:12 07/29/23 10:12 Oxygen Delivery Method Room Air Weight: 107 lb 12.897 oz Body Mass Index (BMI) 18.5 Intake & Output: Intake and Output for Last 24 Hours 07/27/23 07/28/23 07/29/23 23:59 23:59 23:59 Intake Total 1187.50 / 1187.50 531.85 / 1031.85 793.47 / 793.47 Output Total 1000 / 2100 1100 / 1100 Balance 1187.50 / 1187.50 -468.15 / -1068.15 -306.53 / -306.53 Lab / Micro Data 07/29/23 02:55 07/29/23 02:55 Labs: Laboratory Results - last 24 hr 07/26/23 10:15: Crossmatch See Detail 07/28/23 12:35: APTT Cancelled 07/28/23 12:50: APTT 59.4 H 07/28/23 19:30: APTT 52.0 H 07/29/23 02:55: WBC 6.4, RBC 3.39 L, Hgb 9.2 L, Hct 28.5 L, MCV 84.1, MCH 27.1, MCHC 32.3, RDW Std Deviation 45.7 H, RDW Coeff of [place] 15.4 H, Plt Count 206, MPV 10.0, Immature Gran % (Auto) 0.300, Neut % (Auto) 62.5, Lymph % (Auto) 27.7, [place] % (Auto) 8.6, Eos % (Auto) 0.6, Baso % (Auto) 0.3, Absolute Neuts (auto) 4.0, Absolute Lymphs (auto) 1.77, Nucleated RBC % 0, PT 18.0 H, INR 1.5, APTT 57.0 H, Sodium 139, Potassium 3.6, Chloride 110 H, Carbon Dioxide 27.0, Anion Gap 2 L, BUN 11, Creatinine 0.77, Estim Creat Clear Calc 61.48, Est GFR (MDRD) Af Amer 98, Est GFR (MDRD) Non-Af 81, BUN/Creatinine Ratio 14.2, Glucose 106, Calcium 8.7 07/29/23 09:50: APTT 69.1 H Micro: Microbiology 07/26/23 11:05 Vomitus Gastric Occult Blood - Final Physical Exam Const alert and oriented x3 Constitutional Narrative: thin General Appearance: cooperative and well developed HEENT normocephalic and head/scalp atraumatic Eyes PERRL and EOMs intact bilaterally Neck no lymphadenopathy, supple and no JVD Lymph Lymphatic: no lymphadenopathy noted and no lymphedema noted Resp normal respiratory effort, normal air movement and clear to auscultation bilaterally Cardio regular rate, regular rhythm, S1 normal heart sound, S2 normal heart sound and no murmurs GI normal to inspection, nondistended, normoactive bowel sounds, soft to palpation, non-tender and non-distended GI Narrative: abdomen soft, mild epigastric tenderness, no guarding or rebound tenderness Extremity normal capillary refill, no clubbing, cyanosis or edema and no calf tenderness General Extremity: no tenderness to palpation of joints or extremities Skin General Skin Exam: no breakdown Neuro CN's II-XII intact bilaterally, no focal motor deficits, no sensory deficits noted and deep tendon reflexes 2+ bilaterally Motor Exam: strength 5/5 throughout and general weakness Psych thought process normal and cooperative Appearance: appropriate Attitude: agitated Mood & Affect: anxious Assessment & Plan Assessment/Plan (1) Acute upper GI bleed: (2) Colitis: (3) Acidosis, lactic: PLAN: Plan #Acute GI bleed * Came in with hematemesis as well as melena stools and angelito bloody emesis * Was transfused with a total avoidance of packed blood cells during this admission. * INR was also supratherapeutic. * Had EGD which showed oozing gastric ulcer with a visible vessel which was injected and oozing gastric ulcer with pigmented material which was treated with heater probe. * on p.o. pantoprazole 40 mg twice daily. * Blood thinners resumed the patient has not had any rebleed. * #Probable acute opioid withdrawal * urine tox was positive for opiates. I am therefore concerned patient could be withdrawing from opiates * on opioid withdrawal protocol with buprenorphine * adjunctive meds for symptomatic relief. * #Supratherapeutic INR: Resolved. INR today is 1.5. On coumadin and heparin drip. target INR is 3-3.5 . On Coumadin 12 mg daily. Will give Coumadin 15 mg x 1 today. #History of mechanical aortic valve: Had mechanical aortic valve replacement in 1989. coumadin resumed. Being bridged with heparin drip. INR today is 1.5. Goal INR is 3-3.5 #CAD: Aspirin on hold. On rosuvastatin. # Hypertension: On amlodipine and furosemide. #Depression and anxiety: On duloxetine, trazodone and buspirone. #History of osteopenia: On denosumab #History of insomnia: Zolpidem. DVT prophylaxis; on coumadin, being bridged with heparin drip Disposition: DC home when INR is within the expected therapeutic range of 3-3.5 Code status: full code Charges/Coding Visit Charges Inpatient E&M: 38532 Subs Hosp L2
[2023-07-29 11:44] VITALS: BP 130/72; PULSE 107; RESP 14; TEMP 37; O2SAT 100
[2023-07-29] MEDS: amLODIPine 5 MG Tablet PO (11:55)
[2023-07-29 16:03] VITALS: BP 118/72; PULSE 86; RESP 16; TEMP 36.8; O2SAT 100
--- NOTE | 2023-07-29 17:50 | PN.GI_ITS ---
Subjective Subjective Patient denies any nausea vomiting or diarrhea and is tolerating a diet. She also denies any chest pain or shortness of breath. Objective Data Objective Data Vital Signs: Vital Signs Temp Pulse Resp BP Pulse Ox O2 Del Method 98.2 F 86 16 118/72 100 Room Air 07/29/23 16:03 07/29/23 16:03 07/29/23 16:03 07/29/23 16:03 07/29/23 16:03 07/29/23 16:03 Oxygen Delivery Method Room Air Weight: 107 lb 12.897 oz Body Mass Index (BMI) 18.5 Intake & Output: Intake and Output for Last 24 Hours 07/27/23 07/28/23 07/29/23 23:59 23:59 23:59 Intake Total 1187.50 / 1187.50 531.85 / 1031.85 1621.07 / 1621.07 Output Total 1000 / 2100 1100 / 1100 Balance 1187.50 / 1187.50 -468.15 / -1068.15 521.07 / 521.07 Lab / Micro Data 07/29/23 02:55 07/29/23 02:55 Labs: Laboratory Results - last 24 hr 07/26/23 10:15: Crossmatch See Detail 07/28/23 19:30: APTT 52.0 H 07/29/23 02:55: WBC 6.4, RBC 3.39 L, Hgb 9.2 L, Hct 28.5 L, MCV 84.1, MCH 27.1, MCHC 32.3, RDW Std Deviation 45.7 H, RDW Coeff of [place] 15.4 H, Plt Count 206, MPV 10.0, Immature Gran % (Auto) 0.300, Neut % (Auto) 62.5, Lymph % (Auto) 27.7, [place] % (Auto) 8.6, Eos % (Auto) 0.6, Baso % (Auto) 0.3, Absolute Neuts (auto) 4.0, Absolute Lymphs (auto) 1.77, Nucleated RBC % 0, PT 18.0 H, INR 1.5, APTT 57.0 H, Sodium 139, Potassium 3.6, Chloride 110 H, Carbon Dioxide 27.0, Anion Gap 2 L, BUN 11, Creatinine 0.77, Estim Creat Clear Calc 61.48, Est GFR (MDRD) Af Amer 98, Est GFR (MDRD) Non-Af 81, BUN/Creatinine Ratio 14.2, Glucose 106, Calcium 8.7 07/29/23 09:50: APTT 69.1 H Micro: Microbiology 07/26/23 11:05 Vomitus Gastric Occult Blood - Final Physical Exam Const alert and oriented x3 Constitutional Narrative: thin General Appearance: cooperative and well developed HEENT normocephalic and head/scalp atraumatic Eyes PERRL and EOMs intact bilaterally Neck no lymphadenopathy, supple and no JVD Lymph Lymphatic: no lymphadenopathy noted and no lymphedema noted Resp normal respiratory effort, normal air movement and clear to auscultation bilaterally Cardio regular rate, regular rhythm, S1 normal heart sound, S2 normal heart sound and no murmurs GI normal to inspection, nondistended, normoactive bowel sounds, soft to palpation, non-tender and non-distended GI Narrative: abdomen soft, mild epigastric tenderness, no guarding or rebound tenderness Extremity normal capillary refill, no clubbing, cyanosis or edema and no calf tenderness General Extremity: no tenderness to palpation of joints or extremities Skin General Skin Exam: no breakdown Neuro CN's II-XII intact bilaterally, no focal motor deficits, no sensory deficits noted and deep tendon reflexes 2+ bilaterally Motor Exam: strength 5/5 throughout and general weakness Psych thought process normal and cooperative Appearance: appropriate Attitude: agitated Mood & Affect: anxious Assessment & Plan Assessment/Plan (1) Acute upper GI bleed: (2) Colitis: (3) Acidosis, lactic: PLAN: Plan 57-year-old with cirrhosis presents with upper GI bleed. Patient had upper GI bleed secondary to gastric ulcer which was treated endoscopically. Hemoglobin seems to be normal. She also had some nausea vomiting and her urine was checked for street drugs and was determined to have opioids and marijuana in her system. I suspect that she had marijuana hyperemesis syndrome with underlying opioid withdrawal. Patient is on protocol for opiate withdrawal. Recommendation if she does develop abdominal pain again associated with nausea vomiting to give her Haldol first followed by benzodiazepine. For now she is doing well and re garding nausea vomiting. Continue PPI therapy as previously ordered. Charges/Coding Visit Charges Inpatient E&M: 23827 Init Hosp L3
[2023-07-29] MEDS: Ondansetron 8 MG Tablet PO (18:37)
[2023-07-29] MEDS: Atorvastatin Calcium 20 MG Tablet PO (21:42)
[2023-07-29] MEDS: Gabapentin 800 MG Tablet PO (21:42)
[2023-07-29 21:45] VITALS: BP 110/70; PULSE 78; RESP 18; TEMP 36.3; O2SAT 99
[2023-07-30] MEDS: HEPARIN/D5w 25,000 UNITS 25,000 UNITS/250 ML IV.SOLN. 8 UNITS CONT INF (01:42)
[2023-07-30 04:55] VITALS: BP 130/80; PULSE 74; RESP 18; TEMP 37; O2SAT 97
[2023-07-30] MEDS: Sucralfate 1 GM Tablet PO ×2 (04:59→17:50)
[2023-07-30] MEDS: Magnesium Chloride 64 MG Delay Rel.Tablet 128 MG PO ×3 (04:59→21:28)
[2023-07-30] MEDS: busPIRone 5 MG Tablet PO ×3 (04:59→21:27)
[2023-07-30 06:55] LABS: Absolute Lymphocyte Count 1.93 X10^3/uL (0.83-4.51); Absolute Neutrophil Count 3.8 X10^3/uL (2.0-7.7); Basophil# 0.02 X10^3/uL; Basophil% 0.3 % (0-1); Eosinophil# 0.08 X10^3/uL; Eosinophils% 1.2 % (0-5); Hematocrit 30.5 % (37-47); Hemoglobin 9.7 g/dL (12.0-15.0); Lymphocyte # 1.93 X10^3/ul (0.83-4.51); Lymphocyte % 29.6 % (19-41); Mean Corp Hgb Conc 31.8 g/dL (32-36); Mean Corpuscular Hgb 26.9 pg (27.0-32.0); Mean Corpuscular Volume 84.7 fL (81-99); Mean Platelet Vol. 9.8 fl (6.2-12.0); Monocyte# 0.67 X10^3/uL; Monocyte% 10.3 % (0-10); NRBC Flagged by Analyzer 0 % (0-5); Neutrophil # 3.79 X10^3/uL (2.7-7.7); Platelet Count 276 K/mm3 (150-450); RBC Distribution Width CV 16.2 % (11.6-14.6); RBC Distribution Width SD 46.2 fl (35.1-43.9); White Blood Count 6.5 K/mm3 (4.4-11.0)
[2023-07-30 07:05] LABS: International Normalized Ratio 1.6; Prothrombin Time (Protime)PT. 19.2 SECONDS (11.7-14.9)
[2023-07-30 07:23] LABS: Anion Gap 3 (5-15); BUN 25 mg/dL (7-18); BUN/Creat Ratio 28.9 RATIO (10-20); Chloride 111 mmol/L (98-107); Creatinine, Serum 0.86 mg/dL (0.55-1.02); EST Glomerular Filtration Rate 71 mL/min (>60); Est Glom Filt Rate - Afr Amer 86 mL/min (>60); Estimated Creatinine Clearance 54.37 ml/min; Glucose 106 mg/dL (74-106); Potassium 4.2 mmol/L (3.5-5.1); Sodium Level 140 mmol/L (136-145)
[2023-07-30 08:15] VITALS: BP 144/89; PULSE 93; RESP 14; TEMP 36.6; O2SAT 100
[2023-07-30] MEDS: hydrOXYzine PAM 25 MG Capsule 50 MG PO (08:22)
[2023-07-30] MEDS: Pantoprazole Sodium 40 MG Tablet PO ×2 (08:23→21:28)
[2023-07-30] MEDS: Gabapentin 400 MG Capsule PO ×2 (09:25→15:31)
[2023-07-30] MEDS: Potassium Chloride Oral Tablet 20 MEQ 40 MEQ PO ×3 (09:26→17:51)
[2023-07-30] MEDS: Topiramate 100 MG Tablet PO ×2 (09:27→21:29)
[2023-07-30] MEDS: Multivitamins,Therapeutic Tablet 1 TABLET PO (09:27)
[2023-07-30] MEDS: DULoxetine Hcl 60 MG Capsule PO (09:28)
[2023-07-30] MEDS: miSOPROStol 100 MCG TABLET PO ×4 (09:28→21:29)
[2023-07-30] MEDS: Calcium Carb/Vitamin D 1 TABLET Tablet PO (09:28)
[2023-07-30] MEDS: Omega-3 Acid Ethyl Esters 1 GM Capsule PO (09:29)
[2023-07-30] MEDS: amLODIPine 5 MG Tablet PO (09:29)
[2023-07-30] MEDS: buPROPion (SR) 100 MG TABLET.SA 200 MG PO ×2 (09:29→21:27)
[2023-07-30] MEDS: AMILORIDE HCL 5 MG TABLET PO (09:30)
--- NOTE | 2023-07-30 10:04 | PN.HOSP_ITS ---
Reason for Visit Reason for Visit: Diagnoses Acidosis, unspecified (07/26/23) Noninfective gastroenteritis and colitis, unspecified (07/26/23) Gastrointestinal hemorrhage, unspecified (07/26/23) Subjective Subjective Patient is a 58-year-old lady with history of mechanical aortic valve admitted with hematemesis and melena Objective Data Objective Data Vital Signs: Vital Signs Temp Pulse Resp BP Pulse Ox O2 Del Method 97.9 F 93 14 144/89 H 100 Room Air 07/30/23 08:15 07/30/23 08:15 07/30/23 08:15 07/30/23 08:15 07/30/23 08:15 07/30/23 08:28 Oxygen Delivery Method Room Air Weight: 48.9 kg Body Mass Index (BMI) 18.5 Intake & Output: Intake and Output for Last 24 Hours 07/28/23 07/29/23 07/30/23 23:59 23:59 23:59 Intake Total 531.85 / 1031.85 1861.07 / 1861.07 125.6 / 125.6 Output Total 1000 / 2100 2600 / 2600 Balance -468.15 / -1068.15 -738.93 / -738.93 125.6 / 125.6 Lab / Micro Data 07/30/23 06:20 07/30/23 06:20 Labs: Laboratory Results - last 24 hr 07/29/23 09:50: APTT 69.1 H 07/30/23 06:20: WBC 6.5, RBC 3.60 L, Hgb 9.7 L, Hct 30.5 L, MCV 84.7, MCH 26.9 L , MCHC 31.8 L, RDW Std Deviation 46.2 H, RDW Coeff of [place] 16.2 H, Plt Count 276, MPV 9.8, Immature Gran % (Auto) 0.600, Neut % (Auto) 58.0, Lymph % (Auto) 29.6, [place] % (Auto) 10.3 H, Eos % (Auto) 1.2, Baso % (Auto) 0.3, Absolute Neuts (auto) 3.8, Absolute Lymphs (auto) 1.93, Nucleated RBC % 0, PT 19.2 H, INR 1.6, APTT 67.0 H, Sodium 140, Potassium 4.2, Chloride 111 H, Carbon Dioxide 26.0, Anion Gap 3 L, BUN 25 H, Creatinine 0.86, Estim Creat Clear Calc 54.37, Est GFR (MDRD) Af Amer 86, Est GFR (MDRD) Non-Af 71, BUN/Creatinine Ratio 28.9 H, Glucose 106, Calcium 10.0 Micro: Microbiology 07/26/23 11:05 Vomitus Gastric Occult Blood - Final Physical Exam Narrative GENERAL: cooperative HEENT: Atraumatic; normocephalic EYES; Anicteric, Normal Conjunctiva NECK; supple, normal thyroid, RESPIRATORY: Diminished to auscultation CARDIOVASCULAR: Regular S1 S2, systolic click GI: soft, normoactive bowel sounds, : No Renal angle tenderness; EXTREMITIES: No edema, no clubbing, MUSCULOSKELETAL: no muscle wasting NEURO: Awake; no lateralizing signs. SKIN: No Rash PSYCH; Flat affect Assessment & Plan Assessment/Plan (1) Acute upper GI bleed: (2) Colitis: (3) Acidosis, lactic: PLAN: Plan Patient is a 58-year-old lady with history of mechanical aortic valve admitted with hematemesis and melena 1. Acute GI bleed -patient underwent EGD which demonstrated oozing gastric ulcer with a visible vessel which was injected and oozing gastric ulcer with pigmented material which was treated with a heater probe. Subsequently placed on PPI 2. Supratherapeutic INR ? Present on admission reversed patient currently on Coumadin and being bridged with heparin with target of 2.5-3.5 3. Anemia ? Secondary to acute blood loss anemia patient was transfused with 2 unit PRBC subsequent monitoring with daily H&H ordered 4. Mechanical aortic valve ? Patient is on systemic anticoagulation management as discussed above 5. Acute opioid withdrawal ? Patient tox cream was positive for opiates patient placed on opioid withdrawal protocol with with buprenorphine 6. Coronary artery disease ? With previous history of CABG. Patient remains on guideline directed medical therapy 7. Dyslipidemia -Patient is on statin therapy, continued at home dose 8. Depression with anxiety ?On duloxetine, trazodone and buspirone. 9. History of osteopenia -On denosumab 10. History of insomnia - Zolpidem. 11. Hypertension - Blood pressure controlled, home medications continued with dose adjustment as needed 12. DVT prophylaxis ? Patient is on systemic anticoagulation Charges/Coding Visit Charges Inpatient E&M: 86678 Subs Hosp L3
[2023-07-30 15:39] VITALS: PULSE 87; RESP 14; TEMP 37.1; O2SAT 100
--- NOTE | 2023-07-30 18:12 | PN.GI_ITS ---
Subjective Subjective Patient is doing well without any signs or symptoms of opioid withdrawal. I still think she is having some signs and symptoms of marijuana hyperemesis. She is not requiring much benzodiazepines at this time for marijuana hyperemesis. Objective Data Objective Data Vital Signs: Vital Signs Temp Pulse Resp BP Pulse Ox O2 Del Method 98.7 F 87 14 144/89 H 100 Room Air 07/30/23 15:39 07/30/23 15:39 07/30/23 15:39 07/30/23 08:15 07/30/23 15:39 07/30/23 15:39 Oxygen Delivery Method Room Air Weight: 107 lb 12.897 oz Body Mass Index (BMI) 18.5 Intake & Output: Intake and Output for Last 24 Hours 07/28/23 07/29/23 07/30/23 23:59 23:59 23:59 Intake Total 531.85 / 1031.85 1861.07 / 1861.07 945.6 / 945.6 Output Total 1000 / 2100 2600 / 2600 Balance -468.15 / -1068.15 -738.93 / -738.93 945.6 / 945.6 Lab / Micro Data 07/30/23 06:20 07/30/23 06:20 Labs: Laboratory Results - last 24 hr 07/30/23 06:20: WBC 6.5, RBC 3.60 L, Hgb 9.7 L, Hct 30.5 L, MCV 84.7, MCH 26.9 L , MCHC 31.8 L, RDW Std Deviation 46.2 H, RDW Coeff of [place] 16.2 H, Plt Count 276, MPV 9.8, Immature Gran % (Auto) 0.600, Neut % (Auto) 58.0, Lymph % (Auto) 29.6, [place] % (Auto) 10.3 H, Eos % (Auto) 1.2, Baso % (Auto) 0.3, Absolute Neuts (auto) 3.8, Absolute Lymphs (auto) 1.93, Nucleated RBC % 0, PT 19.2 H, INR 1.6, APTT 67.0 H, Sodium 140, Potassium 4.2, Chloride 111 H, Carbon Dioxide 26.0, Anion Gap 3 L, BUN 25 H, Creatinine 0.86, Estim Creat Clear Calc 54.37, Est GFR (MDRD) Af Amer 86, Est GFR (MDRD) Non-Af 71, BUN/Creatinine Ratio 28.9 H, Glucose 106, Calcium 10.0 Micro: Microbiology 07/26/23 11:05 Vomitus Gastric Occult Blood - Final Physical Exam Narrative GENERAL: cooperative HEENT: Atraumatic; normocephalic EYES; Anicteric, Normal Conjunctiva NECK; supple, normal thyroid, RESPIRATORY: Diminished to auscultation CARDIOVASCULAR: Regular S1 S2, systolic click GI: soft, normoactive bowel sounds, : No Renal angle tenderness; EXTREMITIES: No edema, no clubbing, MUSCULOSKELETAL: no muscle wasting NEURO: Awake; no lateralizing signs. SKIN: No Rash PSYCH; Flat affect Assessment & Plan Assessment/Plan (1) Acute upper GI bleed: (2) Colitis: (3) Acidosis, lactic: PLAN: Plan 57-year-old with cirrhosis presents with upper GI bleed. Patient had upper GI bleed secondary to gastric ulcer which was treated endoscopically. Hemoglobin seems to be normal. She also had some nausea vomiting and her urine was checked for street drugs and was determined to have opioids and marijuana in her system. I suspect that she had marijuana hyperemesis syndrome with underlying opioid withdrawal. Patient is on protocol for opiate withdrawal. Recommendation if she does develop abdominal pain again associated with nausea vomiting to give her Haldol first followed by benzodiazepine. For now she is doing well and regarding nausea vomiting. Continue PPI therapy as previously ordered. 07/30/23-INR is up to 1.6 and her hemoglobin is increasing to 9.7. She is doing well from a GI standpoint is not showing any signs or symptoms of GI bleeding at this time. Okay to continue heparin and Coumadin bridge. She will need repeat endoscopy as an outpatient along with capsule endoscopy. Charges/Coding Visit Charges Inpatient E&M: 71020 Subs Hosp L3
[2023-07-30] MEDS: Ondansetron 4 MG/2 ML Vial IV (19:38)
[2023-07-30] MEDS: 0.9% Saline Lock 10 ML Syringe IV (19:38)
[2023-07-30] MEDS: Dicyclomine 10 MG Capsule 20 MG PO (21:26)
[2023-07-30] MEDS: Gabapentin 800 MG Tablet PO (21:26)
[2023-07-30] MEDS: Zolpidem Tartrate 5 MG Tablet PO (21:27)
[2023-07-30] MEDS: Atorvastatin Calcium 20 MG Tablet PO (21:28)
[2023-07-30] MEDS: traZODone 100 MG Tablet PO (21:29)
[2023-07-30 21:40] VITALS: BP 131/83; PULSE 85; RESP 14; TEMP 37.1; O2SAT 99
[2023-07-31 02:40] VITALS: BP 120/67; PULSE 88; RESP 16; TEMP 36.5; O2SAT 97
[2023-07-31 05:58] LABS: Absolute Lymphocyte Count 1.78 X10^3/uL (0.83-4.51); Absolute Neutrophil Count 4.4 X10^3/uL (2.0-7.7); Basophil# 0.04 X10^3/uL; Basophil% 0.5 % (0-1); Eosinophil# 0.11 X10^3/uL; Eosinophils% 1.5 % (0-5); Hematocrit 29.4 % (37-47); Hemoglobin 9.2 g/dL (12.0-15.0); Lymphocyte # 1.78 X10^3/ul (0.83-4.51); Lymphocyte % 24.4 % (19-41); Mean Corp Hgb Conc 31.3 g/dL (32-36); Mean Corpuscular Hgb 26.6 pg (27.0-32.0); Mean Platelet Vol. 9.9 fl (6.2-12.0); Monocyte# 0.93 X10^3/uL; Monocyte% 12.7 % (0-10); NRBC Flagged by Analyzer 0 % (0-5); Neutrophil # 4.38 X10^3/uL (2.7-7.7); Neutrophil % 59.9 % (47-70); Platelet Count 278 K/mm3 (150-450); RBC Distribution Width CV 16.8 % (11.6-14.6); RBC Distribution Width SD 47.3 fl (35.1-43.9); Red Blood Count 3.46 M/mm3 (4.2-5.4); White Blood Count 7.3 K/mm3 (4.4-11.0)
[2023-07-31] MEDS: Magnesium Chloride 64 MG Delay Rel.Tablet 128 MG PO ×3 (06:08→21:57)
[2023-07-31] MEDS: busPIRone 5 MG Tablet PO ×3 (06:09→21:58)
[2023-07-31] MEDS: Sucralfate 1 GM Tablet PO ×2 (06:09→15:24)
[2023-07-31 06:28] LABS: Partial Thromboplast Time 117.5 Seconds (24.1-36.2)
[2023-07-31 06:40] LABS: International Normalized Ratio 1.8; Prothrombin Time (Protime)PT. 20.6 SECONDS (11.7-14.9)
[2023-07-31 06:58] LABS: Phosphorus 4.8 mg/dL (2.5-4.9)
[2023-07-31 07:02] LABS: Anion Gap 8 (5-15); BUN 28 mg/dL (7-18); Calcium,Total 9.3 mg/dL (8.5-10.1); Chloride 110 mmol/L (98-107); Creatinine, Serum 0.87 mg/dL (0.55-1.02); EST Glomerular Filtration Rate 71 mL/min (>60); Est Glom Filt Rate - Afr Amer 85 mL/min (>60); Estimated Creatinine Clearance 53.75 ml/min; Glucose 111 mg/dL (74-106); Magnesium 1.9 mg/dL (1.6-2.6); Potassium 4.3 mmol/L (3.5-5.1); Sodium Level 143 mmol/L (136-145)
--- NOTE | 2023-07-31 07:54 | PCM.PN.HOSP ---
Reason for Visit Reason for Visit: Diagnoses Acidosis, unspecified (07/26/23) Noninfective gastroenteritis and colitis, unspecified (07/26/23) Gastrointestinal hemorrhage, unspecified (07/26/23) Subjective Subjective Patient seen INR still remains subtherapeutic at 1.8 additional 5 mg of Coumadin given repeat INR ordered Objective Data Objective Data Vital Signs: Vital Signs Temp Pulse Resp BP Pulse Ox O2 Del Method 97.7 F L 88 16 120/67 97 Room Air 07/31/23 02:40 07/31/23 02:40 07/31/23 02:40 07/31/23 02:40 07/31/23 02:40 07/31/23 02:40 Oxygen Delivery Method Room Air Weight: 48.9 kg Body Mass Index (BMI) 18.5 Intake & Output: Intake and Output for Last 24 Hours 07/29/23 07/30/23 07/31/23 23:59 23:59 23:59 Intake Total 1861.07 / 1861.07 1905.6 / 1905.6 250.93 / 250.93 Output Total 2600 / 2600 100 / 100 0 / 0 Balance -738.93 / -738.93 1805.6 / 1805.6 250.93 / 250.93 Lab / Micro Data 07/31/23 05:45 07/31/23 05:45 Labs: Laboratory Results - last 24 hr 07/31/23 05:45: WBC 7.3, RBC 3.46 L, Hgb 9.2 L, Hct 29.4 L, MCV 85.0, MCH 26.6 L, MCHC 31.3 L, RDW Std Deviation 47.3 H, RDW Coeff of [place] 16.8 H, Plt Count 278, MPV 9.9, Immature Gran % (Auto) 1.000 H, Neut % (Auto) 59.9, Lymph % (Auto) 24.4, [place] % (Auto) 12.7 H, Eos % (Auto) 1.5, Baso % (Auto) 0.5, Absolute Neuts (auto) 4.4, Absolute Lymphs (auto) 1.78, Nucleated RBC % 0, PT 20.6 H, INR 1.8, APTT 117.5 H*, Sodium 143, Potassium 4.3, Chloride 110 H, Carbon Dioxide 25.0, Anion Gap 8, BUN 28 H, Creatinine 0.87, Estim Creat Clear Calc 53.75, Est GFR (MDRD) Af Amer 85, Est GFR (MDRD) Non-Af 71, BUN/Creatinine Ratio 32.0 H, Glucose 111 H, Calcium 9.3, Phosphorus 4.8, Magnesium 1.9 Micro: Microbiology 07/26/23 11:05 Vomitus Gastric Occult Blood - Final Physical Exam Narrative GENERAL: cooperative HEENT: Atraumatic; normocephalic EYES; Anicteric, Normal Conjunctiva NECK; supple, normal thyroid, RESPIRATORY: Diminished to auscultation CARDIOVASCULAR: Regular S1 S2, systolic click GI: soft, normoactive bowel sounds, : No Renal angle tenderness; EXTREMITIES: No edema, no clubbing, MUSCULOSKELETAL: no muscle wasting NEURO: Awake; no lateralizing signs. SKIN: No Rash PSYCH; Flat affect Assessment & Plan Assessment/Plan (1) Acute upper GI bleed: (2) Colitis: (3) Acidosis, lactic: PLAN: Plan Patient is a 58-year-old lady with history of mechanical aortic valve admitted with hematemesis and melena 1. Acute GI bleed -patient underwent EGD which demonstrated oozing gastric ulcer with a visible vessel which was injected and oozing gastric ulcer with pigmented material which was treated with a heater probe. Subsequently placed on PPI 2. Supratherapeutic INR ? Present on admission reversed patient currently on Coumadin and being bridged with heparin with target of 2.5-3.5 ? 07/31/2023;Patient seen INR still remains subtherapeutic at 1.8 additional 5 mg of Coumadin given repeat INR ordered 3. Anemia ? Secondary to acute blood loss anemia patient was transfused with 2 unit PRBC subsequent monitoring with daily H&H ordered 4. Mechanical aortic valve ? Patient is on systemic anticoagulation management as discussed above 5. Acute opioid withdrawal ? Patient tox cream was positive for opiates patient placed on opioid withdrawal protocol with with buprenorphine 6. Coronary artery disease ? With previous history of CABG. Patient remains on guideline directed medical therapy 7. Dyslipidemia -Patient is on statin therapy, continued at home dose 8. Depression with anxiety ?On duloxetine, trazodone and buspirone. 9. History of osteopenia -On denosumab 10. History of insomnia - Zolpidem. 11. Hypertension - Blood pressure controlled, home medications continued with dose adjustment as needed 12. DVT prophylaxis ? Patient is on systemic anticoagulation Time spent in the patient's overall evaluation,decision-making process, review of diagnostic data, adjustment of management, discussion with other providers, nursing nursing and ancillary staff involved in patient's care documentation, 35 minutes minutes Charges/Coding Visit Charges Inpatient E&M: 70507 Subs Hosp L2
[2023-07-31 07:56] VITALS: BP 136/85; PULSE 85; RESP 14; TEMP 36.6; O2SAT 100
[2023-07-31] MEDS: miSOPROStol 100 MCG TABLET PO ×4 (08:01→21:58)
[2023-07-31] MEDS: Potassium Chloride Oral Tablet 20 MEQ 40 MEQ PO ×3 (08:01→17:31)
[2023-07-31] MEDS: Topiramate 100 MG Tablet PO ×2 (08:02→21:58)
[2023-07-31] MEDS: buPROPion (SR) 100 MG TABLET.SA 200 MG PO ×2 (08:02→21:58)
[2023-07-31] MEDS: Omega-3 Acid Ethyl Esters 1 GM Capsule PO (08:02)
[2023-07-31] MEDS: Multivitamins,Therapeutic Tablet 1 TABLET PO (08:02)
[2023-07-31] MEDS: Calcium Carb/Vitamin D 1 TABLET Tablet PO (08:02)
[2023-07-31] MEDS: AMILORIDE HCL 5 MG TABLET PO (08:03)
[2023-07-31] MEDS: DULoxetine Hcl 60 MG Capsule PO (08:03)
[2023-07-31] MEDS: Pantoprazole Sodium 40 MG Tablet PO ×2 (08:03→21:58)
[2023-07-31] MEDS: amLODIPine 5 MG Tablet PO (08:03)
[2023-07-31] MEDS: Gabapentin 400 MG Capsule PO ×2 (08:10→14:03)
[2023-07-31] MEDS: Dicyclomine 10 MG Capsule 20 MG PO (11:35)
[2023-07-31 14:14] VITALS: BP 138/86; PULSE 85; RESP 14; TEMP 37.2; O2SAT 100
[2023-07-31 14:29] LABS: Prothrombin Time (Protime)PT. 22.2 SECONDS (11.7-14.9)
[2023-07-31 14:37] LABS: Partial Thromboplast Time 43.4 Seconds (24.1-36.2)
[2023-07-31] MEDS: HEPARIN/D5w 25,000 UNITS 25,000 UNITS/250 ML IV.SOLN. 6 UNITS CONT INF (15:12)
[2023-07-31] MEDS: Heparin Injection (Vial) 5,000 UNIT/ML VIAL IV (15:18)
[2023-07-31 21:00] VITALS: BP 124/68; PULSE 80; RESP 16; TEMP 37.1; O2SAT 100
[2023-07-31] MEDS: Atorvastatin Calcium 20 MG Tablet PO (21:58)
[2023-07-31] MEDS: Ondansetron 8 MG Tablet PO (21:58)
[2023-07-31] MEDS: traZODone 100 MG Tablet PO (21:58)
[2023-07-31] MEDS: Zolpidem Tartrate 5 MG Tablet PO (21:58)
[2023-07-31] MEDS: Gabapentin 800 MG Tablet PO (22:08)
[2023-08-01 03:00] VITALS: BP 116/71; PULSE 91; RESP 16; TEMP 36.9; O2SAT 100
[2023-08-01 03:54] LABS: Absolute Lymphocyte Count 1.27 X10^3/uL (0.83-4.51); Basophil# 0.03 X10^3/uL; Basophil% 0.4 % (0-1); Eosinophil# 0.13 X10^3/uL; Eosinophils% 1.6 % (0-5); Hematocrit 28.7 % (37-47); Hemoglobin 9.2 g/dL (12.0-15.0); Lymphocyte # 1.27 X10^3/ul (0.83-4.51); Lymphocyte % 15.4 % (19-41); Mean Corp Hgb Conc 32.1 g/dL (32-36); Mean Corpuscular Hgb 27.4 pg (27.0-32.0); Mean Corpuscular Volume 85.4 fL (81-99); Mean Platelet Vol. 10.1 fl (6.2-12.0); Monocyte# 0.73 X10^3/uL; Monocyte% 8.8 % (0-10); NRBC Flagged by Analyzer 0 % (0-5); Neutrophil # 6.04 X10^3/uL (2.7-7.7); Neutrophil % 73.2 % (47-70); Platelet Count 298 K/mm3 (150-450); RBC Distribution Width CV 16.4 % (11.6-14.6); Red Blood Count 3.36 M/mm3 (4.2-5.4); White Blood Count 8.3 K/mm3 (4.4-11.0)
[2023-08-01 04:05] LABS: Partial Thromboplast Time 58.5 Seconds (24.1-36.2)
[2023-08-01 04:12] LABS: Anion Gap 6 (5-15); BUN 27 mg/dL (7-18); BUN/Creat Ratio 30.5 RATIO (10-20); Calcium,Total 9.1 mg/dL (8.5-10.1); Chloride 110 mmol/L (98-107); Creatinine, Serum 0.89 mg/dL (0.55-1.02); EST Glomerular Filtration Rate 69 mL/min (>60); Est Glom Filt Rate - Afr Amer 84 mL/min (>60); Estimated Creatinine Clearance 52.54 ml/min; Glucose 118 mg/dL (74-106); Potassium 4.2 mmol/L (3.5-5.1); Sodium Level 143 mmol/L (136-145)
[2023-08-01 04:13] LABS: International Normalized Ratio 2.4; Prothrombin Time (Protime)PT. 25.7 SECONDS (11.7-14.9)
[2023-08-01] MEDS: busPIRone 5 MG Tablet PO (06:56)
[2023-08-01] MEDS: Sucralfate 1 GM Tablet PO (06:56)
[2023-08-01] MEDS: Magnesium Chloride 64 MG Delay Rel.Tablet 128 MG PO (06:56)
[2023-08-01 07:47] VITALS: BP 119/80; PULSE 98; RESP 16; TEMP 36.6; O2SAT 98
[2023-08-01] MEDS: Gabapentin 400 MG Capsule PO (07:51)
[2023-08-01] MEDS: Multivitamins,Therapeutic Tablet 1 TABLET PO (07:52)
[2023-08-01] MEDS: Calcium Carb/Vitamin D 1 TABLET Tablet PO (07:52)
[2023-08-01] MEDS: Potassium Chloride Oral Tablet 20 MEQ 40 MEQ PO (07:52)
[2023-08-01] MEDS: AMILORIDE HCL 5 MG TABLET PO (07:55)
[2023-08-01] MEDS: amLODIPine 5 MG Tablet PO (07:55)
[2023-08-01] MEDS: Omega-3 Acid Ethyl Esters 1 GM Capsule PO (07:56)
[2023-08-01] MEDS: miSOPROStol 100 MCG TABLET PO (07:56)
[2023-08-01] MEDS: DULoxetine Hcl 60 MG Capsule PO (07:56)
[2023-08-01] MEDS: Pantoprazole Sodium 40 MG Tablet PO (07:57)
[2023-08-01] MEDS: Topiramate 100 MG Tablet PO (07:57)
[2023-08-01] MEDS: buPROPion (SR) 100 MG TABLET.SA 200 MG PO (07:57)
--- NOTE | 2023-08-01 08:26 | DS.PCM_ITS ---
Providers Date of Admission: 07/26/23 Date of Discharge: 08/01/23 Primary Care Physician: Dr. Castro Quintana MD Consultations 07/26/23 14:54 Consult: Gastroenterology Routine Consulting Provider: [facility] Reason for Consult: acute GI bleed EMERGENT Consult: No MD Notified: Yes Date Notified: 07/26/23 Time Notified: 14:54 Method of Notification: Text Reason For Visit: SUPRATHERAPEUTIC INR, HEMATEMESIS Diagnosis Discharge Diagnosis (1) Acute upper GI bleed: Status: Acute Code(s): K92.2 - Gastrointestinal hemorrhage, unspecified (2) Colitis: Status: Acute Code(s): K52.9 - Noninfective gastroenteritis and colitis, unspecified (3) Acidosis, lactic: Status: Acute Code(s): E87.20 - Acidosis, unspecified Plan Patient is a 58-year-old lady with history of mechanical aortic valve admitted with hematemesis and melena 1. Acute GI bleed -patient underwent EGD which demonstrated oozing gastric ulcer with a visible vessel which was injected and oozing gastric ulcer with pigmented material which was treated with a heater probe. Subsequently placed on PPI ? 08/01/2023 patient discharged on misoprostol as well as Protonix with plans for patient to follow-up with GI in 2 weeks 2. Supratherapeutic INR ? Present on admission reversed patient currently on Coumadin and being bridged with heparin with target of 2.5-3.5 ? 07/31/2023;Patient seen INR still remains subtherapeutic at 1.8 additional 5 mg of Coumadin given repeat INR ordered ? 08/01/2023 INR 2.4 patient discharged on home Coumadin regimen with plans for patient to follow-up with primary care physician in 2 to 3 days for repeat INR 3. Anemia ? Secondary to acute blood loss anemia patient was transfused with 2 unit PRBC subsequent monitoring with daily H&H ordered 4. Mechanical aortic valve ? Patient is on systemic anticoagulation management as discussed above 5. Questionable acute opioid withdrawal ? Patient tox screen was positive for opiates patient placed on opioid withdrawal protocol with buprenorphine (which patient never received). Patient currently denies any opioid use.. 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 Coronary artery disease ? With previous history of CABG. Patient remains on guideline directed medical therapy 7. Dyslipidemia -Patient is on statin therapy, continued at home dose 8. Depression with anxiety ?On duloxetine, trazodone and buspirone. 9. History of osteopenia -On denosumab 10. History of insomnia - Zolpidem. 11. Hypertension - Blood pressure controlled, home medications continued with dose adjustment as needed 12. DVT prophylaxis ? Patient is on systemic anticoagulation Time spent in the patient's overall evaluation,decision-making process, review of diagnostic data, adjustment of management, discussion with other providers, nursing nursing and ancillary staff involved in patient's care documentation, 35 minutes minutes Medications at Discharge Home Medications aspirin 81 mg tablet,delayed release (Adult Aspirin Regimen) 81 mg PO DAILY heart 08/13/18 multivitamin 1 tab PO DAILY supplement 08/13/18 magnesium oxide 400 mg (241.3 mg magnesium) tablet 500 mg PO TID supplement 05/14/19 calcium carb 300 mg-D3 20 mcg-mag ox 25 mg-electron microscopist 0.5 [id number] tablet (Caltrate-D3 Plus Minerals) 1 tab PO DAILY supplement 12/17/19 melatonin 10 mg capsule 10 mg PO HS PRN Allergic Symptoms 07/02/20 omega-3 fatty acids 1,000 mg capsule (Fish Oil Concentrate) 1,000 mg PO DAILY supplement 07/02/20 Handicap Placard #1 ea 01/19/23 biotin 500 mcg capsule 5,000 mcg PO DAILY supplement' 01/19/23 ondansetron 8 mg disintegrating tablet 8 mg PO Q12H PRN nausea and vomiting #90 tabs 01/19/23 nitroglycerin 0.4 mg sublingual tablet 0.4 mg sublingual Q5-15M PRN cp #25 tabs 03/07/23 sucralfate 1 gram tablet 1 g PO BID stomach #180 tabs 04/11/23 diphenhydramine HCl 50 mg tablet 50 mg PO QHS PRN allergic reaction 04/25/23 topiramate 100 mg tablet 100 mg PO BID migraines #180 tabs 04/25/23 bupropion HCl 200 mg tablet,12 hr sustained-release 200 mg PO BID depression and anxiety #180 tabs 05/31/23 duloxetine 60 mg capsule,delayed release 60 mg PO DAILY depression/aniety #90 caps 05/31/23 potassium chloride 20 mEq tablet,extended release 40 meq PO TID potassisum 06/14/23 gabapentin 800 mg tablet 1,600 mg (2 x 800 mg) PO DAILY pain 90 days #180 tabs 07/09/23 trazodone 100 mg tablet 100 mg PO QHS insomnia #90 tabs 07/12/23 amlodipine 5 mg tablet 5 mg PO DAILY bp #30 tabs 07/23/23 cyclobenzaprine 5 mg tablet 5 - 10 mg (1 - 2 x 5 mg) PO TID PRN muscle spasm #60 tabs 07/25/23 zolpidem 5 mg tablet 5 mg PO QHS PRN insomnia #20 tabs 07/25/23 amiloride 5 mg tablet 5 mg PO DAILY diuretic 07/26/23 buspirone 5 mg tablet 5 mg PO TID anxiety 07/26/23 denosumab 60 mg/mL subcutaneous syringe (Prolia) 60 mg subcut .every 6 months osteopenia 07/26/23 furosemide 20 mg tablet 20 mg PO Q12H diuretic 07/26/23 rosuvastatin 10 mg tablet 10 mg PO DAILY cholestrol 07/26/23 warfarin 1 mg tablet 1 mg blood thinner 07/26/23 warfarin 5 mg tablet 5 mg PO blood thinner 07/26/23 Medical Cannibus chronic pain/anxiety 07/28/23 misoprostol 100 mcg tablet 100 mcg PO 4X/DAYCM #120 tabs 08/01/23 pantoprazole 40 mg tablet,delayed release 40 mg PO BID #60 tabs 08/01/23 Hospital Course Procedures EGD Physical Exam Narrative GENERAL: cooperative HEENT: Atraumatic; normocephalic EYES; Anicteric, Normal Conjunctiva NECK; supple, normal thyroid, RESPIRATORY: Diminished to auscultation CARDIOVASCULAR: Regular S1 S2, systolic click GI: soft, normoactive bowel sounds, : No Renal angle tenderness; EXTREMITIES: No edema, no clubbing, MUSCULOSKELETAL: no muscle wasting NEURO: Awake; no lateralizing signs. SKIN: No Rash PSYCH; Flat affect Weight / BMI Weight Weight: 48.9 kg Body Mass Index (BMI) 18.5 ABG / Lab / Microbiology Data 08/01/23 03:20 08/01/23 03:20 Laboratory: Laboratory Results - last 24 hr 07/31/23 14:07: PT 22.2 H, INR 2.0, APTT 43.4 H 07/31/23 21:10: APTT 63.0 H 08/01/23 03:20: WBC 8.3, RBC 3.36 L, Hgb 9.2 L, Hct 28.7 L, MCV 85.4, MCH 27.4, MCHC 32.1, RDW Std Deviation 49.0 H, RDW Coeff of [place] 16.4 H, Plt Count 298, MPV 10.1, Immature Gran % (Auto) 0.600, Neut % (Auto) 73.2 H, Lymph % (Auto) 15.4 L, [place] % (Auto) 8.8, Eos % (Auto) 1.6, Baso % (Auto) 0.4, Absolute Neuts (auto) 6.0, Absolute Lymphs (auto) 1.27, Nucleated RBC % 0, PT 25.7 H, INR 2.4, APTT 58.5 H, Sodium 143, Potassium 4.2, Chloride 110 H, Carbon Dioxide 27.0, Anion Gap 6, BUN 27 H, Creatinine 0.89, Estim Creat Clear Calc 52.54, Est GFR (MDRD) Af Amer 84, Est GFR (MDRD) Non-Af 69, BUN/Creatinine Ratio 30.5 H, Glucose 118 H , Calcium 9.1 Microbiology: Microbiology 07/26/23 11:05 Vomitus Gastric Occult Blood - Final D/C Instructions Discharge Diet: No restrictions Discharge Activity: Return to Normal Activity Call your doctor if you observe: Fever of 101 or Higher, Shortness of breath, Fainting spells and Chest pain Meaningful Use Info Meaningful Use Diagnoses (Choose all that apply): None applicable Discharge Plan Admission Admit Date/Time: 07/26/23 11:41 Attending Provider: Stepan Gates Primary Care Provider: Castro Quintana Consulting Providers: Maude Davis Discharge Orders/Prescriptions Prescriptions: New pantoprazole 40 mg Tablet,Delayed Release (Dr/Ec) 40 mg PO BID Qty: 60 0RF misoprostol 100 mcg Tablet 100 mcg PO 4X/DAYCM Qty: 120 0RF Continued multivitamin tablet 1 tab PO DAILY aspirin [Adult Aspirin Regimen] 81 mg tablet,delayed release (DR/EC) 81 mg PO DAILY magnesium oxide 400 mg (241.3 mg magnesium) tablet 500 mg PO TID omega-3 fatty acids [Fish Oil Concentrate] 1,000 mg capsule 1,000 mg PO DAILY biotin 500 mcg capsule 500 mcg capsule 5,000 mcg PO DAILY Caltrate-D3 Plus Minerals 300 mg-800 unit -25 mg-0.5 mg tablet 1 tab PO DAILY melatonin 10 mg capsule 10 mg PO HS PRN (Reason: Allergic Symptoms) (DME) Handicap Placard See Rx Instructions .ROUTE .MEDSUPPLY Qty: 1 0RF Rx Instructions: As directed, length of time 3 years ondansetron 8 mg tablet,disintegrating 8 mg PO Q12H PRN (Reason: nausea and vomiting) Qty: 90 2RF diphenhydramine HCl 50 mg tablet 50 mg PO QHS PRN (Reason: allergic reaction) topiramate 100 mg tablet 100 mg PO BID Qty: 180 3RF potassium chloride 20 mEq tablet extended release 40 meq PO TID cyclobenzaprine 5 mg tablet 5 - 10 mg PO TID PRN (Reason: muscle spasm) Qty: 60 1RF zolpidem 5 mg tablet 5 mg PO QHS PRN (Reason: insomnia) Qty: 20 0RF buspirone 5 mg tablet 5 mg PO TID Rx Instructions: TAKE 1 TABLET BY MOUTH 3 TIMES DAILY amiloride 5 mg tablet 5 mg PO DAILY Rx Instructions: TAKE 1 TABLET BY MOUTH DAILY FOR DIURETIC warfarin 5 mg tablet 5 mg PO Protocol: Dose Management Condition: Sunday Dose/Route: 12 mg Instruction: 2 x 1 mg tablets, 2 x 5 mg tablets Condition: Sunday Dose/Route: 12 mg Instruction: 2 x 1 mg tablets, 2 x 5 mg tablets Condition: Sunday Dose/Route: 12 mg Instruction: 2 x 1 mg tablets, 2 x 5 mg tablets Condition: Sunday Dose/Route: 12 mg Instruction: 2 x 1 mg tablets, 2 x 5 mg tablets Condition: Dose/Route: 12 mg Instruction: 2 x 1 mg tablets, 2 x 5 mg tablets Condition: Sunday Dose/Route: 12 mg Instruction: 2 x 1 mg tablets, 2 x 5 mg tablets Condition: Sunday Dose/Route: 12 mg Instruction: 2 x 1 mg tablets, 2 x 5 mg tablets Protocol Text: Adjustment Start Date: Sunday07/20/23 INR Value: 2.4 INR Date: 07/20/23 Recheck Date: 07/27/23 Rx Instructions: TAKE TWO 5MG TABS BY MOUTH WITH TWO 1MG TAB TO EQUAL 12MG DAILY; OR DIRECTED furosemide 20 mg tablet 20 mg PO Q12H Rx Instructions: TAKE 1 TABLET BY MOUTH TWICE DAILY warfarin 1 mg tablet 1 mg Protocol: Dose Management Condition: Sunday Dose/Route: 12 mg Instruction: 2 x 1 mg tablets, 2 x 5 mg tablets Condition: Sunday Dose/Route: 12 mg Instruction: 2 x 1 mg tablets, 2 x 5 mg tablets Condition: Sunday Dose/Route: 12 mg Instruction: 2 x 1 mg tablets, 2 x 5 mg tablets Condition: Sunday Dose/Route: 12 mg Instruction: 2 x 1 mg tablets, 2 x 5 mg tablets Condition: Dose/Route: 12 mg Instruction: 2 x 1 mg tablets, 2 x 5 mg tablets Condition: Sunday Dose/Route: 12 mg Instruction: 2 x 1 mg tablets, 2 x 5 mg tablets Condition: Sunday Dose/Route: 12 mg Instruction: 2 x 1 mg tablets, 2 x 5 mg tablets Protocol Text: Adjustment Start Date: Sunday07/20/23 INR Value: 2.4 INR Date: 07/20/23 Recheck Date: 07/27/23 Rx Instructions: TAKE TWO 5MG TABLETS BY MOUTH WITH TWO 1MG TABLET TO EQUAL 12MG DAILY; OR DIRECTED rosuvastatin 10 mg tablet 10 mg PO DAILY Rx Instructions: TAKE 1 TABLET BY MOUTH DAILY Prolia 60 mg/mL syringe 60 mg subcut .every 6 months Rx Instructions: INJECT 60 MG UNDER THE SKIN ONCE EVERY 6 MONTHS DIRECTED Medical Cannibus Rx Instructions: takes cannibus gummies three or four times per day nitroglycerin 0.4 mg tablet, sublingual 0.4 mg SUBLINGUAL Q5-15M PRN (Reason: cp) Qty: 25 3RF sucralfate 1 gram tablet 1 g PO BID Qty: 180 3RF bupropion HCl 200 mg tablet sustained-release 12 hr 200 mg PO BID Qty: 180 3RF duloxetine 60 mg capsule,delayed release(DR/EC) 60 mg PO DAILY Qty: 90 3RF gabapentin 800 mg tablet 1,600 mg PO DAILY 90 Days Qty: 180 3RF Rx Instructions: Take 400 mg in the morning and Afternoon and 800 mg at night. trazodone 100 mg tablet 100 mg PO QHS Qty: 90 3RF Rx Instructions: TAKE 1 TABLET AT BEDTIME amlodipine 5 mg tablet 5 mg PO DAILY Qty: 30 6RF Discontinued esomeprazole magnesium [Nexium] 40 mg capsule,delayed release(DR/EC) 40 mg PO DAILY PRN (Reason: gerd) heparin (porcine) 10,000 unit/mL solution 6,500 unit SC .COMPLEX Qty: 65 2RF Rx Instructions: 6,500 unit SC Every 6 hours as needed for subtherapetic INR or for bridging for procedures Referrals / Follow Up: Castro Quintana MD [Primary Care Provider] - See Referral Note (In 2 to 3 days for repeat INR) Friend,DO David [Med Staff - Active Staff] - Within 2 Weeks Disposition Disposition (needs filled in before D/C Order can be placed): Home, Self Care Charges/Coding Visit Charges Inpatient E&M: 84664 Disch Hosp >30min
--- NOTE | 2023-08-01 08:51 | CASEMGMT ---
SW spoke with patient and she still needs a ride home. PATIENCE notified marketing secretary that patient needs a ride home in the hospital van. Liz GARLAND
--- NOTE | 2023-08-01 10:29 | CASEMGMT ---
Patient has order for discharge. RN CM in to discuss needs at discharge. Patient up independent in room. Patient denies needs or help at discharge. Patient aware to follow-up with PCP. Patient had no further questions or concerns.
== END 2023-08-01 12:01 | disposition home or self-care (01) | DRG 378 ==
LOC: ED 11:36 → PCU 12:56
PROVIDERS: Internal Medicine; Internal Medicine Gastroenterology; Admitting Provider Student in an Organized Health Care Education/Training Program; Emergency Provider Emergency Medicine; PCP Internal Medicine; Visit Provider Internal Medicine
PROC: 0DJ08ZZ Inspection of Upper Intestinal Tract, Via Natural or Artificial Opening Endoscopic (ICD-10-PCS; CPT 43235; principal; 2023-07-27 10:55)
DX: K25.4 Chronic or unspecified gastric ulcer with hemorrhage (principal); E87.20 Acidosis, unspecified; F11.23 Opioid dependence with withdrawal; D62 Acute posthemorrhagic anemia; I11.0 Hypertensive heart disease with heart failure; I50.9 Heart failure, unspecified; K74.60 Unspecified cirrhosis of liver; I48.91 Unspecified atrial fibrillation; E78.5 Hyperlipidemia, unspecified; K52.9 Noninfective gastroenteritis and colitis, unspecified; I25.10 Atherosclerotic heart disease of native coronary artery without angina pectoris; K22.70 Barrett's esophagus without dysplasia; K44.9 Diaphragmatic hernia without obstruction or gangrene; F41.8 Other specified anxiety disorders; K21.9 Gastro-esophageal reflux disease without esophagitis; R11.2 Nausea with vomiting, unspecified; F12.90 Cannabis use, unspecified, uncomplicated; Z95.2 Presence of prosthetic heart valve; R79.1 Abnormal coagulation profile; Z79.01 Long term (current) use of anticoagulants; K90.0 Celiac disease; G47.00 Insomnia, unspecified; Z79.82 Long term (current) use of aspirin; Z79.899 Other long term (current) drug therapy; Z90.49 Acquired absence of other specified parts of digestive tract; Z90.710 Acquired absence of both cervix and uterus; M85.80 Other specified disorders of bone density and structure, unspecified site
CPT/HCPCS: 36415; 70450; 74177; 80048; 80053; 80307; 81001; 81025; 82271; 82306; 83605; 83690; 83735; 84100; 84484; 85025; 85610; 85730; 86850; 86870; 86900; 86901; 86902; 86905; 86920; 86922; 88305; 93005; 97161; 97802; 97803; 99285; J7030; J7040; P9016; Q9967; A4216; J2405; J3490

== ENCOUNTER → 2023-08-03 | Outpatient (CLI) | payer MEDICARE, MEDICAID, SELFPAY ==
[2023-08-03 12:08] LABS: Absolute Lymphocyte Count 0.82 X10^3/uL (0.83-4.51); Absolute Neutrophil Count 7.7 X10^3/uL (2.0-7.7); Basophil# 0.04 X10^3/uL; Basophil% 0.4 % (0-1); Eosinophil# 0.05 X10^3/uL; Eosinophils% 0.5 % (0-5); Hematocrit 32.3 % (37-47); Hemoglobin 9.5 g/dL (12.0-15.0); Lymphocyte # 0.82 X10^3/ul (0.83-4.51); Lymphocyte % 8.8 % (19-41); Mean Corp Hgb Conc 29.4 g/dL (32-36); Mean Corpuscular Hgb 25.7 pg (27.0-32.0); Mean Corpuscular Volume 87.3 fL (81-99); Mean Platelet Vol. 9.7 fl (6.2-12.0); Monocyte# 0.64 X10^3/uL; Monocyte% 6.9 % (0-10); NRBC Flagged by Analyzer 0 % (0-5); Neutrophil # 7.68 X10^3/uL (2.7-7.7); Neutrophil % 82.8 % (47-70); Platelet Count 439 K/mm3 (150-450); RBC Distribution Width SD 49.5 fl (35.1-43.9); White Blood Count 9.3 K/mm3 (4.4-11.0)
[2023-08-03 12:18] LABS: Amphetamine Urine VISTA NEGATIVE (<1000 ng/mL); Barbiturate Urine VISTA NEGATIVE (< 200 ng/mL); Benzodiazepine Urine VISTA NEGATIVE (< 200 ng/mL); Cocaine Urine VISTA NEGATIVE (< 300 ng/mL); Ecstacy Urine VISTA POSITIVE (< 500 ng/mL); Methadone Urine VISTA NEGATIVE (< 300 ng/mL); PCP Urine VISTA NEGATIVE (< 25 ng/mL); THC Urine VISTA POSITIVE (< 50 ng/mL); Vista UDS pH Range 5
[2023-08-03 12:28] LABS: Anion Gap 6 (5-15); BUN 25 mg/dL (7-18); BUN/Creat Ratio 26.3 RATIO (10-20); Calcium,Total 9.3 mg/dL (8.5-10.1); Chloride 108 mmol/L (98-107); Creatinine, Serum 0.95 mg/dL (0.55-1.02); EST Glomerular Filtration Rate 64 mL/min (>60); Est Glom Filt Rate - Afr Amer 77 mL/min (>60); Glucose 170 mg/dL (74-106); Potassium 4.3 mmol/L (3.5-5.1); Sodium Level 136 mmol/L (136-145)
== END | disposition home or self-care (01) ==
LOC: BIMLAB 11:02
PROVIDERS: PCP Internal Medicine; Visit Provider Internal Medicine
DX: K92.2 Gastrointestinal hemorrhage, unspecified (principal); G89.29 Other chronic pain; R82.5 Elevated urine levels of drugs, medicaments and biological substances
CPT/HCPCS: 36415; 80048; 80307; 85025

== ENCOUNTER → 2023-08-22 | Outpatient (CLI) | payer MEDICARE, MEDICAID, SELFPAY ==
[2023-08-22 17:20] LABS: Absolute Lymphocyte Count 1.14 X10^3/uL (0.83-4.51); Absolute Neutrophil Count 4.3 X10^3/uL (2.0-7.7); Basophil# 0.02 X10^3/uL; Basophil% 0.3 % (0-1); Eosinophil# 0.05 X10^3/uL; Eosinophils% 0.9 % (0-5); Hematocrit 30.3 % (37-47); Hemoglobin 8.8 g/dL (12.0-15.0); Lymphocyte # 1.14 X10^3/ul (0.83-4.51); Lymphocyte % 19.6 % (19-41); Mean Corpuscular Hgb 23.3 pg (27.0-32.0); Mean Corpuscular Volume 80.2 fL (81-99); Mean Platelet Vol. 9.2 fl (6.2-12.0); Monocyte# 0.33 X10^3/uL; Monocyte% 5.7 % (0-10); NRBC Flagged by Analyzer 0 % (0-5); Neutrophil # 4.26 X10^3/uL (2.7-7.7); Neutrophil % 73.2 % (47-70); Platelet Count 434 K/mm3 (150-450); RBC Distribution Width CV 15.5 % (11.6-14.6); RBC Distribution Width SD 44.7 fl (35.1-43.9); Red Blood Count 3.78 M/mm3 (4.2-5.4); White Blood Count 5.8 K/mm3 (4.4-11.0)
== END | disposition home or self-care (01) ==
PROVIDERS: PCP Internal Medicine; Referring Provider Internal Medicine; Visit Provider Internal Medicine
DX: K92.2 Gastrointestinal hemorrhage, unspecified (principal)
CPT/HCPCS: 36415; 85025

== ENCOUNTER → 2023-08-25 | Outpatient (CLI) | payer MEDICARE, MEDICAID, SELFPAY ==
[2023-08-25 11:19] LABS: Absolute Lymphocyte Count 0.85 X10^3/uL (0.83-4.51); Absolute Neutrophil Count 2.6 X10^3/uL (2.0-7.7); Basophil# 0.02 X10^3/uL; Basophil% 0.5 % (0-1); Eosinophil# 0.07 X10^3/uL; Eosinophils% 1.8 % (0-5); Hematocrit 29.9 % (37-47); Lymphocyte # 0.85 X10^3/ul (0.83-4.51); Lymphocyte % 21.6 % (19-41); Mean Corp Hgb Conc 30.1 g/dL (32-36); Mean Corpuscular Hgb 24.1 pg (27.0-32.0); Mean Corpuscular Volume 79.9 fL (81-99); Mean Platelet Vol. 8.7 fl (6.2-12.0); Monocyte# 0.34 X10^3/uL; Monocyte% 8.7 % (0-10); NRBC Flagged by Analyzer 0 % (0-5); Neutrophil # 2.64 X10^3/uL (2.7-7.7); Neutrophil % 67.1 % (47-70); Platelet Count 371 K/mm3 (150-450); RBC Distribution Width CV 15.6 % (11.6-14.6); RBC Distribution Width SD 44.7 fl (35.1-43.9); Red Blood Count 3.74 M/mm3 (4.2-5.4); White Blood Count 3.9 K/mm3 (4.4-11.0)
[2023-08-25 11:32] LABS: International Normalized Ratio 3.5; Prothrombin Time (Protime)PT. 34.9 SECONDS (11.7-14.9)
== END | disposition home or self-care (01) ==
LOC: LAB 10:41
PROVIDERS: PCP Internal Medicine; Referring Provider Internal Medicine Gastroenterology; Visit Provider Internal Medicine Gastroenterology
DX: K92.2 Gastrointestinal hemorrhage, unspecified (principal)
CPT/HCPCS: 36415; 85025; 85610

== ENCOUNTER → 2023-08-27 | Outpatient (CLI) | payer MEDICARE, MEDICAID, SELFPAY ==
[2023-08-27 18:12] LABS: Platelet Count 374 K/mm3 (150-450); RET-HE 19.2 pg (30-35); Reticulocyte Count 2.68 % (0.5-1.5)
[2023-08-27 18:44] LABS: Vitamin B12 497 pg/mL (211-911)
[2023-08-27 18:45] LABS: CRP < 2.90 mg/L (0.0-3.0); Calcium,Total 8.8 mg/dL (8.5-10.1); Ferritin 6 ng/mL (8-252); Free T3 2.5 pg/mL (2.18-3.98); Iron 13 ug/dL (50-170); Iron Binding Capacity,Total 417 ug/dL (250-450); LDH 293 U/L (84-246); T4 Free Direct 0.87 ng/dL (0.76-1.46); Thyroid Stim Hormone (TSH) 0.74 uIU/mL (0.358-3.74)
[2023-08-28 19:49] LABS: Erythrocyte Sedimentation Rate 5 mm/hr (0-30)
[2023-08-30 14:09] LABS: Alpha-1-Globulins 0.3 g/dL (0.0-0.4); Alpha-2-Globulins 0.6 g/dL (0.4-1.0); Anti-Parietal Cell AB, QN 2.1 Units (0.0-20.0); Endomysial Antibody IgA Negative (Negative); Gamma Globulin 0.9 g/dL (0.4-1.8); Gastrin, Serum 62 pg/mL (0-115); Haptoglobin 54 mg/dL (33-346); IgG, Quant 889 mg/dL (586-1602); Immunoglobulin A 142 mg/dL (87-352); Immunoglobulin G, Subclass 1 627 mg/dL (248-810); Immunoglobulin G, Subclass 2 86 mg/dL (130-555); Immunoglobulin G, Subclass 3 21 mg/dL (15-102); Immunoglobulin G, Subclass 4 1 mg/dL (2-96); Immunoglobulin M 110 mg/dL (26-217); PROEL- TOTAL PROTEIN 6.7 g/dL (6.0-8.5); t-Transglutaminase IgA <2 U/mL (0-3)
[2023-08-31 14:09] LABS: Anti-Centromere B Ab <0.2 AI (0.0-0.9); Anti-Chromatin <0.2 AI (0.0-0.9); Anti-Jo <0.2 AI (0.0-0.9); Anti-Scleroderma-70 AB <0.2 AI (0.0-0.9); Anti-dsDNA Ab 6 IU/mL (0-9); RNP Ab <0.2 AI (0.0-0.9); SJOGREN'S Anti-SS-A test < 0.2 AI (0.0-0.9); SJOGREN'S Anti-SS-B test < 0.2 AI (0.0-0.9); Smith Ab 0.5 AI (0.0-0.9); Vitamin D 1,25-Dihydroxy 65.2 pg/mL (24.8-81.5)
== END | disposition home or self-care (01) ==
PROVIDERS: PCP Internal Medicine; Referring Provider Internal Medicine Gastroenterology; Visit Provider Internal Medicine Gastroenterology
DX: Z95.2 Presence of prosthetic heart valve (principal); M81.0 Age-related osteoporosis without current pathological fracture; K92.2 Gastrointestinal hemorrhage, unspecified; M50.30 Other cervical disc degeneration, unspecified cervical region; R29.6 Repeated falls; R92.2 Inconclusive mammogram; E78.5 Hyperlipidemia, unspecified
CPT/HCPCS: 36415; 82310; 82533; 82607; 82652; 82728; 82784; 82787; 82941; 83010; 83516; 83540; 83550; 83615; 84165; 84439; 84443; 84481; 85045; 85652; 86140; 86225; 86235; 86255; 86334

== ENCOUNTER → 2023-09-18 | Outpatient (CLI) | payer MEDICARE, MEDICAID, SELFPAY ==
--- NOTE | 2023-09-18 11:42 | BI_ITS ---
MAMMOGRAPHY - BILATERAL SCREENING REASON FOR EXAM: Female, 58 years old. Routine annual screening examination. PERTINENT HISTORY: Non-contributory. TECHNIQUE: Digital bilateral breast ilene (3D mammographic acquisition) in the CC and MLO projections. 2-D mediolateral oblique (MLO) and craniocaudad (CC) views of both breasts were obtained. CAD: Full Field Digital Mammography with Computer Added Detection was performed. COMPARISON: Comparison is made with prior study dated September 13, 2022 and December 21, 2021. FINDINGS: Breast Composition: The breasts are heterogeneously dense, which may obscure small masses. There are no dominant masses or suspicious calcifications. No other significant abnormalities are identified. There has been no significant change since the prior study. BI/SCRN MAMM (CAD)W/ILENE BILAT IMPRESSION: Stable bilateral screening mammogram. Yearly follow-up mammogram recommended. (A) ASSESSMENT CATEGORY: BIRADS Category 1: Negative. A letter regarding these results will be sent to the patient by the facility within 30 days. Approximately 10% of breast cancers are not detected by mammography. A normal mammogram should not delay biopsy of a clinically suspicious abnormality. [id number] Electronically Signed: Mesfin Fairbanks MD at 12:44 EDT ,
== END | disposition home or self-care (01) ==
LOC: OPBD 11:32
PROVIDERS: PCP Internal Medicine; Referring Provider Internal Medicine; Visit Provider Internal Medicine
DX: Z12.31 Encounter for screening mammogram for malignant neoplasm of breast (principal)
CPT/HCPCS: 77063; 77067

== ENCOUNTER 2023-09-26 07:34 | Day surgery (SDC) | payer MEDICARE, MEDICAID, SELFPAY ==
--- NOTE | 2023-09-26 | COLBX_PTH ---
PATIENT: AUBREY COCHRAN LOC: EN U#:[id number] AGE/SX: 58/F ROOM: RE09/26/[address]: Dr. David Monsivais DO : 1965 BED: DIS: 09/26/2023 SPEC #: [id number] RECD: 09/26/23 12:11 STATUS: KIM RECharles #: [id number] EDMUND: 09/26/23 00:[address]: David Monsivais DEPT: SURGICAL PATHOLOGY RECD BY: Ward Brunner ENTERED: 09/26/23 12:11 SP TYPE: COLON BX OTHR DR: Dr. Castro Quintana MD Tissues: Duodenum, NOS Procedures: Surgery Specimen Level IV HEADER OPERATION: Colonoscopy, EGD biopsy PRE-OP DIAGNOSIS: Anemia, GI bleed TISSUE SUBMITTED: Duodenum biopsy MICROSCOPIC DIAGNOSIS Duodenum, biopsy: No pathologic change. AM/mr 09/27/23 MICROSCOPIC DESCRIPTION Slides are reviewed. GROSS DESCRIPTION Received in fixative is one container labeled with the patient's name and designated Duodenum biopsy. The specimen consists of multiple irregular fragments of light uriostegui soft tissue that in aggregate measure 0.8 x 0.3 x 0.1 cm. The specimen is totally submitted in one cassette. AM/mr 09/26/23 TC:5 CPT:61097
[2023-09-26 07:52] VITALS: BP 122/71; PULSE 66; RESP 16; TEMP 36.3; O2SAT 100; BMI 20.5
[2023-09-26] MEDS: Lactated Ringers 1,000 ML 15 ML IV (08:02)
--- NOTE | 2023-09-26 09:10 | HP.PCM_ITS ---
History and Physical Date of Admission: 09/26/23 Chief Complaint: gi bleed Details: AUBREY COCHRAN, is a 58 F who presents to the office today for HFU. *[facility] hospitalization 07.26.23-08.01.23 for management of GIB and colitis with chronic conditions mechanical aortic valve, CAD, HLD, depression/anxiety, HTN. Discharged with misoprostol and PPI. ?CT abd/pel IV only 07.26.23?RS colitis; s/p cholecystectomy and hysterectomy ?EGD 07.27.23?Gustafson?s mucosal changes; hiatal hernia; two oozing cratered gastric ulcers, heater probe/epinephrine; scalloped duodenal mucosa, ?celiac, no path changes. ?Biochemical?lipase, D25 WNL hgb .01.18 9.5 OV 4.06.20- Pt continues to have weakness and fatigue. Feels as though she is not regaining strength. Intermittent lower abdominal pain. Has had off and on diarrhea. ? ROS Const Constitutional: Positive for fatigue, frequent falls and headache(s) ENT ENT: Positive for headache(s); No difficulty swallowing Gastro GI: Positive for abdominal pain, heartburn, nausea/dyspepsia and vomiting; No belching, bloating, change in bowel habits, change in stool character, coffee ground emesis, constipation, cramping, diarrhea, difficulty swallowing, feeling full early, excessive flatus, incontinent of stools, Vomiting blood/hematemesis, Blood in stool, loose stools, Black,tarry stools, pain with swallowing or other Musc Musculoskeletal: Positive for joint pain, back pain, joint swelling, muscle cramps, stiffness and Arthritis Skin Skin: No yellowing of the eye or itchy eyes Neuro Neurology: Positive for frequent falls and headache(s) Psych Psychiatric: Positive for anxiety and Positive for depression Endo Endocrine: Positive for fatigue Aller/Imm Allergy/Immunologic: No itchy eyes Toan/Lymp Hematologic/Lymphatic: No easy bleeding or easy bruising Exam Const General: cooperative, comfortable and no acute distress Orientation: alert, awake and oriented x3 HENMT Head: normal to inspection, normocephalic and atraumatic Ears: hearing grossly normal bilaterally Resp Effort & Inspection: normal respiratory effort and able to speak in complete sentences Auscultation: Bilateral: Clear to Auscultation Cardio Rate: regular rate Rhythm: regular rhythm Heart Sounds: S1 normal and S2 normal Neuro General: patient alert, patient awake, patient oriented x3, moves all extremities and CN's II-XI intact bilaterally Extrem General: no clubbing, cyanosis or edema Psych Appearance: grossly normal Mental Status: mental status grossly normal Mood: congruent mood Affect: normal affect Results INR INR 3.1 Last Edit by Kari Ram on 08/27/23 12:04 Quality Reporting Tobacco Screening ([facility] 138) Smoking Status: Never smoker Assessment and Plan Assessment and Plan (1) Degenerative disc disease, cervical: Status: Acute (2) GI bleed: Status: Acute Plan: 58-year-old lady with history of mechanical aortic valve admitted with hematemesis and melena Acute GI bleed -patient underwent EGD which demonstrated oozing gastric ulcer with a visible vessel which was injected and oozing gastric ulcer with pigmented material which was treated with a heater probe. Subsequently placed on PPI ? Patient discharged on misoprostol as well as Protonix Supratherapeutic INR ? Present on admission reversed patient currently on Coumadin and being bridged with heparin with target of 2.5-3.5 ? 07/31/2023;Patient seen INR still remains subtherapeutic at 1.8 additional 5 mg of Coumadin given repeat INR ordered ? 08/01/2023 INR 2.4 patient discharged on home Coumadin regimen with plans for patient to follow-up with primary care physician in 2 to 3 days for repeat INR Iron def Anemia ? Secondary to acute blood loss anemia patient was transfused with 2 unit PRBC subsequent monitoring with daily H&H ordered - Check autoimmune labs Mechanical aortic valve ? Patient is on systemic anticoagulation Orders: Orders RAUL + Protein Elect, Serum Today K92.2 - Gastrointestinal hemorrhage, unspecified, M50.30 - Other cervical disc degeneration, unspecified cervical region, M81.0 - Age-related osteoporosis without current pathological fracture, R29.6 - Repeated falls LDH Today K92.2 - Gastrointestinal hemorrhage, unspecified, M50.30 - Other cervical disc degeneration, unspecified cervical region, M81.0 - Age-related osteoporosis without current pathological fracture, R29.6 - Repeated falls Ferritin Today K92.2 - Gastrointestinal hemorrhage, unspecified, M50.30 - Other cervical disc degeneration, unspecified cervical region, M81.0 - Age-related osteoporosis without current pathological fracture, R29.6 - Repeated falls, Z95.2 - Presence of prosthetic heart valve Retic Panel Count Today K92.2 - Gastrointestinal hemorrhage, unspecified, M50.30 - Other cervical disc degeneration, unspecified cervical region, M81.0 - Age- related osteoporosis without current pathological fracture, R29.6 - Repeated falls Iron Today K92.2 - Gastrointestinal hemorrhage, unspecified, M50.30 - Other ce rvical disc degeneration, unspecified cervical region, M81.0 - Age-related osteoporosis without current pathological fracture, R29.6 - Repeated falls, Z95.2 - Presence of prosthetic heart valve Celiac Disease Profile Today K92.2 - Gastrointestinal hemorrhage, unspecified, M50.30 - Other cervical disc degeneration, unspecified cervical region, M81.0 - Age-related osteoporosis without current pathological fracture, R29.6 - Repeated falls Iron Binding Capacity,Total Today K92.2 - Gastrointestinal hemorrhage, unspecified, M50.30 - Other cervical disc degeneration, unspecified cervical region, M81.0 - Age-related osteoporosis without current pathological fracture, R29.6 - Repeated falls, Z95.2 - Presence of prosthetic heart valve Haptoglobin Today K92.2 - Gastrointestinal hemorrhage, unspecified, M50.30 - Other cervical disc degeneration, unspecified cervical region, M81.0 - Age- related osteoporosis without current pathological fracture, R29.6 - Repeated falls CRP Today K92.2 - Gastrointestinal hemorrhage, unspecified, M50.30 - Other cervical disc degeneration, unspecified cervical region, M81.0 - Age-related osteoporosis without current pathological fracture, R29.6 - Repeated falls Erythrocyte Sed Rate Today K92.2 - Gastrointestinal hemorrhage, unspecified, M50.30 - Other cervical disc degeneration, unspecified cervical region, M81.0 - Age-related osteoporosis without current pathological fracture, R29.6 - Repeated falls SHERRON Comprehensive Panel Today K92.2 - Gastrointestinal hemorrhage, unspecified, M50.30 - Other cervical disc degeneration, unspecified cervical region, M81.0 - Age-related osteoporosis without current pathological fracture, R29.6 - Repeated falls IgG Subclasses Today K92.2 - Gastrointestinal hemorrhage, unspecified, M50.30 - Other cervical disc degeneration, unspecified cervical region, M81.0 - Age- related osteoporosis without current pathological fracture, R29.6 - Repeated falls Calcium,Total Today K92.2 - Gastrointestinal hemorrhage, unspecified, M50.30 - Other cervical disc degeneration, unspecified cervical region, M81.0 - Age- related osteoporosis without current pathological fracture, R29.6 - Repeated falls Anti-Parietal Cell AB, QN Today K92.2 - Gastrointestinal hemorrhage, unspecified, M50.30 - Other cervical disc degeneration, unspecified cervical region, M81.0 - Age-related osteoporosis without current pathological fracture, R29.6 - Repeated falls Thyroid Stim Hormone (TSH) Today E78.5 - Hyperlipidemia, unspecified, K92.2 - Gastrointestinal hemorrhage, unspecified, M50.30 - Other cervical disc degeneration, unspecified cervical region, M81.0 - Age-related osteoporosis without current pathological fracture, R29.6 - Repeated falls Vitamin B12 Today K92.2 - Gastrointestinal hemorrhage, unspecified, M50.30 - Other cervical disc degeneration, unspecified cervical region, M81.0 - Age- related osteoporosis without current pathological fracture, R29.6 - Repeated falls Vitamin D 1,25-Dihydroxy Today K92.2 - Gastrointestinal hemorrhage, unspecified, M50.30 - Other cervical disc degeneration, unspecified cervical region, M81.0 - Age-related osteoporosis without current pathological fracture, R29.6 - Repeated falls T4 Free Direct Today E78.5 - Hyperlipidemia, unspecified, K92.2 - G astrointestinal hemorrhage, unspecified, M50.30 - Other cervical disc degeneration, unspecified cervical region, M81.0 - Age-related osteoporosis without current pathological fracture, R29.6 - Repeated falls Free T3 Today K92.2 - Gastrointestinal hemorrhage, unspecified, M50.30 - Other cervical disc degeneration, unspecified cervical region, M81.0 - Age-related osteoporosis without current pathological fracture, R29.6 - Repeated falls CORTISOL SERUM Today K92.2 - Gastrointestinal hemorrhage, unspecified, M50.30 - Other cervical disc degeneration, unspecified cervical region, M81.0 - Age- related osteoporosis without current pathological fracture, R29.6 - Repeated falls Gastrin, Serum Today K92.2 - Gastrointestinal hemorrhage, unspecified, M50.30 - Other cervical disc degeneration, unspecified cervical region, M81.0 - Age- related osteoporosis without current pathological fracture, R29.6 - Repeated falls I have examined the patient and the H&P has been reviewed. There are no clinical changes since date of exam.
[2023-09-26 09:51] VITALS: BP 122/71; BP 98/62; PULSE 61; RESP 18; TEMP 36.2; O2SAT 100
--- NOTE | 2023-09-26 09:53 | OP.EGD_ITS ---
Patient Name: Natalie Harper Procedure Date: 09/26/2023 9:11 AM Date of : 1965 Age: 58 Procedure: Upper GI endoscopy Indications: Iron deficiency anemia, Melena Providers: David Monsivais DO Referring MD: Castro Quintana MD Medicines: Monitored Anesthesia Care Patient Profile: This is a 58 year old female. Refer to note in patient chart for documentation of history and physical. Patient has symptoms. Her most recent EGD for treatment of bleeding was within the past three months. Complications: No immediate complications. Procedure: Pre-Anesthesia Assessment: - Prior to the procedure, a History and Physical was performed, and patient medications and allergies were reviewed. The risks and benefits of the procedure and the sedation options and risks were discussed with the patient. All questions were answered and informed consent was obtained. Patient identification and proposed procedure were verified by the physician in the pre-procedure area. Mental Status Examination: normal. Prophylactic Antibiotics: The patient does not require prophylactic antibiotics. Prior Anticoagulants: The patient has taken no anticoagulant or antiplatelet agents. ASA Grade Assessment: III - A patient with severe systemic disease. After reviewing the risks and benefits, the patient was deemed in satisfactory condition to undergo the procedure. The anesthesia plan was to use monitored anesthesia care (MAC). Immediately prior to administration of medications, the patient was re-assessed for adequacy to receive sedatives. The heart rate, respiratory rate, oxygen saturations, blood pressure, adequacy of pulmonary ventilation, and response to care were monitored throughout the procedure. The physical status of the patient was re-assessed after the procedure. After obtaining informed consent, the endoscope was passed under direct vision. Throughout the procedure, the patient's blood pressure, pulse, and oxygen saturations were monitored continuously. The pediatric colonoscope was introduced through the mouth, and advanced to the second part of duodenum. The upper GI endoscopy was accomplished without difficulty. The patient tolerated the procedure well. Scope In: 9:24:21 AM Scope Out: 9:28:59 AM Total Procedure Duration Time 0 hours 4 minutes 38 seconds Findings: The examined esophagus was normal. Hematin (altered blood/facpba-dakzzf-fikd material) was found in the gastric body. Patchy mild inflammation characterized by congestion (edema) and erosions was found in the gastric body. Patchy mild inflammation characterized by erosions and erythema was found in the first portion of the duodenum. Biopsies were taken with a cold forceps for histology. Verification of patient identification for the specimen was done. Estimated blood loss was minimal. Impression: - Normal esophagus. - Hematin (altered blood/gvllyi-vchfdx-qwvi material) in the gastric body. - Bile gastritis. - Chronic duodenitis. Biopsied. Recommendation: - Discharge patient to home. - Resume previous diet. - Continue present medications. - Await pathology results. -Protonix 40 mg twice a day for 12 weeks then 40 mg once a day. Procedure Code(s): --- Professional --- 36253, Esophagogastroduodenoscopy, flexible, transoral; with biopsy, single or multiple CPT copyright 2021 [employer]. All rights reserved. The codes documented in this report are preliminary and upon program support assistant review may be revised to meet current compliance requirements. David Monsivais DO 09/26/2023 9:52:53 AM This report has been signed electronically. Number of Addenda: 0 Note Initiated On: 09/26/2023 9:11 AM
--- NOTE | 2023-09-26 09:53 | OP.CCLET_ITS ---
09/26/2023 Castro Quintana MD [address] [place] [address] [place] [address] Re : Upper GI endoscopy procedure for Natalie Harper Dear Dr. Quintana This procedure was performed on Tuesday, September 26, 2023. My impressions and recommendations are as follows: Impressions : - Normal esophagus. - Hematin (altered blood/zteeiv-rmonlf-psju material) in the gastric body. - Bile gastritis. - Chronic duodenitis. Biopsied. Recommendations : - Discharge patient to home. - Resume previous diet. - Continue present medications. - Await pathology results. -Protonix 40 mg twice a day for 12 weeks then 40 mg once a day. My findings are described in the full procedure note, which is enclosed. If I can be of further assistance, please feel free to contact me at . Sincerely, David Friend, 09/26/2023 9:52:53 AM This report has been signed electronically.
[2023-09-26 09:55] VITALS: BP 122/71; BP 127/67; PULSE 58; RESP 18; O2SAT 100
--- NOTE | 2023-09-26 09:57 | OP.COLON_ITS ---
Patient Name: Natalie Harper Procedure Date: 09/26/2023 9:29 AM Date of : 1965 Age: 58 Procedure: Colonoscopy Indications: Iron deficiency anemia Providers: David Monsivais DO Referring MD: Castro Quintana MD Patient Profile: This is a 58 year old female. Refer to note in patient chart for documentation of history and physical. Patient has symptoms. Her most recent EGD for treatment of bleeding was within the past three months. Last Colonoscopy: date unknown. Unable to locate last colonoscopy report. Complications: No immediate complications. Procedure: Pre-Anesthesia Assessment: - Prior to the procedure, a History and Physical was performed, and patient medications and allergies were reviewed. The risks and benefits of the procedure and the sedation options and risks were discussed with the patient. All questions were answered and informed consent was obtained. Patient identification and proposed procedure were verified by the physician in the pre-procedure area. Mental Status Examination: normal. Prophylactic Antibiotics: The patient does not require prophylactic antibiotics. Prior Anticoagulants: The patient has taken no anticoagulant or antiplatelet agents. ASA Grade Assessment: III - A patient with severe systemic disease. After reviewing the risks and benefits, the patient was deemed in satisfactory condition to undergo the procedure. The anesthesia plan was to use monitored anesthesia care (MAC). Immediately prior to administration of medications, the patient was re-assessed for adequacy to receive sedatives. The heart rate, respiratory rate, oxygen saturations, blood pressure, adequacy of pulmonary ventilation, and response to care were monitored throughout the procedure. The physical status of the patient was re-assessed after the procedure. After I obtained informed consent, the scope was passed under direct vision. Throughout the procedure, the patient's blood pressure, pulse, and oxygen saturations were monitored continuously. The pediatric colonoscope was introduced through the anus and advanced to the ascending colon. The colonoscopy was performed without difficulty. The patient tolerated the procedure well. The quality of the bowel preparation was poor. Scope In: 9:31:39 AM Scope Out: 9:40:48 AM Total Procedure Duration Time 0 hours 9 minutes 9 seconds Findings: The perianal and digital rectal examinations were normal. A few small-mouthed diverticula were found in the recto-sigmoid colon and sigmoid colon. Extensive amounts of stool was found in the rectum, precluding visualization. Impression: - Preparation of the colon was poor. - Diverticulosis in the recto-sigmoid colon and in the sigmoid colon. - Stool in the rectum. - No specimens collected. Recommendation: - Discharge patient to home. - Clear liquid diet today. - Continue present medications. - Await pathology results. - Repeat colonoscopy because the bowel preparation was poor. Procedure Code(s): --- Professional --- 35167, 53, Colonoscopy, flexible; diagnostic, including collection of specimen(s) by brushing or washing, when performed (separate procedure) CPT copyright 2021 [employer]. All rights reserved. The codes documented in this report are preliminary and upon hardness inspector review may be revised to meet current compliance requirements. David Monsivais DO 09/26/2023 9:57:02 AM This report has been signed electronically. Number of Addenda: 0 Note Initiated On: 09/26/2023 9:29 AM
--- NOTE | 2023-09-26 09:57 | OP.CCLET_ITS ---
09/26/2023 Castro Quintana MD [address] [place] [address] [place] [address] Re : Colonoscopy procedure for Natalie Harper Dear Dr. Quintana This procedure was performed on Tuesday, September 26, 2023. My impressions and recommendations are as follows: Impressions : - Preparation of the colon was poor. - Diverticulosis in the recto-sigmoid colon and in the sigmoid colon. - Stool in the rectum. - No specimens collected. Recommendations : - Discharge patient to home. - Clear liquid diet today. - Continue present medications. - Await pathology results. - Repeat colonoscopy because the bowel preparation was poor. My findings are described in the full procedure note, which is enclosed. If I can be of further assistance, please feel free to contact me at . Sincerely, David Friend, 09/26/2023 9:57:02 AM This report has been signed electronically.
[2023-09-26 10:00] VITALS: BP 116/60; BP 122/71; PULSE 52; RESP 18; O2SAT 100
[2023-09-26 10:06] VITALS: BP 122/71; BP 138/61; PULSE 51; RESP 18; TEMP 36.4; O2SAT 100
[2023-09-26 10:33] VITALS: BP 122/71
--- NOTE | 2023-09-26 10:34 | SUR.PHASEII ---
pt requests phone call from dr valle
== END 2023-09-26 10:40 | disposition home or self-care (01) ==
LOC: EN 07:35 → AC 07:36
PROVIDERS: PCP Internal Medicine; Referring Provider Internal Medicine; Visit Provider Internal Medicine Gastroenterology
PROC: 0DJD8ZZ Inspection of Lower Intestinal Tract, Via Natural or Artificial Opening Endoscopic (ICD-10-PCS; CPT 45378; principal; 2023-09-26 08:40)
DX: D50.9 Iron deficiency anemia, unspecified (principal); M50.30 Other cervical disc degeneration, unspecified cervical region; K44.9 Diaphragmatic hernia without obstruction or gangrene; I25.10 Atherosclerotic heart disease of native coronary artery without angina pectoris; K57.30 Diverticulosis of large intestine without perforation or abscess without bleeding; E78.5 Hyperlipidemia, unspecified; I10 Essential (primary) hypertension; K29.80 Duodenitis without bleeding; F41.9 Anxiety disorder, unspecified; K29.70 Gastritis, unspecified, without bleeding; R29.6 Repeated falls; M81.0 Age-related osteoporosis without current pathological fracture
CPT/HCPCS: 45378; 43239; 88305; J7120; J2405

== ENCOUNTER → 2023-11-07 | Outpatient (CLI) | payer MEDICARE, MEDICAID, SELFPAY ==
[2023-11-07 12:37] LABS: Absolute Lymphocyte Count 1.09 X10^3/uL (0.83-4.51); Absolute Neutrophil Count 4.5 X10^3/uL (2.0-7.7); Basophil# 0.04 X10^3/uL; Basophil% 0.6 % (0-1); Eosinophil# 0.15 X10^3/uL; Eosinophils% 2.4 % (0-5); Hematocrit 42.8 % (37-47); Hemoglobin 11.9 g/dL (12.0-15.0); Lymphocyte # 1.09 X10^3/ul (0.83-4.51); Lymphocyte % 17.6 % (19-41); Mean Corp Hgb Conc 27.8 g/dL (32-36); Mean Corpuscular Hgb 23.3 pg (27.0-32.0); Mean Corpuscular Volume 83.8 fL (81-99); Mean Platelet Vol. 9.2 fl (6.2-12.0); Monocyte# 0.38 X10^3/uL; Monocyte% 6.1 % (0-10); NRBC Flagged by Analyzer 0 % (0-5); Neutrophil # 4.53 X10^3/uL (2.7-7.7); Platelet Count 305 K/mm3 (150-450); RBC Distribution Width CV 18.7 % (11.6-14.6); RBC Distribution Width SD 57.6 fl (35.1-43.9); Red Blood Count 5.11 M/mm3 (4.2-5.4); White Blood Count 6.2 K/mm3 (4.4-11.0)
[2023-11-07 12:55] LABS: ALB/GLOB Ratio 1.3 RATIO (0.9-2.4); AST(SGOT) 23 U/L (15-37); Alanine Aminotransfer ALT/SGPT 29 U/L (13-56); Albumin, Serum 4.2 g/dL (3.2-5.0); Alkaline Phosphatase 60 U/L (45-117); Anion Gap 2 (5-15); BUN 23 mg/dL (7-18); BUN/Creat Ratio 26.2 RATIO (10-20); Bilirubin, Direct 0.11 mg/dL (0.00-0.30); Chloride 110 mmol/L (98-107); Creatinine, Serum 0.88 mg/dL (0.55-1.02); EST Glomerular Filtration Rate 70 mL/min (>60); Est Glom Filt Rate - Afr Amer 85 mL/min (>60); Globulin 3.2 g/dL (2.2-4.2); Glucose 100 mg/dL (74-106); Protein, Total 7.4 g/dL (6.4-8.2); Sodium Level 138 mmol/L (136-145)
[2023-11-07 13:54] LABS: Cholesterol 201 mg/dL (200); High Density Lipoprotein 96 mg/dL; Triglycerides 118 mg/dL; Very Low Density Lipoprotein 24 mg/dL (5-40)
== END | disposition home or self-care (01) ==
LOC: BIMLAB 09:24
PROVIDERS: Nurse Practitioner Gerontology; PCP Internal Medicine; Visit Provider Internal Medicine
DX: E78.5 Hyperlipidemia, unspecified (principal); D64.9 Anemia, unspecified
CPT/HCPCS: 36415; 80053; 80061; 82248; 85025

== ENCOUNTER 2023-12-22 05:38 | Emergency (ER) | payer MEDICARE, MEDICAID, SELFPAY ==
[2023-12-22 05:38] VITALS: BP 146/85; PULSE 91; RESP 16; TEMP 36.1; O2SAT 99; BMI 19.4
--- NOTE | 2023-12-22 05:58 | EKG12_ITS ---
Test Reason : SYNCOPE Blood Pressure : / mmHG Vent. Rate : 068 BPM Atrial Rate : 068 BPM P-R Int : 150 ms QRS Dur : 092 ms QT Int : 398 ms P-R-T Axes : 092 028 068 degrees QTc Int : 423 ms Sinus rhythm with marked sinus arrhythmia Otherwise normal ECG Confirmed by MARIA T DOMINGUEZ, BELA ([id number]), make up editor MEAGAN VILLALOBOS ([id number]) on 12/25/2023 2:11:52 PM Referred By: Confirmed By:TERRI LIVE MD
[2023-12-22 06:01] VITALS: PULSE 84; RESP 25
[2023-12-22 06:15] VITALS: BP 127/77; PULSE 74; RESP 20
--- NOTE | 2023-12-22 06:22 | CT_ITS ---
EXAM: CT HEAD WITHOUT INTRAVENOUS CONTRAST CLINICAL INDICATION: syncope TECHNIQUE: Multiple axial images were obtained of the head without intravenous contrast. This CT exam was performed using one or more of the following dose reduction techniques: automated exposure control, adjustment of the mA and/or kV according to patient size, and/or use of iterative reconstruction technique. COMPARISON: 07/26/2023 FINDINGS: BRAIN AND EXTRA-AXIAL SPACES: No significant abnormality. No intra- or extra-axial hemorrhage. No evidence of acute infarct. No intracranial mass or mass effect. There is preservation of the haddad/white matter interface. Ventricles are appropriate for age. Basal cisterns are patent. BONES/JOINTS: No significant abnormality. No discrete lytic or blastic abnormalities. SINUSES: No significant findings. MASTOID AIR CELLS: No significant effusion. ORBITS: No acute findings. CT/Brain/Head without Contrast IMPRESSION: Negative head/brain CT without intravenous contrast. Electronically Signed: Nick Meza DO at 7:33 EDT ,
[2023-12-22 06:30] VITALS: PULSE 68; RESP 20
[2023-12-22 06:32] LABS: Absolute Lymphocyte Count 1.01 X10^3/uL (0.83-4.51); Absolute Neutrophil Count 9.8 X10^3/uL (2.0-7.7); Basophil# 0.03 X10^3/uL; Basophil% 0.3 % (0-1); Eosinophil# 0.05 X10^3/uL; Eosinophils% 0.4 % (0-5); Hematocrit 46.2 % (37-47); Hemoglobin 13.9 g/dL (12.0-15.0); Lymphocyte # 1.01 X10^3/ul (0.83-4.51); Lymphocyte % 8.9 % (19-41); Mean Corp Hgb Conc 30.1 g/dL (32-36); Mean Corpuscular Hgb 25.6 pg (27.0-32.0); Mean Corpuscular Volume 84.9 fL (81-99); Mean Platelet Vol. 9.1 fl (6.2-12.0); Monocyte# 0.45 X10^3/uL; NRBC Flagged by Analyzer 0 % (0-5); Neutrophil # 9.78 X10^3/uL (2.7-7.7); Neutrophil % 85.8 % (47-70); Platelet Count 311 K/mm3 (150-450); RBC Distribution Width CV 16.5 % (11.6-14.6); RBC Distribution Width SD 50.2 fl (35.1-43.9); Red Blood Count 5.44 M/mm3 (4.2-5.4); White Blood Count 11.4 K/mm3 (4.4-11.0)
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
[2023-12-22 06:47] LABS: International Normalized Ratio 1.8; Partial Thromboplast Time 35.1 Seconds (24.1-36.2); Prothrombin Time (Protime)PT. 20.4 SECONDS (11.7-14.9)
[2023-12-22 06:52] LABS: Anion Gap 4 (5-15); BUN 22 mg/dL (7-18); BUN/Creat Ratio 23.2 RATIO (10-20); Calcium,Total 9.3 mg/dL (8.5-10.1); Chloride 110 mmol/L (98-107); Creatinine, Serum 0.95 mg/dL (0.55-1.02); EST Glomerular Filtration Rate 64 mL/min (>60); Est Glom Filt Rate - Afr Amer 77 mL/min (>60); Estimated Creatinine Clearance 51.64 ml/min; Glucose 109 mg/dL (74-106); Magnesium 2.5 mg/dL (1.6-2.6); Potassium 3.8 mmol/L (3.5-5.1); Sodium Level 138 mmol/L (136-145); Troponin-I HS 17 pg/mL (3.0-54.0)
[2023-12-22 07:00] VITALS: BP 118/72; PULSE 72; RESP 18; O2SAT 99
[2023-12-22 07:47] VITALS: BP 128/86; PULSE 71; RESP 18; TEMP 36.6; O2SAT 100
== END 2023-12-22 07:48 | disposition home or self-care (01) ==
PROVIDERS: Emergency Provider Emergency Medicine; PCP Internal Medicine; Visit Provider Emergency Medicine
DX: R55 Syncope and collapse (principal); I11.0 Hypertensive heart disease with heart failure; I50.9 Heart failure, unspecified; I48.0 Paroxysmal atrial fibrillation; Z79.01 Long term (current) use of anticoagulants; S00.01XA Abrasion of scalp, initial encounter; E78.5 Hyperlipidemia, unspecified; I25.10 Atherosclerotic heart disease of native coronary artery without angina pectoris; Z79.82 Long term (current) use of aspirin; Z79.899 Other long term (current) drug therapy; F41.8 Other specified anxiety disorders; G47.00 Insomnia, unspecified; K21.9 Gastro-esophageal reflux disease without esophagitis; Z90.49 Acquired absence of other specified parts of digestive tract; Z90.710 Acquired absence of both cervix and uterus; Z95.2 Presence of prosthetic heart valve; X58.XXXA Exposure to other specified factors, initial encounter; Y92.89 Other specified places as the place of occurrence of the external cause
CPT/HCPCS: 70450; 80048; 83735; 84484; 85025; 85610; 85730; 93005; 99282; A4216

== ENCOUNTER 2024-01-10 10:35 | Outpatient (CLI) | payer MEDICAID, MEDICARE, SELFPAY ==
[2024-01-10 11:55] LABS: Prothrombin Time (Protime)PT. 52.4 SECONDS (11.7-14.9)
[2024-01-10 12:06] LABS: International Normalized Ratio 5.9
== END 2024-01-10 23:59 | disposition home or self-care (01) ==
PROVIDERS: PCP Internal Medicine; Referring Provider Internal Medicine Cardiovascular Disease; Visit Provider Internal Medicine Cardiovascular Disease
DX: Z79.01 Long term (current) use of anticoagulants (principal); Z95.2 Presence of prosthetic heart valve
CPT/HCPCS: 36415; 85610

== ENCOUNTER → 2024-01-15 | Outpatient (CLI) | payer MEDICARE, MEDICAID, SELFPAY ==
--- NOTE | 2024-01-15 12:06 | BD_ITS ---
STUDY: DUAL ENERGY X-RAY ABSORPTIOMETRY / DXA REASON FOR EXAM: Female, 58 years old. Post Menopausal TECHNIQUE: Bone Mineral Density (BMD) measurements of lumbar spine and right hip were obtained. COMPARISON: Comparison is made with prior study dated January 12, 2022. FINDINGS: Lumbar Spine (L1-L4): g/cm2 (1.230) / T-score (1.6) / Z-score (3.0) Findings are suggestive of normal bone density with a low fracture risk. Right Femur Total: g/cm2 (0.688) / T-score (-2.1) / Z-score (-1.2) Right Femoral Neck: g/cm2 (0.597) / T-score (-2.3) / Z-score (-1.0) The T-Scores on the most recent prior examination were: Lumbar Spine (L1-L4): There has been improvement of bone density since the previous examination. Right Femur Total: which represents an improvement of 0.9%. BD/Dexa Bone Density Study IMPRESSION: The patient is considered osteopenic as outlined below according to World Lul Organization (WHO) criteria with a high fracture risk. There has been improvement of bone density since the previous examination. Reference Information: The T-score is the number of standard deviations above or below the standard which is normal for young adults at their peak bone mineral density. The World Health Organization (WHO) interprets the T-scores as follows: Above -1 Normal bone density Between -1 and -2.5 Osteopenia Equal to / or below -2.5 Osteoporosis As a practical clinical guideline, osteopenia may be graded as follows: Mild -1 through -1.5 Moderate -1.6 through -2.0 Severe -2.1 through -2.4 The Z-score is the number of standard deviations above or below age-matched controls. A Z-score of less than -1.5 would be considered abnormal. References: 1. NIH Osteoporosis and Related Bone Diseases www osteo.org 2. International Society for Clinical Densitometry www iscd.org 3. National Osteoporosis Foundation www nof.org Electronically Signed: Mesfin Fairbanks MD at 7:59 EDT ,
== END | disposition home or self-care (01) ==
PROVIDERS: PCP Internal Medicine; Referring Provider Internal Medicine; Visit Provider Internal Medicine
DX: M81.0 Age-related osteoporosis without current pathological fracture (principal)
CPT/HCPCS: 77080

== ENCOUNTER 2024-01-23 12:29 | Outpatient (RCR) | payer MEDICARE, MEDICAID, SELFPAY ==
[2024-01-14 15:50] LABS: International Normalized Ratio 5.4; Prothrombin Time (Protime)PT. 48.6 SECONDS (11.7-14.9)
[2024-01-16 11:44] LABS: International Normalized Ratio 1.9; Prothrombin Time (Protime)PT. 21.9 SECONDS (11.7-14.9)
[2024-01-23 13:24] LABS: International Normalized Ratio 3.6; Prothrombin Time (Protime)PT. 35.5 SECONDS (11.7-14.9)
== END 2024-01-23 18:00 | disposition home or self-care (01) ==
LOC: LAB 12:29
PROVIDERS: PCP Internal Medicine; Referring Provider Internal Medicine Cardiovascular Disease; Visit Provider Internal Medicine Cardiovascular Disease
DX: Z95.2 Presence of prosthetic heart valve (principal); Z79.01 Long term (current) use of anticoagulants; Z95.1 Presence of aortocoronary bypass graft
CPT/HCPCS: 36415; 85610

== ENCOUNTER 2024-01-30 11:02 | Outpatient (RCR) | payer MEDICARE, MEDICAID, SELFPAY ==
[2024-01-30 12:30] LABS: International Normalized Ratio 3.4; Prothrombin Time (Protime)PT. 34.1 SECONDS (11.7-14.9)
== END 2024-01-30 18:00 | disposition home or self-care (01) ==
LOC: MTLAB 11:02
PROVIDERS: PCP Internal Medicine; Referring Provider Internal Medicine Cardiovascular Disease; Visit Provider Internal Medicine Cardiovascular Disease
DX: Z95.2 Presence of prosthetic heart valve (principal); Z79.01 Long term (current) use of anticoagulants; Z95.1 Presence of aortocoronary bypass graft
CPT/HCPCS: 36415; 85610

== ENCOUNTER → 2024-02-06 | Outpatient (CLI) | payer MEDICARE, MEDICAID, SELFPAY ==
--- NOTE | 2024-02-06 14:15 | RAD_ITS ---
STUDY: X-RAY - RIGHT SHOULDER REASON FOR EXAM: Female, 58 years old. Right shoulder. TECHNIQUE: 4 view(s) of the shoulder. COMPARISON: None. FINDINGS: Normal glenohumeral articulation. Mild arthrosis at the AC joint. Normal acromion. Normal humeral head and visualized proximal humerus. The soft tissue structures are normal. Normal visualized pulmonary apex. RAD/Shoulder min 2 Views IMPRESSION: Mild arthrosis of the AC joint. No other abnormality. Electronically Signed: Stanislav Robbins MD at 15:27 EDT ,
== END | disposition home or self-care (01) ==
PROVIDERS: PCP Internal Medicine; Referring Provider Internal Medicine; Visit Provider Internal Medicine
DX: M25.511 Pain in right shoulder (principal)
CPT/HCPCS: 73030

== ENCOUNTER 2024-04-16 12:30 | Outpatient (RCR) | payer MEDICARE, MEDICAID, SELFPAY ==
--- NOTE | 2024-02-20 16:19 | HP.PTEVAL_ITS ---
Patient's Visit Information Visit Information Visit Information: AUBREY COCHRAN is a 58 year old F referred to Physical Therapy by Dr. Castro Quintana MD with a diagnosis of PAIN IN RIGHT SHOULDER. Date of Evaluation: 02/20/24 Physical Therapist: Fawad Borjas, PT, Cert MDT, OCS Visit Plan Frequency: 2x /Week Duration: 4 Weeks Plan: PT INTERVENTIONS RTC/SCAPULAR STRENGTHENING ,POSTURAL EX'S ,ACTIVITY MODIFICATION AND MODALITIES Subjective Subjective: This 58 y/o female presents to physical therapy with right shoulder pain. Patient fell OOB September 29 landed on shoulders. Patient pain progressively worsen with pain described as ache. Pain refers to lateral deltoid. Seen DR x- rays -. No medication. Aggravating factors laying on right shoulder ,OH lifting above 90 degrees . Alleviating teylonal . Patient pain affects sleeping unable right and left side . Patient c/o tingling in fingers. Patient pain affects QOL and function. Patient goals to goals to decrease pain. SOCIAL: VOCATION: retired Pain Right Shoulder: Pain Intensity (Out of 10): 7 Pain Intensity Range: 10 Objective Objective: POSTURE: rounded shoulders head forward PALAPTION: mild tender AC joint NEURO: denies paresthesia/tingling AROM:shoulder flexion/abduction 150 degrees pain ,ER 90 degrees ,IR T 10 MMT: ( peak force) infraspinatus 6.8 ,subscapularis 9.1 ,supraspinatus 4.2 ,deltoid 3.1 Special Tests R Shoulder External Rotation Lag Test - RC Tear: Negative R Shoulder Lift Off Test - Subscapular Tear: Negative R Shoulder Drop Sign - IS Test: Negative R Shoulder Empty Can - SS: Positive R Shoulder Belly Press - SupScap: Negative R Shoulder Neer - Impingement: Positive R Shoulder Self Fidel - Impingement: Positive R Shoulder Speeds Test - Labrum/Biceps: Negative Balance/Special Test Scores Quick DASH Score: 60.0000 Goals Goal 1:: Patient to be I with HEP shoulder Goal Time Frame: 4-6 Weeks Goal 2:: Patient to demonstrate 60% improvement with less pain and improve function with ADL Goal Time Frame: 4-6 Weeks Goal 3:: Patient to improve peak force RTC/deltoid by 5-10 # strength to improve function Goal Time Frame: 4-6 Weeks Goal 4:: Patient improve quick dash oswestry score by5 points to improve QOL Goal Time Frame: 4-6 Weeks Rehabilitation Potential Physical Therapy Diagnosis: This patient has possible RTC injury due to weakness ,pain - drop but + impingement signs worse OH activities thus benefit from skilled PT Rehabilitation Potential: Good Anticipated Interventions Patient/Client Instruction: Educate patient on: Condition and Plan of Care For the Purpose of:: To decrease pain, To increase ROM, To improve muscle performance and motor function, To improve ability to perform ADL's, To increase tolerance to activity/condition/position, To improve ability of physical actions for home/community/work/leisure, To improve health of tissue, To decrease soft tissue restriction, To increase flexibility/ROM and To improve tolerance to ADL's Therapeutic Exercise to Include: Strength training, Postural training, Flexibilty training, Active ROM and Scapular Strength/Stabilization Comment: RTC For the Purpose of:: To decrease pain, To increase ROM, To improve muscle performance and motor function, To improve ability to perform ADL's, To increase tolerance to activity/condition/position, To improve ability of physical actions for home/community/work/leisure, To improve health of tissue, To decrease soft tissue restriction, To increase flexibility/ROM, To prevent re-injury and To improve tolerance to ADL's TENS: Yes IF ES: Yes Cryotherapy (ice pack, ice massage): Yes Thermo therapy (hot pack): Yes Ultrasound (thermal/non thermal): Yes For the Purpose of:: To decrease pain, To increase ROM, To improve nutrient delivery to tissue, To increase oxygenation perfusion, To improve health of tissue and To decrease soft tissue restriction Text: Thank you for the opportunity to evaluate your patient. For Medicare and Medicare HMO plans, please review the plan of care and approve it. It will need to be FAXED BACK to us at [phone] for Medicare purposes. For Medicare only, by signing this I certify the plan of care. Please let me know if there are questions or concerns regarding this plan of care. Physician Signature: Date:
--- NOTE | 2024-04-16 13:27 | HP.PTREVAL ---
Re-Evaluation Intro: Dr. Castro Quintana MD, It has been my pleasure to treat AUBREY COCHRAN over the last 9 visits for PAIN IN RIGHT SHOULDER. Please see the progress note below for an update on the physical therapy plan of care! Subjective Subjective: Seen Dr Keane ,order MRI and had cortisone injection Still have pain with OH activities and reaching Although PT is helping some Objective Objective/Function: * Patient will continue to benefit from skulled PT to decrease pain and improve function making mod progress and plans to get MRI* POSTURE: rounded shoulders head forward PALAPTION: mild tender AC joint NEURO: denies paresthesia/tingling AROM:shoulder flexion/abduction 160 degrees pain ,ER 90 degrees ,IR T 10 MMT: ( peak force) infraspinatus 10.4 ,subscapularis 10.9 ,supraspinatus 6.2 pain ,deltoid 7.1 pain Plan Plan Plan: PT INTERVENTIONS RTC/SCAPULAR STRENGTHENING ,POSTURAL EX'S ,ACTIVITY MODIFICATION AND MODALITIES Balance/Gait/Functional tests Balance/Special Test Scores Quick DASH Score: 45.4525 Goals Goals Goal 1:: Patient to be I with HEP shoulder Goal Time Frame: 4-6 Weeks Goal Progress: Progressing Goal 2:: Patient to demonstrate 60% improvement with less pain and improve function with ADL Goal Time Frame: 4-6 Weeks Goal Progress: Progressing Goal 3:: Patient to improve peak force RTC/deltoid by 5-10 # strength to improve function Goal Time Frame: 4-6 Weeks Goal Progress: Progressing Goal 4:: Patient improve quick dash oswestry score by5 points to improve QOL Goal Time Frame: 4-6 Weeks Goal Progress: Progressing Anticipated Interventions Anticipated Interventions Patient/Client Instruction: Educate patient on: Condition and Plan of Care For the Purpose of:: To decrease pain, To increase ROM, To improve muscle performance and motor function, To improve ability to perform ADL's, To increase tolerance to activity/condition/position, To improve ability of physical actions for home/community/work/leisure, To improve health of tissue, To decrease soft tissue restriction, To increase flexibility/ROM and To improve tolerance to ADL's Therapeutic Exercise to Include: Strength training, Postural training, Flexibilty training, Active ROM and Scapular Strength/Stabilization Comment: RTC For the Purpose of:: To decrease pain, To increase ROM, To improve muscle performance and motor function, To improve ability to perform ADL's, To increase tolerance to activity/condition/position, To improve ability of physical actions for home/community/work/leisure, To improve health of tissue, To decrease soft tissue restriction, To increase flexibility/ROM, To prevent re-injury and To improve tolerance to ADL's TENS: Yes IF ES: Yes Cryotherapy (ice pack, ice massage): Yes Thermo therapy (hot pack): Yes Ultrasound (thermal/non thermal): Yes For the Purpose of:: To decrease pain, To increase ROM, To improve nutrient delivery to tissue, To increase oxygenation perfusion, To improve health of tissue and To decrease soft tissue restriction Re-Evaluation Ending Re-evaluation ending: Please do not hesitate to contact me at [phone] by phone or if you have questions or concerns regarding this new plan of care! Sincerely, Fawad Borjas, PT, Cert MDT, OCS
--- NOTE | 2024-05-27 15:12 | HP.PTDCSUM ---
Discharge Summary D/C summary: It has been my pleasure to treat AUBREY COCHRAN referred by Dr. Castro Quintana MD, with the diagnosis of PAIN IN RIGHT SHOULDER for a total of 9 visit(s). Discharge Date: Please see the following information for a summary of their discharge status. Subjective Subjective: Seen Dr Keane ,order MRI and had cortisone injection Still have pain with [place] activities and reaching Although PT is helping some Pain Right Shoulder: Pain Intensity (Out of 10): 7 Overall Improvement % Improvement: 20 Objective Objective/Function: * Patient will continue to benefit from skulled PT to decrease pain and improve function making mod progress and plans to get MRI* POSTURE: rounded shoulders head forward PALAPTION: mild tender AC joint NEURO: denies paresthesia/tingling AROM:shoulder flexion/abduction 160 degrees pain ,ER 90 degrees ,IR T 10 MMT: ( peak force) infraspinatus 10.4 ,subscapularis 10.9 ,supraspinatus 6.2 pain ,deltoid 7.1 pain Goals Goal 1:: Patient to be I with HEP shoulder Goal Progress: Progressing Goal 2:: Patient to demonstrate 60% improvement with less pain and improve function with ADL Goal Progress: Progressing Goal 3:: Patient to improve peak force RTC/deltoid by 5-10 # strength to improve function Goal Progress: Progressing Goal 4:: Patient improve quick dash oswestry score by5 points to improve QOL Goal Progress: Progressing Plan Plan: PT INTERVENTIONS RTC/SCAPULAR STRENGTHENING ,POSTURAL EX'S ,ACTIVITY MODIFICATION AND MODALITIES D/C Information d/c sentence: If there are questions or concerns regarding this patient's physical therapy, please feel free to call me at [phone]. Thank you for the referral of this patient. Sincerely, Fawad Borjas, PT, Cert MDT, OCS Balance/Gait/Functional tests Balance/Special Test Scores Quick DASH Score: 45.4525 Improvement % Improvement: 20
== END 2024-04-16 19:00 | disposition home or self-care (01) ==
LOC: PT 12:30
PROVIDERS: PCP Internal Medicine; Visit Provider Internal Medicine
DX: M25.511 Pain in right shoulder (principal)
CPT/HCPCS: 97110; 97162; 97530

== ENCOUNTER 2024-06-08 12:32 | Emergency (ER) | payer MEDICARE, MEDICAID, SELFPAY ==
[2024-06-08 12:37] VITALS: BP 191/135; PULSE 115; RESP 26; TEMP 36.5; O2SAT 100; BMI 21.3
--- NOTE | 2024-06-08 13:04 | RAD_ITS ---
STUDY: XR Hip Unilateral with Pelvis when performed; 2-3 Views 06/08/2024 1:15 PM REASON FOR EXAM: Female, 58 years old. fall, injury Pain TECHNIQUE: XR Hip Unilateral 2 views with Pelvis 1 Views COMPARISON: None FINDINGS: There is a non-specific bowel gas pattern. Normal visualized soft tissue structures. Normal bilateral iliac wings, sacroiliac joints and visualized sacrum. Healed fracture of the right superior and inferior pubic ramus. Normal pubic symphysis. Normal ischial tuberosities. Normal visualized right femoral head. Normal right acetabulum. There is mild articular joint space narrowing of the right hip. Normal visualized left femoral head. Normal left acetabulum. There is mild articular joint space narrowing of the left hip. RAD/HIP, UNI W/ Pelvis 2-3 Views IMPRESSION: Degenerative findings in both hips. Electronically Signed: Romario Louis MD at 14:37 EST Reading Location ID and State: [facility] / [place] , Service support ,
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
--- NOTE | 2024-06-08 13:04 | RAD_ITS ---
STUDY: XR Chest 1 View 06/08/2024 1:15 PM REASON FOR EXAM: Female, 58 years old. fall, trauma COMPARISON: 05/03/2022 TECHNIQUE: XR Chest 1 View FINDINGS: There is no demonstrated pleural abnormality. Normal heart size. Normal mediastinum. Normal jagjit. Prominent appearing increased interstitial lung markings. Normal visualized pulmonary arteries. There is atherosclerotic calcification of the aortic arch with tortuosity. There are diffuse degenerative changes of the visualized thoracic spine. There is degenerative osteoarthritis of the bilateral shoulders. There are no acute findings of the upper abdomen. RAD/Chest 1 View (Portable) IMPRESSION: There are no acute findings. Electronically Signed: Romario Louis MD at 14:50 EST ,
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
[2024-06-08 13:34] VITALS: BP 121/84; PULSE 94; RESP 18; O2SAT 96
[2024-06-08] MEDS: Diphth,Pertuss(Acell),Tet Vac 0.5 ML Vial IM (13:59)
[2024-06-08 14:00] VITALS: BP 142/87; PULSE 90; RESP 16; O2SAT 98
[2024-06-08 14:01] LABS: Absolute Lymphocyte Count 0.85 X10^3/uL (0.83-4.51); Absolute Neutrophil Count 7.8 X10^3/uL (2.0-7.7); Basophil# 0.04 X10^3/uL; Basophil% 0.4 % (0-1); Eosinophil# 0.01 X10^3/uL; Eosinophils% 0.1 % (0-5); Lymphocyte # 0.85 X10^3/ul (0.83-4.51); Lymphocyte % 9.3 % (19-41); Mean Corp Hgb Conc 31.7 g/dL (32-36); Mean Corpuscular Hgb 28.4 pg (27.0-32.0); Mean Corpuscular Volume 89.5 fL (81-99); Mean Platelet Vol. 9.3 fl (6.2-12.0); Monocyte# 0.41 X10^3/uL; Monocyte% 4.5 % (0-10); NRBC Flagged by Analyzer 0 % (0-5); Neutrophil # 7.78 X10^3/uL (2.7-7.7); Neutrophil % 85.2 % (47-70); Platelet Count 288 K/mm3 (150-450); RBC Distribution Width CV 14.6 % (11.6-14.6); RBC Distribution Width SD 47.5 fl (35.1-43.9); Red Blood Count 4.58 M/mm3 (4.2-5.4); White Blood Count 9.1 K/mm3 (4.4-11.0)
[2024-06-08 14:12] LABS: International Normalized Ratio 3.7; Prothrombin Time (Protime)PT. 37.3 SECONDS (11.7-14.9)
[2024-06-08] MEDS: Acetaminophen 500 MG Tablet 1000 MG PO (14:52)
[2024-06-08 15:00] VITALS: BP 126/73; PULSE 98; RESP 18; O2SAT 100
[2024-06-08 15:22] VITALS: BP 126/73; PULSE 98; RESP 18; TEMP 36.7; O2SAT 100
--- NOTE | 2024-06-08 15:52 | ED.RN ---
PICTURES TAKEN AND ADDED TO PT CHART PER PHYSICIAN REQUEST. CONSENT SIGNED BY PATIENT FOR PICTURES TO BE TAKEN RIGHT UPPER CHEST/ COLLAR BONE BRUISING AND SWELLING LEFT HIP BRUISE AND SWELLING 2ND VIEW OF LEFT HIP TO SHOW SWELLING BILATERAL MOORE BRUISING AND ABRASIONS 2ND VIEW OF BILATERAL MOORE BRUISING AND ABRASIONS RIGHT ANKLE ABRASION WITH BRUISING
== END 2024-06-08 15:23 | disposition home or self-care (01) ==
PROVIDERS: Emergency Provider Emergency Medicine; PCP Internal Medicine; Referring Provider Emergency Medicine; Visit Provider Emergency Medicine
DX: S20.20XA Contusion of thorax, unspecified, initial encounter (principal); I11.0 Hypertensive heart disease with heart failure; I50.9 Heart failure, unspecified; Z79.01 Long term (current) use of anticoagulants; E78.5 Hyperlipidemia, unspecified; I25.10 Atherosclerotic heart disease of native coronary artery without angina pectoris; Z90.710 Acquired absence of both cervix and uterus; S70.02XA Contusion of left hip, initial encounter; Y01.XXXA Assault by pushing from high place, initial encounter; Y93.01 Activity, walking, marching and hiking; Y92.59 Other trade areas as the place of occurrence of the external cause; Z79.82 Long term (current) use of aspirin; K21.9 Gastro-esophageal reflux disease without esophagitis; F41.8 Other specified anxiety disorders; Z79.899 Other long term (current) drug therapy; Z90.49 Acquired absence of other specified parts of digestive tract; Z95.2 Presence of prosthetic heart valve; S09.90XA Unspecified injury of head, initial encounter

== ENCOUNTER 2024-06-11 11:16 | Outpatient (RCR) | payer MEDICARE, MEDICAID, SELFPAY ==
[2024-06-11 11:57] LABS: Prothrombin Time (Protime)PT. 39.8 SECONDS (11.7-14.9)
[2024-06-11 12:13] LABS: AST(SGOT) 36 U/L (15-37); Alanine Aminotransfer ALT/SGPT 28 U/L (13-56); Albumin, Serum 3.7 g/dL (3.2-5.0); Alkaline Phosphatase 51 U/L (45-117); Bilirubin, Direct 0.17 mg/dL (0.00-0.30); Cholesterol 169 mg/dL (200); Globulin 3.3 g/dL (2.2-4.2); High Density Lipoprotein 85 mg/dL; Triglycerides 122 mg/dL; Very Low Density Lipoprotein 24 mg/dL (5-40)
== END 2024-06-11 18:00 | disposition home or self-care (01) ==
LOC: MTLAB 11:16
PROVIDERS: Nurse Practitioner Gerontology; PCP Internal Medicine; Referring Provider Internal Medicine Cardiovascular Disease; Visit Provider Internal Medicine Cardiovascular Disease
DX: Z95.2 Presence of prosthetic heart valve (principal); E78.5 Hyperlipidemia, unspecified

== ENCOUNTER 2024-06-12 15:45 | Emergency (ER) | payer MEDICARE, MEDICAID, SELFPAY ==
[2024-06-12 15:47] VITALS: BP 133/74; PULSE 101; RESP 12; TEMP 37; O2SAT 98; BMI 22.8
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
[2024-06-12] MEDS: Acetaminophen 325 MG Tablet 650 MG PO (16:29)
[2024-06-12 16:35] LABS: Absolute Lymphocyte Count 1.31 X10^3/uL (0.83-4.51); Absolute Neutrophil Count 5.4 X10^3/uL (2.0-7.7); Basophil# 0.04 X10^3/uL; Basophil% 0.5 % (0-1); Eosinophil# 0.06 X10^3/uL; Eosinophils% 0.8 % (0-5); Hematocrit 24.1 % (37-47); Hemoglobin 7.6 g/dL (12.0-15.0); Lymphocyte # 1.31 X10^3/ul (0.83-4.51); Lymphocyte % 17.1 % (19-41); Mean Corp Hgb Conc 31.5 g/dL (32-36); Mean Corpuscular Hgb 28.8 pg (27.0-32.0); Mean Corpuscular Volume 91.3 fL (81-99); Mean Platelet Vol. 9.2 fl (6.2-12.0); Monocyte% 10.4 % (0-10); NRBC Flagged by Analyzer 0.5 % (0-5); Neutrophil % 70.5 % (47-70); Platelet Count 288 K/mm3 (150-450); RBC Distribution Width CV 15.4 % (11.6-14.6); RBC Distribution Width SD 47.9 fl (35.1-43.9); Red Blood Count 2.64 M/mm3 (4.2-5.4); White Blood Count 7.7 K/mm3 (4.4-11.0)
[2024-06-12 16:43] LABS: International Normalized Ratio 3.3
[2024-06-12 16:55] LABS: Anion Gap 6 (5-15); BUN 24 mg/dL (7-18); BUN/Creat Ratio 24.3 RATIO (10-20); Chloride 107 mmol/L (98-107); Creatinine, Serum 0.99 mg/dL (0.55-1.02); EST Glomerular Filtration Rate 61 mL/min (>60); Est Glom Filt Rate - Afr Amer 74 mL/min (>60); Estimated Creatinine Clearance 52.84 ml/min; Glucose 161 mg/dL (74-106); Potassium 3.9 mmol/L (3.5-5.1); Sodium Level 138 mmol/L (136-145)
[2024-06-12 17:23] VITALS: BP 100/89; PULSE 90; RESP 16; TEMP 36.6; O2SAT 99
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
== END 2024-06-12 17:51 | disposition home or self-care (01) ==
PROVIDERS: Emergency Provider Emergency Medicine; PCP Internal Medicine; Visit Provider Emergency Medicine
DX: S70.02XA Contusion of left hip, initial encounter (principal); I11.0 Hypertensive heart disease with heart failure; I50.9 Heart failure, unspecified; S20.20XA Contusion of thorax, unspecified, initial encounter; E78.5 Hyperlipidemia, unspecified; Z90.710 Acquired absence of both cervix and uterus; Z79.01 Long term (current) use of anticoagulants; D64.9 Anemia, unspecified; Y04.8XXA Assault by other bodily force, initial encounter; I25.10 Atherosclerotic heart disease of native coronary artery without angina pectoris; Z79.82 Long term (current) use of aspirin; Z79.899 Other long term (current) drug therapy; K21.9 Gastro-esophageal reflux disease without esophagitis; F41.9 Anxiety disorder, unspecified; F32.A Depression, unspecified; Z90.49 Acquired absence of other specified parts of digestive tract; Z95.2 Presence of prosthetic heart valve
CPT/HCPCS: 80048; 85025; 85610; 99285; A4216

== ENCOUNTER → 2024-08-06 | Outpatient (CLI) | payer MEDICARE, MEDICAID, SELFPAY ==
[2024-08-06 12:25] LABS: Absolute Lymphocyte Count 1.02 X10^3/uL (0.83-4.51); Absolute Neutrophil Count 5.9 X10^3/uL (2.0-7.7); Basophil# 0.02 X10^3/uL; Basophil% 0.3 % (0-1); Eosinophil# 0.08 X10^3/uL; Eosinophils% 1.1 % (0-5); Hematocrit 45.1 % (37-47); Lymphocyte # 1.02 X10^3/ul (0.83-4.51); Lymphocyte % 13.7 % (19-41); Mean Corpuscular Hgb 28.6 pg (27.0-32.0); Mean Corpuscular Volume 92.2 fL (81-99); Mean Platelet Vol. 8.9 fl (6.2-12.0); Monocyte% 5.4 % (0-10); NRBC Flagged by Analyzer 0 % (0-5); Neutrophil # 5.93 X10^3/uL (2.7-7.7); Neutrophil % 79.2 % (47-70); Platelet Count 267 K/mm3 (150-450); Red Blood Count 4.89 M/mm3 (4.2-5.4); White Blood Count 7.5 K/mm3 (4.4-11.0)
== END | disposition home or self-care (01) ==
LOC: LAB 12:04
PROVIDERS: PCP Internal Medicine; Referring Provider Physician Assistant Medical; Visit Provider Physician Assistant Medical
DX: D64.9 Anemia, unspecified (principal)
CPT/HCPCS: 36415; 85025

== ENCOUNTER → 2024-08-14 | Outpatient (CLI) | payer MEDICARE, MEDICAID, SELFPAY ==
[2024-08-14 18:19] LABS: Amphetamine Urine NEGATIVE (<1000 ng/mL); Barbiturate Urine NEGATIVE (< 200 ng/mL); Benzodiazepine Urine NEGATIVE (< 200 ng/mL); Buprenorphine Urine NEGATIVE (< 200 ng/mL); Cocaine Urine NEGATIVE (< 300 ng/mL); Fentanyl, Urine NEGATIVE; Methadone Urine NEGATIVE (< 300 ng/mL); Opiates Urine NEGATIVE (< 300 ng/mL); Oxycodone, Urine NEGATIVE (< 100 ng/mL); PCP Urine NEGATIVE (< 25 ng/mL); THC Urine PRESUMPTIVE POSITIVE (< 50 ng/mL)
== END | disposition home or self-care (01) ==
LOC: LABSPEC 14:47
PROVIDERS: PCP Internal Medicine; Referring Provider Internal Medicine; Visit Provider Internal Medicine
DX: Z51.81 Encounter for therapeutic drug level monitoring (principal)
CPT/HCPCS: 80307

== ENCOUNTER → 2024-09-05 | Outpatient (CLI) | payer MEDICARE, MEDICAID, SELFPAY ==
--- NOTE | 2024-09-05 10:41 | ECHOD_ITS ---
Reason For Study Reason For Study: PROSTHETIC HEART VALVE Procedure This was a 2D Doppler, Color Flow transthoracic echocardiogram. Exam performed in department. Left Ventricle Normal LV size. Left ventricular systolic function is normal. The left ventricular ejection fraction is 60 %. No regional wall motion abnormalities noted. Right Ventricle Normal RV size. Normal systolic function. Atria Normal left atrium. Normal right atrium. Mitral Valve There is moderate mitral annular calcification. Tricuspid Valve Normal tricuspid valve. Aortic Valve Peak aortic valve gradient 34 mmHg. Mean aortic valve gradient 16 mmHg. Bioprosthetic aortic valve. Pulmonic Valve Normal pulmonic valve. Great Vessels Normal aortic root. The pulmonary artery is normal size. Inferior vena cava collapse with respiration. Pericardium/Pleural No pericardial effusion. MMode/2D Measurements & Calculations LVIDd: 3.6 cm IVSd: 0.87 cm LAV(MOD- bp): 22.5 ml LVIDs: 2.7 cm LVPWd: 0.97 cm LAV(MOD- bp) Indexed: 14.6 ml/m2 RVDd: 3.4 cm FS: 25.4 % LAV(MOD- sp2): 22.9 ml LAV(MOD- sp4): 21.7 ml SV(MOD-sp4): 23.9 ml SV(sp4- el): 26.1 ml LVAd ap4: 18.7 cm2 LVLd ap4: 7.2 cm SI(MOD-sp4): 15.5 ml/m2 EDV(MOD-sp4): 41.9 ml EDV(sp4-el): 41.5 ml LVAs ap4: 10.5 cm2 LVLs ap4: 6.1 cm ESV(MOD-sp4): 18.0 ml ESV(sp4-el): 15.4 ml EF(MOD-sp4): 57.1 % EF(sp4-el): 62.9 % LA A4 area: 9.9 cm2 LA dimension(2D): 3.3 cm RA A4 area: 9.8 cm2 Time Measurements MV dec time: 0.15 sec Doppler Measurements & Calculations MV E max danilo: 75.9 cm/sec Lat Peak E' Danilo: 10.0 cm/sec Med Peak E' Danilo: 5.8 cm/sec MV A max danilo: 101.0 cm/sec E/E' lat: 7.6 E/E' med: 13.1 MV E/A: 0.75 MV V2 max: 108.8 cm/sec MV dec slope: 503.5 cm/sec2 Ao V2 max: 292.5 cm/sec MV max P.7 mmHg Ao max P.3 mmHg MV V2 mean: 77.3 cm/sec Ao V2 mean: 180.0 cm/sec MV mean P.7 mmHg Ao mean P.1 mmHg MV V2 VTI: 21.4 cm Ao V2 VTI: 43.5 cm AV (velocity ratio): 0.87 LV V1 max: 203.2 cm/sec PA V2 max: 86.1 cm/sec LV V1 max P.5 mmHg PA V2 mean: 55.4 cm/sec LV V1 mean P.0 mmHg LV V1 mean: 155.4 cm/sec LV V1 VTI: 37.6 cm ECHO/Echo Complete Interpretation Summary Normal LV size. Left ventricular systolic function is normal. The left ventricular ejection fraction is 60 %. Mean aortic valve gradient 16 mmHg. Bioprosthetic aortic valve. Ordering Physician: Fabby Jolly Referring Physician: Fabby Jolly Performed By: Nicky Izquierdo RCS
== END | disposition home or self-care (01) ==
LOC: CVS 10:40
PROVIDERS: PCP Internal Medicine; Referring Provider Physician Assistant Medical; Visit Provider Physician Assistant Medical
DX: Z95.2 Presence of prosthetic heart valve (principal)
CPT/HCPCS: 93306

== ENCOUNTER 2024-09-11 13:37 | Outpatient (RCR) | payer MEDICARE, MEDICAID, SELFPAY ==
[2024-09-05 13:09] LABS: International Normalized Ratio 2.2; Prothrombin Time (Protime)PT. 24.8 SECONDS (11.7-14.9)
[2024-09-11 14:43] LABS: Prothrombin Time (Protime)PT. 55.9 SECONDS (11.7-14.9)
[2024-09-11 14:53] LABS: International Normalized Ratio 6.1
== END 2024-09-24 18:00 | disposition home or self-care (01) ==
LOC: LAB 13:37
PROVIDERS: PCP Internal Medicine; Referring Provider Internal Medicine Cardiovascular Disease; Visit Provider Internal Medicine Cardiovascular Disease
DX: Z95.2 Presence of prosthetic heart valve (principal); Z79.01 Long term (current) use of anticoagulants
CPT/HCPCS: 36415; 85610

== ENCOUNTER → 2024-09-18 | Outpatient (CLI) | payer MEDICARE, MEDICAID, SELFPAY ==
--- NOTE | 2024-09-18 10:30 | BI_ITS ---
EXAM: SCRN MAMM (CAD)W/ILENE BILAT DATE: 09/18/2024 CLINICAL HISTORY: F, Age 59 y/o , BREAST CANCER SCREENING No family history. BREAST CANCER RISK ASSESSMENT: Not assessed. TECHNIQUE: Bilateral screening digital breast tomosynthesis with 2D and 3D images. Computer aided detection. COMPARISON: Prior exam(s) dated September 18, 2023.. FINDINGS: TISSUE DENSITY: The breast tissue is heterogenously dense, which may obscure small masses. Bilateral Breast Mammographic Findings: No significant masses, calcifications or other abnormalities are identified. BI/SCRN MAMM (CAD)W/ILENE BILAT IMPRESSION: OVERALL FINAL ASSESSMENT: BIRADS 1 NEGATIVE RECOMMENDATION: Routine annual follow-up in 1 Year A letter with findings and recommendations will be mailed to the patient. Reading Location: [place] [id number]
== END | disposition home or self-care (01) ==
LOC: OPBI 10:18
PROVIDERS: PCP Internal Medicine; Referring Provider Internal Medicine; Visit Provider Internal Medicine
DX: Z12.31 Encounter for screening mammogram for malignant neoplasm of breast (principal)
CPT/HCPCS: 77063; 77067

== ENCOUNTER → 2024-11-13 | Outpatient (CLI) | payer MEDICARE, MEDICAID, SELFPAY ==
[2024-11-13 16:53] LABS: Absolute Lymphocyte Count 1.53 X10^3/uL (0.83-4.51); Absolute Neutrophil Count 4.6 X10^3/uL (2.0-7.7); Basophil# 0.04 X10^3/uL; Basophil% 0.6 % (0-1); Eosinophil# 0.05 X10^3/uL; Eosinophils% 0.8 % (0-5); Hemoglobin 15.3 g/dL (12.0-15.0); Lymphocyte # 1.53 X10^3/ul (0.83-4.51); Lymphocyte % 23.1 % (19-41); Mean Corp Hgb Conc 31.9 g/dL (32-36); Mean Corpuscular Hgb 28.5 pg (27.0-32.0); Mean Corpuscular Volume 89.4 fL (81-99); Mean Platelet Vol. 10.6 fl (6.2-12.0); Monocyte# 0.38 X10^3/uL; Monocyte% 5.7 % (0-10); NRBC Flagged by Analyzer 0 % (0-5); Neutrophil % 69.6 % (47-70); Platelet Count 276 K/mm3 (150-450); RBC Distribution Width CV 14.6 % (11.6-14.6); RBC Distribution Width SD 47.4 fl (35.1-43.9); Red Blood Count 5.37 M/mm3 (4.2-5.4); White Blood Count 6.6 K/mm3 (4.4-11.0)
[2024-11-13 17:01] LABS: ALB/GLOB Ratio 1.5 RATIO (0.9-2.4); AST(SGOT) 44 U/L (<=31); Alanine Aminotransfer ALT/SGPT 30 U/L (<=34); Alkaline Phosphatase 59 U/L (35-104); Anion Gap 14 (5-15); BUN 23 mg/dL (4-19); BUN/Creat Ratio 28.5 RATIO (10-20); Calcium,Total 10.1 mg/dL (7.6-11.0); Carbon Dioxide 21.9 mmol/L (21.0-32.0); Chloride 104 mmol/L (98-108); Creatinine, Serum 0.82 mg/dL (0.70-1.20); EST Glomerular Filtration Rate 82 (>60); Globulin 3.4 g/dL (2.2-4.2); Glucose 98 mg/dL (70-99); Potassium 4.3 mmol/L (3.3-5.1); Protein, Total 8.4 g/dL (5.9-8.4); Sodium Level 140 mmol/L (133-145); Total Bilirubin 0.35 mg/dL (0.00-1.30)
== END | disposition home or self-care (01) ==
LOC: BIMLAB 15:38
PROVIDERS: PCP Internal Medicine; Referring Provider Internal Medicine; Visit Provider Internal Medicine
DX: D64.9 Anemia, unspecified (principal); I10 Essential (primary) hypertension
CPT/HCPCS: 36415; 80053; 85025

== ENCOUNTER → 2025-02-13 | Outpatient (CLI) | payer MEDICARE, MEDICAID, SELFPAY ==
[2025-02-13 09:36] LABS: Mucous, Urine 0 SEEN /hpf (<or=2+); Red Blood Cells-Urine 0 SEEN /hpf (0-5); Squamous Epithelial Cells - UA 0 SEEN /hpf (5-10)
[2025-02-13 12:42] LABS: Color, Urine Yellow (Yellow); Glucose, Dipstick Normal (Normal); Ketone-Dipstick Negative (Negative); Leukocyte Esterase-Dipstick Negative /ul (Negative); Nitrite-Dipstick Negative (Negative); Occult Blood-Urine 50 /ul (Negative); Protein-Dipstick 15 mg/dl (Negative); Specific Gravity, Urine 1.010 (1.002-1.030); Urine Bilirubin Dipstick Negative (Negative)
[2025-02-13 12:51] LABS: Hematocrit 45.8 % (37-47); Hemoglobin 14.4 g/dL (12.0-15.0); Immature Granulocytes Count 0.040 X10^3/uL (0.0-0.0); Mean Corp Hgb Conc 31.4 g/dL (32-36); Mean Corpuscular Volume 92.3 fL (81-99); Mean Platelet Vol. 9.3 fl (6.2-12.0); NRBC Flagged by Analyzer 0 % (0-5); Platelet Count 314 K/mm3 (150-450); RBC Distribution Width CV 14.5 % (11.6-14.6); RBC Distribution Width SD 48.6 fl (35.1-43.9); Red Blood Count 4.96 M/mm3 (4.2-5.4); White Blood Count 7.0 K/mm3 (4.4-11.0)
[2025-02-13 13:30] LABS: AST(SGOT) 28 U/L (<=31); Alanine Aminotransfer ALT/SGPT 19 U/L (<=34); Albumin, Serum 4.5 g/dL (3.4-4.8); Alkaline Phosphatase 53 U/L (35-104); Anion Gap 13 (5-15); BUN 21 mg/dL (4-19); BUN/Creat Ratio 23.5 RATIO (10-20); Calcium,Total 10.0 mg/dL (7.6-11.0); Carbon Dioxide 19.8 mmol/L (21.0-32.0); Chloride 106 mmol/L (98-108); Globulin 3.0 g/dL (2.2-4.2); Glucose 114 mg/dL (70-99); Potassium 4.3 mmol/L (3.3-5.1)
== END | disposition home or self-care (01) ==
LOC: BIMLAB 09:34
PROVIDERS: PCP Internal Medicine; Referring Provider Internal Medicine; Visit Provider Internal Medicine
DX: E78.5 Hyperlipidemia, unspecified (principal); I10 Essential (primary) hypertension
CPT/HCPCS: 36415; 80053; 81001; 84439; 84443; 85025

== ENCOUNTER → 2025-03-13 | Outpatient (CLI) | payer MEDICARE, MEDICAID, SELFPAY ==
[2025-03-13 18:34] LABS: Hematocrit 44.1 % (37-47); Hemoglobin 14.0 g/dL (12.0-15.0); Immature Granulocytes Count 0.030 X10^3/uL (0.0-0.0); Mean Corp Hgb Conc 31.7 g/dL (32-36); Mean Corpuscular Volume 92.5 fL (81-99); Mean Platelet Vol. 9.7 fl (6.2-12.0); NRBC Flagged by Analyzer 0 % (0-5); Platelet Count 270 K/mm3 (150-450); RBC Distribution Width CV 14.2 % (11.6-14.6); RBC Distribution Width SD 48.5 fl (35.1-43.9); Red Blood Count 4.77 M/mm3 (4.2-5.4); White Blood Count 5.4 K/mm3 (4.4-11.0)
[2025-03-13 18:50] LABS: Prothrombin Time (Protime)PT. 24.6 SECONDS (11.7-14.9)
== END | disposition home or self-care (01) ==
LOC: MTLAB 14:43
PROVIDERS: PCP Internal Medicine; Referring Provider Internal Medicine Cardiovascular Disease; Visit Provider Internal Medicine Cardiovascular Disease
DX: Z95.2 Presence of prosthetic heart valve (principal); Z79.01 Long term (current) use of anticoagulants
CPT/HCPCS: 36415; 85025; 85610

== ENCOUNTER → 2025-03-20 | Outpatient (CLI) | payer MEDICARE, MEDICAID, SELFPAY ==
[2025-03-20 12:34] LABS: Prothrombin Time (Protime)PT. 32.7 SECONDS (11.7-14.9)
== END | disposition home or self-care (01) ==
LOC: LAB 11:52
PROVIDERS: PCP Internal Medicine; Referring Provider Internal Medicine Cardiovascular Disease; Visit Provider Internal Medicine Cardiovascular Disease
DX: Z79.01 Long term (current) use of anticoagulants (principal)
CPT/HCPCS: 36415; 85610

== ENCOUNTER 2025-03-27 14:13 | Outpatient (RCR) | payer MEDICARE, MEDICAID, SELFPAY ==
[2025-03-27 18:00] LABS: Prothrombin Time (Protime)PT. 34.5 SECONDS (11.7-14.9)
== END 2025-03-27 18:00 | disposition home or self-care (01) ==
LOC: MTLAB 14:13
PROVIDERS: PCP Internal Medicine; Referring Provider Internal Medicine Cardiovascular Disease; Visit Provider Internal Medicine Cardiovascular Disease
DX: Z95.2 Presence of prosthetic heart valve (principal); Z79.01 Long term (current) use of anticoagulants
CPT/HCPCS: 36415; 85610

== ENCOUNTER → 2025-04-10 | Outpatient (CLI) | payer MEDICARE, MEDICAID, SELFPAY ==
--- NOTE | 2025-04-10 14:40 | RAD_ITS ---
PROCEDURE: HIP, UNI W/ PELVIS 2-3 VIEWS 04/10/2025 REASON FOR EXAM: LEFT HIP WEAKNESS TECHNIQUE: Procedure Code: RAD Modality: DX Procedure: HIP, UNI W/ PELVIS 2-3 VIEWS Laterality: Left COMPARISON: Pelvic and right hip study dated 06/08/2024 FINDINGS: Bones: Again noted are healed fractures of the right superior and inferior pubic ramus. No acute fractures of the bony pelvis or left hip are noted. Joints: Mild degenerative osteoarthritic changes of the right hip are noted. Of the left hip is unremarkable. SI joints are unremarkable. Pubic symphysis is unremarkable. Soft tissues: Soft tissues appear grossly unremarkable. Other: Radiopaque clips are projected over the subcutaneous soft tissuesmedial to the proximal femur RAD/HIP, UNI W/ Pelvis 2-3 Views IMPRESSION: Healed fractures of the right superior and inferior pubic ramus. Left hip is unremarkable. Mild degenerative osteoarthritic changes of the right hip. Reading Location: [id number]
== END | disposition home or self-care (01) ==
LOC: MTRAD 14:40
PROVIDERS: PCP Internal Medicine; Referring Provider Physician Assistant; Visit Provider Physician Assistant
DX: R29.898 Other symptoms and signs involving the musculoskeletal system (principal)
CPT/HCPCS: 73502

== ENCOUNTER 2025-05-04 15:06 | Outpatient (RCR) | payer MEDICARE, MEDICAID, SELFPAY ==
[2025-05-04 15:38] LABS: Prothrombin Time (Protime)PT. 40.7 SECONDS (11.7-14.9)
== END 2025-05-04 18:00 | disposition home or self-care (01) ==
LOC: LAB 15:06
PROVIDERS: Physician Assistant Medical; PCP Internal Medicine; Referring Provider Internal Medicine Cardiovascular Disease; Visit Provider Internal Medicine Cardiovascular Disease
DX: Z51.81 Encounter for therapeutic drug level monitoring (principal); Z95.1 Presence of aortocoronary bypass graft; Z86.79 Personal history of other diseases of the circulatory system; Z95.2 Presence of prosthetic heart valve
CPT/HCPCS: 36415; 85610